=== PATIENT | female | born 1975 ===

== ENCOUNTER 2017-02-12 00:20 | Day surgery (SDC) | payer SELFPAY ==
[~2017-02-12 00:20] MED LIST: Bactrim 400-801 EACH PO; Bactrim Ds Tab1 EACH PO; CEPH500 PO; CIPR500 PO; Dulcolax Stool100 MG PO; GABA300 PO; Keflex500 MG PO; LEVFLO500 PO; NITR100CA PO; ONDA4ODT MM; OXYC10TA19 PO; POTCHL10ER; PROC5 PO; SENN187 PO; Sulfamethoxazo1 EAC4 PO
[2017-05-27] MEDS ORDERED: MAGOXI400 PO (16:56)
[2017-06-26] MEDS ORDERED: PENVK500 PO (08:58)
[2017-11-22] MEDS ORDERED: Zofran Odt4 MG SL (13:56)
[2017-11-22] MEDS ORDERED: Norco 10-325 T1 EACH PO (13:56)
[2017-11-22] MEDS ORDERED: LEVFLO500 PO (13:56)
== END 2017-02-12 16:37 | disposition home or self-care (01) ==
LOC: ATC 00:20
DX: Z43.6 Encounter for attention to other artificial openings of urinary tract (principal); R30.0 Dysuria; C53.9 Malignant neoplasm of cervix uteri, unspecified
CPT/HCPCS: 99211

== ENCOUNTER 2017-02-16 21:08 | Emergency (ER) | payer SELFPAY ==
[~2017-02-16] VITALS: Ht 160 cm; Wt 68.0 kg
[2017-02-16 22:31] LABS: BASOPHILS ABSOLUTE AUTO 0.01 K/mm3 (0.00-0.23); BASOPHILS PERCENT AUTO 0 % (0-2); EOSINOPHILS ABSOLUTE AUTO 0.42 K/mm3 (0.00-0.68); EOSINOPHILS PERCENT AUTO 6 % (0-6); Hematocrit 35.9 % (33.0-51.0); Hemoglobin 12.2 g/dL (11.5-16.0); IMMATURE GRAN ABSOLUTE AUTO 0.03 K/mm3 (0.00-0.10); IMMATURE GRAN PERCENT AUTO 0 % (0-1); LYMPHOCYTES ABSOLUTE AUTO 1.17 K/mm3 (0.84-5.20); LYMPHOCYTES PERCENT AUTO 17 % (21-46); MONOCYTES ABSOLUTE AUTO 0.25 K/mm3 (0.16-1.47); MONOCYTES PERCENT AUTO 4 % (4-13); Mean Corpuscular Volume 88 fL (80-100); Mean Platelet Volume 9.2 fL (9.1-12.4); NEUTROPHILS ABSOLUTE AUTO 5.02 K/mm3 (1.96-9.15); NEUTROPHILS PERCENT AUTO 73 % (41-73); Platelet Count 361 K/mm3 (150-400); RDW Coefficient Variation 12.7 % (11.7-14.2); RDW Standard Deviation 40.9 fL (35.1-46.3); Red Blood Cell Count 4.07 M/mm3 (3.80-5.20)
[2017-02-16 22:32] LABS: Source, Urine Clean Catch
[2017-02-16 22:34] LABS: Bilirubin, Urine Neg (Neg); Blood, Urine 4+ (Neg); Glucose Qualitative, Urine Neg (Neg); Ketones, Urine Neg (Neg); Leukocyte Esterase, Urine 3+ (Neg); Nitrite, Urine Neg (Neg); Protein, Urine 3+ (Neg); Specific Gravity, Urine 1.015 (1.003-1.022); Urobilinogen, Urine NORM (Normal)
[2017-02-16 22:43] LABS: Alanine Aminotransfer (ALT/SGP 32 U/L (12-78); Albumin, Blood 3.6 g/dL (3.4-5.0); Albumin/Globulin Ratio 0.8 (0.8-1.8); Alk Phos 135 U/L (50-136); Anion Gap 11 mmol/L (6-16); Aspartate Aminotrans (AST/SGOT 24 U/L (12-37); Bilirubin, Total 0.1 mg/dL (0.1-1.0); Blood Urea Nitrogen 22 mg/dL (8-24); Bun/Creatinine Ratio 21.8 (12.0-20.0); CO2, Blood 24 mmol/L (21-32); Calcium, Blood 8.7 mg/dL (8.5-10.1); Chloride, Blood 106 mmol/L (98-108); Creatinine, Blood 1.01 mg/dL (0.40-1.00); Globulin, Blood 4.6 g/dL (2.2-4.0); Glomerular Filtration Rate >60 (60-); Glucose, Blood 132 mg/dL (70-99); Potassium, Blood 3.5 mmol/L (3.5-5.5); Sodium, Blood 141 mmol/L (136-145); Total Protein, Blood 8.2 g/dL (6.4-8.2)
[2017-02-16 22:48] LABS: Appearance, Urine Cloudy (Clear); Bacteria Many /hpf; Color, Urine Yellow (P-Yellow); Squamous Epithelial Cells Few /hpf (Few); White Blood Cells, Urine 25-50 /hpf (0-5)
[2017-05-27] MEDS ORDERED: MAGOXI400 PO (16:56)
[2017-06-26] MEDS ORDERED: PENVK500 PO (08:58)
[2017-11-22] MEDS ORDERED: Norco 10-325 T1 EACH PO (13:56)
[2017-11-22] MEDS ORDERED: Zofran Odt4 MG SL (13:56)
[2017-11-22] MEDS ORDERED: LEVFLO500 PO (13:56)
== END 2017-02-17 00:20 | disposition home or self-care (01) ==
LOC: ER 21:08
DX: T83.092A Other mechanical complication of nephrostomy catheter, initial encounter (principal); T83.511A Infection and inflammatory reaction due to indwelling urethral catheter, initial encounter; D49.59 Neoplasm of unspecified behavior of other genitourinary organ; Z79.899 Other long term (current) drug therapy
CPT/HCPCS: 36415; 71046; 80053; 81001; 83690; 85025; 87077; 87086; 87186; 99283

== ENCOUNTER 2017-02-18 00:30 | Day surgery (SDC) | payer SELFPAY ==
[2017-05-27] MEDS ORDERED: MAGOXI400 PO (16:56)
[2017-06-26] MEDS ORDERED: PENVK500 PO (08:58)
[2017-11-22] MEDS ORDERED: LEVFLO500 PO (13:56)
[2017-11-22] MEDS ORDERED: Zofran Odt4 MG SL (13:56)
[2017-11-22] MEDS ORDERED: Norco 10-325 T1 EACH PO (13:56)
== END 2017-02-18 16:41 | disposition home or self-care (01) ==
LOC: ATC 00:30
DX: Z43.6 Encounter for attention to other artificial openings of urinary tract (principal)
CPT/HCPCS: 99211

== ENCOUNTER 2017-02-25 00:23 | Day surgery (SDC) | payer SELFPAY ==
[2017-05-27] MEDS ORDERED: MAGOXI400 PO (16:56)
[2017-06-26] MEDS ORDERED: PENVK500 PO (08:58)
[2017-11-22] MEDS ORDERED: LEVFLO500 PO (13:56)
[2017-11-22] MEDS ORDERED: Norco 10-325 T1 EACH PO (13:56)
[2017-11-22] MEDS ORDERED: Zofran Odt4 MG SL (13:56)
== END 2017-02-25 16:29 | disposition home or self-care (01) ==
LOC: ATC 00:23
DX: C53.9 Malignant neoplasm of cervix uteri, unspecified (principal); R30.0 Dysuria; G62.9 Polyneuropathy, unspecified
CPT/HCPCS: 99211

== ENCOUNTER 2017-03-04 00:08 | Day surgery (SDC) | payer SELFPAY ==
[2017-05-27] MEDS ORDERED: MAGOXI400 PO (16:56)
[2017-06-26] MEDS ORDERED: PENVK500 PO (08:58)
[2017-11-22] MEDS ORDERED: LEVFLO500 PO (13:56)
[2017-11-22] MEDS ORDERED: Norco 10-325 T1 EACH PO (13:56)
[2017-11-22] MEDS ORDERED: Zofran Odt4 MG SL (13:56)
== END 2017-03-04 16:51 | disposition home or self-care (01) ==
LOC: ATC 00:08
DX: C53.9 Malignant neoplasm of cervix uteri, unspecified (principal); G62.9 Polyneuropathy, unspecified; R30.0 Dysuria
CPT/HCPCS: 99211

== ENCOUNTER 2017-03-11 00:19 | Day surgery (SDC) | payer SELFPAY ==
[2017-05-27] MEDS ORDERED: MAGOXI400 PO (16:56)
[2017-06-26] MEDS ORDERED: PENVK500 PO (08:58)
[2017-11-22] MEDS ORDERED: Norco 10-325 T1 EACH PO (13:56)
[2017-11-22] MEDS ORDERED: LEVFLO500 PO (13:56)
[2017-11-22] MEDS ORDERED: Zofran Odt4 MG SL (13:56)
== END 2017-03-11 16:37 | disposition home or self-care (01) ==
LOC: ATC 00:19
DX: Z43.6 Encounter for attention to other artificial openings of urinary tract (principal); C53.9 Malignant neoplasm of cervix uteri, unspecified; G62.9 Polyneuropathy, unspecified
CPT/HCPCS: 99211

== ENCOUNTER 2017-03-18 00:30 | Day surgery (SDC) | payer SELFPAY ==
[2017-05-27] MEDS ORDERED: MAGOXI400 PO (16:56)
[2017-06-26] MEDS ORDERED: PENVK500 PO (08:58)
[2017-11-22] MEDS ORDERED: LEVFLO500 PO (13:56)
[2017-11-22] MEDS ORDERED: Norco 10-325 T1 EACH PO (13:56)
[2017-11-22] MEDS ORDERED: Zofran Odt4 MG SL (13:56)
== END 2017-03-18 22:55 | disposition home or self-care (01) ==
LOC: ATC 00:30
DX: Z43.6 Encounter for attention to other artificial openings of urinary tract (principal); C53.9 Malignant neoplasm of cervix uteri, unspecified; G62.9 Polyneuropathy, unspecified
CPT/HCPCS: 99211

== ENCOUNTER 2017-03-20 20:15 | Emergency (ER) | payer SELFPAY ==
[~2017-03-20] VITALS: Ht 162.6 cm; Wt 55.8 kg
[2017-03-20 21:31] LABS: Source, Urine Urostomy Bag
[2017-03-20 21:38] LABS: Appearance, Urine Cloudy (Clear); Bilirubin, Urine Neg (Neg); Blood, Urine 5+ (Neg); Color, Urine Yellow (P-Yellow); Glucose Qualitative, Urine Neg (Neg); Ketones, Urine Neg (Neg); Leukocyte Esterase, Urine 3+ (Neg); Nitrite, Urine Neg (Neg); Protein, Urine 3+ (Neg); Specific Gravity, Urine 1.005 (1.003-1.022); Urobilinogen, Urine NORM (Normal)
[2017-03-20 21:44] LABS: Red Blood Cells, Urine 0-2 /hpf (0-2); White Blood Cells, Urine TNTC /hpf (0-5)
[2017-03-20 21:45] LABS: Bacteria Many /hpf; Squamous Epithelial Cells Not Seen /hpf (Few)
[2017-03-20 22:41] LABS: BASOPHILS ABSOLUTE AUTO 0.02 K/mm3 (0.00-0.23); BASOPHILS PERCENT AUTO 0 % (0-2); EOSINOPHILS ABSOLUTE AUTO 0.37 K/mm3 (0.00-0.68); EOSINOPHILS PERCENT AUTO 6 % (0-6); Hematocrit 37.6 % (33.0-51.0); Hemoglobin 12.5 g/dL (11.5-16.0); IMMATURE GRAN ABSOLUTE AUTO 0.03 K/mm3 (0.00-0.10); IMMATURE GRAN PERCENT AUTO 1 % (0-1); LYMPHOCYTES ABSOLUTE AUTO 0.98 K/mm3 (0.84-5.20); LYMPHOCYTES PERCENT AUTO 15 % (21-46); MONOCYTES ABSOLUTE AUTO 0.39 K/mm3 (0.16-1.47); MONOCYTES PERCENT AUTO 6 % (4-13); Mean Corpuscular HGB 29.7 pg (26.0-34.0); Mean Corpuscular HGB Conc 33.2 g/dL (31.5-36.5); Mean Corpuscular Volume 89 fL (80-100); Mean Platelet Volume 9.5 fL (9.1-12.4); NEUTROPHILS ABSOLUTE AUTO 4.81 K/mm3 (1.96-9.15); NEUTROPHILS PERCENT AUTO 73 % (41-73); Platelet Count 335 K/mm3 (150-400); RDW Coefficient Variation 13.1 % (11.7-14.2); Red Blood Cell Count 4.21 M/mm3 (3.80-5.20)
[2017-03-20 23:02] LABS: Alanine Aminotransfer (ALT/SGP 25 U/L (12-78); Albumin, Blood 3.6 g/dL (3.4-5.0); Albumin/Globulin Ratio 0.8 (0.8-1.8); Alk Phos 111 U/L (50-136); Anion Gap 7 mmol/L (6-16); Aspartate Aminotrans (AST/SGOT 17 U/L (12-37); Bilirubin, Total 0.2 mg/dL (0.1-1.0); Blood Urea Nitrogen 27 mg/dL (8-24); Bun/Creatinine Ratio 29.7 (12.0-20.0); CO2, Blood 30 mmol/L (21-32); Calcium, Blood 9.1 mg/dL (8.5-10.1); Chloride, Blood 103 mmol/L (98-108); Creatinine, Blood 0.91 mg/dL (0.40-1.00); Globulin, Blood 4.3 g/dL (2.2-4.0); Glomerular Filtration Rate >60 (60-); Glucose, Blood 104 mg/dL (70-99); Potassium, Blood 3.5 mmol/L (3.5-5.5); Sodium, Blood 140 mmol/L (136-145); Total Protein, Blood 7.9 g/dL (6.4-8.2)
[2017-03-20] MEDS ORDERED: CEFD300 PO (23:14)
[2017-05-27] MEDS ORDERED: MAGOXI400 PO (16:56)
[2017-06-26] MEDS ORDERED: PENVK500 PO (08:58)
[2017-11-22] MEDS ORDERED: LEVFLO500 PO (13:56)
[2017-11-22] MEDS ORDERED: Norco 10-325 T1 EACH PO (13:56)
[2017-11-22] MEDS ORDERED: Zofran Odt4 MG SL (13:56)
== END 2017-03-20 23:27 | disposition home or self-care (01) ==
LOC: ER 20:15
PROVIDERS: Emergency Medicine
DX: N99.522 Malfunction of incontinent external stoma of urinary tract (principal); N39.0 Urinary tract infection, site not specified; N12 Tubulo-interstitial nephritis, not specified as acute or chronic; Z79.899 Other long term (current) drug therapy
CPT/HCPCS: 36415; 80053; 81001; 85025; 96374; 99283; J2270

== ENCOUNTER 2017-03-25 00:28 | Day surgery (SDC) | payer SELFPAY ==
[~2017-03-25 00:28] MED LIST changes: +CEFD300 PO
[2017-05-27] MEDS ORDERED: MAGOXI400 PO (16:56)
[2017-06-26] MEDS ORDERED: PENVK500 PO (08:58)
[2017-11-22] MEDS ORDERED: LEVFLO500 PO (13:56)
[2017-11-22] MEDS ORDERED: Zofran Odt4 MG SL (13:56)
[2017-11-22] MEDS ORDERED: Norco 10-325 T1 EACH PO (13:56)
== END 2017-03-25 16:30 | disposition home or self-care (01) ==
LOC: ATC 00:28
DX: Z43.6 Encounter for attention to other artificial openings of urinary tract (principal); C53.9 Malignant neoplasm of cervix uteri, unspecified; R30.0 Dysuria
CPT/HCPCS: 99211

== ENCOUNTER 2017-04-01 00:21 | Day surgery (SDC) | payer SELFPAY ==
[2017-05-27] MEDS ORDERED: MAGOXI400 PO (16:56)
[2017-06-26] MEDS ORDERED: PENVK500 PO (08:58)
[2017-11-22] MEDS ORDERED: LEVFLO500 PO (13:56)
[2017-11-22] MEDS ORDERED: Zofran Odt4 MG SL (13:56)
[2017-11-22] MEDS ORDERED: Norco 10-325 T1 EACH PO (13:56)
== END 2017-04-01 16:30 | disposition home or self-care (01) ==
LOC: ATC 00:21
DX: Z43.6 Encounter for attention to other artificial openings of urinary tract (principal)
CPT/HCPCS: 99211

== ENCOUNTER 2017-04-08 00:46 | Day surgery (SDC) | payer SELFPAY ==
[2017-05-27] MEDS ORDERED: MAGOXI400 PO (16:56)
[2017-06-26] MEDS ORDERED: PENVK500 PO (08:58)
[2017-11-22] MEDS ORDERED: Norco 10-325 T1 EACH PO (13:56)
[2017-11-22] MEDS ORDERED: Zofran Odt4 MG SL (13:56)
[2017-11-22] MEDS ORDERED: LEVFLO500 PO (13:56)
== END 2017-04-08 16:24 | disposition home or self-care (01) ==
LOC: ATC 00:46
DX: Z43.6 Encounter for attention to other artificial openings of urinary tract (principal); C53.9 Malignant neoplasm of cervix uteri, unspecified; R30.0 Dysuria; G62.9 Polyneuropathy, unspecified
CPT/HCPCS: 99211

== ENCOUNTER 2017-04-15 00:41 | Day surgery (SDC) | payer SELFPAY ==
[2017-04-16] MEDS ORDERED: Bactrim 400-801 EACH PO (11:11)
[2017-05-27] MEDS ORDERED: MAGOXI400 PO (16:56)
[2017-06-26] MEDS ORDERED: PENVK500 PO (08:58)
[2017-11-22] MEDS ORDERED: Zofran Odt4 MG SL (13:56)
[2017-11-22] MEDS ORDERED: LEVFLO500 PO (13:56)
[2017-11-22] MEDS ORDERED: Norco 10-325 T1 EACH PO (13:56)
== END 2017-04-15 16:46 | disposition home or self-care (01) ==
LOC: ATC 00:41
DX: Z43.6 Encounter for attention to other artificial openings of urinary tract (principal); C53.9 Malignant neoplasm of cervix uteri, unspecified; R30.0 Dysuria
CPT/HCPCS: 99211

== ENCOUNTER 2017-04-16 07:27 | Emergency (ER) | payer SELFPAY ==
[~2017-04-16] VITALS: Ht 152.4 cm; Wt 59.0 kg
[2017-04-16 08:53] LABS: BASOPHILS ABSOLUTE AUTO 0.02 K/mm3 (0.00-0.23); BASOPHILS PERCENT AUTO 0 % (0-2); EOSINOPHILS ABSOLUTE AUTO 0.39 K/mm3 (0.00-0.68); EOSINOPHILS PERCENT AUTO 5 % (0-6); Hematocrit 39.7 % (33.0-51.0); Hemoglobin 13.1 g/dL (11.5-16.0); IMMATURE GRAN ABSOLUTE AUTO 0.03 K/mm3 (0.00-0.10); IMMATURE GRAN PERCENT AUTO 0 % (0-1); LYMPHOCYTES ABSOLUTE AUTO 1.15 K/mm3 (0.84-5.20); LYMPHOCYTES PERCENT AUTO 16 % (21-46); MONOCYTES ABSOLUTE AUTO 0.35 K/mm3 (0.16-1.47); MONOCYTES PERCENT AUTO 5 % (4-13); Mean Corpuscular HGB 29.5 pg (26.0-34.0); Mean Corpuscular Volume 89 fL (80-100); Mean Platelet Volume 9.5 fL (9.1-12.4); NEUTROPHILS ABSOLUTE AUTO 5.32 K/mm3 (1.96-9.15); NEUTROPHILS PERCENT AUTO 73 % (41-73); Platelet Count 346 K/mm3 (150-400); RDW Coefficient Variation 13.1 % (11.7-14.2); RDW Standard Deviation 42.9 fL (35.1-46.3); Red Blood Cell Count 4.44 M/mm3 (3.80-5.20); White Blood Cell Count 7.26 K/mm3 (4.00-11.30)
[2017-04-16 09:04] LABS: Anion Gap 6 mmol/L (6-16); Blood Urea Nitrogen 29 mg/dL (8-24); Bun/Creatinine Ratio 29.6 (12.0-20.0); CO2, Blood 27 mmol/L (21-32); Calcium, Blood 9.4 mg/dL (8.5-10.1); Chloride, Blood 108 mmol/L (98-108); Creatinine, Blood 0.98 mg/dL (0.40-1.00); Glomerular Filtration Rate >60 (60-); Glucose, Blood 104 mg/dL (70-99); Potassium, Blood 3.8 mmol/L (3.5-5.5); Sodium, Blood 141 mmol/L (136-145)
[2017-04-16 09:51] LABS: Source, Urine Clean Catch
[2017-04-16 10:03] LABS: Bilirubin, Urine Neg (Neg); Blood, Urine 4+ (Neg); Glucose Qualitative, Urine Neg (Neg); Ketones, Urine Neg (Neg); Leukocyte Esterase, Urine 3+ (Neg); Nitrite, Urine Neg (Neg); Protein, Urine 3+ (Neg); Urobilinogen, Urine NORM (Normal)
[2017-04-16 10:16] LABS: Appearance, Urine Hazy (Clear); Color, Urine Yellow (P-Yellow)
[2017-04-16 10:17] LABS: Red Blood Cells, Urine 25-50 /hpf (0-2); White Blood Cells, Urine TNTC /hpf (0-5)
[2017-04-16 10:18] LABS: Bacteria Many /hpf; Squamous Epithelial Cells Not Seen /hpf (Few); Triple Phosphate Crystals Many /hpf
[2017-04-16] MEDS ORDERED: Bactrim 400-801 EACH PO (11:11)
[2017-05-27] MEDS ORDERED: MAGOXI400 PO (16:56)
[2017-06-26] MEDS ORDERED: PENVK500 PO (08:58)
[2017-11-22] MEDS ORDERED: Norco 10-325 T1 EACH PO (13:56)
[2017-11-22] MEDS ORDERED: Zofran Odt4 MG SL (13:56)
[2017-11-22] MEDS ORDERED: LEVFLO500 PO (13:56)
== END 2017-04-16 11:38 | disposition home or self-care (01) ==
LOC: ER 07:27
PROVIDERS: Emergency Medicine
DX: N39.0 Urinary tract infection, site not specified (principal); N99.528 Other complication of incontinent external stoma of urinary tract; Z79.899 Other long term (current) drug therapy
CPT/HCPCS: 36415; 80048; 81001; 85025; 87086; 96374; 96375; 99283; J1170; J2405

== ENCOUNTER 2017-04-22 01:11 | Day surgery (SDC) | payer SELFPAY ==
[2017-05-27] MEDS ORDERED: MAGOXI400 PO (16:56)
[2017-06-26] MEDS ORDERED: PENVK500 PO (08:58)
[2017-11-22] MEDS ORDERED: Zofran Odt4 MG SL (13:56)
[2017-11-22] MEDS ORDERED: Norco 10-325 T1 EACH PO (13:56)
[2017-11-22] MEDS ORDERED: LEVFLO500 PO (13:56)
== END 2017-04-22 23:16 | disposition home or self-care (01) ==
LOC: ATC 01:11
DX: Z43.6 Encounter for attention to other artificial openings of urinary tract (principal); R30.0 Dysuria; C53.9 Malignant neoplasm of cervix uteri, unspecified
CPT/HCPCS: 99211

== ENCOUNTER 2017-04-28 15:35 | Emergency (ER) | payer SELFPAY ==
[~2017-04-28] VITALS: Ht 121.9 cm; Wt 59.0 kg
[2017-05-27] MEDS ORDERED: MAGOXI400 PO (16:56)
[2017-06-26] MEDS ORDERED: PENVK500 PO (08:58)
[2017-11-22] MEDS ORDERED: LEVFLO500 PO (13:56)
[2017-11-22] MEDS ORDERED: Norco 10-325 T1 EACH PO (13:56)
[2017-11-22] MEDS ORDERED: Zofran Odt4 MG SL (13:56)
== END 2017-04-28 17:45 | disposition home or self-care (01) ==
LOC: ER 15:35
DX: Z43.6 Encounter for attention to other artificial openings of urinary tract (principal); Z79.899 Other long term (current) drug therapy
CPT/HCPCS: 99282

== ENCOUNTER 2017-04-29 00:29 | Day surgery (SDC) | payer SELFPAY ==
[2017-05-27] MEDS ORDERED: MAGOXI400 PO (16:56)
[2017-06-26] MEDS ORDERED: PENVK500 PO (08:58)
[2017-11-22] MEDS ORDERED: Norco 10-325 T1 EACH PO (13:56)
[2017-11-22] MEDS ORDERED: Zofran Odt4 MG SL (13:56)
[2017-11-22] MEDS ORDERED: LEVFLO500 PO (13:56)
== END 2017-04-29 16:56 | disposition home or self-care (01) ==
LOC: ATC 00:29
DX: Z43.6 Encounter for attention to other artificial openings of urinary tract (principal); C53.9 Malignant neoplasm of cervix uteri, unspecified; R30.0 Dysuria
CPT/HCPCS: 99211

== ENCOUNTER 2017-05-06 00:50 | Day surgery (SDC) | payer SELFPAY ==
[2017-05-27] MEDS ORDERED: MAGOXI400 PO (16:56)
[2017-06-26] MEDS ORDERED: PENVK500 PO (08:58)
[2017-11-22] MEDS ORDERED: Zofran Odt4 MG SL (13:56)
[2017-11-22] MEDS ORDERED: LEVFLO500 PO (13:56)
[2017-11-22] MEDS ORDERED: Norco 10-325 T1 EACH PO (13:56)
== END 2017-05-06 16:09 | disposition home or self-care (01) ==
LOC: ATC 00:50
DX: Z43.6 Encounter for attention to other artificial openings of urinary tract (principal); R30.0 Dysuria; C53.9 Malignant neoplasm of cervix uteri, unspecified
CPT/HCPCS: 99211

== ENCOUNTER 2017-05-12 09:44 | Inpatient (IN) | payer SELFPAY ==
[~2017-05-12] VITALS: Ht 142.2 cm; Wt 66.7 kg
[2017-05-12 11:21] LABS: BASOPHILS ABSOLUTE AUTO 0.02 K/mm3 (0.00-0.23); BASOPHILS PERCENT AUTO 0 % (0-2); EOSINOPHILS ABSOLUTE AUTO 0.17 K/mm3 (0.00-0.68); EOSINOPHILS PERCENT AUTO 2 % (0-6); Hematocrit 39.5 % (33.0-51.0); Hemoglobin 13.3 g/dL (11.5-16.0); IMMATURE GRAN ABSOLUTE AUTO 0.03 K/mm3 (0.00-0.10); IMMATURE GRAN PERCENT AUTO 0 % (0-1); LYMPHOCYTES PERCENT AUTO 6 % (21-46); MONOCYTES ABSOLUTE AUTO 0.36 K/mm3 (0.16-1.47); MONOCYTES PERCENT AUTO 3 % (4-13); Mean Corpuscular HGB 29.7 pg (26.0-34.0); Mean Corpuscular HGB Conc 33.7 g/dL (31.5-36.5); Mean Corpuscular Volume 88 fL (80-100); Mean Platelet Volume 9.7 fL (9.1-12.4); NEUTROPHILS ABSOLUTE AUTO 9.77 K/mm3 (1.96-9.15); NEUTROPHILS PERCENT AUTO 89 % (41-73); Platelet Count 337 K/mm3 (150-400); RDW Standard Deviation 42.4 fL (35.1-46.3); Red Blood Cell Count 4.48 M/mm3 (3.80-5.20); White Blood Cell Count 10.95 K/mm3 (4.00-11.30)
[2017-05-12 11:36] LABS: Calcium, Blood 9.2 mg/dL (8.5-10.1); Creatinine, Blood 1.45 mg/dL (0.40-1.00); Potassium, Blood 3.8 mmol/L (3.5-5.5)
[2017-05-12 14:18] LABS: Source, Urine Urostomy Bag
[2017-05-12 14:36] LABS: Appearance, Urine Hazy (Clear); Bilirubin, Urine Neg (Neg); Blood, Urine 3+ (Neg); Color, Urine Yellow (P-Yellow); Glucose Qualitative, Urine Neg (Neg); Ketones, Urine Neg (Neg); Leukocyte Esterase, Urine 3+ (Neg); Nitrite, Urine Neg (Neg); Protein, Urine 2+ (Neg); Urobilinogen, Urine NORM (Normal)
[2017-05-12 14:57] LABS: Red Blood Cells, Urine 25-50 /hpf (0-2); White Blood Cells, Urine 25-50 /hpf (0-5)
[2017-05-12 14:58] LABS: Bacteria Many /hpf; Squamous Epithelial Cells Not Seen /hpf (Few); Triple Phosphate Crystals Mod /hpf
[2017-05-12] MEDS ORDERED: Macrobid 100 M100 MG PO (15:56)
[2017-05-12] MEDS ORDERED: PANT40 PO (20:57)
[2017-05-12] MEDS ORDERED: BISA5EC PO (20:58)
[2017-05-12] MEDS ORDERED: BIOTIN5000 MCG PO (20:59)
[2017-05-12] MEDS ORDERED: TRAM50 PO (20:59)
[2017-05-13 05:37] LABS: Hematocrit 33.7 % (33.0-51.0); Hemoglobin 11.2 g/dL (11.5-16.0); Mean Corpuscular HGB 29.9 pg (26.0-34.0); Mean Corpuscular HGB Conc 33.2 g/dL (31.5-36.5); Mean Corpuscular Volume 90 fL (80-100); Platelet Count 257 K/mm3 (150-400); RDW Coefficient Variation 13.7 % (11.7-14.2); RDW Standard Deviation 45.1 fL (35.1-46.3); Red Blood Cell Count 3.74 M/mm3 (3.80-5.20)
[2017-05-13 05:59] LABS: Bun/Creatinine Ratio 13.5 (12.0-20.0); Calcium, Blood 7.8 mg/dL (8.5-10.1); Creatinine, Blood 2.81 mg/dL (0.40-1.00); Potassium, Blood 3.8 mmol/L (3.5-5.5)
== END 2017-05-13 17:33 | disposition short-term general hospital (02) | DRG 872 ==
LOC: ER 09:44 → MEDS 09:45
PROVIDERS: Emergency Medicine; Internal Medicine
DX: A41.9 Sepsis, unspecified organism (principal); N17.9 Acute kidney failure, unspecified; N12 Tubulo-interstitial nephritis, not specified as acute or chronic; N13.1 Hydronephrosis with ureteral stricture, not elsewhere classified; R65.20 Severe sepsis without septic shock; R73.03 Prediabetes; C53.9 Malignant neoplasm of cervix uteri, unspecified; Z96.89 Presence of other specified functional implants; E66.9 Obesity, unspecified; Z68.39 Body mass index [BMI] 39.0-39.9, adult; Z79.899 Other long term (current) drug therapy; Z92.21 Personal history of antineoplastic chemotherapy; Z92.3 Personal history of irradiation
CPT/HCPCS: 36415; 74176; 80048; 81001; 83605; 85025; 85027; 87040; 87077; 87086; 87186; 93005; 93010; 96361; 96374; 96375; 99285; J0696; J2405; J2543; J3010; J7030; J7120

== ENCOUNTER 2017-06-03 00:49 | Day surgery (SDC) | payer SELFPAY ==
[~2017-06-03 00:49] MED LIST changes: +BIOTIN5000 MCG PO; +BISA5EC PO; +MAGOXI400 PO; +Macrobid 100 M100 MG PO; +PANT40 PO; +TRAM50 PO
== END 2017-06-03 16:50 | disposition home or self-care (01) ==
LOC: ATC 00:49
DX: Z43.6 Encounter for attention to other artificial openings of urinary tract (principal); R30.0 Dysuria; C53.9 Malignant neoplasm of cervix uteri, unspecified
CPT/HCPCS: 99211

== ENCOUNTER 2017-06-10 00:25 | Day surgery (SDC) | payer SELFPAY | END 2017-06-10 16:52 | disposition home or self-care (01) | LOC: ATC 00:25 | DX: Z43.6 Encounter for attention to other artificial openings of urinary tract (principal); R30.0 Dysuria; C53.9 Malignant neoplasm of cervix uteri, unspecified ==

== ENCOUNTER 2017-06-17 00:53 | Day surgery (SDC) | payer SELFPAY | END 2017-06-17 16:32 | disposition home or self-care (01) | LOC: ATC 00:53 | DX: Z46.6 Encounter for fitting and adjustment of urinary device (principal) | CPT/HCPCS: 99211 ==

== ENCOUNTER 2017-06-22 08:25 | Emergency (ER) | payer SELFPAY ==
[~2017-06-22] VITALS: Ht 127 cm; Wt 59.0 kg
[2017-06-22 10:16] LABS: BASOPHILS ABSOLUTE AUTO 0.01 K/mm3 (0.00-0.23); BASOPHILS PERCENT AUTO 0 % (0-2); EOSINOPHILS ABSOLUTE AUTO 0.09 K/mm3 (0.00-0.68); EOSINOPHILS PERCENT AUTO 1 % (0-6); Hematocrit 35.5 % (33.0-51.0); Hemoglobin 11.8 g/dL (11.5-16.0); IMMATURE GRAN ABSOLUTE AUTO 0.03 K/mm3 (0.00-0.10); IMMATURE GRAN PERCENT AUTO 0 % (0-1); LYMPHOCYTES ABSOLUTE AUTO 1.11 K/mm3 (0.84-5.20); LYMPHOCYTES PERCENT AUTO 12 % (21-46); MONOCYTES ABSOLUTE AUTO 0.45 K/mm3 (0.16-1.47); MONOCYTES PERCENT AUTO 5 % (4-13); Mean Corpuscular HGB 29.7 pg (26.0-34.0); Mean Corpuscular HGB Conc 33.2 g/dL (31.5-36.5); Mean Corpuscular Volume 89 fL (80-100); Mean Platelet Volume 9.9 fL (9.1-12.4); NEUTROPHILS ABSOLUTE AUTO 7.99 K/mm3 (1.96-9.15); NEUTROPHILS PERCENT AUTO 83 % (41-73); Platelet Count 339 K/mm3 (150-400); RDW Coefficient Variation 13.4 % (11.7-14.2); RDW Standard Deviation 43.4 fL (35.1-46.3); Red Blood Cell Count 3.97 M/mm3 (3.80-5.20); White Blood Cell Count 9.68 K/mm3 (4.00-11.30)
[2017-06-22 10:34] LABS: Albumin, Blood 3.6 g/dL (3.4-5.0); Albumin/Globulin Ratio 0.9 (0.8-1.8); Bilirubin, Total 0.6 mg/dL (0.1-1.0); Bun/Creatinine Ratio 22.1 (12.0-20.0); Calcium, Blood 8.7 mg/dL (8.5-10.1); Creatinine, Blood 1.13 mg/dL (0.40-1.00); Globulin, Blood 4.1 g/dL (2.2-4.0); Potassium, Blood 3.3 mmol/L (3.5-5.5); Total Protein, Blood 7.7 g/dL (6.4-8.2)
[2017-06-22 10:41] LABS: Source, Urine Urostomy Bag
[2017-06-22 10:44] LABS: Bilirubin, Urine Neg (Neg); Blood, Urine 5+ (Neg); Glucose Qualitative, Urine Neg (Neg); Ketones, Urine Neg (Neg); Leukocyte Esterase, Urine 3+ (Neg); Nitrite, Urine Pos (Neg); Protein, Urine 3+ (Neg); Specific Gravity, Urine 1.015 (1.003-1.022); Urobilinogen, Urine NORM (Normal); pH, Urine 6.5 (5.0-8.0)
[2017-06-22 10:45] LABS: Color, Urine Yellow (P-Yellow)
[2017-06-22 10:46] LABS: Appearance, Urine Cloudy (Clear)
[2017-06-22 10:48] LABS: White Blood Cells, Urine 25-50 /hpf (0-5)
[2017-06-22 10:49] LABS: Bacteria Mod /hpf; Mucus Light (0-Heavy); Squamous Epithelial Cells Few /hpf (Few)
[2017-06-22] MEDS ORDERED: ONDA4 PO (11:10)
[2017-06-22] MEDS ORDERED: Macrobid 100 M100 MG PO (11:10)
[2017-06-26] MEDS ORDERED: PENVK500 PO (08:58)
== END 2017-06-22 11:30 | disposition home or self-care (01) ==
LOC: ER 08:25
PROVIDERS: Emergency Medicine
DX: R11.2 Nausea with vomiting, unspecified (principal); R19.7 Diarrhea, unspecified; Z93.6 Other artificial openings of urinary tract status; Z79.899 Other long term (current) drug therapy
CPT/HCPCS: 36415; 80053; 81001; 85025; 87077; 87086; 87186; 96374; 99283; J2405; J7030

== ENCOUNTER 2017-06-24 00:12 | Day surgery (SDC) | payer SELFPAY ==
[~2017-06-24 00:12] MED LIST changes: +ONDA4 PO
[2017-06-26] MEDS ORDERED: PENVK500 PO (08:58)
== END 2017-06-24 16:43 | disposition home or self-care (01) ==
LOC: ATC 00:12
DX: Z43.6 Encounter for attention to other artificial openings of urinary tract (principal); R30.0 Dysuria; C53.9 Malignant neoplasm of cervix uteri, unspecified
CPT/HCPCS: 99211

== ENCOUNTER 2017-07-01 00:37 | Day surgery (SDC) | payer SELFPAY ==
[~2017-07-01 00:37] MED LIST changes: +PENVK500 PO
== END 2017-07-01 16:38 | disposition home or self-care (01) ==
LOC: ATC 00:37
DX: Z43.6 Encounter for attention to other artificial openings of urinary tract (principal); R30.0 Dysuria
CPT/HCPCS: 99211

== ENCOUNTER 2017-07-08 00:09 | Day surgery (SDC) | payer SELFPAY | END 2017-07-08 22:38 | disposition home or self-care (01) | LOC: ATC 00:09 | DX: Z43.6 Encounter for attention to other artificial openings of urinary tract (principal); R30.0 Dysuria; C53.9 Malignant neoplasm of cervix uteri, unspecified ==

== ENCOUNTER 2017-07-15 00:15 | Day surgery (SDC) | payer SELFPAY | END 2017-07-15 16:47 | disposition home or self-care (01) | LOC: ATC 00:15 | DX: A41.9 Sepsis, unspecified organism (principal); N12 Tubulo-interstitial nephritis, not specified as acute or chronic; R65.20 Severe sepsis without septic shock; N17.9 Acute kidney failure, unspecified; N13.5 Crossing vessel and stricture of ureter without hydronephrosis | CPT/HCPCS: 99211 ==

== ENCOUNTER 2017-07-22 00:41 | Day surgery (SDC) | payer SELFPAY | END 2017-07-22 17:00 | disposition home or self-care (01) | LOC: ATC 00:41 | DX: Z43.6 Encounter for attention to other artificial openings of urinary tract (principal); A41.9 Sepsis, unspecified organism; R65.20 Severe sepsis without septic shock; N12 Tubulo-interstitial nephritis, not specified as acute or chronic; N13.5 Crossing vessel and stricture of ureter without hydronephrosis; R30.0 Dysuria; N17.9 Acute kidney failure, unspecified | CPT/HCPCS: 99211 ==

== ENCOUNTER 2017-07-29 00:33 | Day surgery (SDC) | payer SELFPAY | END 2017-07-29 17:04 | disposition home or self-care (01) | LOC: ATC 00:33 | DX: A41.9 Sepsis, unspecified organism (principal); N12 Tubulo-interstitial nephritis, not specified as acute or chronic; R65.20 Severe sepsis without septic shock; N17.9 Acute kidney failure, unspecified; R73.03 Prediabetes; N13.5 Crossing vessel and stricture of ureter without hydronephrosis | CPT/HCPCS: 99211 ==

== ENCOUNTER 2017-08-01 21:46 | Emergency (ER) | payer SELFPAY ==
[~2017-08-01] VITALS: Ht 147.3 cm; Wt 63.5 kg
[2017-08-01 23:57] LABS: BASOPHILS ABSOLUTE AUTO 0.03 K/mm3 (0.00-0.23); BASOPHILS PERCENT AUTO 0 % (0-2); EOSINOPHILS ABSOLUTE AUTO 0.29 K/mm3 (0.00-0.68); EOSINOPHILS PERCENT AUTO 3 % (0-6); Hematocrit 33.4 % (33.0-51.0); Hemoglobin 11.1 g/dL (11.5-16.0); IMMATURE GRAN ABSOLUTE AUTO 0.03 K/mm3 (0.00-0.10); IMMATURE GRAN PERCENT AUTO 0 % (0-1); LYMPHOCYTES ABSOLUTE AUTO 1.04 K/mm3 (0.84-5.20); LYMPHOCYTES PERCENT AUTO 12 % (21-46); MONOCYTES ABSOLUTE AUTO 0.62 K/mm3 (0.16-1.47); MONOCYTES PERCENT AUTO 7 % (4-13); Mean Corpuscular HGB 30.2 pg (26.0-34.0); Mean Corpuscular HGB Conc 33.2 g/dL (31.5-36.5); Mean Corpuscular Volume 91 fL (80-100); Mean Platelet Volume 9.8 fL (9.1-12.4); NEUTROPHILS ABSOLUTE AUTO 6.81 K/mm3 (1.96-9.15); NEUTROPHILS PERCENT AUTO 77 % (41-73); Platelet Count 265 K/mm3 (150-400); RDW Coefficient Variation 13.4 % (11.7-14.2); Red Blood Cell Count 3.67 M/mm3 (3.80-5.20); White Blood Cell Count 8.82 K/mm3 (4.00-11.30)
[2017-08-02 00:15] LABS: Albumin, Blood 3.3 g/dL (3.4-5.0); Albumin/Globulin Ratio 0.8 (0.8-1.8); Bilirubin, Total 0.5 mg/dL (0.1-1.0); Bun/Creatinine Ratio 19.5 (12.0-20.0); Calcium, Blood 8.2 mg/dL (8.5-10.1); Creatinine, Blood 1.49 mg/dL (0.40-1.00); Potassium, Blood 3.5 mmol/L (3.5-5.5); Total Protein, Blood 7.3 g/dL (6.4-8.2)
[2017-08-02] MEDS ORDERED: Norco 5-325 Ta1 EACH PO (01:28)
[2017-08-02] MEDS ORDERED: Cephalexin500 MG PO (01:28)
[2017-08-02 01:37] LABS: Bilirubin, Urine Neg (Neg); Blood, Urine 4+ (Neg); Glucose Qualitative, Urine Neg (Neg); Ketones, Urine Neg (Neg); Leukocyte Esterase, Urine 3+ (Neg); Nitrite, Urine Neg (Neg); Protein, Urine 2+ (Neg); Urobilinogen, Urine NORM (Normal)
[2017-08-02 01:38] LABS: Appearance, Urine Cloudy (Clear); Color, Urine Pale Yellow (P-Yellow)
[2017-08-02 01:57] LABS: Bacteria Mod /hpf; Red Blood Cells, Urine 0-2 /hpf (0-2); Squamous Epithelial Cells Few /hpf (Few); White Blood Cells, Urine TNTC /hpf (0-5)
== END 2017-08-02 01:50 | disposition home or self-care (01) ==
LOC: ER 21:46
PROVIDERS: Emergency Medicine
DX: N10 Acute pyelonephritis (principal); Z79.899 Other long term (current) drug therapy
CPT/HCPCS: 80053; 81001; 83690; 85025; 96374; 99284; J0696

== ENCOUNTER 2017-08-05 00:13 | Day surgery (SDC) | payer SELFPAY ==
[~2017-08-05 00:13] MED LIST changes: +Cephalexin500 MG PO; +Norco 5-325 Ta1 EACH PO
== END 2017-08-05 22:50 | disposition home or self-care (01) ==
LOC: ATC 00:13
DX: A41.9 Sepsis, unspecified organism (principal); N12 Tubulo-interstitial nephritis, not specified as acute or chronic; R65.20 Severe sepsis without septic shock; N17.9 Acute kidney failure, unspecified; N13.5 Crossing vessel and stricture of ureter without hydronephrosis
CPT/HCPCS: 99211

== ENCOUNTER 2017-08-19 00:46 | Day surgery (SDC) | payer SELFPAY | END 2017-08-19 16:52 | disposition home or self-care (01) | LOC: ATC 00:46 | DX: Z43.6 Encounter for attention to other artificial openings of urinary tract (principal); D50.9 Iron deficiency anemia, unspecified | CPT/HCPCS: 99211 ==

== ENCOUNTER 2017-08-26 00:45 | Day surgery (SDC) | payer SELFPAY | END 2017-08-26 16:25 | disposition home or self-care (01) | LOC: ATC 00:45 | DX: Z43.6 Encounter for attention to other artificial openings of urinary tract (principal) | CPT/HCPCS: 99211 ==

== ENCOUNTER 2017-09-16 00:16 | Day surgery (SDC) | payer SELFPAY | END 2017-09-16 23:04 | disposition home or self-care (01) | LOC: ATC 00:16 | DX: N18.3 Chronic kidney disease, stage 3 (moderate) (principal); N13.9 Obstructive and reflux uropathy, unspecified | CPT/HCPCS: 99211 ==

== ENCOUNTER 2017-09-23 00:19 | Day surgery (SDC) | payer SELFPAY | END 2017-09-23 16:26 | disposition home or self-care (01) | LOC: ATC 00:19 | DX: A41.9 Sepsis, unspecified organism (principal); N12 Tubulo-interstitial nephritis, not specified as acute or chronic; R65.20 Severe sepsis without septic shock; N17.9 Acute kidney failure, unspecified; R73.03 Prediabetes; N18.3 Chronic kidney disease, stage 3 (moderate); N13.9 Obstructive and reflux uropathy, unspecified | CPT/HCPCS: 99211 ==

== ENCOUNTER 2017-09-30 00:35 | Day surgery (SDC) | payer SELFPAY | END 2017-09-30 16:20 | disposition home or self-care (01) | LOC: ATC 00:35 | DX: N18.3 Chronic kidney disease, stage 3 (moderate) (principal); N13.9 Obstructive and reflux uropathy, unspecified | CPT/HCPCS: 99211 ==

== ENCOUNTER 2017-10-07 08:12 | Day surgery (SDC) | payer SELFPAY | END 2017-10-07 16:31 | disposition home or self-care (01) | LOC: ATC 08:12 | DX: Z43.6 Encounter for attention to other artificial openings of urinary tract (principal); N18.3 Chronic kidney disease, stage 3 (moderate); N13.9 Obstructive and reflux uropathy, unspecified | CPT/HCPCS: 99211 ==

== ENCOUNTER 2017-10-21 00:19 | Day surgery (SDC) | payer SELFPAY | END 2017-10-21 16:32 | disposition home or self-care (01) | LOC: ATC 00:19 | DX: N18.3 Chronic kidney disease, stage 3 (moderate) (principal); N13.9 Obstructive and reflux uropathy, unspecified; Z93.6 Other artificial openings of urinary tract status | CPT/HCPCS: 99211 ==

== ENCOUNTER 2017-10-28 00:18 | Day surgery (SDC) | payer SELFPAY | END 2017-10-28 16:29 | disposition home or self-care (01) | LOC: ATC 00:18 | DX: N13.9 Obstructive and reflux uropathy, unspecified (principal); N18.3 Chronic kidney disease, stage 3 (moderate); A41.9 Sepsis, unspecified organism; N12 Tubulo-interstitial nephritis, not specified as acute or chronic; R65.20 Severe sepsis without septic shock | CPT/HCPCS: 99211 ==

== ENCOUNTER 2017-11-04 01:09 | Day surgery (SDC) | payer SELFPAY | END 2017-11-04 16:14 | disposition home or self-care (01) | LOC: ATC 01:09 | DX: N18.3 Chronic kidney disease, stage 3 (moderate) (principal); N13.9 Obstructive and reflux uropathy, unspecified; Z93.6 Other artificial openings of urinary tract status | CPT/HCPCS: 99211 ==

== ENCOUNTER 2017-11-11 00:38 | Day surgery (SDC) | payer SELFPAY | END 2017-11-11 16:25 | disposition home or self-care (01) | LOC: ATC 00:38 | DX: Z43.6 Encounter for attention to other artificial openings of urinary tract (principal); N18.3 Chronic kidney disease, stage 3 (moderate); N13.9 Obstructive and reflux uropathy, unspecified; Z85.41 Personal history of malignant neoplasm of cervix uteri | CPT/HCPCS: 99211 ==

== ENCOUNTER 2017-12-09 12:02 | Day surgery (SDC) | payer OTHER ==
[~2017-12-09 12:02] MED LIST changes: +Norco 10-325 T1 EACH PO; +Zofran Odt4 MG SL
== END 2017-12-09 12:03 | disposition home or self-care (01) ==
LOC: ATC 12:02
DX: N13.9 Obstructive and reflux uropathy, unspecified (principal); N18.3 Chronic kidney disease, stage 3 (moderate)
CPT/HCPCS: 99211

== ENCOUNTER 2018-01-27 00:57 | Day surgery (SDC) | payer SELFPAY | END 2018-01-27 16:48 | disposition home or self-care (01) | LOC: ATC 00:57 | DX: Z48.00 Encounter for change or removal of nonsurgical wound dressing (principal) | CPT/HCPCS: 99211 ==

== ENCOUNTER 2018-02-03 00:06 | Day surgery (SDC) | payer SELFPAY | END 2018-02-03 15:51 | disposition home or self-care (01) | LOC: ATC 00:06 | DX: Z48.00 Encounter for change or removal of nonsurgical wound dressing (principal) | CPT/HCPCS: 99211 ==

== ENCOUNTER 2018-02-10 00:07 | Day surgery (SDC) | payer SELFPAY | END 2018-02-10 15:23 | disposition home or self-care (01) | LOC: ATC 00:07 | DX: Z48.00 Encounter for change or removal of nonsurgical wound dressing (principal) | CPT/HCPCS: 99211 ==

== ENCOUNTER 2018-02-16 18:09 | Emergency (ER) | payer SELFPAY ==
[~2018-02-16] VITALS: Ht 144.8 cm; Wt 61.2 kg
[2018-02-16 18:41] LABS: BASOPHILS ABSOLUTE AUTO 0.03 K/mm3 (0.00-0.23); BASOPHILS PERCENT AUTO 0 % (0-2); EOSINOPHILS ABSOLUTE AUTO 0.01 K/mm3 (0.00-0.68); EOSINOPHILS PERCENT AUTO 0 % (0-6); Hematocrit 40.2 % (33.0-51.0); Hemoglobin 12.9 g/dL (11.5-16.0); IMMATURE GRAN ABSOLUTE AUTO 0.06 K/mm3 (0.00-0.10); IMMATURE GRAN PERCENT AUTO 0 % (0-1); LYMPHOCYTES ABSOLUTE AUTO 0.94 K/mm3 (0.84-5.20); LYMPHOCYTES PERCENT AUTO 6 % (21-46); MONOCYTES ABSOLUTE AUTO 0.64 K/mm3 (0.16-1.47); MONOCYTES PERCENT AUTO 4 % (4-13); Mean Corpuscular HGB 28.9 pg (26.0-34.0); Mean Corpuscular HGB Conc 32.1 g/dL (31.5-36.5); Mean Corpuscular Volume 90 fL (80-100); Mean Platelet Volume 10.1 fL (9.1-12.4); NEUTROPHILS ABSOLUTE AUTO 14.42 K/mm3 (1.96-9.15); NEUTROPHILS PERCENT AUTO 90 % (41-73); Platelet Count 301 K/mm3 (150-400); RDW Coefficient Variation 13.8 % (11.7-14.2); RDW Standard Deviation 45.1 fL (35.1-46.3); Red Blood Cell Count 4.47 M/mm3 (3.80-5.20)
[2018-02-16 19:03] LABS: Albumin, Blood 3.6 g/dL (3.4-5.0); Albumin/Globulin Ratio 0.8 (0.8-1.8); Bilirubin, Total 0.7 mg/dL (0.1-1.0); Bun/Creatinine Ratio 18.9 (12.0-20.0); Calcium, Blood 8.6 mg/dL (8.5-10.1); Creatinine, Blood 1.22 mg/dL (0.40-1.00); Globulin, Blood 4.8 g/dL (2.2-4.0); Potassium, Blood 3.5 mmol/L (3.5-5.5); Total Protein, Blood 8.4 g/dL (6.4-8.2)
[2018-02-16 22:19] LABS: Source, Urine Clean Catch
[2018-02-16 22:21] LABS: Bilirubin, Urine Neg (Neg); Blood, Urine 4+ (Neg); Glucose Qualitative, Urine Neg (Neg); Ketones, Urine 1+ (Neg); Leukocyte Esterase, Urine 3+ (Neg); Nitrite, Urine Neg (Neg); Protein, Urine 4+ (Neg); Specific Gravity, Urine 1.015 (1.003-1.022); Urobilinogen, Urine NORM (Normal)
[2018-02-16 22:24] LABS: Appearance, Urine Cloudy (Clear); Color, Urine Brown (P-Yellow)
[2018-02-16 22:33] LABS: Amorphous Heavy (0-Heavy); Bacteria Many /hpf; Red Blood Cells, Urine 0-2 /hpf (0-2); Squamous Epithelial Cells Rare /hpf (Few); Triple Phosphate Crystals Mod /hpf
[2018-02-16] MEDS ORDERED: LEVFLO500 PO (23:13)
[2018-02-16] MEDS ORDERED: Percocet 5-3251 EACH PO (23:16)
== END 2018-02-16 23:50 | disposition home or self-care (01) ==
LOC: ER 18:09
PROVIDERS: Emergency Medicine
DX: N10 Acute pyelonephritis (principal); Z79.899 Other long term (current) drug therapy
CPT/HCPCS: 36415; 80053; 81001; 85025; 87077; 87086; 87186; 96361; 96365; 96374; 96375; 99283-25; J0696; J2405; J3010; J7030

== ENCOUNTER 2018-02-17 00:27 | Day surgery (SDC) | payer SELFPAY ==
[~2018-02-17 00:27] MED LIST changes: +Percocet 5-3251 EACH PO
== END 2018-02-17 15:15 | disposition home or self-care (01) ==
LOC: ATC 00:27
DX: Z48.00 Encounter for change or removal of nonsurgical wound dressing (principal)
CPT/HCPCS: 99211

== ENCOUNTER 2018-02-24 00:14 | Day surgery (SDC) | payer SELFPAY | END 2018-02-24 23:08 | disposition home or self-care (01) | LOC: ATC 00:14 | DX: Z48.00 Encounter for change or removal of nonsurgical wound dressing (principal) | CPT/HCPCS: 99211 ==

== ENCOUNTER 2018-03-03 00:15 | Day surgery (SDC) | payer SELFPAY ==
[2018-03-10] MEDS ORDERED: CEFP200 PO ×2 (07:26)
== END 2018-03-03 15:41 | disposition home or self-care (01) ==
LOC: ATC 00:15
DX: A41.9 Sepsis, unspecified organism (principal); R65.20 Severe sepsis without septic shock; N12 Tubulo-interstitial nephritis, not specified as acute or chronic; N17.9 Acute kidney failure, unspecified; N39.0 Urinary tract infection, site not specified
CPT/HCPCS: 99211

== ENCOUNTER 2018-03-04 19:03 | Emergency (ER) | payer SELFPAY ==
[~2018-03-04] VITALS: Ht 139.7 cm; Wt 58.2 kg
[2018-03-04 21:52] LABS: BASOPHILS ABSOLUTE AUTO 0.03 K/mm3 (0.00-0.23); BASOPHILS PERCENT AUTO 1 % (0-2); EOSINOPHILS ABSOLUTE AUTO 0.35 K/mm3 (0.00-0.68); EOSINOPHILS PERCENT AUTO 6 % (0-6); Hemoglobin 12.6 g/dL (11.5-16.0); IMMATURE GRAN ABSOLUTE AUTO 0.01 K/mm3 (0.00-0.10); IMMATURE GRAN PERCENT AUTO 0 % (0-1); LYMPHOCYTES ABSOLUTE AUTO 1.23 K/mm3 (0.84-5.20); LYMPHOCYTES PERCENT AUTO 21 % (21-46); MONOCYTES ABSOLUTE AUTO 0.28 K/mm3 (0.16-1.47); MONOCYTES PERCENT AUTO 5 % (4-13); Mean Corpuscular HGB Conc 32.3 g/dL (31.5-36.5); Mean Corpuscular Volume 90 fL (80-100); Mean Platelet Volume 9.9 fL (9.1-12.4); NEUTROPHILS PERCENT AUTO 68 % (41-73); Platelet Count 354 K/mm3 (150-400); RDW Coefficient Variation 13.8 % (11.7-14.2); RDW Standard Deviation 45.1 fL (35.1-46.3); Red Blood Cell Count 4.35 M/mm3 (3.80-5.20)
[2018-03-04 22:14] LABS: Albumin, Blood 3.7 g/dL (3.4-5.0); Albumin/Globulin Ratio 0.9 (0.8-1.8); Bilirubin, Total 0.2 mg/dL (0.1-1.0); Bun/Creatinine Ratio 18.3 (12.0-20.0); Calcium, Blood 8.6 mg/dL (8.5-10.1); Creatinine, Blood 1.2 mg/dL (0.40-1.00); Globulin, Blood 4.2 g/dL (2.2-4.0); Potassium, Blood 3.6 mmol/L (3.5-5.5); Total Protein, Blood 7.9 g/dL (6.4-8.2)
[2018-03-04 23:53] LABS: Source, Urine Clean Catch
[2018-03-04 23:55] LABS: Bilirubin, Urine Neg (Neg); Blood, Urine 2+ (Neg); Glucose Qualitative, Urine Neg (Neg); Ketones, Urine Neg (Neg); Leukocyte Esterase, Urine 3+ (Neg); Nitrite, Urine Neg (Neg); Protein, Urine 2+ (Neg); Urobilinogen, Urine NORM (Normal)
[2018-03-04 23:58] LABS: Appearance, Urine Hazy (Clear); Color, Urine Yellow (P-Yellow)
[2018-03-05 00:02] LABS: Bacteria Mod /hpf; Red Blood Cells, Urine 0-2 /hpf (0-2); Squamous Epithelial Cells Few /hpf (Few); White Blood Cells, Urine 25-50 /hpf (0-5)
[2018-03-05] MEDS ORDERED: Cipro500 MG PO (00:16)
[2018-03-10] MEDS ORDERED: CEFP200 PO ×2 (07:26)
== END 2018-03-05 00:40 | disposition home or self-care (01) ==
LOC: ER 19:03
PROVIDERS: Emergency Medicine
DX: N39.0 Urinary tract infection, site not specified (principal); Z43.6 Encounter for attention to other artificial openings of urinary tract; Z79.899 Other long term (current) drug therapy
CPT/HCPCS: 36415; 76770; 80053; 81001; 85025; 87077; 87086; 87186; 99284-25

== ENCOUNTER 2018-03-10 00:17 | Day surgery (SDC) | payer SELFPAY ==
[~2018-03-10 00:17] MED LIST changes: +Cipro500 MG PO
[2018-03-10] MEDS ORDERED: CEFP200 PO (07:26)
== END 2018-03-10 13:50 | disposition home or self-care (01) ==
LOC: ATC 00:17
DX: Z48.00 Encounter for change or removal of nonsurgical wound dressing (principal)
CPT/HCPCS: 99211

== ENCOUNTER 2018-03-17 00:25 | Day surgery (SDC) | payer SELFPAY ==
[~2018-03-17 00:25] MED LIST changes: +CEFP200 PO
== END 2018-03-17 15:44 | disposition home or self-care (01) ==
LOC: ATC 00:25
DX: Z48.00 Encounter for change or removal of nonsurgical wound dressing (principal)
CPT/HCPCS: 99211

== ENCOUNTER 2018-03-24 00:09 | Day surgery (SDC) | payer SELFPAY ==
--- NOTE | 2018-03-24 16:28 | NUR ---
NEPHROSTOMY TUBE DRESSING CHANGE. STERILE TECHNIQUE USED. SCRUBBED AREA WITH CHLORPREP AND ALLOWED TO DRY. STAY FIX DRESSING AND TEGADERM X2 APPLIED. SUTURES INTACT. NEPHROSTOMY TUBE AT 17 CM AT SKIN. NO DRAINAGE, REDNESS OR ODOR NOTED AT SITE. PT REPORTS SMALL PAIN.
== END 2018-03-24 22:43 | disposition home or self-care (01) ==
LOC: ATC 00:09
DX: A41.9 Sepsis, unspecified organism (principal); R65.20 Severe sepsis without septic shock; N12 Tubulo-interstitial nephritis, not specified as acute or chronic; N17.9 Acute kidney failure, unspecified
CPT/HCPCS: 99211

== ENCOUNTER 2018-03-31 00:05 | Day surgery (SDC) | payer SELFPAY | END 2018-03-31 15:56 | disposition home or self-care (01) | LOC: ATC 00:05 | DX: Z48.00 Encounter for change or removal of nonsurgical wound dressing (principal) | CPT/HCPCS: 99211 ==

== ENCOUNTER 2018-04-18 15:42 | Day surgery (SDC) | payer SELFPAY | END 2018-04-18 16:00 | disposition home or self-care (01) | LOC: ATC 15:42 | DX: Z43.6 Encounter for attention to other artificial openings of urinary tract (principal); Z48.00 Encounter for change or removal of nonsurgical wound dressing; N18.3 Chronic kidney disease, stage 3 (moderate); R31.9 Hematuria, unspecified | CPT/HCPCS: 99211 ==

== ENCOUNTER 2018-04-20 13:20 | Emergency (ER) | payer SELFPAY ==
[~2018-04-20] VITALS: Ht 149.9 cm; Wt 60.9 kg
[2018-04-20 15:31] LABS: BASOPHILS ABSOLUTE AUTO 0.02 K/mm3 (0.00-0.23); BASOPHILS PERCENT AUTO 0 % (0-2); EOSINOPHILS ABSOLUTE AUTO 0.44 K/mm3 (0.00-0.68); EOSINOPHILS PERCENT AUTO 8 % (0-6); Hematocrit 41.4 % (33.0-51.0); Hemoglobin 13.1 g/dL (11.5-16.0); IMMATURE GRAN ABSOLUTE AUTO 0.02 K/mm3 (0.00-0.10); IMMATURE GRAN PERCENT AUTO 0 % (0-1); LYMPHOCYTES ABSOLUTE AUTO 1.28 K/mm3 (0.84-5.20); LYMPHOCYTES PERCENT AUTO 23 % (21-46); MONOCYTES ABSOLUTE AUTO 0.35 K/mm3 (0.16-1.47); MONOCYTES PERCENT AUTO 6 % (4-13); Mean Corpuscular HGB 28.9 pg (26.0-34.0); Mean Corpuscular HGB Conc 31.6 g/dL (31.5-36.5); Mean Corpuscular Volume 91 fL (80-100); Mean Platelet Volume 10.2 fL (9.1-12.4); NEUTROPHILS ABSOLUTE AUTO 3.51 K/mm3 (1.96-9.15); NEUTROPHILS PERCENT AUTO 62 % (41-73); Platelet Count 290 K/mm3 (150-400); RDW Coefficient Variation 14.7 % (11.7-14.2); RDW Standard Deviation 48.9 fL (35.1-46.3); Red Blood Cell Count 4.53 M/mm3 (3.80-5.20); White Blood Cell Count 5.62 K/mm3 (4.00-11.30)
[2018-04-20] MEDS ORDERED: ALUM320SU PO (15:50)
[2018-04-20 15:52] LABS: Bun/Creatinine Ratio 24.6 (12.0-20.0); Calcium, Blood 8.7 mg/dL (8.5-10.1); Creatinine, Blood 1.14 mg/dL (0.40-1.00); Potassium, Blood 4.2 mmol/L (3.5-5.5)
[2018-04-20 16:10] LABS: Source, Urine Catheter
[2018-04-20 16:23] LABS: Appearance, Urine Clear (Clear); Bilirubin, Urine Neg (Neg); Blood, Urine 1+ (Neg); Color, Urine Yellow (P-Yellow); Glucose Qualitative, Urine Neg (Neg); Ketones, Urine Neg (Neg); Leukocyte Esterase, Urine 3+ (Neg); Nitrite, Urine Neg (Neg); Protein, Urine Neg (Neg); Urobilinogen, Urine NORM (Normal); pH, Urine 6.5 (5.0-8.0)
[2018-04-20 16:36] LABS: Bacteria Few /hpf; Squamous Epithelial Cells Rare /hpf (Few)
[2018-04-20] MEDS ORDERED: CEPH500 PO (16:47)
== END 2018-04-20 17:48 | disposition home or self-care (01) ==
LOC: ER 13:20
PROVIDERS: Emergency Medicine
DX: N39.0 Urinary tract infection, site not specified (principal); N99.522 Malfunction of incontinent external stoma of urinary tract
CPT/HCPCS: 36415; 76770; 80048; 81001; 85025; 87077; 87086; 87186; 99284-25

== ENCOUNTER 2018-05-16 00:37 | Day surgery (SDC) | payer SELFPAY ==
[~2018-05-16 00:37] MED LIST changes: +ALUM320SU PO
== END 2018-05-16 16:21 | disposition home or self-care (01) ==
LOC: ATC 00:37
DX: Z43.6 Encounter for attention to other artificial openings of urinary tract (principal); N18.3 Chronic kidney disease, stage 3 (moderate); R31.9 Hematuria, unspecified
CPT/HCPCS: 99211

== ENCOUNTER 2018-05-23 00:29 | Day surgery (SDC) | payer SELFPAY | END 2018-05-23 16:05 | disposition home or self-care (01) | LOC: ATC 00:29 | DX: Z43.6 Encounter for attention to other artificial openings of urinary tract (principal); N18.3 Chronic kidney disease, stage 3 (moderate); R31.9 Hematuria, unspecified; Z79.899 Other long term (current) drug therapy | CPT/HCPCS: 99211 ==

== ENCOUNTER 2018-05-30 07:27 | Day surgery (SDC) | payer SELFPAY | END 2018-05-30 16:00 | disposition home or self-care (01) | LOC: ATC 07:27 | DX: Z43.6 Encounter for attention to other artificial openings of urinary tract (principal); N18.3 Chronic kidney disease, stage 3 (moderate); R31.9 Hematuria, unspecified; Z79.899 Other long term (current) drug therapy | CPT/HCPCS: 99211 ==

== ENCOUNTER 2018-06-06 00:22 | Day surgery (SDC) | payer SELFPAY | END 2018-06-06 16:18 | disposition home or self-care (01) | LOC: ATC 00:22 | DX: Z43.6 Encounter for attention to other artificial openings of urinary tract (principal); N18.3 Chronic kidney disease, stage 3 (moderate); R31.9 Hematuria, unspecified; Z79.899 Other long term (current) drug therapy | CPT/HCPCS: 99211 ==

== ENCOUNTER 2018-06-20 00:14 | Day surgery (SDC) | payer SELFPAY ==
--- NOTE | 2018-06-20 16:30 | NUR ---
OLD NEPHROSTOMY DRESSING REMOVED. SKIN CLEANED WITH CHLORA-PRE AND LET DRY. SKIN PREP APPLIED AND LET DRY. NEW STAYFIX FIXATION DRESSING PLACED. REPLACED GRAVITY DRAINAGE BAG. URESIL-BAG. TWO MEDIUM TEGADERMS OVER NEPHROSTOMY DRESSING. PT TOLERATED PROCEDURE WELL.
== END 2018-06-20 16:30 | disposition home or self-care (01) ==
LOC: ATC 00:14
DX: Z43.6 Encounter for attention to other artificial openings of urinary tract (principal); N18.3 Chronic kidney disease, stage 3 (moderate); R31.9 Hematuria, unspecified
CPT/HCPCS: 99211

== ENCOUNTER 2018-06-27 00:08 | Day surgery (SDC) | payer OTHER | END 2018-06-27 16:20 | disposition home or self-care (01) | LOC: ATC 00:08 | DX: Z43.6 Encounter for attention to other artificial openings of urinary tract (principal); N18.3 Chronic kidney disease, stage 3 (moderate); R31.9 Hematuria, unspecified | CPT/HCPCS: 99211 ==

== ENCOUNTER 2018-07-04 00:33 | Day surgery (SDC) | payer OTHER | END 2018-07-04 16:55 | disposition home or self-care (01) | LOC: ATC 00:33 | DX: Z43.6 Encounter for attention to other artificial openings of urinary tract (principal); N39.0 Urinary tract infection, site not specified; N18.3 Chronic kidney disease, stage 3 (moderate); R31.9 Hematuria, unspecified; Z79.899 Other long term (current) drug therapy | CPT/HCPCS: 99211 ==

== ENCOUNTER 2018-07-11 00:02 | Day surgery (SDC) | payer OTHER | END 2018-07-11 16:39 | disposition home or self-care (01) | LOC: ATC 00:02 | DX: Z43.6 Encounter for attention to other artificial openings of urinary tract (principal); N18.3 Chronic kidney disease, stage 3 (moderate); R31.9 Hematuria, unspecified; Z79.899 Other long term (current) drug therapy | CPT/HCPCS: 99211 ==

== ENCOUNTER 2018-07-25 01:57 | Day surgery (SDC) | payer SELFPAY | END 2018-07-25 17:25 | disposition home or self-care (01) | LOC: ATC 01:57 | DX: Z43.6 Encounter for attention to other artificial openings of urinary tract (principal); N18.3 Chronic kidney disease, stage 3 (moderate); R31.9 Hematuria, unspecified | CPT/HCPCS: 99211 ==

== ENCOUNTER 2018-08-01 00:24 | Day surgery (SDC) | payer SELFPAY | END 2018-08-01 16:40 | disposition home or self-care (01) | LOC: ATC 00:24 | DX: Z43.6 Encounter for attention to other artificial openings of urinary tract (principal); N18.3 Chronic kidney disease, stage 3 (moderate); R31.9 Hematuria, unspecified; R73.03 Prediabetes; Z79.899 Other long term (current) drug therapy | CPT/HCPCS: 99211 ==

== ENCOUNTER 2018-08-06 17:33 | Inpatient (IN) | payer SELFPAY ==
[~2018-08-06] VITALS: Ht 157.5 cm; Wt 74.1 kg
[2018-08-06] MEDS ORDERED: ONDA4ODT MM (18:10)
[2018-08-06] MEDS ORDERED: GABA300 PO (18:10)
[2018-08-06] MEDS ORDERED: NEOMYCIN BOTHEYES (18:15)
[2018-08-06] MEDS ORDERED: [UNRECOGNIZED DRUG - OTHER] BOTHEYES (18:15)
[2018-08-06 18:56] LABS: Source, Urine Catheter
[2018-08-06 19:02] LABS: Bilirubin, Urine Neg (Neg); Blood, Urine 5+ (Neg); Glucose Qualitative, Urine Neg (Neg); Ketones, Urine Neg (Neg); Leukocyte Esterase, Urine 3+ (Neg); Nitrite, Urine Pos (Neg); Protein, Urine 4+ (Neg); Urobilinogen, Urine NORM (Normal)
[2018-08-06 19:09] LABS: BASOPHILS ABSOLUTE AUTO 0.01 K/mm3 (0.00-0.23); BASOPHILS PERCENT AUTO 0 % (0-2); EOSINOPHILS ABSOLUTE AUTO 0.37 K/mm3 (0.00-0.68); EOSINOPHILS PERCENT AUTO 4 % (0-6); Hematocrit 38.3 % (33.0-51.0); Hemoglobin 12.4 g/dL (11.5-16.0); IMMATURE GRAN ABSOLUTE AUTO 0.03 K/mm3 (0.00-0.10); IMMATURE GRAN PERCENT AUTO 0 % (0-1); LYMPHOCYTES ABSOLUTE AUTO 1.21 K/mm3 (0.84-5.20); LYMPHOCYTES PERCENT AUTO 13 % (21-46); MONOCYTES ABSOLUTE AUTO 0.41 K/mm3 (0.16-1.47); MONOCYTES PERCENT AUTO 4 % (4-13); Mean Corpuscular HGB Conc 32.4 g/dL (31.5-36.5); Mean Corpuscular Volume 90 fL (80-100); NEUTROPHILS ABSOLUTE AUTO 7.24 K/mm3 (1.96-9.15); NEUTROPHILS PERCENT AUTO 78 % (41-73); Platelet Count 360 K/mm3 (150-400); RDW Coefficient Variation 13.3 % (11.7-14.2); RDW Standard Deviation 43.2 fL (35.1-46.3); Red Blood Cell Count 4.28 M/mm3 (3.80-5.20); White Blood Cell Count 9.27 K/mm3 (4.00-11.30)
[2018-08-06 19:15] LABS: Appearance, Urine Hazy (Clear); Color, Urine Yellow (P-Yellow)
[2018-08-06 19:19] LABS: Squamous Epithelial Cells Rare /hpf (Few); White Blood Cells, Urine TNTC /hpf (0-5)
[2018-08-06 19:20] LABS: Albumin, Blood 4.1 g/dL (3.4-5.0); Bilirubin, Total 0.2 mg/dL (0.1-1.0); Bun/Creatinine Ratio 18.8 (12.0-20.0); Calcium, Blood 9.2 mg/dL (8.5-10.1); Creatinine, Blood 1.38 mg/dL (0.40-1.00); Potassium, Blood 3.8 mmol/L (3.5-5.5); Total Protein, Blood 8.1 g/dL (6.4-8.2)
[2018-08-06 19:20] LABS: Bacteria Many /hpf
[2018-08-07 05:08] LABS: BASOPHILS PERCENT AUTO 0 % (0-2); EOSINOPHILS ABSOLUTE AUTO 0.02 K/mm3 (0.00-0.68); EOSINOPHILS PERCENT AUTO 0 % (0-6); Hematocrit 33.8 % (33.0-51.0); Hemoglobin 10.9 g/dL (11.5-16.0); IMMATURE GRAN ABSOLUTE AUTO 0.06 K/mm3 (0.00-0.10); IMMATURE GRAN PERCENT AUTO 1 % (0-1); LYMPHOCYTES ABSOLUTE AUTO 0.61 K/mm3 (0.84-5.20); LYMPHOCYTES PERCENT AUTO 5 % (21-46); MONOCYTES ABSOLUTE AUTO 0.54 K/mm3 (0.16-1.47); MONOCYTES PERCENT AUTO 4 % (4-13); Mean Corpuscular HGB 29.4 pg (26.0-34.0); Mean Corpuscular HGB Conc 32.2 g/dL (31.5-36.5); Mean Corpuscular Volume 91 fL (80-100); Mean Platelet Volume 9.8 fL (9.1-12.4); NEUTROPHILS ABSOLUTE AUTO 11.77 K/mm3 (1.96-9.15); NEUTROPHILS PERCENT AUTO 90 % (41-73); Platelet Count 293 K/mm3 (150-400); RDW Coefficient Variation 13.5 % (11.7-14.2); RDW Standard Deviation 45.1 fL (35.1-46.3); Red Blood Cell Count 3.71 M/mm3 (3.80-5.20)
[2018-08-07 05:26] LABS: International Normalized Ratio 0.98; Prothrombin Time Results 10.4 Sec (9.7-11.5)
[2018-08-07 05:31] LABS: Bun/Creatinine Ratio 23.9 (12.0-20.0); Calcium, Blood 7.9 mg/dL (8.5-10.1); Creatinine, Blood 1.09 mg/dL (0.40-1.00); Magnesium, Blood 1.9 mg/dL (1.6-2.4); Phosphorus, Blood 3.1 mg/dL (2.5-4.9); Potassium, Blood 3.6 mmol/L (3.5-5.5)
--- NOTE | 2018-08-07 06:40 | NUR ---
SHIFT SUMMARY PT WAS A NEW ADMIT DURING THE NIGHT, ARRIVING ON THE FLOOR AT 0000. SHE WAS ADMITTED WITH R-SIDE HYDRONEPHROSIS. SHE IS 43 Y/O FEMALE, AND A&O X 4. PT IS VIETNAMESE-SPEAKING ONLY. ENTRY LEVEL LAB TECHNICIAN PHONE WAS USED TO COMPLETE PT'S ADMIT, THOUGH SHE IS A POOR HISTORIAN EVEN THROUGH TRANSLATORS. PT REPORTED MILD BACK PAIN ON ARRIVAL, THOUGH SHE WAS FALLING ASLEEP SHE TALKED. NO REPORTS OF NAUSEA OR SOB. PT SLEPT WELL THROUGH THE NIGHT. SHE RECEIVED CONTINUOUS FLUIDS, NS, AT 75 ML/HR. PT HAS BEEN NPO SINCE ADMISSION IN PREP FOR A POSSIBLE URETER STENT REPLACEMENT PROCEDURE TODAY. VITALS STABLE SINCE ADMISSION. NO OTHER ACUTE CHANGES IN PT CONDITION NOTED. WILL CONTINUE TO MONITOR AND TREAT PER EMAR UNTIL HAND OFF TO DAY SHIFT.
[2018-08-07] MEDS ORDERED: OXYC10TA19 PO (08:24)
--- NOTE | 2018-08-07 15:15 | NUR ---
DR WEINBERG IN ROOM TO COMPLETE CONSENT AT 1455 WITH PT AND SPOUSE USING ORE CRUSHING DUST COLLECTOR. PT LEAVING ROOM FOR PROCEDURE AT THIS TIME
--- NOTE | 2018-08-07 17:35 | NUR ---
SHIFT SUMMARY PT AX4, PLEASANT AND COOPERATIVE WITH CARE. CITIZEN OF [place] SPEAKING ONLY. NURSE SPOKE SOME CITIZEN OF [place] TO COMMUNICATE WITH PATIENT, ALSO RIM TURNING MACHINE OPERATOR PHONE UTILIZED AND FLYING INSTRUCTOR TRANSLATED AT TIME. PT DENIES PAIN IN FLANKS AND REPORTS FEELING BETTER. PT HAD PROCEDURE THIS SHIFT, SEE NOTE. PT ON HER WAY BACK TO ROOM AT THIS TIME. IV PATENT AND SALINE LOCKED. DR MOJICA AWARE OF CONDITION OF L. NEPHROSTOMY TUBING.
--- NOTE | 2018-08-08 06:35 | NUR ---
SHIFT SUMMARY PT IS A 43 Y/O FEMALE, ADMITTED FOR HYDRONEPHROSIS. SHE IS A&O X 4, AND CUBAN SPEAKING. PT HAD A L URETER STENT REPLACEMENT YESTERDAY, WITH AN OLD L-SIDE NEPHROSTOMY STILL IN PLACE. NEPHROSTOME IS DRAINING WELL WITH LIGHT YELLOW URINE. PT REPORTED FLANK PAIN, WHICH WAS WELL CONTROLLED WITH PRN IV FENTANYL AND PO ULTRAM. NO COMPLAINTS OF NAUSEA OR SOB. THE PT DID SPIKE A FEVER DURING THE NIGHT, 102.0 ORALLY, WHICH CAME DOWN TO 99.5 WITH 650 MG OF TYLENOL. ALL OTHER VITALS STABLE. PT ON CONTINUOUS FLUIDS, NS AT 75 ML/HR. NO OTHER ACUTE CHANGES IN PT CONDITION NOTED. WILL CONTINUE TO MONITOR AND TREAT PER EMAR.
--- NOTE | 2018-08-08 14:28 | NUR ---
Pt is sitting up in a chair resting she is doing well offered prayers.
--- NOTE | 2018-08-08 16:39 | NUR ---
SHIFT SUMMARY 43 YR OLD FEMALE. FULL CODE. ADMITTED FOR HYDRONEPHROSIS. RT SIDED URETERAL STENTS PLACED. LEFT SIDE HAS A NEPHROSTOMY TUBE. HX OF CERVICAL CANCER. STANDBY ASSIST TO BATHROOM. IN CONTACT PRECAUTIONS FOR MRSA AND ESBL IN URINE. TELEMETRY MONITORED VIA PCU HAND SALTER (NSR @ 69 BPM). REGULAR DIET. PT IS SWEDISH SPEAKING. LINUX SERVER ADMINISTRATOR PHONE IS IN ROOM. PT IS A&O X4. NS IS RUNNING AT 75 ML/HR.
--- NOTE | 2018-08-08 21:34 | NUR ---
noted that nefostomy was disconnected, informed cn, called hospitalist, she recommended a consult and reconnect in the AM, informed pt via car inspection and repair manager phone
[2018-08-09 05:16] LABS: BASOPHILS ABSOLUTE AUTO 0.01 K/mm3 (0.00-0.23); BASOPHILS PERCENT AUTO 0 % (0-2); EOSINOPHILS ABSOLUTE AUTO 0.12 K/mm3 (0.00-0.68); EOSINOPHILS PERCENT AUTO 2 % (0-6); Hematocrit 32.4 % (33.0-51.0); Hemoglobin 10.4 g/dL (11.5-16.0); IMMATURE GRAN ABSOLUTE AUTO 0.04 K/mm3 (0.00-0.10); IMMATURE GRAN PERCENT AUTO 1 % (0-1); LYMPHOCYTES ABSOLUTE AUTO 0.78 K/mm3 (0.84-5.20); LYMPHOCYTES PERCENT AUTO 12 % (21-46); MONOCYTES ABSOLUTE AUTO 0.37 K/mm3 (0.16-1.47); MONOCYTES PERCENT AUTO 6 % (4-13); Mean Corpuscular HGB 29.5 pg (26.0-34.0); Mean Corpuscular HGB Conc 32.1 g/dL (31.5-36.5); Mean Corpuscular Volume 92 fL (80-100); NEUTROPHILS ABSOLUTE AUTO 5.43 K/mm3 (1.96-9.15); NEUTROPHILS PERCENT AUTO 80 % (41-73); RDW Coefficient Variation 13.5 % (11.7-14.2); RDW Standard Deviation 45.2 fL (35.1-46.3); Red Blood Cell Count 3.52 M/mm3 (3.80-5.20); White Blood Cell Count 6.75 K/mm3 (4.00-11.30)
[2018-08-09 05:36] LABS: Anion Gap 6 mmol/L (6-16); Blood Urea Nitrogen 13 mg/dL (8-24); Bun/Creatinine Ratio 13.5 (12.0-20.0); CO2, Blood 26 mmol/L (21-32); Calcium, Blood 8.2 mg/dL (8.5-10.1); Chloride, Blood 111 mmol/L (98-108); Creatinine, Blood 0.96 mg/dL (0.40-1.00); Glomerular Filtration Rate >60 (60-); Glucose, Blood 112 mg/dL (70-99); Mean Platelet Volume 9.8 fL (9.1-12.4); Platelet Count 224 K/mm3 (150-400); Potassium, Blood 3.3 mmol/L (3.5-5.5); Sodium, Blood 143 mmol/L (136-145)
--- NOTE | 2018-08-09 07:07 | NUR ---
in isolation for mrsa + vre, call light in reach, phone in room for router tender, cheerful and cooperative, a+o, ns infusing into patent IV, nephostomy disconnected informed, r side draining, SBAR report given to day staff
--- NOTE | 2018-08-09 10:45 | NUR ---
CALL PLACED TO ANSWERING SERVICE FOR DR WEINBERG. DR ESCOBAR REQUESTING TO SPEAK WITH HIM REGARDING PT'S NEPHROSTOMY TUBE THAT CAME OUT LAST NIGHT. DIRECT NUMBER FOR DR ESCOBAR GIVEN.
--- NOTE | 2018-08-09 18:22 | NUR ---
PT'S NEPHROSTOMY TUBE TO BE REPLACED ON SATURDAY BY DR WEINBERG. PT HAS VOIDED VERY LITTLE THIS AFTERNOON AND IV FLUIDS CONTINUE. NO C/O PAIN. WILL CONTINUE TO MONITOR AND REPORT TO ONCOMING RN
[2018-08-10 05:59] LABS: Bun/Creatinine Ratio 11.1 (12.0-20.0); Calcium, Blood 8.5 mg/dL (8.5-10.1); Creatinine, Blood 1.53 mg/dL (0.40-1.00); Potassium, Blood 3.5 mmol/L (3.5-5.5)
--- NOTE | 2018-08-10 07:03 | NUR ---
family in room, assisted to bathroom still was incontinent, priti tube remained disconnected no s/sx of infection noted at site, call light in reach, ns infusing with no s/sx of infection or infiltration, SBAR report given to returning day staff
[2018-08-11 05:16] LABS: Bun/Creatinine Ratio 10.3 (12.0-20.0); Calcium, Blood 8.1 mg/dL (8.5-10.1); Creatinine, Blood 2.52 mg/dL (0.40-1.00); Potassium, Blood 3.7 mmol/L (3.5-5.5)
--- NOTE | 2018-08-11 07:44 | NUR ---
08/11/18 0620 SLEEPING WELL THIS SHIFT. AT BEDSIDE ALL SHIFT. NPO AFTER MIDNIGHT. IV FLUIDS AT 75 ML/HOUR. NO COMPLAINTS OF PAIN THIS AM.
--- NOTE | 2018-08-11 12:47 | NUR ---
PATIENT DID NOT EAT LUNCH THIS SHIFT DUE TO BEING NPO AT THSI TIME.
--- NOTE | 2018-08-11 18:30 | NUR ---
SHIFT SUMMARY THE PATIENT PRESENTED THIS SHIFT WITH CLEAR LUNG SOUNDS, A&O X4 AND WITH VITALS WNL. THE PATIENT IS A NON-ENLISH SPEAKING PATIENT AND THE INTERPETOR PHONE WAS USE TO COMUNICATE. THE PATIENT HAD A PROCEDURE IN RADIOLOGY, A STENT PLACED IN HER URETUR. THE PATIENT RETURNED TO THE FLOOR A&O. THE PATIENT HAS BEEN UP AND INDEPENDENT IN HER ROOM. THE PATIENT'S SPOUSE IS IN THE ROOM WITH HER. WILL CONTINUE TO MONITOR.
[2018-08-12 05:25] LABS: Albumin, Blood 2.5 g/dL (3.4-5.0); Anion Gap 8 mmol/L (6-16); Blood Urea Nitrogen 32 mg/dL (8-24); Bun/Creatinine Ratio 8.5 (12.0-20.0); CO2, Blood 22 mmol/L (21-32); Calcium, Blood 8.2 mg/dL (8.5-10.1); Chloride, Blood 113 mmol/L (98-108); Creatinine, Blood 3.78 mg/dL (0.40-1.00); Glomerular Filtration Rate 14 (60-); Glucose, Blood 112 mg/dL (70-99); Phosphorus, Blood 4.4 mg/dL (2.5-4.9); Potassium, Blood 3.8 mmol/L (3.5-5.5); Sodium, Blood 143 mmol/L (136-145)
--- NOTE | 2018-08-12 07:45 | NUR ---
08/12/18 0600 SLEEPING WELL. URINE OUTPUT BETTER THIS SHIFT FROM YESTERDAY. MEDICATED ONCE FOR PAIN EARLY IN THE SHIFT WITH GOOD RELIEF. DRESSING TO LEFT FLANK REMAINS DRY AND INTACT. VITALS STABLE.
--- NOTE | 2018-08-12 14:06 | NUR ---
Pt. is sitting up and talking with a family member in the room, pt is doping much better [id number] prayers .
--- NOTE | 2018-08-12 19:09 | NUR ---
SHIFT SUMMARY PATIENT A&O X4, INDEPENDENT IN THE ROOM. C/O PAIN TO LEFT NEPHROSTOMY SITE X1 THIS SHIFT, RN MEDICATED PER Apr. SITE WNL, DRESSING C/D/I. NO SIGNS OF INFECTION PRESENT. PATIENT STATED PAIN HAD RESOLVED AFTER BEING MEDICATED. RN MEDICATED X1 FOR NAUSEA THIS SHIFT. TRANSIT PLANNING MANAGER PHONE USED T/O SHIFT TO COMMUNICATE WITH PATIENT AND . DR. MAYORGA CONSULTED. FLUIDS @ 125 ML/HR. NO ACUTE CHANGES. PATIENT UP WALKING THE HALLS AT SHIFT CHANGE. REPORT GIVEN TO ONCOMING RN.
--- NOTE | 2018-08-13 04:13 | NUR ---
BLADDER SCAN PATIENT- 33mL
--- NOTE | 2018-08-13 04:43 | NUR ---
SPOKE WITH PHYSICAN- PATIENT HAS NOT VOIDED DURING THIS DRAFTING ENGINEER. BLADDER SCANNED PATIENT AND ONLY 33ML ON SCAN. PHYSICAN ORDERED FOR IV NS 0.9% TO BE INCREASED TO 200ML/HR. ORDER PLACED AND FLUIDS INCREASED. WILL CONTINUE TO MONITOR
--- NOTE | 2018-08-13 06:21 | NUR ---
SHIFT SUMMARY PATIENT HAD NO COMPLAINTS OVERNIGHT. PATIENT HAD NOT URINATED AND REPORTED NO INCONTINENCE THROUGH OUT THE NIGHT. BLADDER SCAN PERFORMED AT 0400 WITH 33ML ON SCAN. CALLED PHYSICIAN ABOUT PATIENT NOT VOIDING, RECEIVED ORDER TO INCREASE IV FLUIDS TO 200ML/HR.
[2018-08-13 06:59] LABS: Hematocrit 32.7 % (33.0-51.0); Hemoglobin 10.3 g/dL (11.5-16.0)
[2018-08-13 07:22] LABS: Albumin, Blood 2.8 g/dL (3.4-5.0); Anion Gap 8 mmol/L (6-16); Blood Urea Nitrogen 37 mg/dL (8-24); Bun/Creatinine Ratio 8.6 (12.0-20.0); CO2, Blood 21 mmol/L (21-32); Calcium, Blood 8.6 mg/dL (8.5-10.1); Chloride, Blood 114 mmol/L (98-108); Creatinine, Blood 4.28 mg/dL (0.40-1.00); Glomerular Filtration Rate 12 (60-); Glucose, Blood 92 mg/dL (70-99); Phosphorus, Blood 4.9 mg/dL (2.5-4.9); Potassium, Blood 3.9 mmol/L (3.5-5.5); Sodium, Blood 143 mmol/L (136-145)
--- NOTE | 2018-08-13 13:00 | NUR ---
FLUIDS CHANGED PER DR MAYORGA TO NS @ 75 ML/HR.
--- NOTE | 2018-08-13 13:25 | NUR ---
Pt. is in bed and is doing fine encouraged pt. and offered some prayers and support.
[2018-08-13 14:48] LABS: Source, Urine Voided
[2018-08-13 15:30] LABS: Appearance, Urine Hazy (Clear); Bilirubin, Urine Neg (Neg); Blood, Urine 5+ (Neg); Color, Urine Red (P-Yellow); Glucose Qualitative, Urine Neg (Neg); Ketones, Urine Neg (Neg); Leukocyte Esterase, Urine 2+ (Neg); Nitrite, Urine Neg (Neg); Protein, Urine 2+ (Neg); Specific Gravity, Urine 1.005 (1.003-1.022); Urobilinogen, Urine NORM (Normal)
[2018-08-13 16:38] LABS: Bacteria Mod /hpf; Red Blood Cells, Urine TNTC /hpf (0-2); Squamous Epithelial Cells Few /hpf (Few)
--- NOTE | 2018-08-13 18:10 | NUR ---
LATE ENTRY T/O SHIFT PATIENT HAS BEEN UP TO THE BATHROOM, BEDDING HAS BEEN CLEAN AND DRY. AFTER ONLY MEASURING AN OUTPUT OF 150 ML FOR THE SHIFT RN PLACED CALL TO DR. MAYORGA TO NOTIFY. RN GOT ORDER FOR 40 MG IV LASIX. RN PRESENT IN ROOM WITH MANAGER SPANISH AND PATIENT WHEN PATIENT DISCLOSED TO MANAGER SPANISH THAT SHE IS INCONTINENT AND HAS BEEN WEARING PADS SHE BROUGHT FROM HOME AND CHANGING THESE OUT IN THE BATHROOM. STAFF WAS UNAWARE PATIENT WAS INCONTINENT OR CHANGING PADS. 5 HEAVY SOAKED PADS PRESENT IN THE BATHROOM TRASH CAN. PATIENT WAS TEARFUL AND APPEARED TO BE EMBARRASSED. MANAGER SPANISH PROVIDED PATIENT WITH PULL UPS. RN DISCUSSED THE IMPROTANCE OF KEEPING TRACK OF THE PATIENTS OUTPUT, PATIENT STATED HER UNDERSTANDING. RN NOTIFIED DR. MAYORGA, IV LASIX WAS HELD. RN WILL CONTINUE TO MONITOR.
--- NOTE | 2018-08-13 18:16 | NUR ---
SHIFT SUMMARY PATIENT A&O X4, INDEPENDENT IN THE ROOM. PATIENT INCONTINENT T/O THE SHIFT. SEE NURSING NOTE. C/O PAIN TO HER LEFT FLANK WHERE STENT WAS PLACED, RN MEDICATED X1 WITH 50 MG TRAMADOL, PAIN SINCE RESOLVED. RN MEDICATED X1 WITH 650 MG OF TYLENOL FOR A HEADACHE. DENIES ANY NAUSEA OR SOB. NS @ 75/HR. UP WALKING THE HALLS WITH HER THIS SHIFT. SPEECH AND LANGUAGE SPECIALIST PHONE USED FOR COMMUNICAION T/O SHIFT. NO ACUTE CHANGES. RN WILL CONTINUE TO MONITOR.
--- NOTE | 2018-08-14 05:06 | NUR ---
43 year old Moldovan speaking female continues on IV fluid and oral antibitics to treat ARF and UTI. PT is on room air, denies acute pain and continues to be incontinet of large amts of urine. Urine is clear pale pink. UP indep in room, family at bedside and supportive. Able to communicate. LT neph stent placed for hydronephrosis. lt flank dressing clean dry intact. HAD CT of ADB pelvis.
[2018-08-14 05:52] LABS: BASOPHILS ABSOLUTE AUTO 0.02 K/mm3 (0.00-0.23); BASOPHILS PERCENT AUTO 0 % (0-2); EOSINOPHILS ABSOLUTE AUTO 0.34 K/mm3 (0.00-0.68); EOSINOPHILS PERCENT AUTO 5 % (0-6); Hematocrit 32.2 % (33.0-51.0); Hemoglobin 10.2 g/dL (11.5-16.0); IMMATURE GRAN PERCENT AUTO 2 % (0-1); LYMPHOCYTES ABSOLUTE AUTO 1.01 K/mm3 (0.84-5.20); LYMPHOCYTES PERCENT AUTO 15 % (21-46); MONOCYTES ABSOLUTE AUTO 0.28 K/mm3 (0.16-1.47); MONOCYTES PERCENT AUTO 4 % (4-13); Mean Corpuscular HGB 28.9 pg (26.0-34.0); Mean Corpuscular HGB Conc 31.7 g/dL (31.5-36.5); Mean Corpuscular Volume 91 fL (80-100); Mean Platelet Volume 9.6 fL (9.1-12.4); NEUTROPHILS ABSOLUTE AUTO 5.11 K/mm3 (1.96-9.15); NEUTROPHILS PERCENT AUTO 74 % (41-73); Platelet Count 344 K/mm3 (150-400); RDW Coefficient Variation 13.2 % (11.7-14.2); RDW Standard Deviation 43.8 fL (35.1-46.3); Red Blood Cell Count 3.53 M/mm3 (3.80-5.20); White Blood Cell Count 6.86 K/mm3 (4.00-11.30)
[2018-08-14 06:22] LABS: Magnesium, Blood 1.8 mg/dL (1.6-2.4)
[2018-08-14 06:31] LABS: Albumin, Blood 2.7 g/dL (3.4-5.0); Anion Gap 8 mmol/L (6-16); Blood Urea Nitrogen 37 mg/dL (8-24); Bun/Creatinine Ratio 7.9 (12.0-20.0); CO2, Blood 19 mmol/L (21-32); Calcium, Blood 8.3 mg/dL (8.5-10.1); Chloride, Blood 116 mmol/L (98-108); Creatinine, Blood 4.68 mg/dL (0.40-1.00); Glomerular Filtration Rate 11 (60-); Glucose, Blood 100 mg/dL (70-99); Phosphorus, Blood 4.9 mg/dL (2.5-4.9); Potassium, Blood 4.2 mmol/L (3.5-5.5); Sodium, Blood 143 mmol/L (136-145)
[2018-08-14 09:35] LABS: Creatinine, Blood 4.67 mg/dL (0.40-1.00); Uric Acid, Blood 4.9 mg/dL (2.6-6.0)
--- NOTE | 2018-08-14 17:28 | NUR ---
SHIFT SUMMARY THE PATIENT PRESENTED THIS SHIFT A&O X4, WITH VITALS WNL AND WITH CLEAR LUNG SOUNDS. THE PATIENT IS A NON SERBIAN SPEAKING PERSON, BUT WAS ABLE TO COMMUNICATE THRU HER SPOUSE AND TRANSLATER DEVICES. THE PATIENT'S DOCTOR ORDERED LABS THROUGH OUT THE DAY AND THE LAST SET WAS DRAWN AT 1700. THE PATIENT IS INDEPENDENT IN HER ROOM. THE PATIENT'S SPOUSE HAS BEEN IN THE ROOM WITH THE PATIENT ALL SHIFT. WILL CONTINUE TO MONITOR.
[2018-08-14 17:48] LABS: Creatinine, Blood 4.72 mg/dL (0.40-1.00)
[2018-08-15 05:47] LABS: Hematocrit 30.5 % (33.0-51.0); Hemoglobin 9.5 g/dL (11.5-16.0)
[2018-08-15 06:06] LABS: Albumin, Blood 2.8 g/dL (3.4-5.0); Anion Gap 7 mmol/L (6-16); Blood Urea Nitrogen 39 mg/dL (8-24); Bun/Creatinine Ratio 8.5 (12.0-20.0); CO2, Blood 23 mmol/L (21-32); Calcium, Blood 8.2 mg/dL (8.5-10.1); Chloride, Blood 115 mmol/L (98-108); Creatinine, Blood 4.57 mg/dL (0.40-1.00); Glomerular Filtration Rate 11 (60-); Glucose, Blood 106 mg/dL (70-99); Phosphorus, Blood 4.9 mg/dL (2.5-4.9); Potassium, Blood 3.7 mmol/L (3.5-5.5); Sodium, Blood 145 mmol/L (136-145)
[2018-08-15 07:20] LABS: Creatinine, Blood 4.76 mg/dL (0.40-1.00)
--- NOTE | 2018-08-15 16:34 | NUR ---
Initial palliative care consult: Radha is a 43 year old with a history of cervical cancer, recurrent hydronephrosis and bilat kidney stent placement. She has had a nephrostomy tube in her L side for some time, however this became dislodged and a stent was placed. Her creatinine has increased from admission and is now 4.7. She is being followed by the hospitalist service and by Dr. Kc and Dr. Nolasco for interventional radiology. Radha is alone in her room during my visit. We used the senior application software engineer phone line to communicate. The Liberian speaking senior application software engineer was having difficulty understanding Radha and states that she is not fluent in Liberian. He asked her what her sioux dialect was and she responded "Zupateco." The senior application software engineer stated that based on the questions and answers during our discussion that he felt she is not able to communicate well and is likely not understanding what the doctors are saying. Pt reports that MDs have not used the senior application software engineer phone during their visits with her. She reports her translates for her. When asked what she understood from the doctor's visits, she reported that "My kidneys are fine, no more problems." Spoke with Dr. Bailey and relayed my concern that pt does not appear to be understanding her medical condition at this time. Encouraged pt to request that staff use the senior application software engineer phone when visiting and talking with her. for nsg also encouraging them to use senior application software engineer phone. PC will continue to follow to help assist with advanced care planning. Did not discuss AD/POLST at this time as it was felt that it was not the appropriate time to do so. Pt needs to understand her condition and treatment options before making decisions. Also, her was not in the room during this visit.
--- NOTE | 2018-08-15 17:04 | NUR ---
SHIFT SUMMARY THE PATIENT PRESENTED THIS SHIFT WITH VATILS WNL, A&O X4 AND WITH CLEAR,BUT DIMINISHED LUNG SOUNDS IN HER BASES. THE PATIENT'S SPOUSE LETF THE HOSPITAL AT NOON AND WILL MOST LIKELY RETURN AFTER WORK. THE PATIENT HAD A U/S OF HER RENAL AREA THIS SHIFT. THE PATIENT IS INDEPENDENT IN HER ROOM AND IS UP WALKING THERE. THE PATIENT DOES NOT SPEAK ALBANIAN, BUT A DIFFERENT DILECT. THE PATIENT IS RESTING AT THIS TIME, WILL CONTINUE TO MONITOR
--- NOTE | 2018-08-16 05:14 | NUR ---
SHIFT SUMMARY PATIENT IS ALERT AND ORIENTED, DOES NOT SPEAK MONGOLIAN. PATIENT HAD CHILLS AND FEVER. MEDICATED FOR FEVER. PATIENT SLEPT WELL THROUGHOUT THE NIGHT. RECHECKED TEMPERATURE, FEVER HAS GONE DOWN. NO OTHER NEW CHANGES NOTED.
[2018-08-16 06:01] LABS: Albumin, Blood 2.7 g/dL (3.4-5.0); Anion Gap 6 mmol/L (6-16); Blood Urea Nitrogen 41 mg/dL (8-24); Bun/Creatinine Ratio 8.8 (12.0-20.0); CO2, Blood 27 mmol/L (21-32); Calcium, Blood 8.1 mg/dL (8.5-10.1); Chloride, Blood 111 mmol/L (98-108); Creatinine, Blood 4.66 mg/dL (0.40-1.00); Glomerular Filtration Rate 11 (60-); Glucose, Blood 108 mg/dL (70-99); Magnesium, Blood 1.9 mg/dL (1.6-2.4); Phosphorus, Blood 5.1 mg/dL (2.5-4.9); Potassium, Blood 4.1 mmol/L (3.5-5.5); Sodium, Blood 144 mmol/L (136-145)
--- NOTE | 2018-08-16 17:37 | NUR ---
SHIFT SUMMARY THE PATIENT PRESENTED THIS SHIFT WITH CLEAR LUNGS, A&O X4 AND WWITH VITALS WNL. THE PATIENT IS INDEPENDENT IN HER ROOM AND CALLS NEEDED. THE PATIENT'S SPOUSE LEFT THE THIS AM AND IS EXSPECTED TO RETUN THIS EVENING. THE PATIENT WAY A SHOWER THIS SHIFT AND TALKED ON HER PHONE. THE PATIENT IS RESTING, AND WAITING FOR DINNER, WILL CONTINUE TO MONITOR.
[2018-08-17 05:10] LABS: Hematocrit 33.4 % (33.0-51.0); Hemoglobin 10.4 g/dL (11.5-16.0)
--- NOTE | 2018-08-17 05:20 | NUR ---
SHIFT SUMMARY PATIENT IS ALERT AND ORIENTED. DOES NOT SPEAK URDU. HAVE USED MARKETING SALES CONSULTANT TO COMMUNICATE WITH PATIENT AND . PATIENT APPEARS TO BE DOING WELL THIS SHIFT, NO COMPLAINTS OF PAIN. NO FEVER NOTED. PATIENT SLEPT WELL THROUGHOUT THE NIGHT. VITALS STABLE
[2018-08-17 05:36] LABS: Magnesium, Blood 2.1 mg/dL (1.6-2.4)
[2018-08-17 05:37] LABS: Albumin, Blood 3.1 g/dL (3.4-5.0); Anion Gap 4 mmol/L (6-16); Blood Urea Nitrogen 42 mg/dL (8-24); Bun/Creatinine Ratio 8.4 (12.0-20.0); CO2, Blood 27 mmol/L (21-32); Calcium, Blood 8.8 mg/dL (8.5-10.1); Chloride, Blood 112 mmol/L (98-108); Glomerular Filtration Rate 10 (60-); Glucose, Blood 108 mg/dL (70-99); Phosphorus, Blood 5.4 mg/dL (2.5-4.9); Potassium, Blood 4.7 mmol/L (3.5-5.5); Sodium, Blood 143 mmol/L (136-145)
--- NOTE | 2018-08-17 17:02 | NUR ---
SHIFT SUMMARY PATIENT A&O X4, INDEPENDENT IN THE ROOM. C/O PAIN TO LEFT FLANK X1 THIS SHIFT, RN MEDICATED WITH TYLENOL IN WHICH PATIENT STATED PAIN HAD RESOLVED. INCONTINENT T/O SHIFT, PATIENT MANAGING AND CHANGING HER OWN PADS. NS @ 50/HR RUNNING. NO ACUTE CHANGES THIS SHIFT. RN WILL CONTINUE TO MONITOR.
--- NOTE | 2018-08-18 04:06 | NUR ---
SHIFT SUMMARY NO CHANGES, PT HAS SLEPT FOR MOST OF THE NIGHT. PT HAD A INTERMITTENT EPISODE OF LEFT FLANK PAIN THAT WAS RELIEVED WITH TYLENOL. PT HAS REMAINED INDEPENDENT IN THE ROOM. NS INFSUING AT 50 ML/HR. PT MAKES NEEDS KNOWN. CALL LIGHT WITHIN REACH. S/O AT BEDSIDE T/O THE NIGHT. WILL CONTINUE TO MONITOR AND REPORT TO ONCOMING RN.
[2018-08-18 04:50] LABS: Hematocrit 29.4 % (33.0-51.0); Hemoglobin 9.3 g/dL (11.5-16.0)
[2018-08-18 05:11] LABS: Albumin, Blood 2.9 g/dL (3.4-5.0); Anion Gap 5 mmol/L (6-16); Blood Urea Nitrogen 45 mg/dL (8-24); Bun/Creatinine Ratio 8.8 (12.0-20.0); CO2, Blood 24 mmol/L (21-32); Calcium, Blood 8.6 mg/dL (8.5-10.1); Chloride, Blood 114 mmol/L (98-108); Creatinine, Blood 5.14 mg/dL (0.40-1.00); Glomerular Filtration Rate 10 (60-); Glucose, Blood 88 mg/dL (70-99); Magnesium, Blood 2.2 mg/dL (1.6-2.4); Phosphorus, Blood 5.8 mg/dL (2.5-4.9); Potassium, Blood 5.9 mmol/L (3.5-5.5); Sodium, Blood 143 mmol/L (136-145)
--- NOTE | 2018-08-18 08:54 | NUR ---
called and left a vm with dr. Nolasco regarding plan for patient.
[2018-08-18 12:06] LABS: M-SPIKE, % Not Observed % (Not Observed); PROTEIN,TOTAL,URINE 9.6 mg/dL (Not Estab.)
[2018-08-18 15:06] LABS: ALBUMIN 2.8 g/dL (2.9-4.4); ALPHA-1-GLOBULIN 0.2 g/dL (0.0-0.4); BETA GLOBULIN 0.8 g/dL (0.7-1.3); IMMUNOGLOBULIN A, QN, SERUM 206 mg/dL (87-352); IMMUNOGLOBULIN G, QN, SERUM 939 mg/dL (700-1600); IMMUNOGLOBULIN M, QN, SERUM 151 mg/dL (26-217); M-SPIKE Not Observed g/dL (Not Observed); PROTEIN, TOTAL, SERUM 5.8 g/dL (6.0-8.5)
--- NOTE | 2018-08-18 18:29 | NUR ---
shift summary patient is aware of procedure tomorrow with dr. Nolasco. She has requested pain meds x2. medicated per emar. NO acute issues noted.
--- NOTE | 2018-08-19 02:58 | NUR ---
ASSUMED CARE OF THE PATIENT: PATIENT SITTING UP IN HER CHAIR, FAMILY AT SIDE, SPEAKS GRENADIAN, USED ALREADY PRINTED OUT FORMED QUESITONS TO DO ASSESSMENT. HAS DRESSING TO LOWER LEFT FLANK. AOX3, STATES PAIN 5/10 IN ABDOMIN AND TOWARDS BACK. NO NAUSEA. LUNG SOUNDS ARE CLEAR, BT X4, SKIN PWD, NO BREAKDOWN. DRESSING INTACT TO LEFT FLANK. URINATION LITTLE AT THIS TIME. WILL CONTINUE TO MONTIOR.
[2018-08-19 05:15] LABS: Hematocrit 29.9 % (33.0-51.0); Hemoglobin 9.4 g/dL (11.5-16.0)
[2018-08-19 05:46] LABS: Albumin, Blood 2.9 g/dL (3.4-5.0); Anion Gap 7 mmol/L (6-16); Blood Urea Nitrogen 51 mg/dL (8-24); Bun/Creatinine Ratio 8.2 (12.0-20.0); CO2, Blood 21 mmol/L (21-32); Calcium, Blood 8.2 mg/dL (8.5-10.1); Chloride, Blood 112 mmol/L (98-108); Creatinine, Blood 6.22 mg/dL (0.40-1.00); Glomerular Filtration Rate 8 (60-); Glucose, Blood 105 mg/dL (70-99); Phosphorus, Blood 5.6 mg/dL (2.5-4.9); Potassium, Blood 6.7 mmol/L (3.5-5.5); Sodium, Blood 140 mmol/L (136-145)
--- NOTE | 2018-08-19 06:05 | NUR ---
SHIFT SUMMARY: ELIE WAS COOPERATIVE AND PLEASANT THIS SHIFT. SHE STARTED WITH MILD PAIN, WHILE FAMILY WAS PRESENT. LATER IN THE NIGHT SHE HAD A SPIKE OF PAIN, THAT EVEN THE TYELNOL DID NOT TOUCH SO FENTANYL 25MG WAS GIVEN PER HER REQUEST. THIS HELPED HER RELAX THE REST OF THE NIGHT AND SLEEP. SHE ONLY GOT UP A FEW TIMES TO BATHROOM AND RIGHT BACK TO SLEEP. CRITICAL POTASSIUM LEVEL NOTED THIS AM. HOSPITALIST NOTIFIED AND REFERRED TO DR. MAYORGA WHO SHOULD BE SHOWING UP TO HOSPTIAL AND WILL INFORM. NO OTHER ACUTE CHANGES THIS SHIFT. WILL REPORT TO DAY SHIFT RN.
--- NOTE | 2018-08-19 07:17 | NUR ---
RECEIVED A CRITICAL VALUE POTASSIUM 6.7. CALLED THE HOSPITALIST WHO REPORTS TO HAVE DR MAYORGA TO FOLLOW. DR MAYORGA ARRIVED TO THE HOSPITAL. INFORMED OF CRITICAL VALUE NEW ORDERS WERE OBTAINED, PLEASE SEE ORDERS FOR EXACT. THIS WAS GIVEN TO DAY SHIFT RN IN REPORT TO ADMINISTER THE NOW ORDERS AND TO FOLLOW UP ON STAT REDRAW AT [address] MAYORGA.
[2018-08-19 12:08] LABS: ANA DIRECT Negative (Negative); ANTIMYELOPEROXIDASE (MPO) ABS <9.0 U/mL (0.0-9.0); ANTIPROTEINASE 3 (PR-3) ABS <3.5 U/mL (0.0-3.5); ATYPICAL PANCA <1:20 titer (Neg:<1:20); CYTOPLASMIC (C-ANCA) <1:20 titer (Neg:<1:20); PERINUCLEAR (P-ANCA) <1:20 titer (Neg:<1:20)
--- NOTE | 2018-08-19 13:52 | NUR ---
Met pt sitting up on her bed and her in the room talking to her , pt is doing fine ofered prayers ands support.
--- NOTE | 2018-08-19 16:52 | NUR ---
PATIENT HAS A R NEPHROSTOMY TUBE PLACED. TOLERATING THIS WELL. MEDICATED FOR PAIN, REQUESTING ORAL PILLS VS. IV MEDICATION. RESUMED REGULAR DIET, TOLERATING THIS WELL. WCTM AND MEDICATE FOR PAIN. NEPHROSTOMY DRAINING FLUID WITH NO ISSUES.
--- NOTE | 2018-08-20 00:51 | NUR ---
Summary of pain issues. Pt started c/o severe left flank pain. Tylenol was not effective so pt was given tramadol. Tramadol was also not effective. 25 of fentanyl was also given with no pain relief. pt unable to get comfortable- moaning and groaning. Up ambulating in halls moaning. Md called. Pt given an additional dose of fentanyl which only lasted for about 15 minutes. Md called again and order for dilaudid was recieved. Pt given 1 mg dilaudid and was finally able to get some relief. VSS. Pt has had no urine coming from urethra. Pt appears to be resting comfortably at present
--- NOTE | 2018-08-20 04:11 | NUR ---
Pt woke up again about 2.5 hours after getting dilaudid moaning and groaning. Pt has to get up and walk around. Cannot get comfortable. Temp 100.2- tylenol given also.
[2018-08-20 07:11] LABS: Albumin, Blood 3.2 g/dL (3.4-5.0); Anion Gap 9 mmol/L (6-16); Blood Urea Nitrogen 23 mg/dL (8-24); Bun/Creatinine Ratio 11.7 (12.0-20.0); CO2, Blood 25 mmol/L (21-32); Calcium, Blood 9.3 mg/dL (8.5-10.1); Chloride, Blood 107 mmol/L (98-108); Creatinine, Blood 1.96 mg/dL (0.40-1.00); Glomerular Filtration Rate 29 (60-); Glucose, Blood 142 mg/dL (70-99); Magnesium, Blood 1.9 mg/dL (1.6-2.4); Phosphorus, Blood 4.4 mg/dL (2.5-4.9); Potassium, Blood 4.5 mmol/L (3.5-5.5); Sodium, Blood 141 mmol/L (136-145)
[2018-08-20 08:48] LABS: BASOPHILS ABSOLUTE AUTO 0.02 K/mm3 (0.00-0.23); BASOPHILS PERCENT AUTO 0 % (0-2); EOSINOPHILS ABSOLUTE AUTO 0.01 K/mm3 (0.00-0.68); EOSINOPHILS PERCENT AUTO 0 % (0-6); Hematocrit 33.1 % (33.0-51.0); Hemoglobin 10.3 g/dL (11.5-16.0); IMMATURE GRAN ABSOLUTE AUTO 0.06 K/mm3 (0.00-0.10); IMMATURE GRAN PERCENT AUTO 0 % (0-1); LYMPHOCYTES ABSOLUTE AUTO 0.59 K/mm3 (0.84-5.20); LYMPHOCYTES PERCENT AUTO 4 % (21-46); MONOCYTES ABSOLUTE AUTO 0.55 K/mm3 (0.16-1.47); MONOCYTES PERCENT AUTO 4 % (4-13); Mean Corpuscular HGB 29.2 pg (26.0-34.0); Mean Corpuscular HGB Conc 31.1 g/dL (31.5-36.5); Mean Platelet Volume 9.8 fL (9.1-12.4); NEUTROPHILS ABSOLUTE AUTO 13.86 K/mm3 (1.96-9.15); NEUTROPHILS PERCENT AUTO 92 % (41-73); Platelet Count 447 K/mm3 (150-400); RDW Standard Deviation 46.5 fL (35.1-46.3); Red Blood Cell Count 3.53 M/mm3 (3.80-5.20); White Blood Cell Count 15.09 K/mm3 (4.00-11.30)
[2018-08-20 09:01] LABS: Mean Corpuscular Volume 94 fL (80-100)
--- NOTE | 2018-08-20 09:49 | NUR ---
I SPOKE WITH ABOUT IMPROVED LAB RESULTS AND HIS COMMENT TO THE NIGHT NURSE THIS MORNING ASKING FOR A NEPHROSTOMY TUBE TO BE PLACED ON THE L SIDE TOO. HE SAID THAT SAID IF SHE HAS A LOT OF PAIN HE MAY PUT IN A L NEPHROSTOMY. I THEN CALLED 'S NUMBER AND LEFT A VOICE MAIL. [phone]. I TOLD HIM SHE HAS BEEN OUT OF PAIN CONTROL ALL NIGHT AND THIS MORNING. FEVER NOW DOWN TO 100.3 FROM 101.4. I HAVE GIVEN HER FENTANYL, TYLENOL AND DILAUDID. I ALSO SANDY IN THE MSG THAT SHE HAD AN AM FEVER. WBC'S UP BUT RENAL LABS MUCH IMPROVED. ENCOURAGED BY HER AM LABS AND KNOWS THAT WE HAVE GIVEN DILAUDID AND FENTANYL D/T POOR PAIN CONTROL.
[2018-08-20 15:39] LABS: Bilirubin, Urine Neg (Neg); Blood, Urine 5+ (Neg); Glucose Qualitative, Urine Neg (Neg); Ketones, Urine Neg (Neg); Leukocyte Esterase, Urine 3+ (Neg); Nitrite, Urine Neg (Neg); Protein, Urine 3+ (Neg); Specific Gravity, Urine 1.015 (1.003-1.022); Urobilinogen, Urine NORM (Normal)
[2018-08-20 15:53] LABS: Appearance, Urine Hazy (Clear); Color, Urine Yellow (P-Yellow)
[2018-08-20 15:56] LABS: Red Blood Cells, Urine TNTC /hpf (0-2); White Blood Cells, Urine 25-50 /hpf (0-5)
[2018-08-20 15:57] LABS: Bacteria Mod /hpf; Squamous Epithelial Cells Few /hpf (Few)
--- NOTE | 2018-08-20 18:03 | NUR ---
SHE STARTED OUT THE MORNING WRITHING AND MOANING IN PAIN. THE PAIN WAS ALL IN HER L FLANK. HER R NEPHROSTOMY TUBE CONTINUES TO DRAIN URINE. THIS AFTERNOON THE PAIN STOPPED. SHE STILL SLEEPS A LOT BUT IS SMILING AND RIGHT NOW IS CHATTING ON THE PHONE. HER WAS WITH HER THIS MORNING BUT GONE THIS AFTERNOON. I ASKED HER BY WAY OF THE CHIN STRAP SEWER LINE ABOUT VOIDING. SHE SAYS SHE VOIDED A SMALL AMT INTO PERIPAD TODAY. SHE HAS BEEN FEVERISH AND WBC'S UP. IV ROCEPHIN STARTED. PO ANTIBIOTIC DC'D. IVF'S CONTINUE AT 50/HR. RENAL LABS SHOW SIGNIFICANT IMPROVEMENT.
--- NOTE | 2018-08-20 20:15 | NUR ---
PATIENT WAS RESTING IN BED, JUST ARRIVED TO ROOM. STATES SHE HAS NO PAIN AT THIS TIME, NEPHROSTOMY TUBE DRAINING WELL, CLEAR YELLOW URINE. DRESSINGS INTAKE. STATES BOWEL MOVMENT TWO DAYS AGO. TEMP 103.2 TYLENOL WAS GIVEN WILL HAVE THERMAL CUTTER HELPER RECHECK TEMP. DENIES NAUSEA AND VOMITING. IS HELP WITH TRANSLATIONS, AND USE TO PRESCRIPTED SHORT QUESTIONS AND ANSWERS. WILL CONTINUE TO MONITOR
[2018-08-21 05:18] LABS: BASOPHILS ABSOLUTE AUTO 0.02 K/mm3 (0.00-0.23); BASOPHILS PERCENT AUTO 0 % (0-2); EOSINOPHILS ABSOLUTE AUTO 0.07 K/mm3 (0.00-0.68); EOSINOPHILS PERCENT AUTO 1 % (0-6); Hematocrit 30.3 % (33.0-51.0); Hemoglobin 9.6 g/dL (11.5-16.0); IMMATURE GRAN ABSOLUTE AUTO 0.07 K/mm3 (0.00-0.10); IMMATURE GRAN PERCENT AUTO 1 % (0-1); LYMPHOCYTES PERCENT AUTO 6 % (21-46); MONOCYTES ABSOLUTE AUTO 0.63 K/mm3 (0.16-1.47); MONOCYTES PERCENT AUTO 5 % (4-13); Mean Corpuscular HGB 28.7 pg (26.0-34.0); Mean Corpuscular HGB Conc 31.7 g/dL (31.5-36.5); Mean Platelet Volume 9.4 fL (9.1-12.4); NEUTROPHILS PERCENT AUTO 88 % (41-73); Platelet Count 398 K/mm3 (150-400); Red Blood Cell Count 3.35 M/mm3 (3.80-5.20); White Blood Cell Count 12.49 K/mm3 (4.00-11.30)
[2018-08-21 05:19] LABS: Mean Corpuscular Volume 90 fL (80-100)
[2018-08-21 05:40] LABS: Albumin, Blood 2.8 g/dL (3.4-5.0); Anion Gap 7 mmol/L (6-16); Blood Urea Nitrogen 14 mg/dL (8-24); Bun/Creatinine Ratio 10.7 (12.0-20.0); CO2, Blood 24 mmol/L (21-32); Calcium, Blood 8.6 mg/dL (8.5-10.1); Chloride, Blood 108 mmol/L (98-108); Creatinine, Blood 1.31 mg/dL (0.40-1.00); Glomerular Filtration Rate 47 (60-); Glucose, Blood 143 mg/dL (70-99); Magnesium, Blood 1.8 mg/dL (1.6-2.4); Phosphorus, Blood 3.2 mg/dL (2.5-4.9); Potassium, Blood 4.2 mmol/L (3.5-5.5); Sodium, Blood 139 mmol/L (136-145)
--- NOTE | 2018-08-21 05:56 | NUR ---
SHIFT SUMMARY: PATIENT HAS BEEN SLEEPING ALL NIGHT HAS BEEN BY HER SIDE. SHE DID NOT HAVE PAIN TILL SHE WOKE THIS AM, PAIN WAS IN THE LEFT ABDOMEN AND LEFT SIDE. GAVE HER DOSE OF FENTANYL. THIS CALMED IT BACK DOWN. NEPHROSTOMY TUBE IS DRAINING WITH NO PROBLEMS, VS SHOWED SHE WAS FEBRILE AT BEGINNING OF THE SHIFT OF 103.2 BUT AFTER A DOSE OF TYLENOL SHE WAS BACK DOWN AND STAYED DOWN TO 98'S. DENIED NAUSEA OR ANY OTHER SYMPTOMS THIS SHIFT. WILL REPORT TO DAY SHIFT RN.
[2018-08-21 07:19] LABS: Albumin, Blood 2.9 g/dL (3.4-5.0); Albumin/Globulin Ratio 0.6 (0.8-1.8); Bilirubin, Direct 0.1 mg/dL (0.0-0.3); Bilirubin, Indirect 0.3 mg/dL (0.1-0.7); Bilirubin, Total 0.4 mg/dL (0.1-1.0); Globulin, Blood 4.8 g/dL (2.2-4.0); Total Protein, Blood 7.7 g/dL (6.4-8.2)
--- NOTE | 2018-08-21 11:27 | NUR ---
I SPOKE WITH . SHE HAS SEEN THE CT RESULTS AND SPOKEN WITH . ELIE'S PAIN IN UNDER CONTROL WITH ANALGESICS.
--- NOTE | 2018-08-21 17:42 | NUR ---
SHE IS RESTING. HER IS WITH HER. SHE HAS RECEIVED DILAUDID X3 AND FENTANYL X1 THIS SHIFT. THE PAIN CONTINUES TO BE IN HER L FLANK AREA. SHE GETS RELIEF EACH TIME AFTER MEDICATION. CAME TO SEE HER JUST AFTER LUNCH. WE NPO'D HER FOR A L NEPHROSTOMY TUBE PLACEMENT. WE JUST RECEIVED A CALL THOUGH THAT IT HAS BEEN POSTPONED TILL MORNING. A [place] NEW [place] SPEAKING THERAPIST HELPED ME BY TELLING HER THE PROCEDURE HAS BEEN POSTPONED UNTIL MORNING. SHE WAS SMILING AT THE TIME BECAUSE HER PAIN IS CONTROLLED. I CALLED TO UPDATE HIM. SHE EATS LITTLE. IVF'S CONTINUE AT 50 MLS/HR. ALL LABS BETTER AGAIN TODAY. SHE WILL BE NPO AFTER MN FOR THE PROCEDURE. NO MEASURABLE VOID TODAY BUT R NEPHROSTOMY TUBE IS DRAINING WELL.
--- NOTE | 2018-08-22 04:28 | NUR ---
SHIFT SUMMARY PT HAS REQUIRED FREQUENT PRNS FOR PAIN IN HER LEFT FLANK. ALTERNATED WITH FENTANYL AND DILAUDID ALMOST AROUND THE CLOCK T/O THE SHIFT. LEFT NEPHROSTOMY DRAINING YELLOW URINE. PLAN IS FOR NEPHORSTOMY PLACEMENT ON THE RIGHT SIDE TODAY. PT AWARE OF POC. SHE HAS BEEN NPO SINCE MIDNIGHT. IVF INFUSING ORDERED. PT INDEPNDENT IN ROOM. S/O AT BEDSIDE AND ASSISTS WITH CARE AND ADLS. WILL CONTINUE TO MONITOR AND REPORT TO ONCOMING RN.
[2018-08-22 05:07] LABS: Hematocrit 28.9 % (33.0-51.0)
[2018-08-22 05:25] LABS: Albumin, Blood 2.6 g/dL (3.4-5.0); Anion Gap 5 mmol/L (6-16); Blood Urea Nitrogen 14 mg/dL (8-24); Bun/Creatinine Ratio 11.1 (12.0-20.0); CO2, Blood 25 mmol/L (21-32); Calcium, Blood 8.7 mg/dL (8.5-10.1); Chloride, Blood 107 mmol/L (98-108); Creatinine, Blood 1.26 mg/dL (0.40-1.00); Glomerular Filtration Rate 49 (60-); Glucose, Blood 178 mg/dL (70-99); Magnesium, Blood 1.9 mg/dL (1.6-2.4); Phosphorus, Blood 3.2 mg/dL (2.5-4.9); Potassium, Blood 3.9 mmol/L (3.5-5.5); Sodium, Blood 137 mmol/L (136-145)
--- NOTE | 2018-08-22 08:30 | NUR ---
PT RETURNED FROM SURGERY- LATE ENTRY PT RETURNED FROM SURGERY AY 0830. PT IN STABLE CONDITION WITH VSS. PT RESTING IN BED. DENIES PAIN. PT GIVEN BREAKFAST AFTER OK FROM DR. WEINBERG. R NEPHROSTOMY TUBE DRAINING BROWNISH PINK IN COLOR. WILL CONTINUE TO MONITOR.
--- NOTE | 2018-08-22 17:09 | NUR ---
SHIFT SUMMARY PT HAD L NEPHROSTOMY PLACED THIS AM. PRIOR TO PROCEDURE PT WAS WINCING IN PAIN /. AFTER PROCEDURE PT STATES A DECREASE IN PAIN IN THE L SIDE. PT HAS BEEN MEDICATED FOR MODERATE PAIN 5/10 2X THIS SHIFT. BILATERAL NEPHROSTOMY SITES C/D/I. PT HAS SLIGHT TEMP OF 99.2 F. OTHER VITALS STABLE. WILL CONTINUE TO MONITOR. NO OTHER CHANGES IN ASSESSMENT AT THIS TIME. WILL CONTINUE TO MONITOR UNTIL TURNOVER IS COMPLETE.
--- NOTE | 2018-08-23 03:53 | NUR ---
SHIFT SUMMARY PATIENT HAD NO ACUTE CHANGES OBSERVED THIS SHIFT. AXO X4 AND INDEPENDENT IN THE ROOM. LEFT NEPHROSTOMY DRAINING WITH SITE C/D/I. PIV REMAINS INTACT. D5W-NS INFUSING AT 50 mL/HR. VSS/AFEBRILE. DENIES PAIN, SOB, AND N/V. FAMILY PRESENT T/O SHIFT. COOPERATIVE WITH CARE. GUYANESE LANGUAGE WITH STAFF USING A&P MECHANIC ON MOBILE PHONE. CALL LIGHT IN REACH. BED IN LOWEST POSITION. WILL CONTINUE TO MONITOR UNTIL DAY SHIFT NURSE ASSUMES CARE.
[2018-08-23 05:37] LABS: BASOPHILS ABSOLUTE AUTO 0.02 K/mm3 (0.00-0.23); BASOPHILS PERCENT AUTO 0 % (0-2); EOSINOPHILS ABSOLUTE AUTO 0.23 K/mm3 (0.00-0.68); EOSINOPHILS PERCENT AUTO 3 % (0-6); Hematocrit 31.2 % (33.0-51.0); Hemoglobin 9.9 g/dL (11.5-16.0); IMMATURE GRAN ABSOLUTE AUTO 0.04 K/mm3 (0.00-0.10); IMMATURE GRAN PERCENT AUTO 0 % (0-1); LYMPHOCYTES ABSOLUTE AUTO 0.82 K/mm3 (0.84-5.20); LYMPHOCYTES PERCENT AUTO 9 % (21-46); MONOCYTES ABSOLUTE AUTO 0.45 K/mm3 (0.16-1.47); MONOCYTES PERCENT AUTO 5 % (4-13); Mean Corpuscular HGB 28.8 pg (26.0-34.0); Mean Corpuscular HGB Conc 31.7 g/dL (31.5-36.5); Mean Corpuscular Volume 91 fL (80-100); Mean Platelet Volume 9.5 fL (9.1-12.4); NEUTROPHILS ABSOLUTE AUTO 7.71 K/mm3 (1.96-9.15); NEUTROPHILS PERCENT AUTO 83 % (41-73); Platelet Count 448 K/mm3 (150-400); RDW Coefficient Variation 13.6 % (11.7-14.2); RDW Standard Deviation 45.1 fL (35.1-46.3); Red Blood Cell Count 3.44 M/mm3 (3.80-5.20); White Blood Cell Count 9.27 K/mm3 (4.00-11.30)
[2018-08-23 05:54] LABS: Albumin, Blood 2.7 g/dL (3.4-5.0); Anion Gap 7 mmol/L (6-16); Blood Urea Nitrogen 14 mg/dL (8-24); Bun/Creatinine Ratio 12.3 (12.0-20.0); CO2, Blood 26 mmol/L (21-32); Calcium, Blood 9.1 mg/dL (8.5-10.1); Chloride, Blood 104 mmol/L (98-108); Creatinine, Blood 1.14 mg/dL (0.40-1.00); Glomerular Filtration Rate 55 (60-); Glucose, Blood 119 mg/dL (70-99); Phosphorus, Blood 3.3 mg/dL (2.5-4.9); Sodium, Blood 137 mmol/L (136-145)
--- NOTE | 2018-08-23 11:19 | NUR ---
PT SLEEPING DURING SHIFT REPORT. WAKES EASILY FOR CARE, BUT DOES NOT SPEAK DIVEHI. FAMILY AT , ABLE TO COMMUNICATE. PT DENIED PAIN. TEMP SANDY'D AFTER HEAT DECREASED IN RM AND BLANKETS REMOVED. DOWN SLIGHTLY FROM AM VS. PT HAS CONTINUED TO SLEEP THRU OUT THE MORNING. ONLY MINIMAL INTAKE FOR BREAKFAST, FAMILY REPORTED PT DOES NOT USUALLY EAT MUCH FOR BREAKFAST. DR MAYORGA IN TO SEE PT EARLIER THIS AM. NEW ORDERS RECEIVED. IVF'S D/C'D. PT SL. PT STILL SLEEPING, RESTING QUIETLY. FAMILY REPORTS NO PAIN AT THIS TIME.
--- NOTE | 2018-08-23 14:59 | NUR ---
SHIFT SUMMARY PT MORE AWAKE THIS AFTERNOON. SITTING UP TO EOB. TELE-INTERRUPTER USED; FAMILY LEFT FOR THE AFTERNOON. PT DENIED NEEDS, BUT DID REPORT PAIN R/T NEPHROSTOMY TUBES, "A SMALL AMOUNT OF PAIN WHERE THE TUBES ARE AT" THRU INTERRUPTER. PT MEDICATED PER EMAR; REPORTED NO PAIN, WITH SMILES, WHEN REASSESSED. ONLY SM AMT OF URINE OUTPUT FROM L NEPHROSTOMY TUBE. MUCH MORE OUTPUT FROM R SIDE. PT HAS BEEN INDEPENDENT TO BTHRM NEEDED. CURRENTLY SL. NO S/SX OF DISTESS NOTED. CALL LT IN REACH.
--- NOTE | 2018-08-24 04:17 | NUR ---
SHIFT SUMMARY PATIENT HAD NO ACUTE CHANGES OBSERVED THIS SHIFT. AXOX 4 AND INDEPENDENT IN THE ROOM. REPORTED PAIN R/T NEPHROSTOMY TUBE PLACEMENT AND RECEIVED ULTRAM PER EMAR. VSS/AFEBRILE. DENIES SOB AND N/V. FAMILY PRESENT T/O SHIFT. MOBILE PHONE TRANSLATION USED AT TIMES. PIV REMAINS INTACT. COOPERATIVE WITH CARE. CALL LIGHT IN REACH. BED IN LOWEST POSITION. WILL CONTINUE TO MONITOR UNTIL DAY SHIFT RN ASSUMES CARE.
[2018-08-24 05:03] LABS: BASOPHILS ABSOLUTE AUTO 0.02 K/mm3 (0.00-0.23); BASOPHILS PERCENT AUTO 0 % (0-2); EOSINOPHILS ABSOLUTE AUTO 0.22 K/mm3 (0.00-0.68); EOSINOPHILS PERCENT AUTO 3 % (0-6); Hematocrit 29.3 % (33.0-51.0); IMMATURE GRAN ABSOLUTE AUTO 0.06 K/mm3 (0.00-0.10); IMMATURE GRAN PERCENT AUTO 1 % (0-1); LYMPHOCYTES ABSOLUTE AUTO 1.27 K/mm3 (0.84-5.20); LYMPHOCYTES PERCENT AUTO 15 % (21-46); MONOCYTES ABSOLUTE AUTO 0.54 K/mm3 (0.16-1.47); MONOCYTES PERCENT AUTO 6 % (4-13); Mean Corpuscular HGB 28.2 pg (26.0-34.0); Mean Corpuscular HGB Conc 30.7 g/dL (31.5-36.5); Mean Corpuscular Volume 92 fL (80-100); NEUTROPHILS ABSOLUTE AUTO 6.54 K/mm3 (1.96-9.15); NEUTROPHILS PERCENT AUTO 76 % (41-73); RDW Coefficient Variation 13.8 % (11.7-14.2); RDW Standard Deviation 46.6 fL (35.1-46.3); Red Blood Cell Count 3.19 M/mm3 (3.80-5.20); White Blood Cell Count 8.65 K/mm3 (4.00-11.30)
[2018-08-24 05:06] LABS: Mean Platelet Volume 10.6 fL (9.1-12.4); Platelet Count 412 K/mm3 (150-400)
[2018-08-24 05:21] LABS: Albumin, Blood 2.7 g/dL (3.4-5.0); Anion Gap 9 mmol/L (6-16); Blood Urea Nitrogen 19 mg/dL (8-24); CO2, Blood 24 mmol/L (21-32); Chloride, Blood 105 mmol/L (98-108); Creatinine, Blood 1.19 mg/dL (0.40-1.00); Glomerular Filtration Rate 52 (60-); Glucose, Blood 102 mg/dL (70-99); Magnesium, Blood 2.1 mg/dL (1.6-2.4); Phosphorus, Blood 4.6 mg/dL (2.5-4.9); Potassium, Blood 4.3 mmol/L (3.5-5.5); Sodium, Blood 138 mmol/L (136-145)
--- NOTE | 2018-08-24 13:04 | NUR ---
SHIFT SUMMARY PT RESTING QUIETLY ASLEEP DURING SHIFT REPORT. FAMILY SLEEPING AT BS WELL. PT WAKES EASILY FOR CARE, BUT DOES NOT SPEAK MEXICAN. SOME FAMILY ABLE TO COMMUNICATE WITH HER AND FOR HER. PT ANS "A LITTLE BIT", WHEN ASKED ABOUT PAIN. MEDICATED PER EMAR, PT REPORTED IT EFFECTIVE. PT UP OOB AND WALKING HALLS WITH FAMILY THIS AM. WAS AWAKE FOR A WHILE AND THEN WENT BACK TO SLEEP. PT CONTINUES TO IMPROVE, FEELING BETTER. DR BALBUENA IN TO SEE PT. R NEPHROSTOMY CONTINUES TO PUT OUT A FAR GREATER AMT OF URINE THAN THE LEFT. L NEPHROSTOMY URINE IS SLIGHTLY CLOUDY WITH SEDIMENT. NO TEMP TODAY AND NO C/O CHILLS. CALL LT IN REACH. WILL CONTINUE TO MONITOR.
--- NOTE | 2018-08-25 04:28 | NUR ---
SHIFT SUMMARY PATIENT HAD NO ACUTE CHANGES OBSERVED THIS SHIFT. AXO X4 AND INDEPENDENT IN ROOM. ULTRAM GIVEN X TWO FOR NEPHROSTOMY SITE PAIN. PIV REMAINS INTACT. NEPHROSTOMY OUTPUT 500 mL RIGHT SIDE VS 200 mL LEFT WHEN EMPTIED FIRST TIME. RIGHT HAS BEEN HAVING MORE OUTPUT. VSS/AFBRILE. DENIES SOB AND N/V. FAMILY PRESENT T/O SHIFT. INTERPRETATION DEVICES IN USE. CALL LIGHT IN REACH. BED IN LOWEST POSITION. WILL CONTINUE TO MONITOR UNTIL DAY SHIFT NURSE ASSUMES CARE.
[2018-08-25 05:27] LABS: Hematocrit 29.5 % (33.0-51.0); Hemoglobin 9.4 g/dL (11.5-16.0)
[2018-08-25 05:56] LABS: Albumin, Blood 2.8 g/dL (3.4-5.0); Anion Gap 8 mmol/L (6-16); Blood Urea Nitrogen 23 mg/dL (8-24); Bun/Creatinine Ratio 21.7 (12.0-20.0); CO2, Blood 25 mmol/L (21-32); Calcium, Blood 9.4 mg/dL (8.5-10.1); Chloride, Blood 101 mmol/L (98-108); Creatinine, Blood 1.06 mg/dL (0.40-1.00); Glomerular Filtration Rate 60 (60-); Glucose, Blood 106 mg/dL (70-99); Magnesium, Blood 2.1 mg/dL (1.6-2.4); Phosphorus, Blood 5.1 mg/dL (2.5-4.9); Potassium, Blood 4.2 mmol/L (3.5-5.5); Sodium, Blood 134 mmol/L (136-145)
[2018-08-25] MEDS ORDERED: ONDA4ODT MM (12:07)
--- NOTE | 2018-08-25 16:02 | NUR ---
DISCHARGE HOSPITAL AIDE PHONE ACTIVATED AND DISCHARGE INSTRUCTIONS, MEDICATION LIST AND FOLLOW UP APPOINTMENTS REVIEWED WITH PT AND HER . QUESTIONS ANSWERED. PAIN MEDICATION EXPLAINED AND HARD COPY SCRIP GIVEN. BOTH PT AND SPOUSE VERBALLY INDICATED UNDERSTANDING OF ALL INSTRUCTIONS RECEIVED. PT TRANSPORTED OUT VIA W/C BY GI[facility]NA
== END 2018-08-25 15:58 | disposition home or self-care (01) | DRG 854 ==
LOC: ER 17:33 → MEDS 22:12 → ENPENDDIS 08-25 11:08 → MEDS 08-25 15:58
PROVIDERS: Family Medicine; Hospitalist; Internal Medicine; Internal Medicine Nephrology; Nurse Practitioner Acute Care; Physician Assistant; ADMIT Internal Medicine
PROC: 0TP93DZ Removal of Intraluminal Device from Ureter, Percutaneous Approach (ICD-10-PCS; principal; 2018-08-07)
PROC: 0T763DZ Dilation of Right Ureter with Intraluminal Device, Percutaneous Approach (ICD-10-PCS; 2018-08-07)
PROC: BT121ZZ Fluoroscopy of Left Kidney using Low Osmolar Contrast (ICD-10-PCS; 2018-08-07)
PROC: BT101ZZ Fluoroscopy of Bladder using Low Osmolar Contrast (ICD-10-PCS; 2018-08-07)
PROC: 0T773DZ Dilation of Left Ureter with Intraluminal Device, Percutaneous Approach (ICD-10-PCS; 2018-08-11)
PROC: 0T9030Z Drainage of Right Kidney with Drainage Device, Percutaneous Approach (ICD-10-PCS; 2018-08-19)
PROC: 0T9130Z Drainage of Left Kidney with Drainage Device, Percutaneous Approach (ICD-10-PCS; 2018-08-22)
DX: A41.81 Sepsis due to Enterococcus (principal); N10 Acute pyelonephritis; N39.0 Urinary tract infection, site not specified; E87.2 Acidosis; K21.9 Gastro-esophageal reflux disease without esophagitis; R65.20 Severe sepsis without septic shock; N13.5 Crossing vessel and stricture of ureter without hydronephrosis; E88.09 Other disorders of plasma-protein metabolism, not elsewhere classified; E86.9 Volume depletion, unspecified; D63.1 Anemia in chronic kidney disease; E87.5 Hyperkalemia; E83.39 Other disorders of phosphorus metabolism; T83.022A Displacement of nephrostomy catheter, initial encounter; B96.4 Proteus (mirabilis) (morganii) as the cause of diseases classified elsewhere; C53.9 Malignant neoplasm of cervix uteri, unspecified; N18.9 Chronic kidney disease, unspecified
CPT/HCPCS: 36415; 50382; 50431; 50432; 50693; 74150; 74176; 74177; 76770; 80048; 80053; 80069; 80076; 81001; 82248; 82550; 82565; 82784; 83516; 83520; 83605; 83615; 83690; 83735; 84100; 84132; 84156; 84165; 84166; 84443; 84550; 84703; 85014; 85018; 85025; 85610; 86038; 86256; 86334; 87040; 87077; 87086; 87186; 93005; 93010; 96361; 96365-59; 96375; 99152; 99153; 99285-25; A9270; C1729; C1769; C1773; C1887; C1894; C2617; J0696; J0881; J1170; J1644; J1650; J1815; J2185; J2250; J2405; J3010; J7030; J7040; J7042; J7799; P9612; Q9967

== ENCOUNTER 2018-08-29 00:49 | Day surgery (SDC) | payer SELFPAY ==
[~2018-08-29 00:49] MED LIST changes: +NEOMYCIN BOTHEYES; +[UNRECOGNIZED DRUG - OTHER] BOTHEYES
--- NOTE | 2018-08-29 18:37 | NUR ---
PT HAS 2 NEPRHOSTOMY TUBES. DRESSING TO BOTH, STAYFIX DRESSING WITH 3 OPSITES OVER DRESSING. SMALL YELLOW DRAINAGE TO L TUBE SITE NOTED, NO ODOR. RIGHT TUBE DRESSING: BLACK SUTURES NOTED. NO DRAINAGE NOTED. STAYFIX DRESSING WITH 3 OPSITES OVER DRESSING. PT TOLERATED DRESSING CHANGES WELL.
== END 2018-08-29 23:46 | disposition home or self-care (01) ==
LOC: ATC 00:49
DX: Z43.6 Encounter for attention to other artificial openings of urinary tract (principal); N18.3 Chronic kidney disease, stage 3 (moderate); R31.9 Hematuria, unspecified; N25.81 Secondary hyperparathyroidism of renal origin; Z85.048 Personal history of other malignant neoplasm of rectum, rectosigmoid junction, and anus; Z79.899 Other long term (current) drug therapy; Z79.891 Long term (current) use of opiate analgesic; R73.03 Prediabetes
CPT/HCPCS: 99152; 99153; 99211; C1769; Q9967

== ENCOUNTER → 2018-09-01 | Outpatient (CLI) | payer SELFPAY ==
[~2018-09-01] MED LIST changes: +BENZ100A PO
[2018-09-01 09:12] LABS: Creatinine Urine 33.3 mg/dL (27.00-270.00); Protein, Urine Quantitative 46.1 mg/dL (0.0-11.9)
== END | disposition home or self-care (01) ==
LOC: LAB FUT 08-28 09:50 → LAB SHORT 04:00 → LAB 04:00
PROVIDERS: Internal Medicine Nephrology
DX: E55.9 Vitamin D deficiency, unspecified (principal); N18.2 Chronic kidney disease, stage 2 (mild); D63.1 Anemia in chronic kidney disease; R73.09 Other abnormal glucose; R80.9 Proteinuria, unspecified; N25.81 Secondary hyperparathyroidism of renal origin; E78.00 Pure hypercholesterolemia, unspecified; R76.9 Abnormal immunological finding in serum, unspecified; R94.5 Abnormal results of liver function studies; R94.6 Abnormal results of thyroid function studies
CPT/HCPCS: 81050; 82043; 82570; 84156; 84300

== ENCOUNTER 2018-09-05 02:32 | Day surgery (SDC) | payer SELFPAY ==
[~2018-09-05 02:32] MED LIST changes: -BENZ100A PO
--- NOTE | 2018-09-05 16:50 | NUR ---
PT NOW HAS 2 NEPHROSTOMY DRAINS SO DRESSINGS DONE X2.
== END 2018-09-05 16:50 | disposition home or self-care (01) ==
LOC: ATC 02:32
DX: Z43.6 Encounter for attention to other artificial openings of urinary tract (principal); N18.3 Chronic kidney disease, stage 3 (moderate); R31.9 Hematuria, unspecified; D64.9 Anemia, unspecified; E86.9 Volume depletion, unspecified; Z85.048 Personal history of other malignant neoplasm of rectum, rectosigmoid junction, and anus; Z79.899 Other long term (current) drug therapy; Z79.891 Long term (current) use of opiate analgesic
CPT/HCPCS: 99212

== ENCOUNTER 2018-09-12 15:58 | Day surgery (SDC) | payer SELFPAY | END 2018-09-12 16:25 | disposition home or self-care (01) | LOC: ATC 15:58 | DX: Z43.6 Encounter for attention to other artificial openings of urinary tract (principal); N13.9 Obstructive and reflux uropathy, unspecified; N18.3 Chronic kidney disease, stage 3 (moderate); D63.1 Anemia in chronic kidney disease; R31.9 Hematuria, unspecified | CPT/HCPCS: 99211 ==

== ENCOUNTER 2018-09-19 00:25 | Day surgery (SDC) | payer SELFPAY | END 2018-09-19 16:35 | disposition home or self-care (01) | LOC: ATC 00:25 | DX: Z43.6 Encounter for attention to other artificial openings of urinary tract (principal); N13.9 Obstructive and reflux uropathy, unspecified; I12.9 Hypertensive chronic kidney disease with stage 1 through stage 4 chronic kidney disease, or unspecified chronic kidney disease; E11.22 Type 2 diabetes mellitus with diabetic chronic kidney disease; N18.3 Chronic kidney disease, stage 3 (moderate); D63.1 Anemia in chronic kidney disease; D50.9 Iron deficiency anemia, unspecified; E11.21 Type 2 diabetes mellitus with diabetic nephropathy; R31.9 Hematuria, unspecified; Z79.899 Other long term (current) drug therapy | CPT/HCPCS: 99211 ==

== ENCOUNTER 2018-09-26 01:51 | Day surgery (SDC) | payer SELFPAY | END 2018-09-26 17:05 | disposition home or self-care (01) | LOC: ATC 01:51 | DX: Z43.6 Encounter for attention to other artificial openings of urinary tract (principal); N18.3 Chronic kidney disease, stage 3 (moderate); D63.1 Anemia in chronic kidney disease; R31.9 Hematuria, unspecified | CPT/HCPCS: 99211 ==

== ENCOUNTER 2018-10-03 02:02 | Day surgery (SDC) | payer SELFPAY ==
--- NOTE | 2018-10-03 16:42 | NUR ---
SKIN CLEANED WITH CHLORAPREP PRIOR TO DRESSING CHANGE. SKIN PREP APPLIED TO SKIN PRIOR TO DRESSING CHANGE. SUTURE REMAINS IN PLACE ON R NEPHROSTOMY DRAIN. NEPHROSTOMY BAG CHANGED X2.
== END 2018-10-03 15:58 | disposition home or self-care (01) ==
LOC: ATC 02:02
DX: Z43.6 Encounter for attention to other artificial openings of urinary tract (principal); N13.9 Obstructive and reflux uropathy, unspecified; E11.22 Type 2 diabetes mellitus with diabetic chronic kidney disease; I12.9 Hypertensive chronic kidney disease with stage 1 through stage 4 chronic kidney disease, or unspecified chronic kidney disease; D63.1 Anemia in chronic kidney disease; N18.3 Chronic kidney disease, stage 3 (moderate); R31.9 Hematuria, unspecified; E11.21 Type 2 diabetes mellitus with diabetic nephropathy
CPT/HCPCS: 99211

== ENCOUNTER 2018-10-10 00:38 | Day surgery (SDC) | payer SELFPAY | END 2018-10-10 16:47 | disposition home or self-care (01) | LOC: ATC 00:38 | DX: Z43.6 Encounter for attention to other artificial openings of urinary tract (principal); N13.9 Obstructive and reflux uropathy, unspecified; N18.3 Chronic kidney disease, stage 3 (moderate); D63.1 Anemia in chronic kidney disease; R31.9 Hematuria, unspecified; N25.81 Secondary hyperparathyroidism of renal origin; N13.30 Unspecified hydronephrosis | CPT/HCPCS: 99211 ==

== ENCOUNTER 2018-10-17 02:22 | Day surgery (SDC) | payer SELFPAY | END 2018-10-17 16:30 | disposition home or self-care (01) | LOC: ATC 02:22 | DX: Z43.6 Encounter for attention to other artificial openings of urinary tract (principal); N18.3 Chronic kidney disease, stage 3 (moderate); N13.9 Obstructive and reflux uropathy, unspecified; D63.1 Anemia in chronic kidney disease; Z79.899 Other long term (current) drug therapy | CPT/HCPCS: 99211 ==

== ENCOUNTER 2018-10-24 15:59 | Day surgery (SDC) | payer SELFPAY | END 2018-10-24 16:19 | disposition home or self-care (01) | LOC: ATC 15:59 | DX: Z43.6 Encounter for attention to other artificial openings of urinary tract (principal); N13.9 Obstructive and reflux uropathy, unspecified; N18.3 Chronic kidney disease, stage 3 (moderate); D63.1 Anemia in chronic kidney disease; R31.9 Hematuria, unspecified; Z79.899 Other long term (current) drug therapy | CPT/HCPCS: 99211 ==

== ENCOUNTER 2018-10-31 00:37 | Day surgery (SDC) | payer SELFPAY | END 2018-10-31 16:11 | disposition home or self-care (01) | LOC: ATC 00:37 | DX: Z43.6 Encounter for attention to other artificial openings of urinary tract (principal); N13.8 Other obstructive and reflux uropathy; N18.3 Chronic kidney disease, stage 3 (moderate); D63.1 Anemia in chronic kidney disease; R31.9 Hematuria, unspecified; N25.81 Secondary hyperparathyroidism of renal origin | CPT/HCPCS: 99211 ==

== ENCOUNTER 2018-11-07 01:13 | Day surgery (SDC) | payer SELFPAY ==
[2018-11-07] MEDS ORDERED: BENZ100A PO (22:08)
--- NOTE | 2018-11-12 07:34 | NUR ---
BILATERAL DRESSING CHANGE TO NEPHROSTOMIES. NO SIGNS OF INFECTION NOTED.
== END 2018-11-07 16:25 | disposition home or self-care (01) ==
LOC: ATC 01:13
DX: Z43.6 Encounter for attention to other artificial openings of urinary tract (principal); N13.8 Other obstructive and reflux uropathy; D63.1 Anemia in chronic kidney disease; N18.3 Chronic kidney disease, stage 3 (moderate); R31.9 Hematuria, unspecified
CPT/HCPCS: 99211

== ENCOUNTER 2018-11-07 19:21 | Emergency (ER) | payer SELFPAY ==
[~2018-11-07] VITALS: Ht 149.9 cm; Wt 54.4 kg
[2018-11-07] MEDS ORDERED: BENZ100A PO (22:08)
--- NOTE | 2018-11-12 07:32 | NUR ---
BILATERAL DRESSING CHANGE TO NEPHROSTOMYS COMPLETED. NO SIGNS OF INFECTION NOTED.
== END 2018-11-07 22:45 | disposition home or self-care (01) ==
LOC: ER 19:21
DX: N99.522 Malfunction of incontinent external stoma of urinary tract (principal); J06.9 Acute upper respiratory infection, unspecified; Z79.899 Other long term (current) drug therapy
CPT/HCPCS: 71046; 99283-25

== ENCOUNTER 2018-11-14 00:41 | Day surgery (SDC) | payer SELFPAY ==
[~2018-11-14 00:41] MED LIST changes: +BENZ100A PO
== END 2018-11-14 16:31 | disposition home or self-care (01) ==
LOC: ATC 00:41
DX: Z43.6 Encounter for attention to other artificial openings of urinary tract (principal); N18.3 Chronic kidney disease, stage 3 (moderate); D63.1 Anemia in chronic kidney disease; R31.9 Hematuria, unspecified; N13.30 Unspecified hydronephrosis; Z98.890 Other specified postprocedural states; Z85.53 Personal history of malignant neoplasm of renal pelvis; Z79.899 Other long term (current) drug therapy
CPT/HCPCS: 99211

== ENCOUNTER → 2018-11-19 | Outpatient (CLI) | payer SELFPAY ==
[2018-11-19 10:21] LABS: Night Urine Protein 36.6 mg/dL (0.0-11.9)
[2018-11-19 10:32] LABS: Night Urine Creatinine 51.7 mg/dL (30.00-125.00)
== END | disposition home or self-care (01) ==
LOC: LAB 08:53 → LAB SHORT 08:53 → LAB FUT 11-18 11:55
PROVIDERS: Internal Medicine Nephrology
DX: N18.2 Chronic kidney disease, stage 2 (mild) (principal); D63.1 Anemia in chronic kidney disease; N25.81 Secondary hyperparathyroidism of renal origin; E55.9 Vitamin D deficiency, unspecified; E78.00 Pure hypercholesterolemia, unspecified; R76.9 Abnormal immunological finding in serum, unspecified; R94.5 Abnormal results of liver function studies; R94.6 Abnormal results of thyroid function studies; R73.01 Impaired fasting glucose
CPT/HCPCS: 81050; 82570; 84156

== ENCOUNTER 2018-11-21 00:26 | Day surgery (SDC) | payer SELFPAY ==
[2018-11-22] MEDS ORDERED: Cipro500 MG PO (12:28)
== END 2018-11-21 16:55 | disposition home or self-care (01) ==
LOC: ATC 00:26
DX: Z43.6 Encounter for attention to other artificial openings of urinary tract (principal); D63.1 Anemia in chronic kidney disease; N13.9 Obstructive and reflux uropathy, unspecified; N18.3 Chronic kidney disease, stage 3 (moderate); N25.81 Secondary hyperparathyroidism of renal origin; Z79.899 Other long term (current) drug therapy
CPT/HCPCS: 99211

== ENCOUNTER 2018-11-22 11:48 | Emergency (ER) | payer SELFPAY ==
[~2018-11-22] VITALS: Ht 152.4 cm; Wt 59.0 kg
[2018-11-22] MEDS ORDERED: Cipro500 MG PO (12:28)
[2018-11-22 12:44] LABS: Source, Urine Urostomy Bag
[2018-11-22 12:48] LABS: Bilirubin, Urine Neg (Neg); Blood, Urine 4+ (Neg); Glucose Qualitative, Urine Neg (Neg); Ketones, Urine Neg (Neg); Leukocyte Esterase, Urine 3+ (Neg); Nitrite, Urine Pos (Neg); Protein, Urine 2+ (Neg); Urobilinogen, Urine NORM (Normal); pH, Urine 6.5 (5.0-8.0)
[2018-11-22 12:50] LABS: Appearance, Urine Cloudy (Clear); Color, Urine Yellow (P-Yellow)
[2018-11-22 12:57] LABS: Red Blood Cells, Urine TNTC /hpf (0-2); White Blood Cells, Urine TNTC /hpf (0-5)
[2018-11-22 12:59] LABS: Bacteria Many /hpf; Squamous Epithelial Cells Few /hpf (Few); Transitional Epithelial Cells Rare /hpf (0-Rare)
== END 2018-11-22 13:11 | disposition home or self-care (01) ==
LOC: ER 11:48
PROVIDERS: Emergency Medicine
DX: T83.032A Leakage of nephrostomy catheter, initial encounter (principal); Z79.899 Other long term (current) drug therapy
CPT/HCPCS: 81001; 87086; 99284

== ENCOUNTER 2018-11-28 01:13 | Day surgery (SDC) | payer SELFPAY | END 2018-11-28 23:48 | disposition home or self-care (01) | LOC: ATC 01:13 | DX: Z43.6 Encounter for attention to other artificial openings of urinary tract (principal); N18.3 Chronic kidney disease, stage 3 (moderate); D63.1 Anemia in chronic kidney disease; N25.81 Secondary hyperparathyroidism of renal origin; Z79.899 Other long term (current) drug therapy | CPT/HCPCS: 99211 ==

== ENCOUNTER 2018-12-05 00:32 | Day surgery (SDC) | payer SELFPAY | END 2018-12-05 16:35 | disposition home or self-care (01) | LOC: ATC 00:32 | DX: Z43.6 Encounter for attention to other artificial openings of urinary tract (principal); N13.9 Obstructive and reflux uropathy, unspecified; N18.9 Chronic kidney disease, unspecified; D63.1 Anemia in chronic kidney disease; E88.09 Other disorders of plasma-protein metabolism, not elsewhere classified; E86.9 Volume depletion, unspecified | CPT/HCPCS: 99211 ==

== ENCOUNTER 2018-12-12 00:25 | Day surgery (SDC) | payer SELFPAY | END 2018-12-12 16:53 | disposition home or self-care (01) | LOC: ATC 00:25 | DX: Z43.6 Encounter for attention to other artificial openings of urinary tract (principal); N18.3 Chronic kidney disease, stage 3 (moderate); D63.1 Anemia in chronic kidney disease; N13.9 Obstructive and reflux uropathy, unspecified; N25.81 Secondary hyperparathyroidism of renal origin; Z79.899 Other long term (current) drug therapy | CPT/HCPCS: 99211 ==

== ENCOUNTER 2018-12-19 01:03 | Day surgery (SDC) | payer SELFPAY ==
--- NOTE | 2018-12-19 17:05 | NUR ---
SMALL AMOUNT OF BROWN DRAINAGE NOTED AT R NEPH TUBE SITE WITH DRESSING CHANGE. PT C/O PAIN LATERAL TO SITE WITH PALPATION. COMPLETED DRESSING CHANGE THEN NOTIFIED DR MAYORGA WHO RECOMMENDED PT GO TO ER, SENT PT AND HER SPOUSE TO ER.
[2018-12-19] MEDS ORDERED: ACETAMINOPHEN500 MG PO (21:37)
== END 2018-12-19 17:00 | disposition home or self-care (01) ==
LOC: ATC 01:03
DX: Z43.6 Encounter for attention to other artificial openings of urinary tract (principal); N18.9 Chronic kidney disease, unspecified; N13.30 Unspecified hydronephrosis; D63.1 Anemia in chronic kidney disease; E86.9 Volume depletion, unspecified; E88.09 Other disorders of plasma-protein metabolism, not elsewhere classified; Z79.899 Other long term (current) drug therapy

== ENCOUNTER 2019-01-02 16:08 | Day surgery (SDC) | payer SELFPAY ==
[~2019-01-02 16:08] MED LIST changes: +ACETAMINOPHEN500 MG PO
== END 2019-01-02 17:30 | disposition home or self-care (01) ==
LOC: ATC 16:08
DX: Z43.6 Encounter for attention to other artificial openings of urinary tract (principal); I12.9 Hypertensive chronic kidney disease with stage 1 through stage 4 chronic kidney disease, or unspecified chronic kidney disease; E11.22 Type 2 diabetes mellitus with diabetic chronic kidney disease; N18.3 Chronic kidney disease, stage 3 (moderate); N25.81 Secondary hyperparathyroidism of renal origin; N13.9 Obstructive and reflux uropathy, unspecified; E11.21 Type 2 diabetes mellitus with diabetic nephropathy; D50.9 Iron deficiency anemia, unspecified; E78.00 Pure hypercholesterolemia, unspecified; E55.9 Vitamin D deficiency, unspecified; Z96.0 Presence of urogenital implants; Z79.899 Other long term (current) drug therapy
CPT/HCPCS: 99211

== ENCOUNTER 2019-01-04 17:01 | Observation (INO) | payer SELFPAY ==
[~2019-01-04] VITALS: Ht 152.4 cm; Wt 62.6 kg
[2019-01-04 17:51] LABS: Source, Urine Clean Catch
[2019-01-04 17:59] LABS: Bilirubin, Urine Neg (Neg); Blood, Urine 5+ (Neg); Glucose Qualitative, Urine Neg (Neg); Ketones, Urine Neg (Neg); Leukocyte Esterase, Urine 3+ (Neg); Nitrite, Urine Neg (Neg); Protein, Urine 3+ (Neg); Urobilinogen, Urine NORM (Normal)
[2019-01-04 18:11] LABS: Appearance, Urine Cloudy (Clear); Color, Urine Yellow (P-Yellow)
[2019-01-04 18:13] LABS: White Blood Cells, Urine 50-100 /hpf (0-5)
[2019-01-04 18:14] LABS: Bacteria Mod /hpf; Squamous Epithelial Cells Few /hpf (Few)
[2019-01-04 18:53] LABS: BASOPHILS ABSOLUTE AUTO 0.02 K/mm3 (0.00-0.23); BASOPHILS PERCENT AUTO 0 % (0-2); EOSINOPHILS ABSOLUTE AUTO 0.33 K/mm3 (0.00-0.68); EOSINOPHILS PERCENT AUTO 6 % (0-6); Hematocrit 38.6 % (33.0-51.0); IMMATURE GRAN ABSOLUTE AUTO 0.02 K/mm3 (0.00-0.10); IMMATURE GRAN PERCENT AUTO 0 % (0-1); LYMPHOCYTES ABSOLUTE AUTO 1.06 K/mm3 (0.84-5.20); LYMPHOCYTES PERCENT AUTO 18 % (21-46); MONOCYTES ABSOLUTE AUTO 0.34 K/mm3 (0.16-1.47); MONOCYTES PERCENT AUTO 6 % (4-13); Mean Corpuscular HGB 27.6 pg (26.0-34.0); Mean Corpuscular HGB Conc 31.1 g/dL (31.5-36.5); Mean Corpuscular Volume 89 fL (80-100); Mean Platelet Volume 9.9 fL (9.1-12.4); NEUTROPHILS ABSOLUTE AUTO 4.17 K/mm3 (1.96-9.15); NEUTROPHILS PERCENT AUTO 70 % (41-73); Platelet Count 364 K/mm3 (150-400); RDW Coefficient Variation 14.3 % (11.7-14.2); RDW Standard Deviation 46.3 fL (35.1-46.3); Red Blood Cell Count 4.34 M/mm3 (3.80-5.20); White Blood Cell Count 5.94 K/mm3 (4.00-11.30)
[2019-01-04 19:14] LABS: Alanine Aminotransfer (ALT/SGP 32 U/L (12-78); Albumin, Blood 3.3 g/dL (3.4-5.0); Albumin/Globulin Ratio 0.8 (0.8-1.8); Alk Phos 134 U/L (50-136); Anion Gap 6 mmol/L (6-16); Aspartate Aminotrans (AST/SGOT 21 U/L (12-37); Bilirubin, Total 0.1 mg/dL (0.1-1.0); Blood Urea Nitrogen 27 mg/dL (8-24); Bun/Creatinine Ratio 31.1 (12.0-20.0); CO2, Blood 27 mmol/L (21-32); Calcium, Blood 8.9 mg/dL (8.5-10.1); Chloride, Blood 109 mmol/L (98-108); Creatinine, Blood 0.87 mg/dL (0.40-1.00); Globulin, Blood 4.4 g/dL (2.2-4.0); Glomerular Filtration Rate >60 (60-); Glucose, Blood 126 mg/dL (70-99); Potassium, Blood 3.7 mmol/L (3.5-5.5); Sodium, Blood 142 mmol/L (136-145); Total Protein, Blood 7.7 g/dL (6.4-8.2)
--- NOTE | 2019-01-05 01:12 | NUR ---
PATIENT ADMITTED TO FLOOR FROM THE ED WITH BILAT NEPHROSTOMY TUBES, BUT RIGHT SIDE NOT DRAINING. CONSULT CALLED IN TO DR BRADEN OFFICE PER DR MAYORGA ORDER. PT DENIED PAIN WHEN ASKED. SPEAKS CITIZEN OF [place], INTERPRETOR PHONE USED - "NI" # [id number] TRANSLATED ADMISSION INFORMATION. CURRENTLY PT RESTING QUIETLY WITH SIGNIFICANT OTHER AT BEDSIDE. cALL LIGHT IN REACH. INSRUTED CARBONATION TESTER LIGHT USE, VOICED UNDERSTANDING.
--- NOTE | 2019-01-05 03:07 | NUR ---
AWAKE AND UP TO BATHROOM EARLIER, RECEIVED ANALGESIC AT THAT TIME VOICED SOME DISCOMFORT IN RIGHT FLANK. HOWEVER, HAS BEEN RESTING QUIETLY OTHERWISE. CALL LIGHT IN REACH. ISOLATION PRECAUTIONS MAINTAINED.
--- NOTE | 2019-01-05 16:29 | NUR ---
SHIFT SUMMARY NO ACUTE CHANGES TO PRESENT THIS SHIFT. PT NPO ALL DAY, WAITING FOR PROCEDURE TO CHANGE OUT NEPHROSTOMY TUBES, PER REPORT. PT AND DOES NOT SPEAK ANY ARABIC. DR DANG IN TO SEE PT THIS AM; MISSILE TRACKING TECHNICIAN PHONE AT BEDSIDE. PT DENIED NEEDS; JUST WAITING FOR PROCEDURE. PT INDEPENDENT IN AND TO [facility]. [facility] HERE TO TAKE PT FOR PROCEDURE. NO C/O. MISSILE TRACKING TECHNICIAN PHONE USED TO EXPLAIN TO AND EDU PT; PT VERBALIZED UNDERSTANDING. REPORT TO BE CALLED WHEN FINISHED AND PT TO RETURN TO .
--- NOTE | 2019-01-05 17:21 | NUR ---
1720 PT RETURN FROM BL NEPHROSTOMY REPLACEMENT PROCEDURE. TOLERATED WELL. BESIDE REPORT DONE. PT SMILING, DENIED PAIN, DENIED NEEDS. BOTH NEPHROSTOMY SITES DRAINING BLOOD TINGED URINE. CALL LT IN REACH.
--- NOTE | 2019-01-06 00:18 | NUR ---
LATE ENTRY FOR 01/05/191999: CLINICAL ORTHOPTIST PHONE WAS USED FOR NURSING ASSESSMENT, COLLET MAKER NUMBER [id number].
--- NOTE | 2019-01-06 06:43 | NUR ---
SHIFT SUMMARY: PATIENT IS A&OX4, VS ARE STABLE, REPORTING MINIMAL RUQ PAIN 2/10, TYLENOL AND ULTRAM ARE ALTERNATED FOR GOOD PAIN CONTROL. NEPHROSTOMY TUBES ARE PATENT FOR A PINK URINE THAT HAS LIGHTENED THE NIGH PROGRESSED TO ONLY SLIGHTLY PINK TINGED. PATIENT IS USING BOLT LOADER LINE FOR ASSESSMENTS.
--- NOTE | 2019-01-06 14:21 | NUR ---
SHIFT SUMMARY NO ACUTE CHANGES TO PRESENT THIS SHIFT. PT SLEPT IN LATE THIS AM. WOKE BRIEFLY FOR CARE, BUT WENT RIGHT BACK TO SLEEP. PT DENIED NEEDS, DENIED PAIN. DR DANG IN TO SEE PT THIS AM. D/C ORDERS PLACED. NEPHROSTOMY OUTER DRSG CHANGED. [facility] NOTIFIED FOR REPLACEMENT DRSG'S. PT REPORTED THAT SHE GOES DOWNSTAIRS TO OUTPT CLINIC FOR DRSG CHANGES. TECHNOLOGY OFFICER PHONE USED TO TALK WITH PT BY DR DANG AND NRS STAFF. D/C ORDERS DISCUSSED WITH PT USING TECHNOLOGY OFFICER; VERBALIZED UNDERSTANDING. PT CALLED TO PICK HER UP; TAKEN OUT VIA W/C BY [facility].
== END 2019-01-06 13:16 | disposition home or self-care (01) ==
LOC: ER 17:01 → MEDS 17:02
PROVIDERS: Emergency Medicine; ADMIT Internal Medicine
PROC: 0T25X0Z Change Drainage Device in Kidney, External Approach (ICD-10-PCS; principal; 2019-01-05)
DX: N13.1 Hydronephrosis with ureteral stricture, not elsewhere classified (principal); N18.9 Chronic kidney disease, unspecified; R82.90 Unspecified abnormal findings in urine; K21.9 Gastro-esophageal reflux disease without esophagitis; C53.9 Malignant neoplasm of cervix uteri, unspecified; Z93.6 Other artificial openings of urinary tract status; Z79.1 Long term (current) use of non-steroidal anti-inflammatories (NSAID); Z79.899 Other long term (current) drug therapy; Z79.891 Long term (current) use of opiate analgesic
CPT/HCPCS: 36415; 50435; 76770; 80053; 81001; 84145; 85025; 87077; 87086; 87186; 90686; 96365; 96375; 96376; 99152; 99285-25; C1729; C1769; J0696; J1170; J1644; J2250; J3010; J7030; J7040; Q9967

== ENCOUNTER 2019-01-16 02:09 | Day surgery (SDC) | payer OTHER ==
--- NOTE | 2019-01-16 16:37 | NUR ---
NEW DRAINAGE BAGS X 2 APPLIED.
== END 2019-01-16 16:28 | disposition home or self-care (01) ==
LOC: ATC 02:09
DX: Z43.6 Encounter for attention to other artificial openings of urinary tract (principal); I12.9 Hypertensive chronic kidney disease with stage 1 through stage 4 chronic kidney disease, or unspecified chronic kidney disease; N18.3 Chronic kidney disease, stage 3 (moderate); D63.1 Anemia in chronic kidney disease; N25.81 Secondary hyperparathyroidism of renal origin; N13.30 Unspecified hydronephrosis; E86.9 Volume depletion, unspecified; E78.00 Pure hypercholesterolemia, unspecified; R31.9 Hematuria, unspecified; Z79.899 Other long term (current) drug therapy
CPT/HCPCS: 99211

== ENCOUNTER 2019-01-23 00:19 | Day surgery (SDC) | payer OTHER ==
--- NOTE | 2019-01-23 16:40 | NUR ---
EACH DRESSING REMOVED AND SITE CLEANED WITH CHLORAPREP AND LET DRY. SKIN PREP APPLIED TO SKIN AND LET DRY. TRANSPARENT DRESSING OVER STAY-FIT X2 AND BOTH SIDES. EACH OF THE URINARY BAGS WERE CHANGED TODAY.
== END 2019-01-23 16:40 | disposition home or self-care (01) ==
LOC: ATC 00:19
DX: Z43.6 Encounter for attention to other artificial openings of urinary tract (principal); N13.9 Obstructive and reflux uropathy, unspecified; I12.9 Hypertensive chronic kidney disease with stage 1 through stage 4 chronic kidney disease, or unspecified chronic kidney disease; E11.22 Type 2 diabetes mellitus with diabetic chronic kidney disease; N18.3 Chronic kidney disease, stage 3 (moderate); E11.21 Type 2 diabetes mellitus with diabetic nephropathy; D63.1 Anemia in chronic kidney disease; N25.81 Secondary hyperparathyroidism of renal origin; E86.9 Volume depletion, unspecified; E78.00 Pure hypercholesterolemia, unspecified; E55.9 Vitamin D deficiency, unspecified; D50.9 Iron deficiency anemia, unspecified; Z96.0 Presence of urogenital implants; Z79.899 Other long term (current) drug therapy
CPT/HCPCS: 99212

== ENCOUNTER 2019-01-30 00:39 | Day surgery (SDC) | payer OTHER | END 2019-01-30 23:51 | disposition home or self-care (01) | LOC: ATC 00:39 | DX: Z43.6 Encounter for attention to other artificial openings of urinary tract (principal); N13.30 Unspecified hydronephrosis; E88.09 Other disorders of plasma-protein metabolism, not elsewhere classified; N18.3 Chronic kidney disease, stage 3 (moderate); D63.1 Anemia in chronic kidney disease | CPT/HCPCS: 99211 ==

== ENCOUNTER 2019-02-06 02:23 | Day surgery (SDC) | payer OTHER ==
--- NOTE | 2019-02-06 16:57 | NUR ---
NEPHROSTOMY BAG X2 CHANGED TODAY ALONG WITH DRESSING CHANGES.
== END 2019-02-06 16:45 | disposition home or self-care (01) ==
LOC: ATC 02:23
DX: Z43.6 Encounter for attention to other artificial openings of urinary tract (principal); N13.30 Unspecified hydronephrosis; I12.9 Hypertensive chronic kidney disease with stage 1 through stage 4 chronic kidney disease, or unspecified chronic kidney disease; E11.22 Type 2 diabetes mellitus with diabetic chronic kidney disease; N18.3 Chronic kidney disease, stage 3 (moderate); D63.1 Anemia in chronic kidney disease; N25.81 Secondary hyperparathyroidism of renal origin; E78.00 Pure hypercholesterolemia, unspecified; E55.9 Vitamin D deficiency, unspecified; E11.21 Type 2 diabetes mellitus with diabetic nephropathy; D50.9 Iron deficiency anemia, unspecified; Z79.899 Other long term (current) drug therapy
CPT/HCPCS: 99211

== ENCOUNTER 2019-02-13 01:35 | Day surgery (SDC) | payer SELFPAY | END 2019-02-13 23:27 | disposition home or self-care (01) | LOC: ATC 01:35 | DX: Z43.6 Encounter for attention to other artificial openings of urinary tract (principal); N13.9 Obstructive and reflux uropathy, unspecified | CPT/HCPCS: 99211 ==

== ENCOUNTER 2019-02-20 01:04 | Day surgery (SDC) | payer SELFPAY ==
[2019-02-21] MEDS ORDERED: CEPH500 PO (20:18)
[2019-02-21] MEDS ORDERED: Norco 5-325 Ta1 EACH PO (20:18)
== END 2019-02-20 23:24 | disposition home or self-care (01) ==
LOC: ATC 01:04
DX: Z43.6 Encounter for attention to other artificial openings of urinary tract (principal); I12.9 Hypertensive chronic kidney disease with stage 1 through stage 4 chronic kidney disease, or unspecified chronic kidney disease; E11.22 Type 2 diabetes mellitus with diabetic chronic kidney disease; N18.3 Chronic kidney disease, stage 3 (moderate); D63.1 Anemia in chronic kidney disease; N25.81 Secondary hyperparathyroidism of renal origin; D50.9 Iron deficiency anemia, unspecified; E11.21 Type 2 diabetes mellitus with diabetic nephropathy; E55.9 Vitamin D deficiency, unspecified; E86.9 Volume depletion, unspecified; E78.00 Pure hypercholesterolemia, unspecified; Z96.0 Presence of urogenital implants; Z79.899 Other long term (current) drug therapy; R31.9 Hematuria, unspecified
CPT/HCPCS: 99211

== ENCOUNTER 2019-02-21 18:47 | Emergency (ER) | payer SELFPAY ==
[~2019-02-21] VITALS: Ht 139.7 cm; Wt 64.4 kg
[2019-02-21 19:24] LABS: BASOPHILS ABSOLUTE AUTO 0.03 K/mm3 (0.00-0.23); BASOPHILS PERCENT AUTO 0 % (0-2); EOSINOPHILS PERCENT AUTO 4 % (0-6); Hematocrit 40.1 % (33.0-51.0); Hemoglobin 12.7 g/dL (11.5-16.0); IMMATURE GRAN ABSOLUTE AUTO 0.02 K/mm3 (0.00-0.10); IMMATURE GRAN PERCENT AUTO 0 % (0-1); LYMPHOCYTES ABSOLUTE AUTO 1.19 K/mm3 (0.84-5.20); LYMPHOCYTES PERCENT AUTO 16 % (21-46); MONOCYTES ABSOLUTE AUTO 0.36 K/mm3 (0.16-1.47); MONOCYTES PERCENT AUTO 5 % (4-13); Mean Corpuscular HGB 27.7 pg (26.0-34.0); Mean Corpuscular HGB Conc 31.7 g/dL (31.5-36.5); Mean Corpuscular Volume 88 fL (80-100); Mean Platelet Volume 9.9 fL (9.1-12.4); NEUTROPHILS ABSOLUTE AUTO 5.47 K/mm3 (1.96-9.15); NEUTROPHILS PERCENT AUTO 74 % (41-73); Platelet Count 371 K/mm3 (150-400); Red Blood Cell Count 4.58 M/mm3 (3.80-5.20); White Blood Cell Count 7.37 K/mm3 (4.00-11.30)
[2019-02-21 19:30] LABS: Source, Urine Catheter
[2019-02-21 19:34] LABS: Bilirubin, Urine Neg (Neg); Blood, Urine 5+ (Neg); Glucose Qualitative, Urine Neg (Neg); Ketones, Urine Neg (Neg); Leukocyte Esterase, Urine 3+ (Neg); Nitrite, Urine Pos (Neg); Protein, Urine 2+ (Neg); Specific Gravity, Urine 1.005 (1.003-1.022); Urobilinogen, Urine NORM (Normal)
[2019-02-21 19:40] LABS: Appearance, Urine Hazy (Clear); Color, Urine Pale Yellow (P-Yellow)
[2019-02-21 19:42] LABS: Red Blood Cells, Urine 0-2 /hpf (0-2); White Blood Cells, Urine 50-100 /hpf (0-5)
[2019-02-21 19:43] LABS: Bacteria Mod /hpf; Squamous Epithelial Cells Not Seen /hpf (Few)
[2019-02-21 19:44] LABS: Bun/Creatinine Ratio 19.5 (12.0-20.0); Calcium, Blood 8.7 mg/dL (8.5-10.1); Creatinine, Blood 1.13 mg/dL (0.40-1.00); Potassium, Blood 3.9 mmol/L (3.5-5.5)
[2019-02-21] MEDS ORDERED: Norco 5-325 Ta1 EACH PO (20:18)
[2019-02-21] MEDS ORDERED: CEPH500 PO (20:18)
== END 2019-02-21 21:10 | disposition home or self-care (01) ==
LOC: ER 18:47
PROVIDERS: Emergency Medicine
DX: N12 Tubulo-interstitial nephritis, not specified as acute or chronic (principal); K21.9 Gastro-esophageal reflux disease without esophagitis
CPT/HCPCS: 36415; 74176; 80048; 81001; 85025; 87077; 87086; 87186; 96365; 96375; 99284-25; A9270; J0696; J1170

== ENCOUNTER 2019-02-26 00:26 | Day surgery (SDC) | payer SELFPAY | END 2019-02-26 08:59 | disposition home or self-care (01) | LOC: ATC 00:26 | DX: Z43.6 Encounter for attention to other artificial openings of urinary tract (principal); C64.9 Malignant neoplasm of unspecified kidney, except renal pelvis; I12.9 Hypertensive chronic kidney disease with stage 1 through stage 4 chronic kidney disease, or unspecified chronic kidney disease; E11.22 Type 2 diabetes mellitus with diabetic chronic kidney disease; N18.3 Chronic kidney disease, stage 3 (moderate); D63.1 Anemia in chronic kidney disease; N25.81 Secondary hyperparathyroidism of renal origin; E11.21 Type 2 diabetes mellitus with diabetic nephropathy; N13.30 Unspecified hydronephrosis; E86.9 Volume depletion, unspecified; D50.9 Iron deficiency anemia, unspecified; E55.9 Vitamin D deficiency, unspecified; E78.00 Pure hypercholesterolemia, unspecified; Z79.899 Other long term (current) drug therapy | CPT/HCPCS: 99211 ==

== ENCOUNTER → 2019-03-03 | Outpatient (CLI) | payer SELFPAY | END | disposition home or self-care (01) | LOC: LAB 17:35 → LAB SHORT 17:35 | DX: N10 Acute pyelonephritis (principal) | CPT/HCPCS: 87077; 87086; 87186 ==

== ENCOUNTER 2019-03-06 00:32 | Day surgery (SDC) | payer SELFPAY | END 2019-03-06 16:28 | disposition home or self-care (01) | LOC: ATC 00:32 | DX: Z43.6 Encounter for attention to other artificial openings of urinary tract (principal); I12.9 Hypertensive chronic kidney disease with stage 1 through stage 4 chronic kidney disease, or unspecified chronic kidney disease; E11.22 Type 2 diabetes mellitus with diabetic chronic kidney disease; N18.3 Chronic kidney disease, stage 3 (moderate); D63.1 Anemia in chronic kidney disease; N25.81 Secondary hyperparathyroidism of renal origin; C20 Malignant neoplasm of rectum; E11.21 Type 2 diabetes mellitus with diabetic nephropathy; E86.9 Volume depletion, unspecified; E78.00 Pure hypercholesterolemia, unspecified; E55.9 Vitamin D deficiency, unspecified; Z79.899 Other long term (current) drug therapy | CPT/HCPCS: 99211 ==

== ENCOUNTER 2019-03-27 02:06 | Day surgery (SDC) | payer SELFPAY | END 2019-03-27 16:13 | disposition home or self-care (01) | LOC: ATC 02:06 | DX: Z46.6 Encounter for fitting and adjustment of urinary device (principal); N13.9 Obstructive and reflux uropathy, unspecified | CPT/HCPCS: 99211 ==

== ENCOUNTER 2019-04-03 00:18 | Day surgery (SDC) | payer OTHER ==
--- NOTE | 2019-04-03 16:20 | NUR ---
OLD NEPHROSTOMY DRESSING REMOVED X2. SKIN CLEASED WITH CHLORAPREP. SKIN PREP APPLIED TO SKIN AND LET DRY. NEW STAY FIT DRESSING ON R AND L BACK. TWO MEDIUM TEGADERMS OVER STAY FIT DRESSINGS. PT TOLERATED DRESSING CHANGE WITHOUT CONCERN.
== END 2019-04-03 16:20 | disposition home or self-care (01) ==
LOC: ATC 00:18
DX: Z46.6 Encounter for fitting and adjustment of urinary device (principal); K21.9 Gastro-esophageal reflux disease without esophagitis; N12 Tubulo-interstitial nephritis, not specified as acute or chronic; Z79.899 Other long term (current) drug therapy; N13.9 Obstructive and reflux uropathy, unspecified

== ENCOUNTER 2019-04-10 00:30 | Day surgery (SDC) | payer SELFPAY | END 2019-04-10 16:20 | disposition home or self-care (01) | LOC: ATC 00:30 | DX: N12 Tubulo-interstitial nephritis, not specified as acute or chronic (principal); K21.9 Gastro-esophageal reflux disease without esophagitis; Z79.899 Other long term (current) drug therapy; Z93.6 Other artificial openings of urinary tract status | CPT/HCPCS: 99211 ==

== ENCOUNTER 2019-04-17 08:37 | Day surgery (SDC) | payer SELFPAY | END 2019-04-17 16:09 | disposition home or self-care (01) | LOC: ATC 08:37 | DX: Z46.6 Encounter for fitting and adjustment of urinary device (principal); N13.9 Obstructive and reflux uropathy, unspecified; N12 Tubulo-interstitial nephritis, not specified as acute or chronic | CPT/HCPCS: 99211 ==

== ENCOUNTER 2019-04-24 02:44 | Day surgery (SDC) | payer SELFPAY | END 2019-04-24 16:22 | disposition home or self-care (01) | LOC: ATC 02:44 | DX: Z43.6 Encounter for attention to other artificial openings of urinary tract (principal); N12 Tubulo-interstitial nephritis, not specified as acute or chronic; Z79.891 Long term (current) use of opiate analgesic | CPT/HCPCS: 99211 ==

== ENCOUNTER 2019-05-01 00:50 | Day surgery (SDC) | payer SELFPAY | END 2019-05-01 16:37 | disposition home or self-care (01) | LOC: ATC 00:50 | DX: Z43.6 Encounter for attention to other artificial openings of urinary tract (principal); N12 Tubulo-interstitial nephritis, not specified as acute or chronic | CPT/HCPCS: 99211 ==

== ENCOUNTER 2019-05-22 00:06 | Day surgery (SDC) | payer SELFPAY | END 2019-05-22 16:24 | disposition home or self-care (01) | LOC: ATC 00:06 | DX: N13.8 Other obstructive and reflux uropathy (principal); I12.9 Hypertensive chronic kidney disease with stage 1 through stage 4 chronic kidney disease, or unspecified chronic kidney disease; N18.3 Chronic kidney disease, stage 3 (moderate); R31.9 Hematuria, unspecified; D63.1 Anemia in chronic kidney disease; N25.81 Secondary hyperparathyroidism of renal origin | CPT/HCPCS: 99211 ==

== ENCOUNTER 2019-06-05 00:29 | Day surgery (SDC) | payer OTHER ==
[2019-06-10] MEDS ORDERED: ALUM320SU PO (12:39)
== END 2019-06-05 16:20 | disposition home or self-care (01) ==
LOC: ATC 00:29
DX: Z46.6 Encounter for fitting and adjustment of urinary device (principal); N13.30 Unspecified hydronephrosis; I12.9 Hypertensive chronic kidney disease with stage 1 through stage 4 chronic kidney disease, or unspecified chronic kidney disease; N18.3 Chronic kidney disease, stage 3 (moderate); D63.1 Anemia in chronic kidney disease; N25.81 Secondary hyperparathyroidism of renal origin; E87.6 Hypokalemia; E55.9 Vitamin D deficiency, unspecified; G25.81 Restless legs syndrome; Z79.899 Other long term (current) drug therapy
CPT/HCPCS: 99211

== ENCOUNTER 2019-06-11 07:15 | Day surgery (SDC) | payer OTHER ==
[~2019-06-11] VITALS: Ht 147.3 cm; Wt 65.0 kg
[2019-06-11] MEDS ORDERED: OXYC5 PO (07:44)
[2019-06-11 08:14] LABS: BASOPHILS ABSOLUTE AUTO 0.02 K/mm3 (0.00-0.23); BASOPHILS PERCENT AUTO 0 % (0-2); EOSINOPHILS ABSOLUTE AUTO 0.32 K/mm3 (0.00-0.68); EOSINOPHILS PERCENT AUTO 5 % (0-6); Hematocrit 41.5 % (33.0-51.0); Hemoglobin 13.2 g/dL (11.5-16.0); IMMATURE GRAN ABSOLUTE AUTO 0.01 K/mm3 (0.00-0.10); IMMATURE GRAN PERCENT AUTO 0 % (0-1); LYMPHOCYTES ABSOLUTE AUTO 1.21 K/mm3 (0.84-5.20); LYMPHOCYTES PERCENT AUTO 19 % (21-46); MONOCYTES ABSOLUTE AUTO 0.38 K/mm3 (0.16-1.47); MONOCYTES PERCENT AUTO 6 % (4-13); Mean Corpuscular HGB 28.5 pg (26.0-34.0); Mean Corpuscular HGB Conc 31.8 g/dL (31.5-36.5); Mean Corpuscular Volume 90 fL (80-100); Mean Platelet Volume 9.8 fL (9.1-12.4); NEUTROPHILS PERCENT AUTO 69 % (41-73); Platelet Count 319 K/mm3 (150-400); RDW Coefficient Variation 14.4 % (11.7-14.2); RDW Standard Deviation 46.9 fL (35.1-46.3); Red Blood Cell Count 4.63 M/mm3 (3.80-5.20); White Blood Cell Count 6.34 K/mm3 (4.00-11.30)
[2019-06-11 08:25] LABS: International Normalized Ratio 0.95; Prothrombin Time Results 10.2 Sec (9.7-11.5)
[2019-06-11 08:34] LABS: Bun/Creatinine Ratio 19.8 (12.0-20.0); Calcium, Blood 8.8 mg/dL (8.5-10.1); Creatinine, Blood 1.21 mg/dL (0.40-1.00); Potassium, Blood 3.8 mmol/L (3.5-5.5)
--- NOTE | 2019-06-11 10:24 | NUR ---
PT AND VERBALIZED UNDERSTANDING OF WRITTEN D/C INST. PT IV REMOVED. PT TAKEN OUT VIA W/C.
[2019-06-11] MEDS ORDERED: PANT40 PO (19:43)
[2019-06-11] MEDS ORDERED: Roxicodone5 MG PO (20:05)
[2019-06-11] MEDS ORDERED: CEFP200 PO (20:05)
== END 2019-06-11 10:39 | disposition home or self-care (01) ==
LOC: MHTC 07:15
PROVIDERS: Radiology Diagnostic Radiology
DX: Z46.6 Encounter for fitting and adjustment of urinary device (principal); N13.2 Hydronephrosis with renal and ureteral calculous obstruction; K21.9 Gastro-esophageal reflux disease without esophagitis; E66.9 Obesity, unspecified; Z68.31 Body mass index [BMI] 31.0-31.9, adult; Z79.899 Other long term (current) drug therapy
CPT/HCPCS: 50435; 80048; 85025; 85610; 99152; 99153; C1729; C1769; J2250; J3010; J7030; J7040; Q9967

== ENCOUNTER 2019-06-11 16:54 | Emergency (ER) | payer OTHER ==
[~2019-06-11] VITALS: Ht 162.6 cm; Wt 79.4 kg
[~2019-06-11 16:54] MED LIST changes: +OXYC5 PO
[2019-06-11 18:00] LABS: Source, Urine Clean Catch
[2019-06-11 18:06] LABS: Bilirubin, Urine Neg (Neg); Blood, Urine 5+ (Neg); Glucose Qualitative, Urine Neg (Neg); Ketones, Urine Neg (Neg); Leukocyte Esterase, Urine 3+ (Neg); Nitrite, Urine Neg (Neg); Protein, Urine 3+ (Neg); Urobilinogen, Urine NORM (Normal)
[2019-06-11 18:11] LABS: BASOPHILS ABSOLUTE AUTO 0.02 K/mm3 (0.00-0.23); BASOPHILS PERCENT AUTO 0 % (0-2); EOSINOPHILS ABSOLUTE AUTO 0.27 K/mm3 (0.00-0.68); EOSINOPHILS PERCENT AUTO 3 % (0-6); Hematocrit 40.9 % (33.0-51.0); Hemoglobin 12.8 g/dL (11.5-16.0); IMMATURE GRAN ABSOLUTE AUTO 0.04 K/mm3 (0.00-0.10); IMMATURE GRAN PERCENT AUTO 0 % (0-1); LYMPHOCYTES ABSOLUTE AUTO 0.77 K/mm3 (0.84-5.20); LYMPHOCYTES PERCENT AUTO 8 % (21-46); MONOCYTES ABSOLUTE AUTO 0.51 K/mm3 (0.16-1.47); MONOCYTES PERCENT AUTO 5 % (4-13); Mean Corpuscular HGB 28.5 pg (26.0-34.0); Mean Corpuscular HGB Conc 31.3 g/dL (31.5-36.5); Mean Corpuscular Volume 91 fL (80-100); NEUTROPHILS ABSOLUTE AUTO 8.32 K/mm3 (1.96-9.15); NEUTROPHILS PERCENT AUTO 84 % (41-73); Platelet Count 333 K/mm3 (150-400); RDW Coefficient Variation 14.5 % (11.7-14.2); RDW Standard Deviation 48.4 fL (35.1-46.3); Red Blood Cell Count 4.49 M/mm3 (3.80-5.20); White Blood Cell Count 9.93 K/mm3 (4.00-11.30)
[2019-06-11 18:15] LABS: Appearance, Urine Hazy (Clear); Color, Urine Yellow (P-Yellow); Red Blood Cells, Urine 25-50 /hpf (0-2)
[2019-06-11 18:16] LABS: Bacteria Mod /hpf; Squamous Epithelial Cells Rare /hpf (Few); White Blood Cells, Urine 25-50 /hpf (0-5)
[2019-06-11 18:26] LABS: Alanine Aminotransfer (ALT/SGP 48 U/L (12-78); Albumin, Blood 3.5 g/dL (3.4-5.0); Albumin/Globulin Ratio 0.8 (0.8-1.8); Alk Phos 128 U/L (50-136); Anion Gap 7 mmol/L (6-16); Aspartate Aminotrans (AST/SGOT 29 U/L (12-37); Bilirubin, Total 0.3 mg/dL (0.1-1.0); Blood Urea Nitrogen 22 mg/dL (8-24); Bun/Creatinine Ratio 24.5 (12.0-20.0); CO2, Blood 23 mmol/L (21-32); Calcium, Blood 8.6 mg/dL (8.5-10.1); Chloride, Blood 107 mmol/L (98-108); Globulin, Blood 4.3 g/dL (2.2-4.0); Glomerular Filtration Rate >60 (60-); Glucose, Blood 109 mg/dL (70-99); Potassium, Blood 3.8 mmol/L (3.5-5.5); Sodium, Blood 137 mmol/L (136-145); Total Protein, Blood 7.8 g/dL (6.4-8.2)
[2019-06-11] MEDS ORDERED: PANT40 PO (19:43)
[2019-06-11] MEDS ORDERED: CEFP200 PO (20:05)
[2019-06-11] MEDS ORDERED: Roxicodone5 MG PO (20:05)
== END 2019-06-11 20:27 | disposition home or self-care (01) ==
LOC: ER 16:54
PROVIDERS: Physician Assistant
DX: N12 Tubulo-interstitial nephritis, not specified as acute or chronic (principal); Z93.6 Other artificial openings of urinary tract status
CPT/HCPCS: 36415; 74176; 80053; 81001; 81025; 83690; 85025; 87077; 87086; 87186; 96365; 96375; 99284-25; A9270; J0696; J1170

== ENCOUNTER 2019-06-19 00:14 | Day surgery (SDC) | payer SELFPAY ==
[~2019-06-19 00:14] MED LIST changes: +Roxicodone5 MG PO
== END 2019-06-19 16:28 | disposition home or self-care (01) ==
LOC: ATC 00:14
DX: Z46.6 Encounter for fitting and adjustment of urinary device (principal); I12.9 Hypertensive chronic kidney disease with stage 1 through stage 4 chronic kidney disease, or unspecified chronic kidney disease; N18.3 Chronic kidney disease, stage 3 (moderate); D63.1 Anemia in chronic kidney disease; N25.81 Secondary hyperparathyroidism of renal origin; E87.6 Hypokalemia; E55.9 Vitamin D deficiency, unspecified; Z79.899 Other long term (current) drug therapy

== ENCOUNTER 2019-06-26 00:14 | Day surgery (SDC) | payer SELFPAY | END 2019-06-26 14:16 | disposition home or self-care (01) | LOC: ATC 00:14 | DX: Z46.6 Encounter for fitting and adjustment of urinary device (principal); I12.9 Hypertensive chronic kidney disease with stage 1 through stage 4 chronic kidney disease, or unspecified chronic kidney disease; N18.3 Chronic kidney disease, stage 3 (moderate); D63.1 Anemia in chronic kidney disease; N25.81 Secondary hyperparathyroidism of renal origin; Z79.899 Other long term (current) drug therapy; E87.6 Hypokalemia; G25.81 Restless legs syndrome; N13.30 Unspecified hydronephrosis | CPT/HCPCS: 99211 ==

== ENCOUNTER 2019-07-03 01:13 | Day surgery (SDC) | payer SELFPAY | END 2019-07-03 16:08 | disposition home or self-care (01) | LOC: ATC 01:13 | DX: I12.9 Hypertensive chronic kidney disease with stage 1 through stage 4 chronic kidney disease, or unspecified chronic kidney disease (principal); N18.3 Chronic kidney disease, stage 3 (moderate); R31.9 Hematuria, unspecified; D63.1 Anemia in chronic kidney disease; N25.81 Secondary hyperparathyroidism of renal origin | CPT/HCPCS: 99211 ==

== ENCOUNTER 2019-07-10 00:52 | Day surgery (SDC) | payer OTHER | END 2019-07-10 16:23 | disposition home or self-care (01) | LOC: ATC 00:52 | DX: Z46.6 Encounter for fitting and adjustment of urinary device (principal); I12.9 Hypertensive chronic kidney disease with stage 1 through stage 4 chronic kidney disease, or unspecified chronic kidney disease; N18.3 Chronic kidney disease, stage 3 (moderate); D63.1 Anemia in chronic kidney disease; E87.6 Hypokalemia; E55.9 Vitamin D deficiency, unspecified; Z79.899 Other long term (current) drug therapy; G25.81 Restless legs syndrome | CPT/HCPCS: 99211 ==

== ENCOUNTER 2019-07-17 00:24 | Day surgery (SDC) | payer SELFPAY | END 2019-07-17 16:30 | disposition home or self-care (01) | LOC: ATC 00:24 | DX: N13.9 Obstructive and reflux uropathy, unspecified (principal); R31.9 Hematuria, unspecified; I12.9 Hypertensive chronic kidney disease with stage 1 through stage 4 chronic kidney disease, or unspecified chronic kidney disease; N18.3 Chronic kidney disease, stage 3 (moderate); D63.1 Anemia in chronic kidney disease; N25.81 Secondary hyperparathyroidism of renal origin | CPT/HCPCS: 99211 ==

== ENCOUNTER 2019-07-24 00:28 | Day surgery (SDC) | payer SELFPAY | END 2019-07-24 15:59 | disposition home or self-care (01) | LOC: ATC 00:28 | DX: N13.8 Other obstructive and reflux uropathy (principal); I12.9 Hypertensive chronic kidney disease with stage 1 through stage 4 chronic kidney disease, or unspecified chronic kidney disease; N18.3 Chronic kidney disease, stage 3 (moderate); R31.9 Hematuria, unspecified; D63.1 Anemia in chronic kidney disease; N25.81 Secondary hyperparathyroidism of renal origin | CPT/HCPCS: 99211 ==

== ENCOUNTER 2019-07-31 01:24 | Day surgery (SDC) | payer OTHER | END 2019-07-31 16:41 | disposition home or self-care (01) | LOC: ATC 01:24 | DX: I12.9 Hypertensive chronic kidney disease with stage 1 through stage 4 chronic kidney disease, or unspecified chronic kidney disease (principal); N18.3 Chronic kidney disease, stage 3 (moderate); D63.1 Anemia in chronic kidney disease; N25.81 Secondary hyperparathyroidism of renal origin; E86.9 Volume depletion, unspecified; E87.6 Hypokalemia; E55.9 Vitamin D deficiency, unspecified; G25.81 Restless legs syndrome; N13.30 Unspecified hydronephrosis; Z79.899 Other long term (current) drug therapy | CPT/HCPCS: 99211 ==

== ENCOUNTER 2019-08-07 00:36 | Day surgery (SDC) | payer SELFPAY ==
[~2019-08-07 00:36] MED LIST changes: +ALUMINUM H PO
== END 2019-08-07 16:29 | disposition home or self-care (01) ==
LOC: ATC 00:36
DX: Z46.6 Encounter for fitting and adjustment of urinary device (principal); I12.9 Hypertensive chronic kidney disease with stage 1 through stage 4 chronic kidney disease, or unspecified chronic kidney disease; N18.3 Chronic kidney disease, stage 3 (moderate); D63.1 Anemia in chronic kidney disease; N25.81 Secondary hyperparathyroidism of renal origin; E87.6 Hypokalemia; E55.9 Vitamin D deficiency, unspecified; G25.81 Restless legs syndrome; Z79.899 Other long term (current) drug therapy; N39.0 Urinary tract infection, site not specified
CPT/HCPCS: 99211

== ENCOUNTER 2019-08-21 00:21 | Day surgery (SDC) | payer SELFPAY | END 2019-08-21 16:26 | disposition home or self-care (01) | LOC: ATC 00:21 | DX: N13.9 Obstructive and reflux uropathy, unspecified (principal); I12.9 Hypertensive chronic kidney disease with stage 1 through stage 4 chronic kidney disease, or unspecified chronic kidney disease; N18.3 Chronic kidney disease, stage 3 (moderate); D63.1 Anemia in chronic kidney disease; N25.81 Secondary hyperparathyroidism of renal origin; Z79.899 Other long term (current) drug therapy | CPT/HCPCS: 99211 ==

== ENCOUNTER 2019-09-25 00:35 | Day surgery (SDC) | payer SELFPAY | END 2019-09-25 16:34 | disposition home or self-care (01) | LOC: ATC 00:35 | DX: N13.9 Obstructive and reflux uropathy, unspecified (principal); R31.9 Hematuria, unspecified; I12.9 Hypertensive chronic kidney disease with stage 1 through stage 4 chronic kidney disease, or unspecified chronic kidney disease; N18.3 Chronic kidney disease, stage 3 (moderate); D63.1 Anemia in chronic kidney disease; N25.81 Secondary hyperparathyroidism of renal origin; K21.9 Gastro-esophageal reflux disease without esophagitis | CPT/HCPCS: 99212 ==

== ENCOUNTER 2019-10-09 00:47 | Day surgery (SDC) | payer SELFPAY | END 2019-10-09 16:43 | disposition home or self-care (01) | LOC: ATC 00:47 | DX: I12.9 Hypertensive chronic kidney disease with stage 1 through stage 4 chronic kidney disease, or unspecified chronic kidney disease (principal); N18.3 Chronic kidney disease, stage 3 (moderate); D63.1 Anemia in chronic kidney disease; N25.81 Secondary hyperparathyroidism of renal origin; E87.6 Hypokalemia; E55.9 Vitamin D deficiency, unspecified; G25.81 Restless legs syndrome; Z96.0 Presence of urogenital implants; K21.9 Gastro-esophageal reflux disease without esophagitis; Z79.899 Other long term (current) drug therapy | CPT/HCPCS: 99211 ==

== ENCOUNTER 2019-10-16 00:05 | Day surgery (SDC) | payer OTHER | END 2019-10-16 16:45 | disposition home or self-care (01) | LOC: ATC 00:05 | DX: Z46.6 Encounter for fitting and adjustment of urinary device (principal); I12.9 Hypertensive chronic kidney disease with stage 1 through stage 4 chronic kidney disease, or unspecified chronic kidney disease; N18.3 Chronic kidney disease, stage 3 (moderate); D63.1 Anemia in chronic kidney disease; N25.81 Secondary hyperparathyroidism of renal origin; E87.6 Hypokalemia; G25.81 Restless legs syndrome; E55.9 Vitamin D deficiency, unspecified; K21.9 Gastro-esophageal reflux disease without esophagitis; Z79.899 Other long term (current) drug therapy | CPT/HCPCS: 99211 ==

== ENCOUNTER 2019-11-05 11:39 | Day surgery (SDC) | payer OTHER ==
[~2019-11-05] VITALS: Ht 170.2 cm; Wt 65.0 kg
--- NOTE | 2019-11-05 16:50 | NUR ---
PT TO RECOVERY ROOM POST PROCEDURE. PT IS AWAKE AND ORIENTED, ONLY SPEAKS [place]-TRANSLATION LINE USED TO COMMUNICATE WITH PT. PT REPORTS SHE IS COMFORTABLE. MONITOR SB/SR 50-60'S, B/P 127/67, AFEBRILE, SPO2 99-100% RA. R/L FLANK NEPH TUBE CHANGE OUT SITES WITHOUT SWELLING/HEMATOMA, STAY FIX DRSG IN PLACED X 2 WITH DRAINAGE BAGS X 2; DRAINING BLOOD-TINGED URINE IN EACH BAG. PT'S AT BEDSIDE, ATTENTIVE.
--- NOTE | 2019-11-05 18:25 | NUR ---
PT AMB IN ROOM WITHOUT ISSUE, SITES UNCHANGED. PT GETTING DRESSED WITH MIN ASSISTANCE, IV REMOVED-CANNULA INTACT.
--- NOTE | 2019-11-05 18:35 | NUR ---
PT AND SPOUSE RECEIVED DISCHARGE INSTRUCTIONS, MED LIST AND AFTER CARE INSTRUCTIONS OVER THE TRANSLATION LINE; VERBALIZED GOOD UNDERSTANDING AND ALL QUESTIONS ANSWERED. DR WEINBERG EVALUATED PT PRIOR TO DISCHARGE. PT LEFT FACILITY VIA W/C, CONDITION STABLE.
== END 2019-11-05 18:35 | disposition home or self-care (01) ==
LOC: MHTC 11:39
DX: Z46.6 Encounter for fitting and adjustment of urinary device (principal); N13.2 Hydronephrosis with renal and ureteral calculous obstruction; K21.9 Gastro-esophageal reflux disease without esophagitis; E66.01 Morbid (severe) obesity due to excess calories; Z68.31 Body mass index [BMI] 31.0-31.9, adult; Z79.899 Other long term (current) drug therapy
CPT/HCPCS: 50435; 99152; 99153; C1729; C1769; J2250; J3010; J7040; Q9967

== ENCOUNTER 2019-11-13 00:19 | Day surgery (SDC) | payer OTHER | END 2019-11-13 16:44 | disposition home or self-care (01) | LOC: ATC 00:19 | DX: Z46.6 Encounter for fitting and adjustment of urinary device (principal); I12.9 Hypertensive chronic kidney disease with stage 1 through stage 4 chronic kidney disease, or unspecified chronic kidney disease; N18.30 Chronic kidney disease, stage 3 unspecified; D63.1 Anemia in chronic kidney disease; N25.81 Secondary hyperparathyroidism of renal origin; E55.9 Vitamin D deficiency, unspecified; N13.6 Pyonephrosis; G25.81 Restless legs syndrome; K21.9 Gastro-esophageal reflux disease without esophagitis; Z79.899 Other long term (current) drug therapy | CPT/HCPCS: 99211 ==

== ENCOUNTER 2019-11-20 01:49 | Day surgery (SDC) | payer SELFPAY | END 2019-11-20 16:30 | disposition home or self-care (01) | LOC: ATC 01:49 | DX: N13.30 Unspecified hydronephrosis (principal); I12.9 Hypertensive chronic kidney disease with stage 1 through stage 4 chronic kidney disease, or unspecified chronic kidney disease; N18.2 Chronic kidney disease, stage 2 (mild); D63.1 Anemia in chronic kidney disease; N25.81 Secondary hyperparathyroidism of renal origin; E87.6 Hypokalemia; E55.9 Vitamin D deficiency, unspecified; G25.81 Restless legs syndrome; R73.9 Hyperglycemia, unspecified; Z79.899 Other long term (current) drug therapy | CPT/HCPCS: 99211 ==

== ENCOUNTER 2019-11-27 01:54 | Day surgery (SDC) | payer OTHER ==
--- NOTE | 2019-11-27 17:26 | NUR ---
SENT PT TO ER R/T PURULENT DRAINAGE AT R SITE.
[2019-11-28] MEDS ORDERED: METF500 PO (20:11)
[2019-11-28] MEDS ORDERED: ATOR40TA PO (20:12)
[2019-11-28] MEDS ORDERED: ALUMINUM H PO (20:13)
[2019-11-28] MEDS ORDERED: HYDR1TAB94 PO (22:03)
[2019-11-28] MEDS ORDERED: Bactrim Ds Tab1 EACH PO (22:03)
== END 2019-11-27 16:45 | disposition home or self-care (01) ==
LOC: ATC 01:54
DX: N13.30 Unspecified hydronephrosis (principal); I12.9 Hypertensive chronic kidney disease with stage 1 through stage 4 chronic kidney disease, or unspecified chronic kidney disease; N18.2 Chronic kidney disease, stage 2 (mild); D63.1 Anemia in chronic kidney disease; N25.81 Secondary hyperparathyroidism of renal origin; E87.6 Hypokalemia; E55.9 Vitamin D deficiency, unspecified; G25.81 Restless legs syndrome; Z79.899 Other long term (current) drug therapy
CPT/HCPCS: 99211

== ENCOUNTER 2019-11-28 16:14 | Emergency (ER) | payer SELFPAY ==
[~2019-11-28] VITALS: Ht 147.3 cm; Wt 130.0 kg
[2019-11-28 17:27] LABS: BASOPHILS ABSOLUTE AUTO 0.02 K/mm3 (0.00-0.23); BASOPHILS PERCENT AUTO 0 % (0-2); EOSINOPHILS ABSOLUTE AUTO 0.24 K/mm3 (0.00-0.68); EOSINOPHILS PERCENT AUTO 4 % (0-6); Hematocrit 43.5 % (33.0-51.0); Hemoglobin 13.7 g/dL (11.5-16.0); IMMATURE GRAN PERCENT AUTO 0 % (0-1); LYMPHOCYTES ABSOLUTE AUTO 1.28 K/mm3 (0.84-5.20); LYMPHOCYTES PERCENT AUTO 22 % (21-46); MONOCYTES ABSOLUTE AUTO 0.22 K/mm3 (0.16-1.47); MONOCYTES PERCENT AUTO 4 % (4-13); Mean Corpuscular HGB 28.4 pg (26.0-34.0); Mean Corpuscular HGB Conc 31.5 g/dL (31.5-36.5); Mean Corpuscular Volume 90 fL (80-100); Mean Platelet Volume 10.7 fL (9.1-12.4); NEUTROPHILS ABSOLUTE AUTO 4.13 K/mm3 (1.96-9.15); NEUTROPHILS PERCENT AUTO 70 % (41-73); Platelet Count 294 K/mm3 (150-400); RDW Coefficient Variation 13.9 % (11.7-14.2); RDW Standard Deviation 45.9 fL (35.1-46.3); Red Blood Cell Count 4.83 M/mm3 (3.80-5.20); White Blood Cell Count 5.89 K/mm3 (4.00-11.30)
[2019-11-28 17:34] LABS: Alanine Aminotransfer (ALT/SGP 33 U/L (12-78); Albumin, Blood 3.9 g/dL (3.4-5.0); Alk Phos 129 U/L (50-136); Anion Gap 7 mmol/L (6-16); Aspartate Aminotrans (AST/SGOT 17 U/L (12-37); Bilirubin, Total 0.3 mg/dL (0.1-1.0); Blood Urea Nitrogen 18 mg/dL (8-24); Bun/Creatinine Ratio 18.5 (12.0-20.0); CO2, Blood 29 mmol/L (21-32); Calcium, Blood 9.5 mg/dL (8.5-10.1); Chloride, Blood 109 mmol/L (98-108); Creatinine, Blood 0.98 mg/dL (0.40-1.00); Globulin, Blood 4.1 g/dL (2.2-4.0); Glomerular Filtration Rate >60 (60-); Glucose, Blood 146 mg/dL (70-99); Potassium, Blood 3.8 mmol/L (3.5-5.5); Sodium, Blood 145 mmol/L (136-145)
[2019-11-28] MEDS ORDERED: METF500 PO (20:11)
[2019-11-28] MEDS ORDERED: ATOR40TA PO (20:12)
[2019-11-28] MEDS ORDERED: ALUMINUM H PO (20:13)
[2019-11-28 20:21] LABS: Source, Urine Clean Catch
[2019-11-28 20:26] LABS: Bilirubin, Urine Neg (Neg); Blood, Urine 4+ (Neg); Glucose Qualitative, Urine Neg (Neg); Ketones, Urine Neg (Neg); Leukocyte Esterase, Urine 3+ (Neg); Nitrite, Urine Pos (Neg); Protein, Urine Neg (Neg); Specific Gravity, Urine 1.005 (1.003-1.022); Urobilinogen, Urine NORM (Normal)
[2019-11-28 20:28] LABS: Appearance, Urine Clear (Clear); Color, Urine Yellow (P-Yellow)
[2019-11-28 20:32] LABS: Red Blood Cells, Urine 0-2 /hpf (0-2)
[2019-11-28 20:33] LABS: Bacteria Many /hpf; Squamous Epithelial Cells Not Seen /hpf (Few)
[2019-11-28] MEDS ORDERED: Bactrim Ds Tab1 EACH PO (22:03)
[2019-11-28] MEDS ORDERED: HYDR1TAB94 PO (22:03)
== END 2019-11-28 22:27 | disposition home or self-care (01) ==
LOC: ER 16:14
PROVIDERS: Physician Assistant
DX: N39.0 Urinary tract infection, site not specified (principal); K21.9 Gastro-esophageal reflux disease without esophagitis; Z93.6 Other artificial openings of urinary tract status; Z79.84 Long term (current) use of oral hypoglycemic drugs; Z79.899 Other long term (current) drug therapy
CPT/HCPCS: 36415; 74018; 76770; 80053; 81001; 85025; 87077; 87086; 87186; 96365; 99284-25; J0696

== ENCOUNTER 2019-12-03 00:41 | Day surgery (SDC) | payer OTHER ==
[~2019-12-03 00:41] MED LIST changes: +ATOR40TA PO; +HYDR1TAB94 PO; +METF500 PO
== END 2019-12-03 08:59 | disposition home or self-care (01) ==
LOC: ATC 00:41
DX: Z43.6 Encounter for attention to other artificial openings of urinary tract (principal); Z79.84 Long term (current) use of oral hypoglycemic drugs; Z79.899 Other long term (current) drug therapy; Z51.5 Encounter for palliative care
CPT/HCPCS: 99211

== ENCOUNTER 2019-12-11 01:51 | Day surgery (SDC) | payer OTHER | END 2019-12-11 14:37 | disposition home or self-care (01) | LOC: ATC 01:51 | DX: Z48.01 Encounter for change or removal of surgical wound dressing (principal); I12.9 Hypertensive chronic kidney disease with stage 1 through stage 4 chronic kidney disease, or unspecified chronic kidney disease; C55 Malignant neoplasm of uterus, part unspecified; N18.2 Chronic kidney disease, stage 2 (mild); D63.1 Anemia in chronic kidney disease; N25.81 Secondary hyperparathyroidism of renal origin; E55.9 Vitamin D deficiency, unspecified; E87.6 Hypokalemia; G25.81 Restless legs syndrome; Z79.84 Long term (current) use of oral hypoglycemic drugs; Z79.899 Other long term (current) drug therapy; Z51.5 Encounter for palliative care | CPT/HCPCS: 99211 ==

== ENCOUNTER 2019-12-18 00:44 | Day surgery (SDC) | payer SELFPAY | END 2019-12-18 16:45 | disposition home or self-care (01) | LOC: ATC 00:44 | DX: Z43.6 Encounter for attention to other artificial openings of urinary tract (principal); I12.9 Hypertensive chronic kidney disease with stage 1 through stage 4 chronic kidney disease, or unspecified chronic kidney disease; N18.31 Chronic kidney disease, stage 3a; R31.9 Hematuria, unspecified; N13.9 Obstructive and reflux uropathy, unspecified; D63.1 Anemia in chronic kidney disease; N25.81 Secondary hyperparathyroidism of renal origin; D50.9 Iron deficiency anemia, unspecified; E86.9 Volume depletion, unspecified; E55.9 Vitamin D deficiency, unspecified; Z79.84 Long term (current) use of oral hypoglycemic drugs; Z79.899 Other long term (current) drug therapy; Z51.5 Encounter for palliative care | CPT/HCPCS: 99211 ==

== ENCOUNTER 2019-12-25 00:43 | Day surgery (SDC) | payer OTHER | END 2019-12-25 17:00 | disposition home or self-care (01) | LOC: ATC 00:43 | DX: Z48.816 Encounter for surgical aftercare following surgery on the genitourinary system (principal); Z43.6 Encounter for attention to other artificial openings of urinary tract; I12.9 Hypertensive chronic kidney disease with stage 1 through stage 4 chronic kidney disease, or unspecified chronic kidney disease; N18.31 Chronic kidney disease, stage 3a; D63.1 Anemia in chronic kidney disease; R31.9 Hematuria, unspecified; N13.9 Obstructive and reflux uropathy, unspecified; N25.81 Secondary hyperparathyroidism of renal origin; D50.9 Iron deficiency anemia, unspecified; G25.81 Restless legs syndrome; E55.9 Vitamin D deficiency, unspecified; Z79.84 Long term (current) use of oral hypoglycemic drugs; Z79.899 Other long term (current) drug therapy; Z51.5 Encounter for palliative care | CPT/HCPCS: 99211 ==

== ENCOUNTER 2020-01-01 00:31 | Day surgery (SDC) | payer OTHER | END 2020-01-01 16:30 | disposition home or self-care (01) | LOC: ATC 00:31 | DX: Z43.6 Encounter for attention to other artificial openings of urinary tract (principal); R31.9 Hematuria, unspecified; N13.9 Obstructive and reflux uropathy, unspecified; I12.9 Hypertensive chronic kidney disease with stage 1 through stage 4 chronic kidney disease, or unspecified chronic kidney disease; N18.31 Chronic kidney disease, stage 3a; D63.1 Anemia in chronic kidney disease; N25.81 Secondary hyperparathyroidism of renal origin; D50.9 Iron deficiency anemia, unspecified; E86.0 Dehydration; E55.9 Vitamin D deficiency, unspecified; G25.81 Restless legs syndrome; Z79.84 Long term (current) use of oral hypoglycemic drugs; Z79.899 Other long term (current) drug therapy; Z51.5 Encounter for palliative care | CPT/HCPCS: 99211 ==

== ENCOUNTER 2020-01-07 19:22 | Emergency (ER) | payer OTHER ==
[~2020-01-07] VITALS: Ht 147.3 cm; Wt 64.3 kg
[2020-01-08] MEDS ORDERED: Bactrim Ds Tab1 EACH PO (23:50)
== END 2020-01-08 01:52 | disposition left against medical advice (07) ==
LOC: ER 19:22
DX: Z53.21 Procedure and treatment not carried out due to patient leaving prior to being seen by health care provider (principal)
CPT/HCPCS: 76770

== ENCOUNTER 2020-01-08 16:40 | Emergency (ER) | payer OTHER ==
[~2020-01-08] VITALS: Ht 157.5 cm; Wt 63.5 kg
[2020-01-08 23:29] LABS: Source, Urine Urostomy Bag
[2020-01-08 23:32] LABS: Bilirubin, Urine Neg (Neg); Blood, Urine 5+ (Neg); Glucose Qualitative, Urine Neg (Neg); Ketones, Urine Neg (Neg); Leukocyte Esterase, Urine 3+ (Neg); Nitrite, Urine Neg (Neg); Protein, Urine 2+ (Neg); Urobilinogen, Urine NORM (Normal)
[2020-01-08 23:36] LABS: Appearance, Urine Clear (Clear); Color, Urine Yellow (P-Yellow)
[2020-01-08 23:38] LABS: Bacteria Mod /hpf; Squamous Epithelial Cells Not Seen /hpf (Few)
[2020-01-08 23:39] LABS: Triple Phosphate Crystals Mod /hpf
[2020-01-08] MEDS ORDERED: Bactrim Ds Tab1 EACH PO (23:50)
== END 2020-01-09 00:14 | disposition home or self-care (01) ==
LOC: ER 16:40
PROVIDERS: Physician Assistant
DX: T83.092A Other mechanical complication of nephrostomy catheter, initial encounter (principal); N12 Tubulo-interstitial nephritis, not specified as acute or chronic; N39.0 Urinary tract infection, site not specified; K21.9 Gastro-esophageal reflux disease without esophagitis; Z79.84 Long term (current) use of oral hypoglycemic drugs; Z79.899 Other long term (current) drug therapy
CPT/HCPCS: 36415; 74018; 81001; 87077; 87086; 87186; 96360; 99283-25; A9270-GY; J7030

== ENCOUNTER 2020-01-12 18:00 | Observation (INO) | payer SELFPAY ==
[~2020-01-12] VITALS: Ht 152.4 cm; Wt 61.5 kg
[2020-01-12 23:04] LABS: Source, Urine Urostomy Bag
[2020-01-12 23:13] LABS: Appearance, Urine Hazy (Clear); Bilirubin, Urine Neg (Neg); Blood, Urine 4+ (Neg); Color, Urine Yellow (P-Yellow); Glucose Qualitative, Urine Neg (Neg); Ketones, Urine Neg (Neg); Leukocyte Esterase, Urine 3+ (Neg); Nitrite, Urine Pos (Neg); Protein, Urine 2+ (Neg); Urobilinogen, Urine NORM (Normal)
[2020-01-12 23:23] LABS: Bacteria Many /hpf; White Blood Cells, Urine 50-100 /hpf (0-5)
[2020-01-12 23:24] LABS: Squamous Epithelial Cells Rare /hpf (Few); Triple Phosphate Crystals Many /hpf
[2020-01-12 23:29] LABS: BASOPHILS ABSOLUTE AUTO 0.02 K/mm3 (0.00-0.23); BASOPHILS PERCENT AUTO 0 % (0-2); EOSINOPHILS PERCENT AUTO 2 % (0-6); Hematocrit 43.3 % (33.0-51.0); Hemoglobin 13.9 g/dL (11.5-16.0); IMMATURE GRAN ABSOLUTE AUTO 0.02 K/mm3 (0.00-0.10); IMMATURE GRAN PERCENT AUTO 0 % (0-1); LYMPHOCYTES ABSOLUTE AUTO 1.44 K/mm3 (0.84-5.20); LYMPHOCYTES PERCENT AUTO 17 % (21-46); MONOCYTES ABSOLUTE AUTO 0.36 K/mm3 (0.16-1.47); MONOCYTES PERCENT AUTO 4 % (4-13); Mean Corpuscular HGB 28.6 pg (26.0-34.0); Mean Corpuscular HGB Conc 32.1 g/dL (31.5-36.5); Mean Corpuscular Volume 89 fL (80-100); Mean Platelet Volume 9.9 fL (9.1-12.4); NEUTROPHILS ABSOLUTE AUTO 6.69 K/mm3 (1.96-9.15); NEUTROPHILS PERCENT AUTO 77 % (41-73); Platelet Count 305 K/mm3 (150-400); RDW Coefficient Variation 13.3 % (11.7-14.2); RDW Standard Deviation 43.4 fL (35.1-46.3); Red Blood Cell Count 4.86 M/mm3 (3.80-5.20); White Blood Cell Count 8.73 K/mm3 (4.00-11.30)
[2020-01-12 23:44] LABS: International Normalized Ratio 0.95; Prothrombin Time Results 10.2 Sec (9.7-11.5)
[2020-01-12 23:46] LABS: Bilirubin, Total 0.3 mg/dL (0.1-1.0); Bun/Creatinine Ratio 17.1 (12.0-20.0); Calcium, Blood 9.4 mg/dL (8.5-10.1); Creatinine, Blood 1.17 mg/dL (0.40-1.00); Globulin, Blood 4.2 g/dL (2.2-4.0); Potassium, Blood 3.8 mmol/L (3.5-5.5); Total Protein, Blood 8.2 g/dL (6.4-8.2)
--- NOTE | 2020-01-13 00:30 | NUR ---
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 PT had bilat neph tube & lt tube reportedly patent. UA positive for infection C & S pending. Await admission. Spouse accompanies to floor to aide in communication with translation line. He also is [place] speaking only & had been using translation line in ER per RN report. Reportedly has consult in AM to replace neph tube.
--- NOTE | 2020-01-13 02:44 | NUR ---
PT is Ugandan Speaking only with special dialect of Ugandan that the translation phone does not do. Spouse speaks regular Ugandan only & is at bedside. PT & Spouse used translation services in ER & we obtained translation interp phone to use with them. PT had recent & remote hx of neph tubes. LT perc neph tube patent draing hazy strong smelling urine. RT perc neph tube was displaced prior to coming to ER. Apparently DR Nolasco placed tubes. PT NPO for consult with MD to facilitate rt neph tube replacement.
--- NOTE | 2020-01-13 05:06 | NUR ---
Iranian interp line accessed & we discussed plan of care & had consents signed by PT's Spouse with her permission. Denies pain currently resting comfortably on rounds. Urine in lt neph bag has strong odor. NPO for rt perc neph tube replacement. Consult called to DR Ryan answering service.
[2020-01-13 05:23] LABS: BASOPHILS ABSOLUTE AUTO 0.02 K/mm3 (0.00-0.23); BASOPHILS PERCENT AUTO 0 % (0-2); EOSINOPHILS ABSOLUTE AUTO 0.22 K/mm3 (0.00-0.68); EOSINOPHILS PERCENT AUTO 3 % (0-6); Hematocrit 42.2 % (33.0-51.0); Hemoglobin 13.1 g/dL (11.5-16.0); IMMATURE GRAN ABSOLUTE AUTO 0.01 K/mm3 (0.00-0.10); IMMATURE GRAN PERCENT AUTO 0 % (0-1); LYMPHOCYTES ABSOLUTE AUTO 1.44 K/mm3 (0.84-5.20); LYMPHOCYTES PERCENT AUTO 22 % (21-46); MONOCYTES ABSOLUTE AUTO 0.26 K/mm3 (0.16-1.47); MONOCYTES PERCENT AUTO 4 % (4-13); Mean Corpuscular HGB 28.2 pg (26.0-34.0); Mean Corpuscular Volume 91 fL (80-100); NEUTROPHILS ABSOLUTE AUTO 4.53 K/mm3 (1.96-9.15); NEUTROPHILS PERCENT AUTO 70 % (41-73); Platelet Count 289 K/mm3 (150-400); RDW Coefficient Variation 13.5 % (11.7-14.2); RDW Standard Deviation 44.9 fL (35.1-46.3); Red Blood Cell Count 4.65 M/mm3 (3.80-5.20); White Blood Cell Count 6.48 K/mm3 (4.00-11.30)
[2020-01-13 05:49] LABS: Alanine Aminotransfer (ALT/SGP 31 U/L (12-78); Albumin, Blood 3.5 g/dL (3.4-5.0); Albumin/Globulin Ratio 0.9 (0.8-1.8); Alk Phos 132 U/L (50-136); Anion Gap 6 mmol/L (6-16); Aspartate Aminotrans (AST/SGOT 19 U/L (12-37); Bilirubin, Total 0.4 mg/dL (0.1-1.0); Blood Urea Nitrogen 17 mg/dL (8-24); Bun/Creatinine Ratio 18.7 (12.0-20.0); CO2, Blood 23 mmol/L (21-32); Calcium, Blood 8.8 mg/dL (8.5-10.1); Chloride, Blood 112 mmol/L (98-108); Creatinine, Blood 0.91 mg/dL (0.40-1.00); Globulin, Blood 4.1 g/dL (2.2-4.0); Glomerular Filtration Rate >60 (60-); Glucose, Blood 84 mg/dL (70-99); Potassium, Blood 3.9 mmol/L (3.5-5.5); Sodium, Blood 141 mmol/L (136-145); Total Protein, Blood 7.6 g/dL (6.4-8.2)
[2020-01-13 11:21] LABS: Influenza A, PCR Negative (NEGATIVE); Influenza B, PCR Negative (NEGATIVE); Resp Syncytial Virus, PCR Negative (NEGATIVE); SARS-Cov-2 (COVID-19) PCR, MMC Negative (NEGATIVE)
--- NOTE | 2020-01-13 19:44 | NUR ---
a+o but only speaks somali, aircraft motor mechanic phone in available, pt asked for pain medication shortly after returning from procedure, informed who ordered norco one time and said he would be up to evaluate, gave norco and informed nc that dr was coming up to evaluate, hospitalist dc'd pt but this nurse asked cn to wait verify with surgon, at shift change pt was still here but denied pain, discussed options with noc nurse who agreed to check with cn to verify pt status
--- NOTE | 2020-01-14 04:37 | NUR ---
DONATION SPECIALIST SUMMARY PT A&OX4, PLEASANT AND COOPERATIVE TO CARE. PT ONLY SPEAKS NIGERIAN, PT ABLE TO REPORT PAIN. MEDICATED FOR PAIN PER EMAR. PINO NEPHROSTOMY TUBES IN PLACE. DRESSING TO AA CDI. PATENT AND DRAINING CLEAR YELLOW URINE. PT CALM AND RESTED IN BED T/O SHIFT. PT HOB ELEVATED ORDERED. CALL LIGHT WITHIN REACH.
[2020-01-14] MEDS ORDERED: VISBIOME PROBIOTIC PO (10:32)
[2020-01-14] MEDS ORDERED: AMOCLA875 PO (10:33)
--- NOTE | 2020-01-14 11:12 | NUR ---
removed IV with no difficulty, assisted to wc, reviewed stay, medications, discharge orders, and pharmacy while on phone with interpereter, both pt and interperter stated no further questions and that she understood where to get her medications and who to contact if she had any questions, left with folder, assisted down to family who were reminded of orders and instructions, smiling and denied pain as she left rm, no belongings found in rm which has been cleaned.
== END 2020-01-14 10:57 | disposition home or self-care (01) ==
LOC: ER 18:00 → MEDS 18:01
PROVIDERS: Emergency Medicine; Radiology Diagnostic Radiology; ADMIT Internal Medicine
DX: T83.022A Displacement of nephrostomy catheter, initial encounter (principal); N30.01 Acute cystitis with hematuria; K21.9 Gastro-esophageal reflux disease without esophagitis; Z96.0 Presence of urogenital implants; Z79.84 Long term (current) use of oral hypoglycemic drugs; Z79.899 Other long term (current) drug therapy; Z85.41 Personal history of malignant neoplasm of cervix uteri; Z20.828 Contact with and (suspected) exposure to other viral communicable diseases; Z23 Encounter for immunization; Y84.6 Urinary catheterization as the cause of abnormal reaction of the patient, or of later complication, without mention of misadventure at the time of the procedure
CPT/HCPCS: 0241U; 36415; 50432; 80053; 81001; 85025; 85610; 85730; 87086; 96365; 99152; 99284-25; A9270; A9270-GY; C1729; C1769; C1887; J0696; J1650; J2250; J3010; J7030; J7040; Q9967

== ENCOUNTER 2020-01-15 01:49 | Day surgery (SDC) | payer SELFPAY ==
[~2020-01-15 01:49] MED LIST changes: +AMOCLA875 PO; +VISBIOME PROBIOTIC PO
== END 2020-01-15 16:07 | disposition home or self-care (01) ==
LOC: ATC 01:49
DX: Z43.6 Encounter for attention to other artificial openings of urinary tract (principal); R31.9 Hematuria, unspecified; I12.9 Hypertensive chronic kidney disease with stage 1 through stage 4 chronic kidney disease, or unspecified chronic kidney disease; N18.31 Chronic kidney disease, stage 3a; D63.1 Anemia in chronic kidney disease; N25.81 Secondary hyperparathyroidism of renal origin; D50.9 Iron deficiency anemia, unspecified; N13.9 Obstructive and reflux uropathy, unspecified; E86.9 Volume depletion, unspecified; G25.81 Restless legs syndrome; E55.9 Vitamin D deficiency, unspecified; Z79.899 Other long term (current) drug therapy; Z79.84 Long term (current) use of oral hypoglycemic drugs; Z20.828 Contact with and (suspected) exposure to other viral communicable diseases
CPT/HCPCS: 99211

== ENCOUNTER 2020-01-22 09:22 | Day surgery (SDC) | payer OTHER | END 2020-01-22 16:15 | disposition home or self-care (01) | LOC: ATC 09:22 | DX: Z43.6 Encounter for attention to other artificial openings of urinary tract (principal); N13.9 Obstructive and reflux uropathy, unspecified; R31.9 Hematuria, unspecified; I12.9 Hypertensive chronic kidney disease with stage 1 through stage 4 chronic kidney disease, or unspecified chronic kidney disease; N18.30 Chronic kidney disease, stage 3 unspecified; D63.1 Anemia in chronic kidney disease; N25.81 Secondary hyperparathyroidism of renal origin; D50.9 Iron deficiency anemia, unspecified; E55.9 Vitamin D deficiency, unspecified; G25.81 Restless legs syndrome; E86.9 Volume depletion, unspecified; K21.9 Gastro-esophageal reflux disease without esophagitis; Z79.84 Long term (current) use of oral hypoglycemic drugs; Z79.899 Other long term (current) drug therapy | CPT/HCPCS: 99211 ==

== ENCOUNTER 2020-01-29 00:34 | Day surgery (SDC) | payer SELFPAY | END 2020-01-29 16:11 | disposition home or self-care (01) | LOC: ATC 00:34 | DX: Z43.6 Encounter for attention to other artificial openings of urinary tract (principal); R31.9 Hematuria, unspecified; N13.9 Obstructive and reflux uropathy, unspecified; I12.9 Hypertensive chronic kidney disease with stage 1 through stage 4 chronic kidney disease, or unspecified chronic kidney disease; N18.31 Chronic kidney disease, stage 3a; D63.1 Anemia in chronic kidney disease; N25.81 Secondary hyperparathyroidism of renal origin; D50.9 Iron deficiency anemia, unspecified; E86.9 Volume depletion, unspecified; E55.9 Vitamin D deficiency, unspecified; Z79.84 Long term (current) use of oral hypoglycemic drugs; Z79.899 Other long term (current) drug therapy | CPT/HCPCS: 99212 ==

== ENCOUNTER 2020-02-06 10:45 | Emergency (ER) | payer OTHER ==
[~2020-02-06] VITALS: Ht 149.9 cm; Wt 68.0 kg
== END 2020-02-06 12:35 | disposition home or self-care (01) ==
LOC: ER 10:45
DX: Z43.6 Encounter for attention to other artificial openings of urinary tract (principal); Z79.84 Long term (current) use of oral hypoglycemic drugs; Z79.899 Other long term (current) drug therapy
CPT/HCPCS: 99282

== ENCOUNTER 2020-02-11 00:40 | Day surgery (SDC) | payer SELFPAY | END 2020-02-11 11:15 | disposition home or self-care (01) | LOC: ATC 00:40 | DX: Z43.6 Encounter for attention to other artificial openings of urinary tract (principal); I12.9 Hypertensive chronic kidney disease with stage 1 through stage 4 chronic kidney disease, or unspecified chronic kidney disease; N18.30 Chronic kidney disease, stage 3 unspecified; N13.9 Obstructive and reflux uropathy, unspecified; N25.81 Secondary hyperparathyroidism of renal origin; D63.1 Anemia in chronic kidney disease; R31.9 Hematuria, unspecified; D50.9 Iron deficiency anemia, unspecified; E55.9 Vitamin D deficiency, unspecified; K21.9 Gastro-esophageal reflux disease without esophagitis; Z79.84 Long term (current) use of oral hypoglycemic drugs; Z79.899 Other long term (current) drug therapy; Z20.828 Contact with and (suspected) exposure to other viral communicable diseases | CPT/HCPCS: 99212 ==

== ENCOUNTER 2020-02-19 01:08 | Day surgery (SDC) | payer SELFPAY ==
[2020-06-10] MEDS ORDERED: VITAMIN D325 MC3 PO (20:22)
[2020-06-10] MEDS ORDERED: HYDR1TAB94 PO (20:24)
[2020-06-10] MEDS ORDERED: ACET500 PO (22:28)
[2020-06-12] MEDS ORDERED: VISBIOME 112.51 EACH PO (15:14)
[2020-06-13] MEDS ORDERED: ERTAPENEM1 G6 IV (09:33)
== END 2020-02-19 16:10 | disposition home or self-care (01) ==
LOC: ATC 01:08
DX: Z43.6 Encounter for attention to other artificial openings of urinary tract (principal); I12.9 Hypertensive chronic kidney disease with stage 1 through stage 4 chronic kidney disease, or unspecified chronic kidney disease; N18.31 Chronic kidney disease, stage 3a; R31.9 Hematuria, unspecified; N13.9 Obstructive and reflux uropathy, unspecified; N25.81 Secondary hyperparathyroidism of renal origin; D63.1 Anemia in chronic kidney disease; D50.9 Iron deficiency anemia, unspecified; E55.9 Vitamin D deficiency, unspecified; G25.81 Restless legs syndrome; K21.9 Gastro-esophageal reflux disease without esophagitis; Z79.899 Other long term (current) drug therapy; Z79.84 Long term (current) use of oral hypoglycemic drugs
CPT/HCPCS: 99212

== ENCOUNTER 2020-02-26 01:56 | Day surgery (SDC) | payer SELFPAY ==
[2020-06-10] MEDS ORDERED: VITAMIN D325 MC3 PO (20:22)
[2020-06-10] MEDS ORDERED: HYDR1TAB94 PO (20:24)
[2020-06-10] MEDS ORDERED: ACET500 PO (22:28)
[2020-06-12] MEDS ORDERED: VISBIOME 112.51 EACH PO (15:14)
[2020-06-13] MEDS ORDERED: ERTAPENEM1 G6 IV (09:33)
== END 2020-02-26 16:21 | disposition home or self-care (01) ==
LOC: ATC 01:56
DX: Z43.6 Encounter for attention to other artificial openings of urinary tract (principal); R31.9 Hematuria, unspecified; N13.9 Obstructive and reflux uropathy, unspecified; I12.9 Hypertensive chronic kidney disease with stage 1 through stage 4 chronic kidney disease, or unspecified chronic kidney disease; N18.31 Chronic kidney disease, stage 3a; N25.81 Secondary hyperparathyroidism of renal origin; D63.1 Anemia in chronic kidney disease; D50.9 Iron deficiency anemia, unspecified; E55.9 Vitamin D deficiency, unspecified; G25.81 Restless legs syndrome; K21.9 Gastro-esophageal reflux disease without esophagitis; Z79.84 Long term (current) use of oral hypoglycemic drugs; Z79.899 Other long term (current) drug therapy; Z20.822 Contact with and (suspected) exposure to COVID-19
CPT/HCPCS: 99211

== ENCOUNTER 2020-03-04 00:26 | Day surgery (SDC) | payer SELFPAY ==
[2020-06-10] MEDS ORDERED: VITAMIN D325 MC3 PO (20:22)
[2020-06-10] MEDS ORDERED: HYDR1TAB94 PO (20:24)
[2020-06-10] MEDS ORDERED: ACET500 PO (22:28)
[2020-06-12] MEDS ORDERED: VISBIOME 112.51 EACH PO (15:14)
[2020-06-13] MEDS ORDERED: ERTAPENEM1 G6 IV (09:33)
== END 2020-03-04 16:10 | disposition home or self-care (01) ==
LOC: ATC 00:26
DX: N13.9 Obstructive and reflux uropathy, unspecified (principal); R31.9 Hematuria, unspecified; I12.9 Hypertensive chronic kidney disease with stage 1 through stage 4 chronic kidney disease, or unspecified chronic kidney disease; N18.30 Chronic kidney disease, stage 3 unspecified; D63.1 Anemia in chronic kidney disease; N25.81 Secondary hyperparathyroidism of renal origin; D50.9 Iron deficiency anemia, unspecified; E86.9 Volume depletion, unspecified
CPT/HCPCS: 99211

== ENCOUNTER 2020-03-11 00:23 | Day surgery (SDC) | payer SELFPAY ==
[2020-06-10] MEDS ORDERED: VITAMIN D325 MC3 PO (20:22)
[2020-06-10] MEDS ORDERED: HYDR1TAB94 PO (20:24)
[2020-06-10] MEDS ORDERED: ACET500 PO (22:28)
[2020-06-12] MEDS ORDERED: VISBIOME 112.51 EACH PO (15:14)
[2020-06-13] MEDS ORDERED: ERTAPENEM1 G6 IV (09:33)
== END 2020-03-11 16:17 | disposition home or self-care (01) ==
LOC: ATC 00:23
DX: Z43.6 Encounter for attention to other artificial openings of urinary tract (principal); N13.9 Obstructive and reflux uropathy, unspecified; I12.9 Hypertensive chronic kidney disease with stage 1 through stage 4 chronic kidney disease, or unspecified chronic kidney disease; N18.31 Chronic kidney disease, stage 3a; K21.9 Gastro-esophageal reflux disease without esophagitis; N25.81 Secondary hyperparathyroidism of renal origin; Z85.41 Personal history of malignant neoplasm of cervix uteri
CPT/HCPCS: 99211

== ENCOUNTER 2020-03-18 01:54 | Day surgery (SDC) | payer SELFPAY ==
[2020-06-10] MEDS ORDERED: VITAMIN D325 MC3 PO (20:22)
[2020-06-10] MEDS ORDERED: HYDR1TAB94 PO (20:24)
[2020-06-10] MEDS ORDERED: ACET500 PO (22:28)
[2020-06-12] MEDS ORDERED: VISBIOME 112.51 EACH PO (15:14)
[2020-06-13] MEDS ORDERED: ERTAPENEM1 G6 IV (09:33)
== END 2020-03-18 16:20 | disposition home or self-care (01) ==
LOC: ATC 01:54
DX: Z43.6 Encounter for attention to other artificial openings of urinary tract (principal); N13.9 Obstructive and reflux uropathy, unspecified; I12.9 Hypertensive chronic kidney disease with stage 1 through stage 4 chronic kidney disease, or unspecified chronic kidney disease; N18.31 Chronic kidney disease, stage 3a; N25.81 Secondary hyperparathyroidism of renal origin; D63.1 Anemia in chronic kidney disease; E55.9 Vitamin D deficiency, unspecified; G25.81 Restless legs syndrome; K21.9 Gastro-esophageal reflux disease without esophagitis; Z79.899 Other long term (current) drug therapy; Z79.84 Long term (current) use of oral hypoglycemic drugs; Z85.41 Personal history of malignant neoplasm of cervix uteri
CPT/HCPCS: 99211

== ENCOUNTER 2020-03-25 02:02 | Day surgery (SDC) | payer SELFPAY ==
[2020-06-10] MEDS ORDERED: VITAMIN D325 MC3 PO (20:22)
[2020-06-10] MEDS ORDERED: HYDR1TAB94 PO (20:24)
[2020-06-10] MEDS ORDERED: ACET500 PO (22:28)
[2020-06-12] MEDS ORDERED: VISBIOME 112.51 EACH PO (15:14)
[2020-06-13] MEDS ORDERED: ERTAPENEM1 G6 IV (09:33)
== END 2020-03-25 16:03 | disposition home or self-care (01) ==
LOC: ATC 02:02
DX: Z43.6 Encounter for attention to other artificial openings of urinary tract (principal); N13.9 Obstructive and reflux uropathy, unspecified; I12.9 Hypertensive chronic kidney disease with stage 1 through stage 4 chronic kidney disease, or unspecified chronic kidney disease; N18.31 Chronic kidney disease, stage 3a; N25.81 Secondary hyperparathyroidism of renal origin; D63.1 Anemia in chronic kidney disease; E55.9 Vitamin D deficiency, unspecified; G25.81 Restless legs syndrome; K21.9 Gastro-esophageal reflux disease without esophagitis; Z85.41 Personal history of malignant neoplasm of cervix uteri
CPT/HCPCS: 99211

== ENCOUNTER 2020-04-01 00:58 | Day surgery (SDC) | payer SELFPAY ==
[2020-06-10] MEDS ORDERED: VITAMIN D325 MC3 PO (20:22)
[2020-06-10] MEDS ORDERED: HYDR1TAB94 PO (20:24)
[2020-06-10] MEDS ORDERED: ACET500 PO (22:28)
[2020-06-12] MEDS ORDERED: VISBIOME 112.51 EACH PO (15:14)
[2020-06-13] MEDS ORDERED: ERTAPENEM1 G6 IV (09:33)
== END 2020-04-01 16:45 | disposition home or self-care (01) ==
LOC: ATC 00:58
DX: I12.9 Hypertensive chronic kidney disease with stage 1 through stage 4 chronic kidney disease, or unspecified chronic kidney disease (principal); N18.31 Chronic kidney disease, stage 3a; R31.9 Hematuria, unspecified; N25.81 Secondary hyperparathyroidism of renal origin; G25.81 Restless legs syndrome; K21.9 Gastro-esophageal reflux disease without esophagitis; Z93.6 Other artificial openings of urinary tract status
CPT/HCPCS: 99212

== ENCOUNTER 2020-04-08 00:44 | Day surgery (SDC) | payer SELFPAY ==
[2020-06-10] MEDS ORDERED: VITAMIN D325 MC3 PO (20:22)
[2020-06-10] MEDS ORDERED: HYDR1TAB94 PO (20:24)
[2020-06-10] MEDS ORDERED: ACET500 PO (22:28)
[2020-06-12] MEDS ORDERED: VISBIOME 112.51 EACH PO (15:14)
[2020-06-13] MEDS ORDERED: ERTAPENEM1 G6 IV (09:33)
== END 2020-04-08 16:10 | disposition home or self-care (01) ==
LOC: ATC 00:44
DX: I12.9 Hypertensive chronic kidney disease with stage 1 through stage 4 chronic kidney disease, or unspecified chronic kidney disease (principal); N18.30 Chronic kidney disease, stage 3 unspecified; N13.9 Obstructive and reflux uropathy, unspecified; R31.9 Hematuria, unspecified; G25.81 Restless legs syndrome; K21.9 Gastro-esophageal reflux disease without esophagitis; Z87.440 Personal history of urinary (tract) infections; Z85.41 Personal history of malignant neoplasm of cervix uteri
CPT/HCPCS: 99211

== ENCOUNTER 2020-04-15 00:41 | Day surgery (SDC) | payer SELFPAY ==
[2020-06-10] MEDS ORDERED: VITAMIN D325 MC3 PO (20:22)
[2020-06-10] MEDS ORDERED: HYDR1TAB94 PO (20:24)
[2020-06-10] MEDS ORDERED: ACET500 PO (22:28)
[2020-06-12] MEDS ORDERED: VISBIOME 112.51 EACH PO (15:14)
[2020-06-13] MEDS ORDERED: ERTAPENEM1 G6 IV (09:33)
== END 2020-04-15 16:15 | disposition home or self-care (01) ==
LOC: ATC 00:41
DX: Z43.6 Encounter for attention to other artificial openings of urinary tract (principal); N13.9 Obstructive and reflux uropathy, unspecified; I12.9 Hypertensive chronic kidney disease with stage 1 through stage 4 chronic kidney disease, or unspecified chronic kidney disease; N18.31 Chronic kidney disease, stage 3a
CPT/HCPCS: 99211

== ENCOUNTER 2020-04-22 00:49 | Day surgery (SDC) | payer SELFPAY ==
[2020-06-10] MEDS ORDERED: VITAMIN D325 MC3 PO (20:22)
[2020-06-10] MEDS ORDERED: HYDR1TAB94 PO (20:24)
[2020-06-10] MEDS ORDERED: ACET500 PO (22:28)
[2020-06-12] MEDS ORDERED: VISBIOME 112.51 EACH PO (15:14)
[2020-06-13] MEDS ORDERED: ERTAPENEM1 G6 IV (09:33)
== END 2020-04-22 16:20 | disposition home or self-care (01) ==
LOC: ATC 00:49
DX: Z43.6 Encounter for attention to other artificial openings of urinary tract (principal); I12.9 Hypertensive chronic kidney disease with stage 1 through stage 4 chronic kidney disease, or unspecified chronic kidney disease; N18.31 Chronic kidney disease, stage 3a; N13.9 Obstructive and reflux uropathy, unspecified; D63.1 Anemia in chronic kidney disease; N25.81 Secondary hyperparathyroidism of renal origin; D50.9 Iron deficiency anemia, unspecified; E86.9 Volume depletion, unspecified; E87.6 Hypokalemia; E55.9 Vitamin D deficiency, unspecified; G25.81 Restless legs syndrome
CPT/HCPCS: 99212

== ENCOUNTER 2020-04-29 00:50 | Day surgery (SDC) | payer SELFPAY ==
[2020-06-10] MEDS ORDERED: VITAMIN D325 MC3 PO (20:22)
[2020-06-10] MEDS ORDERED: HYDR1TAB94 PO (20:24)
[2020-06-10] MEDS ORDERED: ACET500 PO (22:28)
[2020-06-12] MEDS ORDERED: VISBIOME 112.51 EACH PO (15:14)
[2020-06-13] MEDS ORDERED: ERTAPENEM1 G6 IV (09:33)
== END 2020-04-29 16:18 | disposition home or self-care (01) ==
LOC: ATC 00:50
DX: Z43.6 Encounter for attention to other artificial openings of urinary tract (principal); I12.9 Hypertensive chronic kidney disease with stage 1 through stage 4 chronic kidney disease, or unspecified chronic kidney disease; N18.31 Chronic kidney disease, stage 3a; N13.9 Obstructive and reflux uropathy, unspecified; D63.1 Anemia in chronic kidney disease; N25.81 Secondary hyperparathyroidism of renal origin; D50.9 Iron deficiency anemia, unspecified; E55.9 Vitamin D deficiency, unspecified; G25.81 Restless legs syndrome; E86.9 Volume depletion, unspecified; E87.6 Hypokalemia; K21.9 Gastro-esophageal reflux disease without esophagitis; Z85.41 Personal history of malignant neoplasm of cervix uteri
CPT/HCPCS: 99212

== ENCOUNTER 2020-05-06 01:12 | Day surgery (SDC) | payer SELFPAY ==
[2020-06-10] MEDS ORDERED: VITAMIN D325 MC3 PO (20:22)
[2020-06-10] MEDS ORDERED: HYDR1TAB94 PO (20:24)
[2020-06-10] MEDS ORDERED: ACET500 PO (22:28)
[2020-06-12] MEDS ORDERED: VISBIOME 112.51 EACH PO (15:14)
[2020-06-13] MEDS ORDERED: ERTAPENEM1 G6 IV (09:33)
== END 2020-05-06 16:06 | disposition home or self-care (01) ==
LOC: ATC 01:12
DX: N13.9 Obstructive and reflux uropathy, unspecified (principal); R31.9 Hematuria, unspecified; I12.9 Hypertensive chronic kidney disease with stage 1 through stage 4 chronic kidney disease, or unspecified chronic kidney disease; N18.31 Chronic kidney disease, stage 3a; D63.1 Anemia in chronic kidney disease; N25.81 Secondary hyperparathyroidism of renal origin; K21.9 Gastro-esophageal reflux disease without esophagitis
CPT/HCPCS: 99211

== ENCOUNTER 2020-05-13 00:19 | Day surgery (SDC) | payer SELFPAY ==
[2020-06-10] MEDS ORDERED: VITAMIN D325 MC3 PO (20:22)
[2020-06-10] MEDS ORDERED: HYDR1TAB94 PO (20:24)
[2020-06-10] MEDS ORDERED: ACET500 PO (22:28)
[2020-06-12] MEDS ORDERED: VISBIOME 112.51 EACH PO (15:14)
[2020-06-13] MEDS ORDERED: ERTAPENEM1 G6 IV (09:33)
== END 2020-05-13 16:05 | disposition home or self-care (01) ==
LOC: ATC 00:19
DX: N13.9 Obstructive and reflux uropathy, unspecified (principal); N18.31 Chronic kidney disease, stage 3a; R31.9 Hematuria, unspecified; I12.9 Hypertensive chronic kidney disease with stage 1 through stage 4 chronic kidney disease, or unspecified chronic kidney disease; D63.1 Anemia in chronic kidney disease
CPT/HCPCS: 99211

== ENCOUNTER 2020-05-20 00:22 | Day surgery (SDC) | payer SELFPAY ==
[2020-06-10] MEDS ORDERED: VITAMIN D325 MC3 PO (20:22)
[2020-06-10] MEDS ORDERED: HYDR1TAB94 PO (20:24)
[2020-06-10] MEDS ORDERED: ACET500 PO (22:28)
[2020-06-12] MEDS ORDERED: VISBIOME 112.51 EACH PO (15:14)
[2020-06-13] MEDS ORDERED: ERTAPENEM1 G6 IV (09:33)
== END 2020-05-20 16:15 | disposition home or self-care (01) ==
LOC: ATC 00:22
DX: Z43.6 Encounter for attention to other artificial openings of urinary tract (principal); I12.9 Hypertensive chronic kidney disease with stage 1 through stage 4 chronic kidney disease, or unspecified chronic kidney disease; N18.31 Chronic kidney disease, stage 3a; D63.1 Anemia in chronic kidney disease; N25.81 Secondary hyperparathyroidism of renal origin; D50.9 Iron deficiency anemia, unspecified; N13.9 Obstructive and reflux uropathy, unspecified; R31.9 Hematuria, unspecified; E55.9 Vitamin D deficiency, unspecified; G25.81 Restless legs syndrome; E86.9 Volume depletion, unspecified; E87.6 Hypokalemia; K21.9 Gastro-esophageal reflux disease without esophagitis; Z85.41 Personal history of malignant neoplasm of cervix uteri
CPT/HCPCS: 99211

== ENCOUNTER 2020-05-27 15:31 | Day surgery (SDC) | payer SELFPAY | END 2020-05-27 16:20 | disposition home or self-care (01) | LOC: ATC 15:31 | DX: N13.9 Obstructive and reflux uropathy, unspecified (principal); I12.9 Hypertensive chronic kidney disease with stage 1 through stage 4 chronic kidney disease, or unspecified chronic kidney disease; N18.30 Chronic kidney disease, stage 3 unspecified; R31.9 Hematuria, unspecified; K21.9 Gastro-esophageal reflux disease without esophagitis; Z87.440 Personal history of urinary (tract) infections | CPT/HCPCS: 99212 ==

== ENCOUNTER 2020-06-03 00:34 | Day surgery (SDC) | payer OTHER ==
--- NOTE | 2020-06-03 16:13 | NUR ---
PT PROVIDED WITH TWO NEW URINE DRAINAGE BAGS.
== END 2020-06-03 16:05 | disposition home or self-care (01) ==
LOC: ATC 00:34
DX: Z43.6 Encounter for attention to other artificial openings of urinary tract (principal); I12.9 Hypertensive chronic kidney disease with stage 1 through stage 4 chronic kidney disease, or unspecified chronic kidney disease; N18.31 Chronic kidney disease, stage 3a; D63.1 Anemia in chronic kidney disease; N25.81 Secondary hyperparathyroidism of renal origin; D50.9 Iron deficiency anemia, unspecified; N13.9 Obstructive and reflux uropathy, unspecified; R31.9 Hematuria, unspecified; K21.9 Gastro-esophageal reflux disease without esophagitis; E55.9 Vitamin D deficiency, unspecified; G25.81 Restless legs syndrome; E86.9 Volume depletion, unspecified; E87.6 Hypokalemia; Z85.41 Personal history of malignant neoplasm of cervix uteri; Z87.440 Personal history of urinary (tract) infections
CPT/HCPCS: 99211

== ENCOUNTER 2020-06-15 08:20 | Day surgery (SDC) | payer SELFPAY ==
[~2020-06-15 08:20] MED LIST changes: +ACET500 PO; +ERTAPENEM1 G6 IV; +VISBIOME 112.51 EACH PO; +VITAMIN D325 MC3 PO
== END 2020-06-15 10:45 | disposition home or self-care (01) ==
LOC: ATC 08:20
DX: N39.0 Urinary tract infection, site not specified (principal); B96.20 Unspecified Escherichia coli [E. coli] as the cause of diseases classified elsewhere; Z16.12 Extended spectrum beta lactamase (ESBL) resistance; K21.9 Gastro-esophageal reflux disease without esophagitis; Z85.41 Personal history of malignant neoplasm of cervix uteri
CPT/HCPCS: 96365; J1335

== ENCOUNTER 2020-06-16 02:06 | Day surgery (SDC) | payer SELFPAY | END 2020-06-16 09:55 | disposition home or self-care (01) | LOC: ATC 02:06 | DX: N39.0 Urinary tract infection, site not specified (principal); B96.20 Unspecified Escherichia coli [E. coli] as the cause of diseases classified elsewhere; Z16.12 Extended spectrum beta lactamase (ESBL) resistance; K21.9 Gastro-esophageal reflux disease without esophagitis; Z85.41 Personal history of malignant neoplasm of cervix uteri; Z79.899 Other long term (current) drug therapy | CPT/HCPCS: 96365; J1335 ==

== ENCOUNTER 2020-06-17 01:55 | Day surgery (SDC) | payer SELFPAY | END 2020-06-17 09:36 | disposition home or self-care (01) | LOC: ATC 01:55 | DX: N39.0 Urinary tract infection, site not specified (principal); B96.20 Unspecified Escherichia coli [E. coli] as the cause of diseases classified elsewhere; K21.9 Gastro-esophageal reflux disease without esophagitis; Z93.6 Other artificial openings of urinary tract status; Z96.0 Presence of urogenital implants; Z85.41 Personal history of malignant neoplasm of cervix uteri; Z16.12 Extended spectrum beta lactamase (ESBL) resistance | CPT/HCPCS: 96365; J1335 ==

== ENCOUNTER 2020-06-18 09:04 | Day surgery (SDC) | payer SELFPAY | END 2020-06-18 09:33 | disposition home or self-care (01) | LOC: ATC 09:04 | DX: N39.0 Urinary tract infection, site not specified (principal); Z16.12 Extended spectrum beta lactamase (ESBL) resistance | CPT/HCPCS: 96365; J1335 ==

== ENCOUNTER 2020-06-24 00:39 | Day surgery (SDC) | payer SELFPAY | END 2020-06-24 16:14 | disposition home or self-care (01) | LOC: ATC 00:39 | DX: N13.9 Obstructive and reflux uropathy, unspecified (principal); N18.31 Chronic kidney disease, stage 3a; R31.9 Hematuria, unspecified; K21.9 Gastro-esophageal reflux disease without esophagitis; Z93.6 Other artificial openings of urinary tract status | CPT/HCPCS: 99211 ==

== ENCOUNTER 2020-07-01 00:19 | Day surgery (SDC) | payer SELFPAY | END 2020-07-01 16:05 | disposition home or self-care (01) | LOC: ATC 00:19 | DX: N13.9 Obstructive and reflux uropathy, unspecified (principal); N18.31 Chronic kidney disease, stage 3a; R31.9 Hematuria, unspecified; K21.9 Gastro-esophageal reflux disease without esophagitis; Z93.6 Other artificial openings of urinary tract status; Z85.41 Personal history of malignant neoplasm of cervix uteri | CPT/HCPCS: 99211 ==

== ENCOUNTER 2020-07-08 16:18 | Day surgery (SDC) | payer SELFPAY | END 2020-07-08 16:19 | disposition home or self-care (01) | LOC: ATC 16:18 | DX: Z43.6 Encounter for attention to other artificial openings of urinary tract (principal); N13.9 Obstructive and reflux uropathy, unspecified; N18.31 Chronic kidney disease, stage 3a; R31.9 Hematuria, unspecified | CPT/HCPCS: 99211 ==

== ENCOUNTER 2020-07-15 04:44 | Day surgery (SDC) | payer SELFPAY | END 2020-07-15 16:19 | disposition home or self-care (01) | LOC: ATC 04:44 | DX: Z43.6 Encounter for attention to other artificial openings of urinary tract (principal); N13.9 Obstructive and reflux uropathy, unspecified; N18.31 Chronic kidney disease, stage 3a; K21.9 Gastro-esophageal reflux disease without esophagitis; R31.9 Hematuria, unspecified; Z85.41 Personal history of malignant neoplasm of cervix uteri | CPT/HCPCS: 99211 ==

== ENCOUNTER 2020-07-22 04:26 | Day surgery (SDC) | payer SELFPAY | END 2020-07-22 16:33 | disposition home or self-care (01) | LOC: ATC 04:26 | DX: Z43.6 Encounter for attention to other artificial openings of urinary tract (principal); N18.31 Chronic kidney disease, stage 3a; K21.9 Gastro-esophageal reflux disease without esophagitis; Z85.41 Personal history of malignant neoplasm of cervix uteri | CPT/HCPCS: 99211 ==

== ENCOUNTER → 2020-07-28 | Outpatient (CLI) | payer OTHER ==
[2020-07-28 18:00] LABS: Appearance, Urine Turbid (Clear); Bilirubin, Urine Neg (Neg); Blood, Urine 4+ (Neg); Color, Urine Yellow (P-Yellow); Glucose Qualitative, Urine Neg (Neg); Ketones, Urine Neg (Neg); Leukocyte Esterase, Urine 3+ (Neg); Nitrite, Urine Pos (Neg); Protein, Urine 2+ (Neg); Urobilinogen, Urine NORM (Normal)
[2020-07-28 18:44] LABS: Amorphous Light (0-Heavy); Bacteria Many /hpf; Squamous Epithelial Cells Few /hpf (Few)
== END | disposition home or self-care (01) ==
LOC: LAB SHORT 16:38
PROVIDERS: Internal Medicine Nephrology
DX: N39.0 Urinary tract infection, site not specified (principal)
CPT/HCPCS: 81001; 87086

== ENCOUNTER 2020-07-29 05:05 | Day surgery (SDC) | payer SELFPAY | END 2020-07-29 16:02 | disposition home or self-care (01) | LOC: ATC 05:05 | DX: Z43.6 Encounter for attention to other artificial openings of urinary tract (principal); N18.31 Chronic kidney disease, stage 3a; R31.9 Hematuria, unspecified; N13.9 Obstructive and reflux uropathy, unspecified; Z96.0 Presence of urogenital implants; Z85.41 Personal history of malignant neoplasm of cervix uteri | CPT/HCPCS: 99211 ==

== ENCOUNTER 2020-08-05 01:38 | Day surgery (SDC) | payer SELFPAY | END 2020-08-05 16:12 | disposition home or self-care (01) | LOC: ATC 01:38 | DX: Z43.6 Encounter for attention to other artificial openings of urinary tract (principal); N18.31 Chronic kidney disease, stage 3a; K21.9 Gastro-esophageal reflux disease without esophagitis; Z85.41 Personal history of malignant neoplasm of cervix uteri | CPT/HCPCS: 99211 ==

== ENCOUNTER 2020-08-09 16:54 | Observation (INO) | payer SELFPAY ==
[~2020-08-09] VITALS: Ht 157.5 cm; Wt 60.8 kg
[2020-08-09 17:54] LABS: BASOPHILS ABSOLUTE AUTO 0.02 K/mm3 (0.00-0.23); BASOPHILS PERCENT AUTO 0 % (0-2); EOSINOPHILS ABSOLUTE AUTO 0.28 K/mm3 (0.00-0.68); EOSINOPHILS PERCENT AUTO 3 % (0-6); Hematocrit 38.8 % (33.0-51.0); IMMATURE GRAN ABSOLUTE AUTO 0.02 K/mm3 (0.00-0.10); IMMATURE GRAN PERCENT AUTO 0 % (0-1); LYMPHOCYTES ABSOLUTE AUTO 1.29 K/mm3 (0.84-5.20); LYMPHOCYTES PERCENT AUTO 16 % (21-46); MONOCYTES ABSOLUTE AUTO 0.32 K/mm3 (0.16-1.47); MONOCYTES PERCENT AUTO 4 % (4-13); Mean Corpuscular HGB 29.8 pg (26.0-34.0); Mean Corpuscular HGB Conc 33.5 g/dL (31.5-36.5); Mean Corpuscular Volume 89 fL (80-100); Mean Platelet Volume 10.4 fL (9.1-12.4); NEUTROPHILS ABSOLUTE AUTO 6.41 K/mm3 (1.96-9.15); NEUTROPHILS PERCENT AUTO 77 % (41-73); Platelet Count 303 K/mm3 (150-400); RDW Coefficient Variation 13.2 % (11.7-14.2); RDW Standard Deviation 42.8 fL (35.1-46.3); Red Blood Cell Count 4.36 M/mm3 (3.80-5.20); White Blood Cell Count 8.34 K/mm3 (4.00-11.30)
[2020-08-09 18:19] LABS: Alanine Aminotransfer (ALT/SGP 59 U/L (12-78); Albumin, Blood 3.7 g/dL (3.4-5.0); Albumin/Globulin Ratio 0.8 (0.8-1.8); Alk Phos 137 U/L (50-136); Anion Gap 6 mmol/L (6-16); Aspartate Aminotrans (AST/SGOT 86 U/L (12-37); Bilirubin, Total 0.3 mg/dL (0.1-1.0); Blood Urea Nitrogen 19 mg/dL (8-24); Bun/Creatinine Ratio 20.6 (12.0-20.0); CO2, Blood 25 mmol/L (21-32); Calcium, Blood 9.1 mg/dL (8.5-10.1); Chloride, Blood 107 mmol/L (98-108); Creatinine, Blood 0.92 mg/dL (0.40-1.00); Globulin, Blood 4.4 g/dL (2.2-4.0); Glomerular Filtration Rate >60 (60-); Glucose, Blood 114 mg/dL (70-99); Potassium, Blood 3.5 mmol/L (3.5-5.5); Sodium, Blood 138 mmol/L (136-145); Total Protein, Blood 8.1 g/dL (6.4-8.2)
[2020-08-09 22:00] LABS: Source, Urine Catheter
[2020-08-09 22:02] LABS: Bilirubin, Urine Neg (Neg); Blood, Urine 1+ (Neg); Glucose Qualitative, Urine Neg (Neg); Ketones, Urine Neg (Neg); Leukocyte Esterase, Urine 3+ (Neg); Nitrite, Urine Pos (Neg); Protein, Urine Neg (Neg); Urobilinogen, Urine NORM (Normal)
[2020-08-09 22:06] LABS: Appearance, Urine Clear (Clear); Color, Urine Yellow (P-Yellow)
[2020-08-09 22:08] LABS: Bacteria Many /hpf; Red Blood Cells, Urine 0-2 /hpf (0-2); Squamous Epithelial Cells Not Seen /hpf (Few)
--- NOTE | 2020-08-10 03:50 | NUR ---
0254 PT ARRIVED TO ROOM FROM ER IN STABLE CONDITION. PT REPORTS PAIN IN L SHOULDER OF 1/10, REQUESTS PAIN MEDS, WILL ADMINISTER AND EVAL FOR EFFECT. PT HAS BILAT NEPHROSTOMIES, AT THIS TIME THERE IS NO URINE IN THEM, THE ER DID EMPTY SOME URINE OUT OF THEM WHILE SHE WAS IN THE ER. NO OTHER APPARENT SIGNS OF DISTRESS. CALL LIGHT IS IN REACH.
--- NOTE | 2020-08-10 04:47 | NUR ---
PT LYING IN BED, EYES CLOSED, APPEARS TO BE RESTING. BREATHING IS EVEN, UNLABORED. NO APPARENT SIGNS OF DISTRESS. CALL LIGHT IS IN REACH.
--- NOTE | 2020-08-10 04:48 | NUR ---
PT IS AAO X 4, ON RA. ENGLISH SPEAKING ONLY. HAS BILAT NEPHROSTOMIES. REPORTED PAIN IN L SHOULDER, GOT NORCO 1 X 1.
--- NOTE | 2020-08-10 06:27 | NUR ---
PT LYING IN BED, EYES CLOSED, APPEARS TO BE RESTING. BREATHING IS EVEN, UNLABORED. NO APPARENT SIGNS OF DISTRESS. CALL LIGHT IS IN REACH. NO OTHER CHANGES THIS SHIFT.
[2020-08-10] MEDS ORDERED: ERTAPENEM1 G6 IV (13:02)
--- NOTE | 2020-08-10 19:32 | NUR ---
PT DISCHARGED 1730 AFTER POWERGLIDE INSERTED. PLAN FOR IV ABX TX OUTPATIENT. WENT OVER DISCHARGE INSTRUCTIONS WITH DAUGHTER QUALITY PROCESS ENGINEER. UNDERSTANDS SHE WILL COME TO HOSPITAL FOR ABX DAILY FOR 2 WEEKS. DISCHARGED WITH BELONGINGS, FORGOT MANAGER INVESTIGATIONS, LEFT IN LOST AND FOUND WITH PT'S STICKER/NAME. WHEELCHAIR OUTSIDE FOR PRIVATE CAR TO [place] HOME.
== END 2020-08-10 17:42 | disposition home or self-care (01) ==
LOC: ER 16:54 → ERHOLD 16:55 → MEDS 16:55
PROVIDERS: Physician Assistant; ADMIT Family Medicine
DX: N30.00 Acute cystitis without hematuria (principal); N13.30 Unspecified hydronephrosis; M79.2 Neuralgia and neuritis, unspecified; R10.13 Epigastric pain; Z85.41 Personal history of malignant neoplasm of cervix uteri; Z93.6 Other artificial openings of urinary tract status; Z96.0 Presence of urogenital implants
CPT/HCPCS: 36415; 74176; 80053; 81001; 83605; 85025; 87040; 87086; 93005; 93010; 96365; 96367; 96372; 96376; 99285-25; A9270; G0378; J1335; J1650; J2185

== ENCOUNTER 2020-08-11 08:56 | Day surgery (SDC) | payer SELFPAY | END 2020-08-11 15:51 | disposition home or self-care (01) | LOC: ATC 08:56 | DX: N39.0 Urinary tract infection, site not specified (principal); Z93.6 Other artificial openings of urinary tract status; Z16.12 Extended spectrum beta lactamase (ESBL) resistance | CPT/HCPCS: 96365; J1335 ==

== ENCOUNTER 2020-08-12 04:47 | Day surgery (SDC) | payer SELFPAY | END 2020-08-12 16:30 | disposition home or self-care (01) | LOC: ATC 04:47 | DX: Z43.6 Encounter for attention to other artificial openings of urinary tract (principal); N13.39 Other hydronephrosis; K21.9 Gastro-esophageal reflux disease without esophagitis; Z85.41 Personal history of malignant neoplasm of cervix uteri | CPT/HCPCS: 96365; J1335 ==

== ENCOUNTER 2020-08-13 03:22 | Day surgery (SDC) | payer SELFPAY | END 2020-08-13 16:20 | disposition home or self-care (01) | LOC: ATC 03:22 | DX: Z43.6 Encounter for attention to other artificial openings of urinary tract (principal); N18.31 Chronic kidney disease, stage 3a; R31.9 Hematuria, unspecified; N13.9 Obstructive and reflux uropathy, unspecified | CPT/HCPCS: 96365; J1335 ==

== ENCOUNTER 2020-08-14 04:45 | Day surgery (SDC) | payer SELFPAY | END 2020-08-14 16:10 | disposition home or self-care (01) | LOC: ATC 04:45 | DX: Z43.6 Encounter for attention to other artificial openings of urinary tract (principal); N13.39 Other hydronephrosis; K21.9 Gastro-esophageal reflux disease without esophagitis; Z85.41 Personal history of malignant neoplasm of cervix uteri | CPT/HCPCS: 96365; J1335 ==

== ENCOUNTER 2020-08-15 02:40 | Day surgery (SDC) | payer SELFPAY | END 2020-08-15 16:25 | disposition home or self-care (01) | LOC: ATC 02:40 | DX: Z43.6 Encounter for attention to other artificial openings of urinary tract (principal); N18.31 Chronic kidney disease, stage 3a; K21.9 Gastro-esophageal reflux disease without esophagitis; N13.9 Obstructive and reflux uropathy, unspecified; Z85.41 Personal history of malignant neoplasm of cervix uteri | CPT/HCPCS: 96365; J1335 ==

== ENCOUNTER 2020-08-16 04:31 | Day surgery (SDC) | payer SELFPAY | END 2020-08-16 16:25 | disposition home or self-care (01) | LOC: ATC 04:31 | DX: Z43.6 Encounter for attention to other artificial openings of urinary tract (principal); N13.39 Other hydronephrosis; K21.9 Gastro-esophageal reflux disease without esophagitis; Z85.41 Personal history of malignant neoplasm of cervix uteri | CPT/HCPCS: 96365; J1335 ==

== ENCOUNTER 2020-08-17 00:55 | Day surgery (SDC) | payer SELFPAY | END 2020-08-17 16:28 | disposition home or self-care (01) | LOC: ATC 00:55 | DX: N13.9 Obstructive and reflux uropathy, unspecified (principal); N18.31 Chronic kidney disease, stage 3a; R31.9 Hematuria, unspecified; Z79.899 Other long term (current) drug therapy | CPT/HCPCS: 96365; J1335 ==

== ENCOUNTER 2020-08-18 00:10 | Day surgery (SDC) | payer SELFPAY | END 2020-08-18 16:28 | disposition home or self-care (01) | LOC: ATC 00:10 | DX: N13.9 Obstructive and reflux uropathy, unspecified (principal); N18.31 Chronic kidney disease, stage 3a; R31.9 Hematuria, unspecified | CPT/HCPCS: 96365; J1335 ==

== ENCOUNTER 2020-08-19 00:26 | Day surgery (SDC) | payer OTHER | END 2020-08-19 16:25 | disposition home or self-care (01) | LOC: ATC 00:26 | DX: N13.9 Obstructive and reflux uropathy, unspecified (principal); N18.31 Chronic kidney disease, stage 3a; R31.9 Hematuria, unspecified | CPT/HCPCS: 96365; 99211; J1335 ==

== ENCOUNTER 2020-08-23 00:26 | Day surgery (SDC) | payer OTHER | END 2020-08-23 14:23 | disposition home or self-care (01) | LOC: ATC 00:26 | DX: N13.9 Obstructive and reflux uropathy, unspecified (principal); N18.31 Chronic kidney disease, stage 3a; R31.9 Hematuria, unspecified; K21.9 Gastro-esophageal reflux disease without esophagitis; Z93.6 Other artificial openings of urinary tract status; Z85.41 Personal history of malignant neoplasm of cervix uteri | CPT/HCPCS: J1335 ==

== ENCOUNTER 2020-09-02 01:55 | Day surgery (SDC) | payer SELFPAY | END 2020-09-02 16:12 | disposition home or self-care (01) | LOC: ATC 01:55 | DX: N13.9 Obstructive and reflux uropathy, unspecified (principal); N18.31 Chronic kidney disease, stage 3a; R31.9 Hematuria, unspecified; Z93.6 Other artificial openings of urinary tract status | CPT/HCPCS: 99211 ==

== ENCOUNTER 2020-09-09 01:27 | Day surgery (SDC) | payer SELFPAY | END 2020-09-09 16:30 | disposition home or self-care (01) | LOC: ATC 01:27 | DX: Z43.6 Encounter for attention to other artificial openings of urinary tract (principal); K21.9 Gastro-esophageal reflux disease without esophagitis; Z85.41 Personal history of malignant neoplasm of cervix uteri; Z96.0 Presence of urogenital implants | CPT/HCPCS: 99211 ==

== ENCOUNTER 2020-09-16 00:09 | Day surgery (SDC) | payer SELFPAY | END 2020-09-16 16:28 | disposition home or self-care (01) | LOC: ATC 00:09 | DX: N13.9 Obstructive and reflux uropathy, unspecified (principal); N18.31 Chronic kidney disease, stage 3a; R31.9 Hematuria, unspecified | CPT/HCPCS: 99211 ==

== ENCOUNTER 2020-09-23 01:01 | Day surgery (SDC) | payer SELFPAY | END 2020-09-23 16:06 | disposition home or self-care (01) | LOC: ATC 01:01 | DX: Z43.6 Encounter for attention to other artificial openings of urinary tract (principal); R31.9 Hematuria, unspecified; N18.31 Chronic kidney disease, stage 3a; K21.9 Gastro-esophageal reflux disease without esophagitis | CPT/HCPCS: 99211 ==

== ENCOUNTER 2020-10-07 02:07 | Day surgery (SDC) | payer SELFPAY | END 2020-10-07 16:18 | disposition home or self-care (01) | LOC: ATC 02:07 | DX: N13.9 Obstructive and reflux uropathy, unspecified (principal); N18.31 Chronic kidney disease, stage 3a; R31.9 Hematuria, unspecified; K21.9 Gastro-esophageal reflux disease without esophagitis; Z85.41 Personal history of malignant neoplasm of cervix uteri; Z93.6 Other artificial openings of urinary tract status | CPT/HCPCS: 99211 ==

== ENCOUNTER 2020-10-14 00:25 | Day surgery (SDC) | payer SELFPAY | END 2020-10-14 16:16 | disposition home or self-care (01) | LOC: ATC 00:25 | DX: N13.9 Obstructive and reflux uropathy, unspecified (principal); R31.9 Hematuria, unspecified; N18.31 Chronic kidney disease, stage 3a | CPT/HCPCS: 99211 ==

== ENCOUNTER 2020-10-28 00:41 | Day surgery (SDC) | payer SELFPAY | END 2020-10-28 16:15 | disposition home or self-care (01) | LOC: ATC 00:41 | DX: N13.9 Obstructive and reflux uropathy, unspecified (principal); K21.9 Gastro-esophageal reflux disease without esophagitis; Z79.899 Other long term (current) drug therapy | CPT/HCPCS: 99211 ==

== ENCOUNTER 2020-11-04 03:25 | Day surgery (SDC) | payer SELFPAY | END 2020-11-04 16:12 | disposition home or self-care (01) | LOC: ATC 03:25 | DX: N13.9 Obstructive and reflux uropathy, unspecified (principal); K21.9 Gastro-esophageal reflux disease without esophagitis; Z79.899 Other long term (current) drug therapy | CPT/HCPCS: 99211 ==

== ENCOUNTER 2020-11-11 00:11 | Day surgery (SDC) | payer SELFPAY | END 2020-11-11 16:05 | disposition home or self-care (01) | LOC: ATC 00:11 | DX: Z43.6 Encounter for attention to other artificial openings of urinary tract (principal); K21.9 Gastro-esophageal reflux disease without esophagitis; Z87.440 Personal history of urinary (tract) infections | CPT/HCPCS: 99211 ==

== ENCOUNTER 2020-12-09 05:07 | Day surgery (SDC) | payer SELFPAY | END 2020-12-09 16:31 | disposition home or self-care (01) | LOC: ATC 05:07 | DX: Z43.6 Encounter for attention to other artificial openings of urinary tract (principal) | CPT/HCPCS: 99211 ==

== ENCOUNTER 2020-12-16 05:43 | Day surgery (SDC) | payer SELFPAY, OTHER ==
--- NOTE | 2020-12-16 16:51 | NUR ---
DRAINAGE FROM BILAT NEPH DRESSING CHANGE NOTED. SENT PT TO ER FOR F/U.
[2020-12-16] MEDS ORDERED: AMOCLA875 PO (20:34)
== END 2020-12-16 16:18 | disposition home or self-care (01) ==
LOC: ATC 05:43
DX: R10.9 Unspecified abdominal pain (principal); R10.11 Right upper quadrant pain; K21.9 Gastro-esophageal reflux disease without esophagitis; Z87.440 Personal history of urinary (tract) infections; Z93.6 Other artificial openings of urinary tract status; Z96.0 Presence of urogenital implants
CPT/HCPCS: 99211

== ENCOUNTER 2020-12-16 16:28 | Emergency (ER) | payer OTHER ==
[~2020-12-16] VITALS: Ht 149.9 cm; Wt 56.2 kg
[2020-12-16 19:54] LABS: BASOPHILS ABSOLUTE AUTO 0.02 K/mm3 (0.00-0.23); BASOPHILS PERCENT AUTO 0 % (0-2); EOSINOPHILS ABSOLUTE AUTO 0.25 K/mm3 (0.00-0.68); EOSINOPHILS PERCENT AUTO 5 % (0-6); Hematocrit 40.3 % (33.0-51.0); Hemoglobin 13.1 g/dL (11.5-16.0); IMMATURE GRAN ABSOLUTE AUTO 0.01 K/mm3 (0.00-0.10); IMMATURE GRAN PERCENT AUTO 0 % (0-1); LYMPHOCYTES PERCENT AUTO 22 % (21-46); MONOCYTES ABSOLUTE AUTO 0.22 K/mm3 (0.16-1.47); MONOCYTES PERCENT AUTO 4 % (4-13); Mean Corpuscular HGB 29.6 pg (26.0-34.0); Mean Corpuscular HGB Conc 32.5 g/dL (31.5-36.5); Mean Corpuscular Volume 91 fL (80-100); Mean Platelet Volume 10.1 fL (9.1-12.4); NEUTROPHILS ABSOLUTE AUTO 3.74 K/mm3 (1.96-9.15); NEUTROPHILS PERCENT AUTO 69 % (41-73); Platelet Count 298 K/mm3 (150-400); RDW Coefficient Variation 12.7 % (11.7-14.2); RDW Standard Deviation 42.8 fL (35.1-46.3); Red Blood Cell Count 4.42 M/mm3 (3.80-5.20); White Blood Cell Count 5.44 K/mm3 (4.00-11.30)
[2020-12-16 20:21] LABS: Bun/Creatinine Ratio 22.4 (12.0-20.0); Calcium, Blood 9.2 mg/dL (8.5-10.1); Creatinine, Blood 1.16 mg/dL (0.40-1.00)
[2020-12-16] MEDS ORDERED: AMOCLA875 PO (20:34)
== END 2020-12-16 21:01 | disposition home or self-care (01) ==
LOC: ER 16:28
PROVIDERS: Emergency Medicine
DX: T83.512A Infection and inflammatory reaction due to nephrostomy catheter, initial encounter (principal); K21.9 Gastro-esophageal reflux disease without esophagitis; Z79.899 Other long term (current) drug therapy
CPT/HCPCS: 36415; 76770; 80048; 85025; 91303; 99283-25; A9270

== ENCOUNTER 2020-12-23 04:10 | Day surgery (SDC) | payer SELFPAY | END 2020-12-23 16:10 | disposition home or self-care (01) | LOC: ATC 04:10 | DX: R10.9 Unspecified abdominal pain (principal); R10.11 Right upper quadrant pain; K21.9 Gastro-esophageal reflux disease without esophagitis; Z93.6 Other artificial openings of urinary tract status; Z87.440 Personal history of urinary (tract) infections; Z96.0 Presence of urogenital implants; Z79.899 Other long term (current) drug therapy | CPT/HCPCS: 99211 ==

== ENCOUNTER 2020-12-30 03:03 | Day surgery (SDC) | payer SELFPAY | END 2020-12-30 16:17 | disposition home or self-care (01) | LOC: ATC 03:03 | DX: Z43.6 Encounter for attention to other artificial openings of urinary tract (principal); Z85.41 Personal history of malignant neoplasm of cervix uteri; K21.9 Gastro-esophageal reflux disease without esophagitis ==

== ENCOUNTER 2021-01-06 01:42 | Day surgery (SDC) | payer OTHER ==
--- NOTE | 2021-01-06 16:26 | NUR ---
MILD MILKY DRAINAGE NOTED TO BILATERAL NEPHROSTOMY TUBES. SKIN BREAKDOWN NOTED AROUND BILATERAL NEPHROSTOMY TUBES WITH NICKEL SIZE AREA OF REDNESS NOTED BELOW TUBE INSERTION SITES. BIOPATCHES PLACED AROUND INSERTION COVERING AREAS OF BREAKDOWN FOLLOWED BY STAY FIX DRESSING AND CLEAR TEGADERM.
== END 2021-01-06 16:17 | disposition home or self-care (01) ==
LOC: ATC 01:42
DX: Z43.6 Encounter for attention to other artificial openings of urinary tract (principal); N13.30 Unspecified hydronephrosis; K21.9 Gastro-esophageal reflux disease without esophagitis; Z85.41 Personal history of malignant neoplasm of cervix uteri
CPT/HCPCS: 99212

== ENCOUNTER 2021-01-20 04:35 | Day surgery (SDC) | payer OTHER | END 2021-01-20 16:10 | disposition home or self-care (01) | LOC: ATC 04:35 | DX: Z43.6 Encounter for attention to other artificial openings of urinary tract (principal); K21.9 Gastro-esophageal reflux disease without esophagitis; Z85.41 Personal history of malignant neoplasm of cervix uteri; Z96.0 Presence of urogenital implants | CPT/HCPCS: 99211 ==

== ENCOUNTER 2021-01-27 05:29 | Day surgery (SDC) | payer SELFPAY | END 2021-01-27 16:15 | disposition home or self-care (01) | LOC: ATC 05:29 | DX: Z43.6 Encounter for attention to other artificial openings of urinary tract (principal); K21.9 Gastro-esophageal reflux disease without esophagitis; Z85.41 Personal history of malignant neoplasm of cervix uteri; Z96.0 Presence of urogenital implants; Z87.440 Personal history of urinary (tract) infections | CPT/HCPCS: 99211 ==

== ENCOUNTER 2021-02-10 05:34 | Day surgery (SDC) | payer SELFPAY ==
--- NOTE | 2021-02-10 16:12 | NUR ---
2 NEW NEPHROSTOMY DRAIN BAGS PROVIDED TO PT.
== END 2021-02-10 15:32 | disposition home or self-care (01) ==
LOC: ATC 05:34
DX: Z43.6 Encounter for attention to other artificial openings of urinary tract (principal); K21.9 Gastro-esophageal reflux disease without esophagitis; Z85.41 Personal history of malignant neoplasm of cervix uteri; Z96.0 Presence of urogenital implants
CPT/HCPCS: 99211

== ENCOUNTER 2021-03-03 05:02 | Day surgery (SDC) | payer OTHER | END 2021-03-03 16:07 | disposition home or self-care (01) | LOC: ATC 05:02 | DX: Z43.6 Encounter for attention to other artificial openings of urinary tract (principal) | CPT/HCPCS: 99211 ==

== ENCOUNTER 2021-03-05 09:28 | Emergency (ER) | payer OTHER ==
[~2021-03-05] VITALS: Ht 149.9 cm; Wt 59.0 kg
[2021-03-05] MEDS ORDERED: OXYACE7.5T (10:39)
[2021-03-05] MEDS ORDERED: PANT20 (10:39)
[2021-03-05 10:43] LABS: BASOPHILS ABSOLUTE AUTO 0.03 K/mm3 (0.00-0.23); BASOPHILS PERCENT AUTO 1 % (0-2); EOSINOPHILS ABSOLUTE AUTO 0.37 K/mm3 (0.00-0.68); EOSINOPHILS PERCENT AUTO 7 % (0-6); Hematocrit 40.2 % (33.0-51.0); Hemoglobin 13.3 g/dL (11.5-16.0); IMMATURE GRAN ABSOLUTE AUTO 0.01 K/mm3 (0.00-0.10); IMMATURE GRAN PERCENT AUTO 0 % (0-1); LYMPHOCYTES ABSOLUTE AUTO 1.37 K/mm3 (0.84-5.20); LYMPHOCYTES PERCENT AUTO 24 % (21-46); MONOCYTES ABSOLUTE AUTO 0.29 K/mm3 (0.16-1.47); MONOCYTES PERCENT AUTO 5 % (4-13); Mean Corpuscular HGB 29.5 pg (26.0-34.0); Mean Corpuscular HGB Conc 33.1 g/dL (31.5-36.5); Mean Corpuscular Volume 89 fL (80-100); Mean Platelet Volume 10.8 fL (9.1-12.4); NEUTROPHILS ABSOLUTE AUTO 3.62 K/mm3 (1.96-9.15); NEUTROPHILS PERCENT AUTO 64 % (41-73); Platelet Count 290 K/mm3 (150-400); RDW Coefficient Variation 13.1 % (11.7-14.2); RDW Standard Deviation 42.7 fL (35.1-46.3); Red Blood Cell Count 4.51 M/mm3 (3.80-5.20); White Blood Cell Count 5.69 K/mm3 (4.00-11.30)
[2021-03-05 11:03] LABS: Alanine Aminotransfer (ALT/SGP 25 U/L (12-78); Albumin, Blood 3.6 g/dL (3.4-5.0); Albumin/Globulin Ratio 0.9 (0.8-1.8); Alk Phos 97 U/L (50-136); Anion Gap 4 mmol/L (6-16); Aspartate Aminotrans (AST/SGOT 19 U/L (12-37); Bilirubin, Total 0.5 mg/dL (0.1-1.0); Blood Urea Nitrogen 15 mg/dL (8-24); Bun/Creatinine Ratio 16.4 (12.0-20.0); CO2, Blood 29 mmol/L (21-32); Chloride, Blood 107 mmol/L (98-108); Creatinine, Blood 0.92 mg/dL (0.40-1.00); Glomerular Filtration Rate >60 (60-); Glucose, Blood 93 mg/dL (70-99); Potassium, Blood 3.6 mmol/L (3.5-5.5); Sodium, Blood 140 mmol/L (136-145); Total Protein, Blood 7.6 g/dL (6.4-8.2)
[2021-03-05 11:30] LABS: Source, Urine Urostomy Bag
[2021-03-05 11:31] LABS: Source, Urine Clean Catch
[2021-03-05 11:35] LABS: Bilirubin, Urine Neg (Neg); Blood, Urine 3+ (Neg); Blood, Urine 4+ (Neg); Glucose Qualitative, Urine Neg (Neg); Ketones, Urine Neg (Neg); Leukocyte Esterase, Urine 3+ (Neg); Nitrite, Urine Neg (Neg); Protein, Urine 2+ (Neg); Urobilinogen, Urine NORM (Normal)
[2021-03-05 11:45] LABS: Appearance, Urine Clear (Clear); Color, Urine Pale Yellow (P-Yellow)
[2021-03-05 11:48] LABS: Bacteria Many /hpf; Squamous Epithelial Cells Few /hpf (Few)
[2021-03-05 11:49] LABS: Amorphous Mod (0-Heavy); Color, Urine Pale Yellow (P-Yellow); Granular Casts Rare /lpf (0); Mucus Light (0-Heavy)
[2021-03-05 11:50] LABS: Appearance, Urine Hazy (Clear)
[2021-03-05 11:51] LABS: Amorphous Light (0-Heavy); Bacteria Many /hpf; Mucus Light (0-Heavy); Squamous Epithelial Cells Few /hpf (Few)
[2021-03-05] MEDS ORDERED: HYDR1TAB94 PO (13:36)
== END 2021-03-05 13:45 | disposition home or self-care (01) ==
LOC: ER 09:28
PROVIDERS: Emergency Medicine
DX: R10.9 Unspecified abdominal pain (principal); C53.9 Malignant neoplasm of cervix uteri, unspecified; N13.5 Crossing vessel and stricture of ureter without hydronephrosis; K21.9 Gastro-esophageal reflux disease without esophagitis; Z93.6 Other artificial openings of urinary tract status; Z79.899 Other long term (current) drug therapy
CPT/HCPCS: 36415; 74177; 80053; 81001; 85025; 87086; 96374; 96375; 99284-25; J1170; J2405; J7030; Q9967

== ENCOUNTER 2021-03-10 00:11 | Day surgery (SDC) | payer SELFPAY ==
[~2021-03-10 00:11] MED LIST changes: +OXYACE7.5T; +PANT20
== END 2021-03-10 16:06 | disposition home or self-care (01) ==
LOC: ATC 00:11
DX: Z43.6 Encounter for attention to other artificial openings of urinary tract (principal); Z85.41 Personal history of malignant neoplasm of cervix uteri
CPT/HCPCS: 99211

== ENCOUNTER 2021-03-17 00:34 | Day surgery (SDC) | payer SELFPAY | END 2021-03-17 16:09 | disposition home or self-care (01) | LOC: ATC 00:34 | DX: Z43.6 Encounter for attention to other artificial openings of urinary tract (principal); K21.9 Gastro-esophageal reflux disease without esophagitis; Z85.41 Personal history of malignant neoplasm of cervix uteri | CPT/HCPCS: 99211 ==

== ENCOUNTER 2021-03-24 02:16 | Day surgery (SDC) | payer OTHER | END 2021-03-24 16:00 | disposition home or self-care (01) | LOC: ATC 02:16 | DX: Z43.6 Encounter for attention to other artificial openings of urinary tract (principal); Z85.41 Personal history of malignant neoplasm of cervix uteri; K21.9 Gastro-esophageal reflux disease without esophagitis | CPT/HCPCS: 99211 ==

== ENCOUNTER 2021-03-31 03:08 | Day surgery (SDC) | payer SELFPAY | END 2021-03-31 16:10 | disposition home or self-care (01) | LOC: ATC 03:08 | DX: Z43.6 Encounter for attention to other artificial openings of urinary tract (principal); K21.9 Gastro-esophageal reflux disease without esophagitis; Z85.41 Personal history of malignant neoplasm of cervix uteri | CPT/HCPCS: 99211 ==

== ENCOUNTER 2021-04-07 02:32 | Day surgery (SDC) | payer SELFPAY | END 2021-04-07 16:06 | disposition home or self-care (01) | LOC: ATC 02:32 | DX: Z43.6 Encounter for attention to other artificial openings of urinary tract (principal); K21.9 Gastro-esophageal reflux disease without esophagitis | CPT/HCPCS: 99211 ==

== ENCOUNTER 2021-04-14 01:22 | Day surgery (SDC) | payer OTHER | END 2021-04-14 16:10 | disposition home or self-care (01) | LOC: ATC 01:22 | DX: Z43.6 Encounter for attention to other artificial openings of urinary tract (principal); K21.9 Gastro-esophageal reflux disease without esophagitis; Z85.41 Personal history of malignant neoplasm of cervix uteri | CPT/HCPCS: 99211 ==

== ENCOUNTER 2021-04-21 00:47 | Day surgery (SDC) | payer OTHER | END 2021-04-21 16:05 | disposition home or self-care (01) | LOC: ATC 00:47 | DX: Z43.6 Encounter for attention to other artificial openings of urinary tract (principal); K21.9 Gastro-esophageal reflux disease without esophagitis; Z85.41 Personal history of malignant neoplasm of cervix uteri | CPT/HCPCS: 99211 ==

== ENCOUNTER 2021-04-24 18:18 | Emergency (ER) | payer OTHER ==
[~2021-04-24] VITALS: Ht 149.9 cm; Wt 59.0 kg
[2021-04-24 19:37] LABS: BASOPHILS ABSOLUTE AUTO 0.03 K/mm3 (0.00-0.23); BASOPHILS PERCENT AUTO 0 % (0-2); EOSINOPHILS ABSOLUTE AUTO 0.35 K/mm3 (0.00-0.68); EOSINOPHILS PERCENT AUTO 4 % (0-6); Hematocrit 39.5 % (33.0-51.0); Hemoglobin 13.2 g/dL (11.5-16.0); IMMATURE GRAN ABSOLUTE AUTO 0.03 K/mm3 (0.00-0.10); IMMATURE GRAN PERCENT AUTO 0 % (0-1); LYMPHOCYTES PERCENT AUTO 15 % (21-46); MONOCYTES ABSOLUTE AUTO 0.37 K/mm3 (0.16-1.47); MONOCYTES PERCENT AUTO 5 % (4-13); Mean Corpuscular HGB 29.7 pg (26.0-34.0); Mean Corpuscular HGB Conc 33.4 g/dL (31.5-36.5); Mean Corpuscular Volume 89 fL (80-100); Mean Platelet Volume 10.2 fL (9.1-12.4); NEUTROPHILS ABSOLUTE AUTO 6.12 K/mm3 (1.96-9.15); NEUTROPHILS PERCENT AUTO 76 % (41-73); Platelet Count 311 K/mm3 (150-400); RDW Coefficient Variation 13.3 % (11.7-14.2); RDW Standard Deviation 43.2 fL (35.1-46.3); Red Blood Cell Count 4.45 M/mm3 (3.80-5.20)
[2021-04-24 19:54] LABS: Albumin, Blood 3.5 g/dL (3.4-5.0); Albumin/Globulin Ratio 0.8 (0.8-1.8); Bilirubin, Total 0.2 mg/dL (0.1-1.0); Bun/Creatinine Ratio 21.9 (12.0-20.0); Calcium, Blood 9.1 mg/dL (8.5-10.1); Creatinine, Blood 1.28 mg/dL (0.40-1.00); Globulin, Blood 4.2 g/dL (2.2-4.0); Potassium, Blood 3.7 mmol/L (3.5-5.5); Total Protein, Blood 7.7 g/dL (6.4-8.2)
[2021-04-24 21:59] LABS: Source, Urine Nephrostomy
[2021-04-24 22:03] LABS: Bilirubin, Urine Neg (Neg); Blood, Urine 3+ (Neg); Glucose Qualitative, Urine Neg (Neg); Ketones, Urine Neg (Neg); Leukocyte Esterase, Urine 3+ (Neg); Nitrite, Urine Neg (Neg); Protein, Urine 2+ (Neg); Urobilinogen, Urine NORM (Normal)
[2021-04-24 22:35] LABS: Appearance, Urine Hazy (Clear); Color, Urine Yellow (P-Yellow)
[2021-04-24 23:01] LABS: Amorphous Light (0-Heavy); Bacteria Mod /hpf; Squamous Epithelial Cells Not Seen /hpf (Few); Triple Phosphate Crystals Few /hpf
[2021-04-25] MEDS ORDERED: CEFP200 PO (00:36)
[2021-04-25] MEDS ORDERED: ONDA4 PO (00:36)
[2021-04-25] MEDS ORDERED: HYDR1TAB94 PO (00:36)
== END 2021-04-25 00:46 | disposition home or self-care (01) ==
LOC: ER 18:18
PROVIDERS: Physician Assistant
DX: R10.13 Epigastric pain (principal); R10.11 Right upper quadrant pain; K21.9 Gastro-esophageal reflux disease without esophagitis; Z79.899 Other long term (current) drug therapy
CPT/HCPCS: 36415; 74177; 80053; 81001; 83690; 84484; 85025; 87086; 93005; 93010; 96374; 96375; 99284-25; J0696; J2405; J3010; J7030; Q9967

== ENCOUNTER 2021-04-28 02:44 | Day surgery (SDC) | payer SELFPAY | END 2021-04-28 16:27 | disposition home or self-care (01) | LOC: ATC 02:44 | DX: Z43.6 Encounter for attention to other artificial openings of urinary tract (principal); K21.9 Gastro-esophageal reflux disease without esophagitis; N13.30 Unspecified hydronephrosis; Z87.440 Personal history of urinary (tract) infections | CPT/HCPCS: 99211 ==

== ENCOUNTER 2021-05-05 03:11 | Day surgery (SDC) | payer SELFPAY | END 2021-05-05 16:15 | disposition home or self-care (01) | LOC: ATC 03:11 | DX: Z43.6 Encounter for attention to other artificial openings of urinary tract (principal); K21.9 Gastro-esophageal reflux disease without esophagitis; Z85.41 Personal history of malignant neoplasm of cervix uteri | CPT/HCPCS: 99212 ==

== ENCOUNTER 2021-05-12 00:44 | Day surgery (SDC) | payer SELFPAY | END 2021-05-12 16:22 | disposition home or self-care (01) | LOC: ATC 00:44 | DX: Z43.6 Encounter for attention to other artificial openings of urinary tract (principal) | CPT/HCPCS: 99211 ==

== ENCOUNTER 2021-05-19 00:14 | Day surgery (SDC) | payer OTHER | END 2021-05-19 16:15 | disposition home or self-care (01) | LOC: ATC 00:14 | DX: Z43.6 Encounter for attention to other artificial openings of urinary tract (principal); K21.9 Gastro-esophageal reflux disease without esophagitis; Z85.41 Personal history of malignant neoplasm of cervix uteri | CPT/HCPCS: 99211 ==

== ENCOUNTER 2021-05-26 00:15 | Day surgery (SDC) | payer OTHER | END 2021-05-26 16:15 | disposition home or self-care (01) | LOC: ATC 00:15 | DX: Z43.6 Encounter for attention to other artificial openings of urinary tract (principal) | CPT/HCPCS: 99211 ==

== ENCOUNTER 2021-06-02 00:49 | Day surgery (SDC) | payer SELFPAY ==
--- NOTE | 2021-06-02 17:49 | NUR ---
PATIENTS NEPHROSTOMY SITES HAD INCREASED AMOUNT OF DRAINAGE TODAY, MILKY/FIELDS IN COLOR. ONLY SLIGHTLY ODOROUS. NOTIFIED DR MAYORGA WHO ORDERED A CULTURE OF THE SITE TO BE DONE. PATIENT SCHEDULED SATURDAY TO CULTURE AREA. PATIENTS DAUGHTER NOTIFIED WHO WILL ENSURE PATIENT IS HERE SATURDAY
== END 2021-06-02 16:15 | disposition home or self-care (01) ==
LOC: ATC 00:49
DX: Z43.6 Encounter for attention to other artificial openings of urinary tract (principal)
CPT/HCPCS: 99211

== ENCOUNTER 2021-06-05 00:56 | Day surgery (SDC) | payer SELFPAY | END 2021-06-05 16:15 | disposition home or self-care (01) | LOC: ATC 00:56 | DX: Z43.6 Encounter for attention to other artificial openings of urinary tract (principal); K21.9 Gastro-esophageal reflux disease without esophagitis | CPT/HCPCS: 99211 ==

== ENCOUNTER 2021-06-09 00:44 | Day surgery (SDC) | payer OTHER ==
--- NOTE | 2021-06-09 17:56 | NUR ---
DR MAYORGA WAS NOTIFIED LAST WEEK RE DRAINAGE FROM R NEPH. CULTURES WHERE DONE. PO ANTIBX HAVE BEEN ORDERED. PT VERBALIZED UNDERSTANDING TO PICK THEM UP AT [facility].
== END 2021-06-09 16:06 | disposition home or self-care (01) ==
LOC: ATC 00:44
DX: Z43.6 Encounter for attention to other artificial openings of urinary tract (principal)
CPT/HCPCS: 99211

== ENCOUNTER 2021-06-16 00:09 | Day surgery (SDC) | payer SELFPAY ==
[2021-06-16] MEDS ORDERED: CIPR250 PO (16:17)
[2021-06-16] MEDS ORDERED: Diflucan100 MG PO (16:18)
== END 2021-06-16 16:03 | disposition home or self-care (01) ==
LOC: ATC 00:09
DX: Z43.6 Encounter for attention to other artificial openings of urinary tract (principal)
CPT/HCPCS: 99211

== ENCOUNTER 2021-06-23 00:58 | Day surgery (SDC) | payer SELFPAY ==
[~2021-06-23 00:58] MED LIST changes: +CIPR250 PO; +Diflucan100 MG PO
== END 2021-06-23 16:15 | disposition home or self-care (01) ==
LOC: ATC 00:58
DX: Z43.6 Encounter for attention to other artificial openings of urinary tract (principal); N13.9 Obstructive and reflux uropathy, unspecified; I12.9 Hypertensive chronic kidney disease with stage 1 through stage 4 chronic kidney disease, or unspecified chronic kidney disease; N18.2 Chronic kidney disease, stage 2 (mild); D63.1 Anemia in chronic kidney disease; N25.81 Secondary hyperparathyroidism of renal origin
CPT/HCPCS: 99211

== ENCOUNTER 2021-06-30 00:58 | Day surgery (SDC) | payer SELFPAY | END 2021-06-30 16:12 | disposition home or self-care (01) | LOC: ATC 00:58 | DX: Z43.6 Encounter for attention to other artificial openings of urinary tract (principal); I12.9 Hypertensive chronic kidney disease with stage 1 through stage 4 chronic kidney disease, or unspecified chronic kidney disease; N18.2 Chronic kidney disease, stage 2 (mild); N25.81 Secondary hyperparathyroidism of renal origin; D50.9 Iron deficiency anemia, unspecified; E78.00 Pure hypercholesterolemia, unspecified; E87.6 Hypokalemia | CPT/HCPCS: 99211 ==

== ENCOUNTER 2021-07-07 05:04 | Day surgery (SDC) | payer OTHER | END 2021-07-07 16:40 | disposition home or self-care (01) | LOC: ATC 05:04 | DX: Z43.6 Encounter for attention to other artificial openings of urinary tract (principal); I12.9 Hypertensive chronic kidney disease with stage 1 through stage 4 chronic kidney disease, or unspecified chronic kidney disease; N18.2 Chronic kidney disease, stage 2 (mild); D63.1 Anemia in chronic kidney disease; N25.81 Secondary hyperparathyroidism of renal origin | CPT/HCPCS: 99211 ==

== ENCOUNTER 2021-07-14 02:48 | Day surgery (SDC) | payer OTHER | END 2021-07-14 16:15 | disposition home or self-care (01) | LOC: ATC 02:48 | DX: Z43.6 Encounter for attention to other artificial openings of urinary tract (principal); N13.9 Obstructive and reflux uropathy, unspecified; I12.9 Hypertensive chronic kidney disease with stage 1 through stage 4 chronic kidney disease, or unspecified chronic kidney disease; N18.2 Chronic kidney disease, stage 2 (mild); D63.1 Anemia in chronic kidney disease; N25.81 Secondary hyperparathyroidism of renal origin | CPT/HCPCS: 99211 ==

== ENCOUNTER 2021-07-21 08:18 | Day surgery (SDC) | payer SELFPAY | END 2021-07-21 16:20 | disposition home or self-care (01) | LOC: ATC 08:18 | DX: Z43.6 Encounter for attention to other artificial openings of urinary tract (principal); I12.9 Hypertensive chronic kidney disease with stage 1 through stage 4 chronic kidney disease, or unspecified chronic kidney disease; N18.2 Chronic kidney disease, stage 2 (mild); D50.9 Iron deficiency anemia, unspecified; E86.9 Volume depletion, unspecified; E87.6 Hypokalemia; E78.00 Pure hypercholesterolemia, unspecified; E55.9 Vitamin D deficiency, unspecified | CPT/HCPCS: 99211 ==

== ENCOUNTER 2021-07-28 01:03 | Day surgery (SDC) | payer SELFPAY | END 2021-07-28 16:25 | disposition home or self-care (01) | LOC: ATC 01:03 | DX: Z43.6 Encounter for attention to other artificial openings of urinary tract (principal); I12.9 Hypertensive chronic kidney disease with stage 1 through stage 4 chronic kidney disease, or unspecified chronic kidney disease; N18.2 Chronic kidney disease, stage 2 (mild); D63.1 Anemia in chronic kidney disease; N25.81 Secondary hyperparathyroidism of renal origin; E78.00 Pure hypercholesterolemia, unspecified | CPT/HCPCS: 99212 ==

== ENCOUNTER 2021-08-04 00:22 | Day surgery (SDC) | payer SELFPAY ==
--- NOTE | 2021-08-04 17:39 | NUR ---
2 URISIL DRAINAGE LEG BAGS GIVEN TO PT PER ORDER
== END 2021-08-04 16:54 | disposition home or self-care (01) ==
LOC: ATC 00:22
DX: Z43.6 Encounter for attention to other artificial openings of urinary tract (principal); I12.9 Hypertensive chronic kidney disease with stage 1 through stage 4 chronic kidney disease, or unspecified chronic kidney disease; N18.2 Chronic kidney disease, stage 2 (mild); D63.1 Anemia in chronic kidney disease; E55.9 Vitamin D deficiency, unspecified; N25.81 Secondary hyperparathyroidism of renal origin; E87.6 Hypokalemia; E78.00 Pure hypercholesterolemia, unspecified
CPT/HCPCS: 99212

== ENCOUNTER 2021-08-11 03:05 | Day surgery (SDC) | payer SELFPAY | END 2021-08-11 16:08 | disposition home or self-care (01) | LOC: ATC 03:05 | DX: Z43.6 Encounter for attention to other artificial openings of urinary tract (principal); I12.9 Hypertensive chronic kidney disease with stage 1 through stage 4 chronic kidney disease, or unspecified chronic kidney disease; N18.2 Chronic kidney disease, stage 2 (mild); D63.1 Anemia in chronic kidney disease; N25.81 Secondary hyperparathyroidism of renal origin; N13.9 Obstructive and reflux uropathy, unspecified; Z79.899 Other long term (current) drug therapy | CPT/HCPCS: 99211 ==

== ENCOUNTER 2021-08-18 00:21 | Day surgery (SDC) | payer OTHER | END 2021-08-18 16:12 | disposition home or self-care (01) | LOC: ATC 00:21 | DX: Z43.6 Encounter for attention to other artificial openings of urinary tract (principal); I12.9 Hypertensive chronic kidney disease with stage 1 through stage 4 chronic kidney disease, or unspecified chronic kidney disease; N18.2 Chronic kidney disease, stage 2 (mild); D63.1 Anemia in chronic kidney disease; N25.81 Secondary hyperparathyroidism of renal origin; E87.6 Hypokalemia; E78.00 Pure hypercholesterolemia, unspecified | CPT/HCPCS: 99211 ==

== ENCOUNTER 2021-08-25 02:26 | Day surgery (SDC) | payer SELFPAY | END 2021-08-25 16:08 | disposition home or self-care (01) | LOC: ATC 02:26 | DX: Z43.6 Encounter for attention to other artificial openings of urinary tract (principal); I12.9 Hypertensive chronic kidney disease with stage 1 through stage 4 chronic kidney disease, or unspecified chronic kidney disease; N18.2 Chronic kidney disease, stage 2 (mild); D63.1 Anemia in chronic kidney disease; N25.81 Secondary hyperparathyroidism of renal origin; E78.00 Pure hypercholesterolemia, unspecified; E55.9 Vitamin D deficiency, unspecified | CPT/HCPCS: 99211 ==

== ENCOUNTER 2021-09-01 00:44 | Day surgery (SDC) | payer OTHER | END 2021-09-01 16:18 | disposition home or self-care (01) | LOC: ATC 00:44 | DX: Z43.6 Encounter for attention to other artificial openings of urinary tract (principal); I12.9 Hypertensive chronic kidney disease with stage 1 through stage 4 chronic kidney disease, or unspecified chronic kidney disease; N18.2 Chronic kidney disease, stage 2 (mild); D63.1 Anemia in chronic kidney disease; N25.81 Secondary hyperparathyroidism of renal origin | CPT/HCPCS: 99211 ==

== ENCOUNTER 2021-09-08 01:00 | Day surgery (SDC) | payer SELFPAY | END 2021-09-08 16:42 | disposition home or self-care (01) | LOC: ATC 01:00 | DX: Z43.6 Encounter for attention to other artificial openings of urinary tract (principal) | CPT/HCPCS: 99211 ==

== ENCOUNTER 2021-09-15 02:05 | Day surgery (SDC) | payer SELFPAY | END 2021-09-15 15:20 | disposition home or self-care (01) | LOC: ATC 02:05 | DX: Z43.6 Encounter for attention to other artificial openings of urinary tract (principal); I12.9 Hypertensive chronic kidney disease with stage 1 through stage 4 chronic kidney disease, or unspecified chronic kidney disease; N18.2 Chronic kidney disease, stage 2 (mild); D63.1 Anemia in chronic kidney disease; N25.81 Secondary hyperparathyroidism of renal origin | CPT/HCPCS: 99211 ==

== ENCOUNTER 2021-09-22 01:35 | Day surgery (SDC) | payer SELFPAY | END 2021-09-22 16:32 | disposition home or self-care (01) | LOC: ATC 01:35 | DX: Z43.6 Encounter for attention to other artificial openings of urinary tract (principal); I12.9 Hypertensive chronic kidney disease with stage 1 through stage 4 chronic kidney disease, or unspecified chronic kidney disease; N18.2 Chronic kidney disease, stage 2 (mild); D63.1 Anemia in chronic kidney disease; N25.81 Secondary hyperparathyroidism of renal origin | CPT/HCPCS: 99211 ==

== ENCOUNTER 2021-09-29 00:17 | Day surgery (SDC) | payer OTHER | END 2021-09-29 16:17 | disposition home or self-care (01) | LOC: ATC 00:17 | DX: Z43.6 Encounter for attention to other artificial openings of urinary tract (principal); I12.9 Hypertensive chronic kidney disease with stage 1 through stage 4 chronic kidney disease, or unspecified chronic kidney disease; N18.2 Chronic kidney disease, stage 2 (mild); D63.1 Anemia in chronic kidney disease; N25.81 Secondary hyperparathyroidism of renal origin | CPT/HCPCS: 99211 ==

== ENCOUNTER 2021-10-06 01:51 | Day surgery (SDC) | payer OTHER | END 2021-10-06 16:17 | disposition home or self-care (01) | LOC: ATC 01:51 | DX: Z43.6 Encounter for attention to other artificial openings of urinary tract (principal); I12.9 Hypertensive chronic kidney disease with stage 1 through stage 4 chronic kidney disease, or unspecified chronic kidney disease; N18.2 Chronic kidney disease, stage 2 (mild); D63.1 Anemia in chronic kidney disease; N25.81 Secondary hyperparathyroidism of renal origin | CPT/HCPCS: 99211 ==

== ENCOUNTER 2021-10-12 00:09 | Day surgery (SDC) | payer OTHER | END 2021-10-12 11:08 | disposition home or self-care (01) | LOC: ATC 00:09 | DX: Z43.6 Encounter for attention to other artificial openings of urinary tract (principal) | CPT/HCPCS: 99211 ==

== ENCOUNTER 2021-11-10 02:06 | Day surgery (SDC) | payer OTHER | END 2021-11-10 16:12 | disposition home or self-care (01) | LOC: ATC 02:06 | DX: Z43.6 Encounter for attention to other artificial openings of urinary tract (principal); N13.9 Obstructive and reflux uropathy, unspecified; I12.9 Hypertensive chronic kidney disease with stage 1 through stage 4 chronic kidney disease, or unspecified chronic kidney disease; N18.2 Chronic kidney disease, stage 2 (mild) | CPT/HCPCS: 99211 ==

== ENCOUNTER 2021-11-17 02:35 | Day surgery (SDC) | payer OTHER | END 2021-11-17 16:11 | disposition home or self-care (01) | LOC: ATC 02:35 | DX: Z43.6 Encounter for attention to other artificial openings of urinary tract (principal); N13.9 Obstructive and reflux uropathy, unspecified; I12.9 Hypertensive chronic kidney disease with stage 1 through stage 4 chronic kidney disease, or unspecified chronic kidney disease; N18.2 Chronic kidney disease, stage 2 (mild); E55.9 Vitamin D deficiency, unspecified | CPT/HCPCS: 99211 ==

== ENCOUNTER 2021-11-24 03:26 | Day surgery (SDC) | payer OTHER | END 2021-11-24 16:10 | disposition home or self-care (01) | LOC: ATC 03:26 | DX: N13.9 Obstructive and reflux uropathy, unspecified (principal); N18.31 Chronic kidney disease, stage 3a; R31.9 Hematuria, unspecified; I12.9 Hypertensive chronic kidney disease with stage 1 through stage 4 chronic kidney disease, or unspecified chronic kidney disease; D63.1 Anemia in chronic kidney disease; D50.9 Iron deficiency anemia, unspecified; E86.9 Volume depletion, unspecified; R80.9 Proteinuria, unspecified; E87.6 Hypokalemia; E78.00 Pure hypercholesterolemia, unspecified; E55.9 Vitamin D deficiency, unspecified | CPT/HCPCS: 99211 ==

== ENCOUNTER 2021-11-30 01:27 | Day surgery (SDC) | payer SELFPAY | END 2021-11-30 14:45 | disposition home or self-care (01) | LOC: ATC 01:27 | DX: N13.9 Obstructive and reflux uropathy, unspecified (principal); N18.31 Chronic kidney disease, stage 3a; R31.9 Hematuria, unspecified; I12.9 Hypertensive chronic kidney disease with stage 1 through stage 4 chronic kidney disease, or unspecified chronic kidney disease; N18.2 Chronic kidney disease, stage 2 (mild); N25.81 Secondary hyperparathyroidism of renal origin; E87.6 Hypokalemia; E78.00 Pure hypercholesterolemia, unspecified | CPT/HCPCS: 99211 ==

== ENCOUNTER 2021-12-08 02:06 | Day surgery (SDC) | payer SELFPAY | END 2021-12-08 16:14 | disposition home or self-care (01) | LOC: ATC 02:06 | DX: N13.9 Obstructive and reflux uropathy, unspecified (principal); N18.31 Chronic kidney disease, stage 3a; R31.9 Hematuria, unspecified; I12.0 Hypertensive chronic kidney disease with stage 5 chronic kidney disease or end stage renal disease; D63.1 Anemia in chronic kidney disease; N25.81 Secondary hyperparathyroidism of renal origin; D50.9 Iron deficiency anemia, unspecified; E87.6 Hypokalemia; E78.00 Pure hypercholesterolemia, unspecified | CPT/HCPCS: 99211 ==

== ENCOUNTER 2021-12-15 01:32 | Day surgery (SDC) | payer SELFPAY | END 2021-12-15 16:54 | disposition home or self-care (01) | LOC: ATC 01:32 | DX: N13.9 Obstructive and reflux uropathy, unspecified (principal); I12.9 Hypertensive chronic kidney disease with stage 1 through stage 4 chronic kidney disease, or unspecified chronic kidney disease; N18.2 Chronic kidney disease, stage 2 (mild); R31.9 Hematuria, unspecified; Z93.6 Other artificial openings of urinary tract status | CPT/HCPCS: 99211 ==

== ENCOUNTER 2021-12-22 00:47 | Day surgery (SDC) | payer OTHER | END 2021-12-22 16:12 | disposition home or self-care (01) | DX: Z43.6 Encounter for attention to other artificial openings of urinary tract (principal); N13.9 Obstructive and reflux uropathy, unspecified; N18.31 Chronic kidney disease, stage 3a; R31.9 Hematuria, unspecified ==

== ENCOUNTER 2021-12-28 00:41 | Day surgery (SDC) | payer OTHER | END 2021-12-28 10:42 | disposition home or self-care (01) | LOC: ATC 00:41 | DX: I12.9 Hypertensive chronic kidney disease with stage 1 through stage 4 chronic kidney disease, or unspecified chronic kidney disease (principal); N13.9 Obstructive and reflux uropathy, unspecified; N18.31 Chronic kidney disease, stage 3a; D63.1 Anemia in chronic kidney disease; D50.9 Iron deficiency anemia, unspecified; N25.81 Secondary hyperparathyroidism of renal origin; E86.9 Volume depletion, unspecified; E87.6 Hypokalemia; E78.00 Pure hypercholesterolemia, unspecified; E55.9 Vitamin D deficiency, unspecified | CPT/HCPCS: 99211 ==

== ENCOUNTER 2022-01-05 00:11 | Day surgery (SDC) | payer OTHER | END 2022-01-05 16:06 | disposition home or self-care (01) | LOC: ATC 00:11 | DX: I12.9 Hypertensive chronic kidney disease with stage 1 through stage 4 chronic kidney disease, or unspecified chronic kidney disease (principal); N13.9 Obstructive and reflux uropathy, unspecified; N18.31 Chronic kidney disease, stage 3a; R31.9 Hematuria, unspecified; D63.1 Anemia in chronic kidney disease; N25.81 Secondary hyperparathyroidism of renal origin; D50.9 Iron deficiency anemia, unspecified; E86.9 Volume depletion, unspecified; R80.9 Proteinuria, unspecified; E87.6 Hypokalemia; E78.00 Pure hypercholesterolemia, unspecified; E55.9 Vitamin D deficiency, unspecified | CPT/HCPCS: 99212 ==

== ENCOUNTER 2022-01-12 01:53 | Day surgery (SDC) | payer OTHER | END 2022-01-12 16:03 | disposition home or self-care (01) | LOC: ATC 01:53 | DX: Z43.6 Encounter for attention to other artificial openings of urinary tract (principal); N18.31 Chronic kidney disease, stage 3a; R31.9 Hematuria, unspecified; N13.9 Obstructive and reflux uropathy, unspecified | CPT/HCPCS: 99211 ==

== ENCOUNTER 2022-01-19 00:04 | Day surgery (SDC) | payer SELFPAY | END 2022-01-19 16:18 | disposition home or self-care (01) | LOC: ATC 00:04 | DX: N13.9 Obstructive and reflux uropathy, unspecified (principal); N18.31 Chronic kidney disease, stage 3a; R31.9 Hematuria, unspecified; I12.9 Hypertensive chronic kidney disease with stage 1 through stage 4 chronic kidney disease, or unspecified chronic kidney disease; E78.00 Pure hypercholesterolemia, unspecified; D50.9 Iron deficiency anemia, unspecified; E87.6 Hypokalemia; E86.9 Volume depletion, unspecified | CPT/HCPCS: 99211 ==

== ENCOUNTER 2022-01-26 01:02 | Day surgery (SDC) | payer SELFPAY | END 2022-01-26 16:06 | disposition home or self-care (01) | LOC: ATC 01:02 | DX: I12.9 Hypertensive chronic kidney disease with stage 1 through stage 4 chronic kidney disease, or unspecified chronic kidney disease (principal); N13.9 Obstructive and reflux uropathy, unspecified; N18.31 Chronic kidney disease, stage 3a; R31.9 Hematuria, unspecified; N25.81 Secondary hyperparathyroidism of renal origin; D50.9 Iron deficiency anemia, unspecified; E86.9 Volume depletion, unspecified; E87.6 Hypokalemia; E78.00 Pure hypercholesterolemia, unspecified | CPT/HCPCS: 99211 ==

== ENCOUNTER 2022-02-02 01:08 | Day surgery (SDC) | payer OTHER | END 2022-02-02 16:08 | disposition home or self-care (01) | LOC: ATC 01:08 | DX: Z43.6 Encounter for attention to other artificial openings of urinary tract (principal); N18.31 Chronic kidney disease, stage 3a; R31.9 Hematuria, unspecified | CPT/HCPCS: 99211 ==

== ENCOUNTER 2022-02-09 00:12 | Day surgery (SDC) | payer SELFPAY | END 2022-02-09 16:16 | disposition home or self-care (01) | LOC: ATC 00:12 | DX: Z43.6 Encounter for attention to other artificial openings of urinary tract (principal); N18.31 Chronic kidney disease, stage 3a; R31.9 Hematuria, unspecified | CPT/HCPCS: 99211 ==

== ENCOUNTER 2022-02-23 02:14 | Day surgery (SDC) | payer SELFPAY | END 2022-02-23 16:25 | disposition home or self-care (01) | LOC: ATC 02:14 | DX: N18.31 Chronic kidney disease, stage 3a (principal); N13.9 Obstructive and reflux uropathy, unspecified; R31.9 Hematuria, unspecified | CPT/HCPCS: 99211 ==

== ENCOUNTER 2022-03-02 02:00 | Day surgery (SDC) | payer OTHER | END 2022-03-02 16:05 | disposition home or self-care (01) | LOC: ATC 02:00 | DX: N13.9 Obstructive and reflux uropathy, unspecified (principal); N18.31 Chronic kidney disease, stage 3a | CPT/HCPCS: 99211 ==

== ENCOUNTER 2022-03-09 01:49 | Day surgery (SDC) | payer SELFPAY | END 2022-03-09 15:40 | disposition home or self-care (01) | LOC: ATC 01:49 | DX: I12.9 Hypertensive chronic kidney disease with stage 1 through stage 4 chronic kidney disease, or unspecified chronic kidney disease (principal); N18.31 Chronic kidney disease, stage 3a; D63.1 Anemia in chronic kidney disease; N25.81 Secondary hyperparathyroidism of renal origin; E86.9 Volume depletion, unspecified; E87.6 Hypokalemia; E78.00 Pure hypercholesterolemia, unspecified; E55.9 Vitamin D deficiency, unspecified | CPT/HCPCS: 99211 ==

== ENCOUNTER 2022-03-16 01:20 | Day surgery (SDC) | payer SELFPAY | END 2022-03-16 16:11 | disposition home or self-care (01) | LOC: ATC 01:20 | DX: N13.9 Obstructive and reflux uropathy, unspecified (principal); I12.9 Hypertensive chronic kidney disease with stage 1 through stage 4 chronic kidney disease, or unspecified chronic kidney disease; N18.31 Chronic kidney disease, stage 3a; R31.9 Hematuria, unspecified; D63.1 Anemia in chronic kidney disease; N25.81 Secondary hyperparathyroidism of renal origin; D50.9 Iron deficiency anemia, unspecified; E86.9 Volume depletion, unspecified; R80.9 Proteinuria, unspecified; E87.6 Hypokalemia; E78.00 Pure hypercholesterolemia, unspecified; E55.9 Vitamin D deficiency, unspecified; N17.9 Acute kidney failure, unspecified | CPT/HCPCS: 99211 ==

== ENCOUNTER 2022-03-30 00:17 | Day surgery (SDC) | payer SELFPAY | END 2022-03-30 16:15 | disposition home or self-care (01) | LOC: ATC 00:17 | DX: I12.9 Hypertensive chronic kidney disease with stage 1 through stage 4 chronic kidney disease, or unspecified chronic kidney disease (principal); N18.31 Chronic kidney disease, stage 3a; D63.1 Anemia in chronic kidney disease; N25.81 Secondary hyperparathyroidism of renal origin; D50.9 Iron deficiency anemia, unspecified; E86.9 Volume depletion, unspecified; E78.00 Pure hypercholesterolemia, unspecified; E55.9 Vitamin D deficiency, unspecified | CPT/HCPCS: 99211 ==

== ENCOUNTER 2022-04-06 01:26 | Day surgery (SDC) | payer SELFPAY | END 2022-04-06 16:08 | disposition home or self-care (01) | LOC: ATC 01:26 | DX: I12.9 Hypertensive chronic kidney disease with stage 1 through stage 4 chronic kidney disease, or unspecified chronic kidney disease (principal); N18.2 Chronic kidney disease, stage 2 (mild); D63.1 Anemia in chronic kidney disease; N25.81 Secondary hyperparathyroidism of renal origin; D50.9 Iron deficiency anemia, unspecified; E86.9 Volume depletion, unspecified; E78.00 Pure hypercholesterolemia, unspecified | CPT/HCPCS: 99211 ==

== ENCOUNTER 2022-04-13 00:11 | Day surgery (SDC) | payer SELFPAY | END 2022-04-13 16:11 | disposition home or self-care (01) | LOC: ATC 00:11 | DX: N13.9 Obstructive and reflux uropathy, unspecified (principal); I12.9 Hypertensive chronic kidney disease with stage 1 through stage 4 chronic kidney disease, or unspecified chronic kidney disease; N18.31 Chronic kidney disease, stage 3a; D63.1 Anemia in chronic kidney disease; N25.81 Secondary hyperparathyroidism of renal origin | CPT/HCPCS: 99211 ==

== ENCOUNTER 2022-04-20 00:55 | Day surgery (SDC) | payer SELFPAY ==
[2022-04-24] MEDS ORDERED: Acetaminophen325 M1 PO (12:51)
[2022-04-24] MEDS ORDERED: VITAMIN D325 MC3 PO (12:51)
[2022-04-24] MEDS ORDERED: MIRALAX17 GM PO (12:52)
[2022-04-24] MEDS ORDERED: PROTONIX4010 PO (12:52)
== END 2022-04-20 16:15 | disposition home or self-care (01) ==
LOC: ATC 00:55
DX: Z43.6 Encounter for attention to other artificial openings of urinary tract (principal); N13.9 Obstructive and reflux uropathy, unspecified; N18.31 Chronic kidney disease, stage 3a; R31.9 Hematuria, unspecified
CPT/HCPCS: 99211

== ENCOUNTER 2022-04-25 06:38 | Day surgery (SDC) | payer SELFPAY ==
[~2022-04-25] VITALS: Ht 149.9 cm; Wt 61.0 kg
[~2022-04-25 06:38] MED LIST changes: +Acetaminophen325 M1 PO; +MIRALAX17 GM PO; +PROTONIX4010 PO
--- NOTE | 2022-04-25 09:09 | NUR ---
PT AND VERBALIZED UNDERSTANDING OF VERBAL D/C INST. IV REMOVED. PT TAKEN OUT OF THE HRT CENTER VIA W/C.
== END 2022-04-25 09:15 | disposition home or self-care (01) ==
LOC: MHTC 06:38
DX: Z46.6 Encounter for fitting and adjustment of urinary device (principal); Z96.0 Presence of urogenital implants; Z93.6 Other artificial openings of urinary tract status
CPT/HCPCS: 50435; C1729; C1769; J2250; J3010; J7040; J7050; Q9967

== ENCOUNTER 2022-04-27 01:39 | Day surgery (SDC) | payer SELFPAY | END 2022-04-27 16:13 | disposition home or self-care (01) | LOC: ATC 01:39 | DX: I12.9 Hypertensive chronic kidney disease with stage 1 through stage 4 chronic kidney disease, or unspecified chronic kidney disease (principal); N18.31 Chronic kidney disease, stage 3a; R31.9 Hematuria, unspecified; D63.1 Anemia in chronic kidney disease; D50.9 Iron deficiency anemia, unspecified; E78.00 Pure hypercholesterolemia, unspecified | CPT/HCPCS: 99211 ==

== ENCOUNTER 2022-05-03 02:03 | Day surgery (SDC) | payer SELFPAY ==
--- NOTE | 2022-05-03 15:41 | NUR ---
PT GIVEN TWO NEW NEPHROSTOMY BAGS PER ORDER
== END 2022-05-03 15:40 | disposition home or self-care (01) ==
LOC: ATC 02:03
DX: Z43.6 Encounter for attention to other artificial openings of urinary tract (principal); N13.9 Obstructive and reflux uropathy, unspecified; I12.9 Hypertensive chronic kidney disease with stage 1 through stage 4 chronic kidney disease, or unspecified chronic kidney disease; N18.31 Chronic kidney disease, stage 3a; R31.9 Hematuria, unspecified; D63.1 Anemia in chronic kidney disease; N25.81 Secondary hyperparathyroidism of renal origin
CPT/HCPCS: 99212

== ENCOUNTER 2022-05-11 01:47 | Day surgery (SDC) | payer SELFPAY | END 2022-05-11 16:23 | disposition home or self-care (01) | LOC: ATC 01:47 | DX: Z43.6 Encounter for attention to other artificial openings of urinary tract (principal); N18.31 Chronic kidney disease, stage 3a; R31.9 Hematuria, unspecified; N13.9 Obstructive and reflux uropathy, unspecified | CPT/HCPCS: 99212 ==

== ENCOUNTER 2022-05-18 02:16 | Day surgery (SDC) | payer SELFPAY | END 2022-05-18 16:18 | disposition home or self-care (01) | LOC: ATC 02:16 | DX: I12.9 Hypertensive chronic kidney disease with stage 1 through stage 4 chronic kidney disease, or unspecified chronic kidney disease (principal); N18.31 Chronic kidney disease, stage 3a; R31.9 Hematuria, unspecified; D63.1 Anemia in chronic kidney disease; D50.9 Iron deficiency anemia, unspecified; E86.9 Volume depletion, unspecified; E87.6 Hypokalemia; E78.00 Pure hypercholesterolemia, unspecified | CPT/HCPCS: 99211 ==

== ENCOUNTER 2022-05-25 01:19 | Day surgery (SDC) | payer SELFPAY ==
[2022-05-25 16:20] VITALS: BP 114/75
== END 2022-05-25 16:20 | disposition home or self-care (01) ==
LOC: ATC 01:19
DX: N13.9 Obstructive and reflux uropathy, unspecified (principal); I12.9 Hypertensive chronic kidney disease with stage 1 through stage 4 chronic kidney disease, or unspecified chronic kidney disease; N18.2 Chronic kidney disease, stage 2 (mild)
CPT/HCPCS: 99211

== ENCOUNTER 2022-06-15 01:39 | Day surgery (SDC) | payer SELFPAY ==
[2022-06-15 15:54] VITALS: BP 112/48
== END 2022-06-15 16:03 | disposition home or self-care (01) ==
LOC: ATC 01:39
DX: N13.9 Obstructive and reflux uropathy, unspecified (principal); I12.9 Hypertensive chronic kidney disease with stage 1 through stage 4 chronic kidney disease, or unspecified chronic kidney disease; N18.2 Chronic kidney disease, stage 2 (mild); D63.1 Anemia in chronic kidney disease; N25.81 Secondary hyperparathyroidism of renal origin; Z79.899 Other long term (current) drug therapy
CPT/HCPCS: 99211

== ENCOUNTER 2022-06-29 03:39 | Day surgery (SDC) | payer SELFPAY ==
[2022-06-29] MEDS ORDERED: LEVAQUIN750 MG PO (14:30)
[2022-06-29 16:22] VITALS: BP 97/64
== END 2022-06-29 16:22 | disposition home or self-care (01) ==
LOC: ATC 03:39
DX: N13.9 Obstructive and reflux uropathy, unspecified (principal); I12.9 Hypertensive chronic kidney disease with stage 1 through stage 4 chronic kidney disease, or unspecified chronic kidney disease; N18.2 Chronic kidney disease, stage 2 (mild); D63.1 Anemia in chronic kidney disease; N25.81 Secondary hyperparathyroidism of renal origin; Z79.899 Other long term (current) drug therapy
CPT/HCPCS: 99212

== ENCOUNTER 2022-06-29 10:37 | Emergency (ER) | payer SELFPAY ==
[~2022-06-29] VITALS: Ht 162.6 cm; Wt 68.0 kg
[2022-06-29 11:15] LABS: BASOPHILS ABSOLUTE AUTO 0.02 K/mm3 (0.00-0.23); BASOPHILS PERCENT AUTO 0 % (0-2); EOSINOPHILS ABSOLUTE AUTO 0.28 K/mm3 (0.00-0.68); EOSINOPHILS PERCENT AUTO 3 % (0-6); Hematocrit 37.9 % (33.0-51.0); Hemoglobin 12.6 g/dL (11.5-16.0); IMMATURE GRAN ABSOLUTE AUTO 0.02 K/mm3 (0.00-0.10); IMMATURE GRAN PERCENT AUTO 0 % (0-1); LYMPHOCYTES ABSOLUTE AUTO 1.54 K/mm3 (0.84-5.20); LYMPHOCYTES PERCENT AUTO 19 % (21-46); MONOCYTES ABSOLUTE AUTO 0.35 K/mm3 (0.16-1.47); MONOCYTES PERCENT AUTO 4 % (4-13); Mean Corpuscular HGB 29.5 pg (26.0-34.0); Mean Corpuscular HGB Conc 33.2 g/dL (31.5-36.5); Mean Corpuscular Volume 89 fL (80-100); Mean Platelet Volume 10.1 fL (9.1-12.4); NEUTROPHILS PERCENT AUTO 74 % (41-73); Platelet Count 248 K/mm3 (150-400); RDW Coefficient Variation 12.7 % (11.7-14.2); Red Blood Cell Count 4.27 M/mm3 (3.80-5.20); White Blood Cell Count 8.31 K/mm3 (4.00-11.30)
[2022-06-29 11:44] LABS: Albumin, Blood 3.5 g/dL (3.4-5.0); Bilirubin, Total 0.4 mg/dL (0.1-1.0); Bun/Creatinine Ratio 16.3 (12.0-20.0); Calcium, Blood 8.8 mg/dL (8.5-10.1); Creatinine, Blood 0.98 mg/dL (0.40-1.00); Globulin, Blood 3.4 g/dL (2.2-4.0); Potassium, Blood 3.6 mmol/L (3.5-5.5); Total Protein, Blood 6.9 g/dL (6.4-8.2)
[2022-06-29 13:02] LABS: Source, Urine Nephrostomy
[2022-06-29 13:09] LABS: Appearance, Urine Hazy (Clear); Bilirubin, Urine Neg (Neg); Blood, Urine 4+ (Neg); Color, Urine Yellow (P-Yellow); Glucose Qualitative, Urine Neg (Neg); Ketones, Urine Neg (Neg); Leukocyte Esterase, Urine 3+ (Neg); Nitrite, Urine Neg (Neg); Protein, Urine 3+ (Neg); Specific Gravity, Urine 1.015 (1.003-1.022); Urobilinogen, Urine NORM (Normal)
[2022-06-29 13:17] LABS: Bacteria Mod /hpf; Mucus Mod (0-Heavy); Red Blood Cells, Urine 25-50 /hpf (0-2); Squamous Epithelial Cells Few /hpf (Few)
[2022-06-29] MEDS ORDERED: LEVAQUIN750 MG PO (14:30)
[2022-06-29 14:45] VITALS: BP 127/77
== END 2022-06-29 15:02 | disposition home or self-care (01) ==
LOC: ER 10:37
PROVIDERS: Anesthesiology; Emergency Medicine
DX: J18.9 Pneumonia, unspecified organism (principal); K21.9 Gastro-esophageal reflux disease without esophagitis; Z85.41 Personal history of malignant neoplasm of cervix uteri; Z79.899 Other long term (current) drug therapy
CPT/HCPCS: 71046; 71260; 74177; 80053; 81001; 84484; 85025; 93005; 93010; J2270; J2405; Q9967

== ENCOUNTER 2022-07-06 02:36 | Day surgery (SDC) | payer SELFPAY ==
[~2022-07-06 02:36] MED LIST changes: +LEVAQUIN750 MG PO
[2022-07-06 16:03] VITALS: BP 106/65
== END 2022-07-06 16:03 | disposition home or self-care (01) ==
LOC: ATC 02:36
DX: Z43.6 Encounter for attention to other artificial openings of urinary tract (principal); N13.9 Obstructive and reflux uropathy, unspecified; I12.9 Hypertensive chronic kidney disease with stage 1 through stage 4 chronic kidney disease, or unspecified chronic kidney disease; N18.2 Chronic kidney disease, stage 2 (mild); D63.1 Anemia in chronic kidney disease; N25.81 Secondary hyperparathyroidism of renal origin; Z79.899 Other long term (current) drug therapy
CPT/HCPCS: 99212

== ENCOUNTER 2022-07-13 04:07 | Day surgery (SDC) | payer OTHER ==
[2022-07-13 16:00] VITALS: BP 105/64
== END 2022-07-13 16:08 | disposition home or self-care (01) ==
LOC: ATC 04:07
DX: N13.9 Obstructive and reflux uropathy, unspecified (principal); I12.9 Hypertensive chronic kidney disease with stage 1 through stage 4 chronic kidney disease, or unspecified chronic kidney disease; N18.2 Chronic kidney disease, stage 2 (mild); D63.1 Anemia in chronic kidney disease; N25.81 Secondary hyperparathyroidism of renal origin; Z79.899 Other long term (current) drug therapy
CPT/HCPCS: 99211

== ENCOUNTER 2022-07-20 02:47 | Day surgery (SDC) | payer OTHER ==
[2022-07-20 15:55] VITALS: BP 107/88
== END 2022-07-20 16:05 | disposition home or self-care (01) ==
LOC: ATC 02:47
DX: N13.9 Obstructive and reflux uropathy, unspecified (principal); I12.9 Hypertensive chronic kidney disease with stage 1 through stage 4 chronic kidney disease, or unspecified chronic kidney disease; N18.2 Chronic kidney disease, stage 2 (mild)
CPT/HCPCS: 99211

== ENCOUNTER 2022-07-27 01:12 | Day surgery (SDC) | payer OTHER ==
[2022-07-27 15:59] VITALS: BP 121/85
== END 2022-07-27 16:07 | disposition home or self-care (01) ==
LOC: ATC 01:12
DX: N13.9 Obstructive and reflux uropathy, unspecified (principal); I12.9 Hypertensive chronic kidney disease with stage 1 through stage 4 chronic kidney disease, or unspecified chronic kidney disease; N18.2 Chronic kidney disease, stage 2 (mild)
CPT/HCPCS: 99211

== ENCOUNTER 2022-08-17 01:44 | Day surgery (SDC) | payer OTHER ==
[2022-08-17 16:36] VITALS: BP 118/77
== END 2022-08-17 16:44 | disposition home or self-care (01) ==
LOC: ATC 01:44
DX: N13.9 Obstructive and reflux uropathy, unspecified (principal); I12.9 Hypertensive chronic kidney disease with stage 1 through stage 4 chronic kidney disease, or unspecified chronic kidney disease; N18.2 Chronic kidney disease, stage 2 (mild); D63.1 Anemia in chronic kidney disease; N25.81 Secondary hyperparathyroidism of renal origin; D50.9 Iron deficiency anemia, unspecified; E78.00 Pure hypercholesterolemia, unspecified
CPT/HCPCS: 99211

== ENCOUNTER 2022-08-24 03:44 | Day surgery (SDC) | payer SELFPAY ==
[2022-08-24 16:00] VITALS: BP 114/78
== END 2022-08-24 16:09 | disposition home or self-care (01) ==
LOC: ATC 03:44
DX: N13.9 Obstructive and reflux uropathy, unspecified (principal); I12.9 Hypertensive chronic kidney disease with stage 1 through stage 4 chronic kidney disease, or unspecified chronic kidney disease; N18.2 Chronic kidney disease, stage 2 (mild); E86.9 Volume depletion, unspecified; E78.00 Pure hypercholesterolemia, unspecified
CPT/HCPCS: 99211

== ENCOUNTER 2022-08-31 04:50 | Day surgery (SDC) | payer OTHER ==
[2022-09-04] MEDS ORDERED: ALUMINUM HYDROXIDE TOP (11:13)
[2022-09-04] MEDS ORDERED: CYCL10 PO (11:13)
== END 2022-08-31 16:10 | disposition home or self-care (01) ==
LOC: ATC 04:50
DX: N13.9 Obstructive and reflux uropathy, unspecified (principal); I12.9 Hypertensive chronic kidney disease with stage 1 through stage 4 chronic kidney disease, or unspecified chronic kidney disease; N18.2 Chronic kidney disease, stage 2 (mild); E86.9 Volume depletion, unspecified; N25.81 Secondary hyperparathyroidism of renal origin; D50.9 Iron deficiency anemia, unspecified; E78.00 Pure hypercholesterolemia, unspecified; E55.9 Vitamin D deficiency, unspecified; E87.6 Hypokalemia
CPT/HCPCS: 99211

== ENCOUNTER 2022-09-05 07:08 | Day surgery (SDC) | payer OTHER ==
[~2022-09-05] VITALS: Ht 149.9 cm; Wt 61.2 kg
[~2022-09-05 07:08] MED LIST changes: +ALUMINUM HYDROXIDE TOP; +CYCL10 PO
[2022-09-05 07:28] VITALS: BP 142/97
[2022-09-05 07:30] VITALS: BP 143/85
[2022-09-05 07:31] VITALS: BP 143/85
[2022-09-05 08:28] VITALS: BP 138/95
[2022-09-05 08:30] VITALS: BP 143/93
--- NOTE | 2022-09-05 08:55 | NUR ---
PATIENT ARRIVED TO RECOVERY ROOM SITTING UPRIGHT IN RECLINER, DENYING ANY PAIN. INTERPRETOR AND PRESENT AT BEDSIDE. VSS ON RA.
--- NOTE | 2022-09-05 08:55 | NUR ---
PATIENT DISCHARGED HOME AT THIS TIME. DISCHARGE INSTRUCTIONS REVIEWED WITH PATIENT. INTERPRETOR PRESENT. ALL QUESTIONS WERE ANSWERED. BILATERAL NEPH TUBE BAGS DRAINING APPROPRIATELY. PATIENT DENYING ANY PAIN. VSS ON RA. PATIENT AMBULATING TO RESTROOM WITHOUT DIFFICULTY.
== END 2022-09-05 08:54 | disposition home or self-care (01) ==
LOC: MHTC 07:08
DX: Z46.6 Encounter for fitting and adjustment of urinary device (principal); Z93.6 Other artificial openings of urinary tract status; Z79.899 Other long term (current) drug therapy
CPT/HCPCS: 50435; C1729; C1769; J7040; J7050; Q9967

== ENCOUNTER 2022-09-07 03:20 | Day surgery (SDC) | payer OTHER ==
[2022-09-07 16:28] VITALS: BP 105/70
== END 2022-09-07 16:28 | disposition home or self-care (01) ==
LOC: ATC 03:20
DX: N13.9 Obstructive and reflux uropathy, unspecified (principal); I12.9 Hypertensive chronic kidney disease with stage 1 through stage 4 chronic kidney disease, or unspecified chronic kidney disease; N18.2 Chronic kidney disease, stage 2 (mild); E86.9 Volume depletion, unspecified; D63.1 Anemia in chronic kidney disease; N25.81 Secondary hyperparathyroidism of renal origin; D50.9 Iron deficiency anemia, unspecified; E87.6 Hypokalemia; E78.00 Pure hypercholesterolemia, unspecified; E55.9 Vitamin D deficiency, unspecified
CPT/HCPCS: 99211

== ENCOUNTER 2022-09-21 01:01 | Day surgery (SDC) | payer OTHER ==
[2022-09-21 15:55] VITALS: BP 112/57
== END 2022-09-21 16:04 | disposition home or self-care (01) ==
LOC: ATC 01:01
DX: Z43.6 Encounter for attention to other artificial openings of urinary tract (principal); N13.9 Obstructive and reflux uropathy, unspecified; I12.9 Hypertensive chronic kidney disease with stage 1 through stage 4 chronic kidney disease, or unspecified chronic kidney disease; N18.2 Chronic kidney disease, stage 2 (mild); N25.81 Secondary hyperparathyroidism of renal origin; D50.9 Iron deficiency anemia, unspecified; E87.6 Hypokalemia; E78.00 Pure hypercholesterolemia, unspecified; E55.9 Vitamin D deficiency, unspecified
CPT/HCPCS: 99212

== ENCOUNTER 2022-09-28 02:12 | Day surgery (SDC) | payer SELFPAY ==
[2022-09-28 15:50] VITALS: BP 128/76
== END 2022-09-28 15:57 | disposition home or self-care (01) ==
LOC: ATC 02:12
DX: Z43.6 Encounter for attention to other artificial openings of urinary tract (principal); N13.9 Obstructive and reflux uropathy, unspecified; E55.9 Vitamin D deficiency, unspecified; E78.00 Pure hypercholesterolemia, unspecified; E87.6 Hypokalemia; D50.9 Iron deficiency anemia, unspecified; N25.81 Secondary hyperparathyroidism of renal origin; E86.9 Volume depletion, unspecified; I12.9 Hypertensive chronic kidney disease with stage 1 through stage 4 chronic kidney disease, or unspecified chronic kidney disease; N18.2 Chronic kidney disease, stage 2 (mild)
CPT/HCPCS: 99211

== ENCOUNTER 2022-10-05 00:13 | Day surgery (SDC) | payer OTHER ==
[2022-10-05 16:00] VITALS: BP 142/68
== END 2022-10-05 16:08 | disposition home or self-care (01) ==
LOC: ATC 00:13
DX: Z43.6 Encounter for attention to other artificial openings of urinary tract (principal); N13.9 Obstructive and reflux uropathy, unspecified; I12.9 Hypertensive chronic kidney disease with stage 1 through stage 4 chronic kidney disease, or unspecified chronic kidney disease; N18.2 Chronic kidney disease, stage 2 (mild); E86.9 Volume depletion, unspecified; N25.81 Secondary hyperparathyroidism of renal origin; D50.9 Iron deficiency anemia, unspecified; R80.9 Proteinuria, unspecified; E87.6 Hypokalemia; E78.00 Pure hypercholesterolemia, unspecified; E55.9 Vitamin D deficiency, unspecified
CPT/HCPCS: 99211

== ENCOUNTER 2022-10-12 00:38 | Day surgery (SDC) | payer OTHER | END 2022-10-12 16:06 | disposition home or self-care (01) | LOC: ATC 00:38 | DX: Z43.6 Encounter for attention to other artificial openings of urinary tract (principal); I12.9 Hypertensive chronic kidney disease with stage 1 through stage 4 chronic kidney disease, or unspecified chronic kidney disease; N18.2 Chronic kidney disease, stage 2 (mild); E86.9 Volume depletion, unspecified; D63.1 Anemia in chronic kidney disease; N25.81 Secondary hyperparathyroidism of renal origin; D50.9 Iron deficiency anemia, unspecified; E78.00 Pure hypercholesterolemia, unspecified; N13.9 Obstructive and reflux uropathy, unspecified | CPT/HCPCS: 99211 ==

== ENCOUNTER 2022-10-19 01:47 | Day surgery (SDC) | payer OTHER ==
[2022-10-19 16:10] VITALS: BP 113/82
== END 2022-10-19 16:18 | disposition home or self-care (01) ==
LOC: ATC 01:47
DX: Z43.6 Encounter for attention to other artificial openings of urinary tract (principal); N13.9 Obstructive and reflux uropathy, unspecified; I12.9 Hypertensive chronic kidney disease with stage 1 through stage 4 chronic kidney disease, or unspecified chronic kidney disease; D63.1 Anemia in chronic kidney disease; N18.2 Chronic kidney disease, stage 2 (mild); D50.9 Iron deficiency anemia, unspecified; E78.00 Pure hypercholesterolemia, unspecified; N25.81 Secondary hyperparathyroidism of renal origin
CPT/HCPCS: 99211

== ENCOUNTER 2022-10-26 00:15 | Day surgery (SDC) | payer OTHER ==
[2022-10-26 16:27] VITALS: BP 115/76
== END 2022-10-26 16:15 | disposition home or self-care (01) ==
LOC: ATC 00:15
DX: N13.9 Obstructive and reflux uropathy, unspecified (principal); I12.9 Hypertensive chronic kidney disease with stage 1 through stage 4 chronic kidney disease, or unspecified chronic kidney disease; N18.2 Chronic kidney disease, stage 2 (mild); D63.1 Anemia in chronic kidney disease; N25.81 Secondary hyperparathyroidism of renal origin; Z79.899 Other long term (current) drug therapy
CPT/HCPCS: 99211

== ENCOUNTER 2022-11-01 06:46 | Observation (INO) | payer OTHER ==
[~2022-11-01] VITALS: Ht 142.2 cm; Wt 59.6 kg
[2022-11-01 08:14] LABS: Source, Urine Nephrostomy
[2022-11-01 08:21] LABS: Appearance, Urine Hazy (Clear); Bilirubin, Urine Neg (Neg); Blood, Urine 3+ (Neg); Color, Urine Yellow (P-Yellow); Glucose Qualitative, Urine Neg (Neg); Ketones, Urine Neg (Neg); Leukocyte Esterase, Urine 3+ (Neg); Nitrite, Urine Pos (Neg); Protein, Urine 3+ (Neg); Urobilinogen, Urine NORM (Normal)
[2022-11-01 08:22] LABS: BASOPHILS ABSOLUTE AUTO 0.02 K/mm3 (0.00-0.23); BASOPHILS PERCENT AUTO 0 % (0-2); EOSINOPHILS ABSOLUTE AUTO 0.25 K/mm3 (0.00-0.68); EOSINOPHILS PERCENT AUTO 3 % (0-6); Hematocrit 40.9 % (33.0-51.0); Hemoglobin 13.4 g/dL (11.5-16.0); IMMATURE GRAN ABSOLUTE AUTO 0.02 K/mm3 (0.00-0.10); IMMATURE GRAN PERCENT AUTO 0 % (0-1); LYMPHOCYTES ABSOLUTE AUTO 1.15 K/mm3 (0.84-5.20); LYMPHOCYTES PERCENT AUTO 15 % (21-46); MONOCYTES ABSOLUTE AUTO 0.34 K/mm3 (0.16-1.47); MONOCYTES PERCENT AUTO 4 % (4-13); Mean Corpuscular HGB 29.3 pg (26.0-34.0); Mean Corpuscular HGB Conc 32.8 g/dL (31.5-36.5); Mean Corpuscular Volume 89 fL (80-100); Mean Platelet Volume 9.6 fL (9.1-12.4); NEUTROPHILS ABSOLUTE AUTO 6.04 K/mm3 (1.96-9.15); NEUTROPHILS PERCENT AUTO 77 % (41-73); Platelet Count 317 K/mm3 (150-400); RDW Coefficient Variation 12.7 % (11.7-14.2); RDW Standard Deviation 41.7 fL (35.1-46.3); Red Blood Cell Count 4.58 M/mm3 (3.80-5.20); White Blood Cell Count 7.82 K/mm3 (4.00-11.30)
[2022-11-01 08:33] LABS: Amorphous Heavy (0-Heavy); Bacteria Many /hpf; Triple Phosphate Crystals Many /hpf
[2022-11-01 08:38] LABS: Squamous Epithelial Cells Not Seen /hpf (Few)
[2022-11-01 08:40] LABS: Mucus Light (0-Heavy)
[2022-11-01 09:02] LABS: Albumin, Blood 3.6 g/dL (3.4-5.0); Albumin/Globulin Ratio 0.8 (0.8-1.8); Bilirubin, Total 0.3 mg/dL (0.1-1.0); Bun/Creatinine Ratio 22.4 (12.0-20.0); Calcium, Blood 8.9 mg/dL (8.5-10.1); Creatinine, Blood 0.89 mg/dL (0.40-1.00); Globulin, Blood 4.4 g/dL (2.2-4.0); Potassium, Blood 4.2 mmol/L (3.5-5.5)
[2022-11-01 15:02] VITALS: BP 131/78
--- NOTE | 2022-11-01 16:08 | NUR ---
ADMISSION SUMMARY: PT ARRIVED TO ROOM 329 VIA GURNEY. PT TX SELF TO BED. BILAT NEPHROSTOMY IN PLACE. R SIDE DRAINING CLOUDY YELLOW URINE. L SIDE HAS NO DRAINAGE. PT REPORTS HEADACHE 6/10 AND L FLANK PAIN 2/10. PT MEDICATED WITH TYLENOL FOR HEADACHE. PT NPO EXCEPT MEDICATIONS AT THIS TIME. UTILIZED RUBY ENGINEER SERVICES TO GET PT INFORMATION. SPOUSE ARRIVED AFTER ASSESSMENT COMPLETED. SPOUSE UPDATED WITH POC. WHILE PRESENT PT GOT UP FROM BED AND STOOD UP AND HER L SIDE NEPHROSTOMY TUBE WAS COMPLETELY PULLED OUT OF HER L FLANK. NO BLEEDING AT SITE. PT DENIES INCREASED PAIN. DR. DANG NOTIFIED OF PT ACCIDENTALLY PULLING OUT NEPHROSTOMY.
[2022-11-01 19:30] VITALS: BP 132/72
--- NOTE | 2022-11-01 23:20 | NUR ---
OR; PT TO OR W/ OR STAFF VIA WHEEL CHAIR AT 2305.
[2022-11-02] VITALS (10 sets, daily range): BP systolic 99–135; BP diastolic 61–108
--- NOTE | 2022-11-02 00:03 | NUR ---
PT BACK; PT ARRIVES BACK FROM PROCEDURE AT 2355 VIA WHEELCHAIR. THE PT IS PAINFUL. NEW L NEPHROSTOMY DRAINING BRIGHT RED BLOOD. PT ABLE TO SETTLE BACK INTO BED WITH THE BED IN THE LOWEST POSITION AND THE CALL LIGHT AT BEDSIDE.
--- NOTE | 2022-11-02 04:05 | NUR ---
PATIENT NOTIFIED VIA ACCOUNTING GENERALIST ELAINE ON ACCOUNTING GENERALIST LINE THAT SHE HAS A FEVER, I AM GIVING HER TYLENOL AND WE NEED HER TO REDUCE COVERS DOWN TO A SHEET AND WILL RECHECK HER VITAL SIGNS IN 30 MINUTES.
--- NOTE | 2022-11-02 04:48 | NUR ---
SHIFT SUMMARY; PT WENT FOR NEW L NEPHROSTOMY LAST NIGHT W/ DR. WEINBERG. L NEPHROSTOMY IS PUTTING OUT BRIGHT RED URINE. THE R NEPHROSTOMY IS PUTTING OUT YELLOW ODOROUS URINE. THE PT WAS VERY PAINFUL WHEN SHE GOT BACK FROM THE PROCEDURE, BUT ONCE I GAVE HER DILAUDID THE PT HAS BEEN SLEEPING SINCE. THE PT DID HAVE A FEVER THIS AM OF 100.4, HOWEVER AFTER RECIEVEING TYLENOL THE PTS TEMP WENT DOWN TO 97.9. THE PT OTHERWISE HAD AN UNEVENTFUL NIGHT. THE PT IS AXO X4 AND INDEPENDENT IN THE ROOM. THE PT DENIES ANY SOB, CHEST PAIN/PRESSURE OR N/V. CURRENTLY THE PT IS SLEEPING IN BED WITH THE BED IN THE LOWEST POSITION AND THE CALL LIGHT AT BEDSIDE. FIRE SAFETY MAINTAINED T/O THE NIGHT.
[2022-11-02 06:33] LABS: Hemoglobin 12.3 g/dL (11.5-16.0); Mean Corpuscular HGB 29.4 pg (26.0-34.0); Mean Corpuscular HGB Conc 33.2 g/dL (31.5-36.5); Mean Corpuscular Volume 89 fL (80-100); Mean Platelet Volume 9.8 fL (9.1-12.4); Platelet Count 288 K/mm3 (150-400); RDW Coefficient Variation 12.9 % (11.7-14.2); RDW Standard Deviation 42.3 fL (35.1-46.3); Red Blood Cell Count 4.18 M/mm3 (3.80-5.20); White Blood Cell Count 10.84 K/mm3 (4.00-11.30)
[2022-11-02 07:05] LABS: Bun/Creatinine Ratio 18.4 (12.0-20.0); Calcium, Blood 8.4 mg/dL (8.5-10.1); Creatinine, Blood 0.76 mg/dL (0.40-1.00); Potassium, Blood 3.5 mmol/L (3.5-5.5)
[2022-11-02] MEDS ORDERED: OXYC5 PO (14:29)
--- NOTE | 2022-11-02 16:26 | NUR ---
WITH INTERPRETERS ASSISTANCE THIS FOOD OPERATIONS MANAGER DISCHARGED PT AT 1540 WITH TO TRANSPORT. NEW NEPHROSTOMY ON L SIDE WORKING AND PT TREATED FOR PAIN PER EMAR. WENT OVER APPOINTMENT NEEDS AND WHO TO CONTACT. PT WAS GIVEN SCRIPT FOR PAIN MEDICATIONS. MADE SURE APPOINTMENT AT [facility] WAS SCHEDULED NEXT WEEK. PT AMBULATING ON HER OWN AND GOT DRESSED. PERSONAL BELONINGS COLLECTED AND PT ESCORTED TO [facility] VIA WHEEL CHAIR. EDUCATION WAS PRINTED IN [place]. ALL PAPERWORK REVIEWED.
== END 2022-11-02 16:31 | disposition home or self-care (01) ==
LOC: ER 06:46 → MEDS 06:47 → ENPENDDIS 11-02 14:02 → MEDS 11-02 16:31
PROVIDERS: Emergency Medicine; ADMIT Internal Medicine
DX: N13.1 Hydronephrosis with ureteral stricture, not elsewhere classified (principal); K21.9 Gastro-esophageal reflux disease without esophagitis; Z85.41 Personal history of malignant neoplasm of cervix uteri
CPT/HCPCS: 36415; 76770; 76937; 80048; 80053; 81001; 81025; 85025; 85027; 87077; 87086; 87186; 96374; 96375; 96376; 99152; 99153; 99285-25; A9270; C1729; C1769; C1887; C1894; G0378; J1170; J2250; J2405; J3010; J7030; J7040; Q9967

== ENCOUNTER 2022-11-16 00:23 | Day surgery (SDC) | payer OTHER ==
[2022-11-16 16:09] VITALS: BP 111/85
== END 2022-11-16 16:05 | disposition home or self-care (01) ==
LOC: ATC 00:23
DX: Z43.6 Encounter for attention to other artificial openings of urinary tract (principal); N13.9 Obstructive and reflux uropathy, unspecified; I12.9 Hypertensive chronic kidney disease with stage 1 through stage 4 chronic kidney disease, or unspecified chronic kidney disease; N18.2 Chronic kidney disease, stage 2 (mild); D63.1 Anemia in chronic kidney disease; N25.81 Secondary hyperparathyroidism of renal origin; E78.00 Pure hypercholesterolemia, unspecified
CPT/HCPCS: 99211

== ENCOUNTER 2022-11-23 02:52 | Day surgery (SDC) | payer OTHER ==
[2022-11-23 15:50] VITALS: BP 94/57
== END 2022-11-23 16:01 | disposition home or self-care (01) ==
LOC: ATC 02:52
DX: Z46.6 Encounter for fitting and adjustment of urinary device (principal); N13.9 Obstructive and reflux uropathy, unspecified; I12.9 Hypertensive chronic kidney disease with stage 1 through stage 4 chronic kidney disease, or unspecified chronic kidney disease; N18.2 Chronic kidney disease, stage 2 (mild); N25.81 Secondary hyperparathyroidism of renal origin; Z79.899 Other long term (current) drug therapy
CPT/HCPCS: 99211

== ENCOUNTER 2022-11-30 05:02 | Day surgery (SDC) | payer OTHER | END 2022-11-30 15:50 | disposition home or self-care (01) | LOC: ATC 05:02 | DX: Z43.6 Encounter for attention to other artificial openings of urinary tract (principal); N13.9 Obstructive and reflux uropathy, unspecified; I12.9 Hypertensive chronic kidney disease with stage 1 through stage 4 chronic kidney disease, or unspecified chronic kidney disease; N18.2 Chronic kidney disease, stage 2 (mild); E78.00 Pure hypercholesterolemia, unspecified; N25.81 Secondary hyperparathyroidism of renal origin | CPT/HCPCS: 99211 ==

== ENCOUNTER 2022-12-07 02:33 | Day surgery (SDC) | payer OTHER ==
[2022-12-07 15:32] VITALS: BP 122/69
== END 2022-12-07 23:42 | disposition home or self-care (01) ==
LOC: ATC 02:33
DX: Z43.6 Encounter for attention to other artificial openings of urinary tract (principal); N13.9 Obstructive and reflux uropathy, unspecified; I12.9 Hypertensive chronic kidney disease with stage 1 through stage 4 chronic kidney disease, or unspecified chronic kidney disease; N18.2 Chronic kidney disease, stage 2 (mild); D63.0 Anemia in neoplastic disease; N25.81 Secondary hyperparathyroidism of renal origin; D50.9 Iron deficiency anemia, unspecified; E86.9 Volume depletion, unspecified; E55.9 Vitamin D deficiency, unspecified
CPT/HCPCS: 99211

== ENCOUNTER 2022-12-14 04:31 | Day surgery (SDC) | payer OTHER ==
[2022-12-14 15:06] VITALS: BP 120/80
== END 2022-12-14 15:16 | disposition home or self-care (01) ==
LOC: ATC 04:31
DX: Z43.6 Encounter for attention to other artificial openings of urinary tract (principal); N13.9 Obstructive and reflux uropathy, unspecified; I12.9 Hypertensive chronic kidney disease with stage 1 through stage 4 chronic kidney disease, or unspecified chronic kidney disease; D63.1 Anemia in chronic kidney disease; N18.2 Chronic kidney disease, stage 2 (mild); N25.81 Secondary hyperparathyroidism of renal origin; E78.00 Pure hypercholesterolemia, unspecified
CPT/HCPCS: 99211

== ENCOUNTER 2022-12-21 01:40 | Day surgery (SDC) | payer OTHER ==
[2022-12-21 15:36] VITALS: BP 123/80
== END 2022-12-21 15:46 | disposition home or self-care (01) ==
LOC: ATC 01:40
DX: Z43.6 Encounter for attention to other artificial openings of urinary tract (principal); N13.9 Obstructive and reflux uropathy, unspecified; I12.9 Hypertensive chronic kidney disease with stage 1 through stage 4 chronic kidney disease, or unspecified chronic kidney disease; N18.2 Chronic kidney disease, stage 2 (mild); N25.81 Secondary hyperparathyroidism of renal origin; D50.9 Iron deficiency anemia, unspecified; E86.9 Volume depletion, unspecified; E78.00 Pure hypercholesterolemia, unspecified; E55.9 Vitamin D deficiency, unspecified
CPT/HCPCS: 99211

== ENCOUNTER 2022-12-28 02:25 | Day surgery (SDC) | payer SELFPAY ==
[2022-12-28 15:32] VITALS: BP 123/76
== END 2022-12-28 15:41 | disposition home or self-care (01) ==
LOC: ATC 02:25
DX: Z43.6 Encounter for attention to other artificial openings of urinary tract (principal); N13.9 Obstructive and reflux uropathy, unspecified; I12.9 Hypertensive chronic kidney disease with stage 1 through stage 4 chronic kidney disease, or unspecified chronic kidney disease; N18.2 Chronic kidney disease, stage 2 (mild); N25.81 Secondary hyperparathyroidism of renal origin; E55.9 Vitamin D deficiency, unspecified; E78.00 Pure hypercholesterolemia, unspecified; D50.9 Iron deficiency anemia, unspecified
CPT/HCPCS: 99211

== ENCOUNTER 2023-01-04 15:26 | Day surgery (SDC) | payer OTHER ==
[2023-01-04 15:30] VITALS: BP 125/72
== END 2023-01-04 15:40 | disposition home or self-care (01) ==
LOC: ATC 15:26
DX: Z43.6 Encounter for attention to other artificial openings of urinary tract (principal); N13.9 Obstructive and reflux uropathy, unspecified; I12.9 Hypertensive chronic kidney disease with stage 1 through stage 4 chronic kidney disease, or unspecified chronic kidney disease; N18.2 Chronic kidney disease, stage 2 (mild); D63.1 Anemia in chronic kidney disease; N25.81 Secondary hyperparathyroidism of renal origin; D50.9 Iron deficiency anemia, unspecified; E78.00 Pure hypercholesterolemia, unspecified
CPT/HCPCS: 99212

== ENCOUNTER 2023-01-11 03:57 | Day surgery (SDC) | payer OTHER ==
[2023-01-11 15:29] VITALS: BP 111/79
== END 2023-01-11 15:29 | disposition home or self-care (01) ==
LOC: ATC 03:57
DX: Z43.6 Encounter for attention to other artificial openings of urinary tract (principal); N13.9 Obstructive and reflux uropathy, unspecified; N18.2 Chronic kidney disease, stage 2 (mild); I12.9 Hypertensive chronic kidney disease with stage 1 through stage 4 chronic kidney disease, or unspecified chronic kidney disease; D63.0 Anemia in neoplastic disease; N25.81 Secondary hyperparathyroidism of renal origin; D50.9 Iron deficiency anemia, unspecified; E78.00 Pure hypercholesterolemia, unspecified
CPT/HCPCS: 99212

== ENCOUNTER 2023-01-18 03:05 | Day surgery (SDC) | payer SELFPAY ==
[2023-01-18 15:29] VITALS: BP 119/64
== END 2023-01-18 15:36 | disposition home or self-care (01) ==
LOC: ATC 03:05
DX: Z43.6 Encounter for attention to other artificial openings of urinary tract (principal); N13.9 Obstructive and reflux uropathy, unspecified
CPT/HCPCS: 99211

== ENCOUNTER 2023-01-25 03:56 | Day surgery (SDC) | payer SELFPAY ==
[2023-01-25 15:37] VITALS: BP 118/67
== END 2023-01-25 15:45 | disposition home or self-care (01) ==
LOC: ATC 03:56
DX: Z43.6 Encounter for attention to other artificial openings of urinary tract (principal); N13.9 Obstructive and reflux uropathy, unspecified; I12.9 Hypertensive chronic kidney disease with stage 1 through stage 4 chronic kidney disease, or unspecified chronic kidney disease; N18.2 Chronic kidney disease, stage 2 (mild); D50.9 Iron deficiency anemia, unspecified; N25.81 Secondary hyperparathyroidism of renal origin; E87.6 Hypokalemia; E78.00 Pure hypercholesterolemia, unspecified; E55.9 Vitamin D deficiency, unspecified
CPT/HCPCS: 99211

== ENCOUNTER 2023-02-01 03:08 | Day surgery (SDC) | payer SELFPAY ==
[2023-02-01 15:52] VITALS: BP 112/75
--- NOTE | 2023-02-01 15:55 | NUR ---
NEPHROSTOMY DRESSING CHANGE X2 SITES. BOTH DRESSINGS WITH A SCANT AMOUNT OF FIELDS FLUID AT INSERTION SITE OF DRAINS. SKIN CLEANED WITH CHLORHEXIDINE AND LET DRY. SKIN PREP APPLIED AND LET DRY. NEW STAY-FIT DRESSINGS FOR BOTH SIDES. TEGADERM ON BOTH SITES. PT TOLERATED PROCEDURE WELL.
== END 2023-02-01 15:51 | disposition home or self-care (01) ==
LOC: ATC 03:08
DX: Z43.6 Encounter for attention to other artificial openings of urinary tract (principal); N13.9 Obstructive and reflux uropathy, unspecified; N18.2 Chronic kidney disease, stage 2 (mild); D63.1 Anemia in chronic kidney disease; D50.9 Iron deficiency anemia, unspecified; N25.81 Secondary hyperparathyroidism of renal origin; E78.00 Pure hypercholesterolemia, unspecified
CPT/HCPCS: 99211

== ENCOUNTER 2023-02-08 03:18 | Day surgery (SDC) | payer SELFPAY ==
[2023-02-08 15:45] VITALS: BP 120/85
== END 2023-02-08 15:25 | disposition home or self-care (01) ==
LOC: ATC 03:18
DX: Z43.6 Encounter for attention to other artificial openings of urinary tract (principal); N13.9 Obstructive and reflux uropathy, unspecified; I12.9 Hypertensive chronic kidney disease with stage 1 through stage 4 chronic kidney disease, or unspecified chronic kidney disease; N18.2 Chronic kidney disease, stage 2 (mild); N25.81 Secondary hyperparathyroidism of renal origin; E78.00 Pure hypercholesterolemia, unspecified; E86.9 Volume depletion, unspecified; D50.9 Iron deficiency anemia, unspecified; Z79.899 Other long term (current) drug therapy
CPT/HCPCS: 99211

== ENCOUNTER 2023-02-15 03:11 | Day surgery (SDC) | payer SELFPAY ==
[2023-02-15 15:37] VITALS: BP 119/71
== END 2023-02-15 15:37 | disposition home or self-care (01) ==
LOC: ATC 03:11
DX: Z43.6 Encounter for attention to other artificial openings of urinary tract (principal); N13.9 Obstructive and reflux uropathy, unspecified; I12.9 Hypertensive chronic kidney disease with stage 1 through stage 4 chronic kidney disease, or unspecified chronic kidney disease; N18.2 Chronic kidney disease, stage 2 (mild); E55.9 Vitamin D deficiency, unspecified; E78.00 Pure hypercholesterolemia, unspecified; D50.9 Iron deficiency anemia, unspecified; N25.81 Secondary hyperparathyroidism of renal origin
CPT/HCPCS: 99212

== ENCOUNTER 2023-02-22 02:07 | Day surgery (SDC) | payer SELFPAY ==
[2023-02-22 15:44] VITALS: BP 118/55
== END 2023-02-22 15:44 | disposition home or self-care (01) ==
LOC: ATC 02:07
DX: Z43.6 Encounter for attention to other artificial openings of urinary tract (principal); N13.9 Obstructive and reflux uropathy, unspecified; I12.9 Hypertensive chronic kidney disease with stage 1 through stage 4 chronic kidney disease, or unspecified chronic kidney disease; N18.2 Chronic kidney disease, stage 2 (mild); N25.81 Secondary hyperparathyroidism of renal origin; D50.9 Iron deficiency anemia, unspecified; E87.6 Hypokalemia; E78.00 Pure hypercholesterolemia, unspecified; E55.9 Vitamin D deficiency, unspecified; Z79.899 Other long term (current) drug therapy
CPT/HCPCS: 99212

== ENCOUNTER 2023-03-08 00:19 | Day surgery (SDC) | payer SELFPAY ==
--- NOTE | 2023-03-01 16:11 | NUR ---
CAR TROUBLE AND UNABLE TO MAKE IT TO HER APPT
[2023-03-08 15:31] VITALS: BP 106/67
== END 2023-03-08 15:39 | disposition home or self-care (01) ==
LOC: ATC 00:19
DX: Z43.6 Encounter for attention to other artificial openings of urinary tract (principal); N13.9 Obstructive and reflux uropathy, unspecified; N18.2 Chronic kidney disease, stage 2 (mild); I12.9 Hypertensive chronic kidney disease with stage 1 through stage 4 chronic kidney disease, or unspecified chronic kidney disease; D63.0 Anemia in neoplastic disease; N25.81 Secondary hyperparathyroidism of renal origin; E78.00 Pure hypercholesterolemia, unspecified
CPT/HCPCS: 99211

== ENCOUNTER 2023-03-15 01:14 | Day surgery (SDC) | payer SELFPAY ==
[2023-03-15 15:20] VITALS: BP 122/74
== END 2023-03-15 15:40 | disposition home or self-care (01) ==
LOC: ATC 01:14
DX: Z43.6 Encounter for attention to other artificial openings of urinary tract (principal); N13.9 Obstructive and reflux uropathy, unspecified; I12.9 Hypertensive chronic kidney disease with stage 1 through stage 4 chronic kidney disease, or unspecified chronic kidney disease; N18.2 Chronic kidney disease, stage 2 (mild); N25.81 Secondary hyperparathyroidism of renal origin; D50.9 Iron deficiency anemia, unspecified; E87.6 Hypokalemia; E78.00 Pure hypercholesterolemia, unspecified; E55.9 Vitamin D deficiency, unspecified
CPT/HCPCS: 99211

== ENCOUNTER 2023-03-22 00:42 | Day surgery (SDC) | payer SELFPAY ==
[2023-03-22 15:19] VITALS: BP 118/73
== END 2023-03-22 15:29 | disposition home or self-care (01) ==
LOC: ATC 00:42
DX: Z43.6 Encounter for attention to other artificial openings of urinary tract (principal); N13.9 Obstructive and reflux uropathy, unspecified; N18.2 Chronic kidney disease, stage 2 (mild); D63.0 Anemia in neoplastic disease; D63.1 Anemia in chronic kidney disease; N25.81 Secondary hyperparathyroidism of renal origin; D50.9 Iron deficiency anemia, unspecified; E78.00 Pure hypercholesterolemia, unspecified; I12.9 Hypertensive chronic kidney disease with stage 1 through stage 4 chronic kidney disease, or unspecified chronic kidney disease
CPT/HCPCS: 99211

== ENCOUNTER 2023-03-29 00:56 | Day surgery (SDC) | payer SELFPAY ==
[2023-04-01] MEDS ORDERED: ALUMINUM H320 MG/5 M PO (21:49)
[2023-04-01] MEDS ORDERED: CYCL10 PO (21:50)
[2023-04-02] MEDS ORDERED: OSEL75CA PO (12:03)
[2023-04-02] MEDS ORDERED: CIPR500 PO (12:04)
== END 2023-03-29 15:27 | disposition home or self-care (01) ==
LOC: ATC 00:56
DX: Z43.6 Encounter for attention to other artificial openings of urinary tract (principal); N13.9 Obstructive and reflux uropathy, unspecified; I12.9 Hypertensive chronic kidney disease with stage 1 through stage 4 chronic kidney disease, or unspecified chronic kidney disease; N18.2 Chronic kidney disease, stage 2 (mild); N25.81 Secondary hyperparathyroidism of renal origin; E78.00 Pure hypercholesterolemia, unspecified; E55.9 Vitamin D deficiency, unspecified; Z79.899 Other long term (current) drug therapy
CPT/HCPCS: 99211

== ENCOUNTER 2023-04-05 04:58 | Day surgery (SDC) | payer SELFPAY ==
[~2023-04-05 04:58] MED LIST changes: +ALUMINUM H320 MG/5 M PO; +OSEL75CA PO
[2023-04-05 15:40] VITALS: BP 125/93
== END 2023-04-05 15:46 | disposition home or self-care (01) ==
LOC: ATC 04:58
DX: Z43.6 Encounter for attention to other artificial openings of urinary tract (principal); N13.9 Obstructive and reflux uropathy, unspecified; I12.9 Hypertensive chronic kidney disease with stage 1 through stage 4 chronic kidney disease, or unspecified chronic kidney disease; N18.2 Chronic kidney disease, stage 2 (mild); N25.81 Secondary hyperparathyroidism of renal origin; E86.9 Volume depletion, unspecified; E78.00 Pure hypercholesterolemia, unspecified; E55.9 Vitamin D deficiency, unspecified; Z79.899 Other long term (current) drug therapy
CPT/HCPCS: 99211

== ENCOUNTER 2023-06-07 01:34 | Day surgery (SDC) | payer OTHER ==
[2023-06-07 15:30] VITALS: BP 130/77
== END 2023-06-07 15:45 | disposition home or self-care (01) ==
LOC: ATC 01:34
DX: Z43.6 Encounter for attention to other artificial openings of urinary tract (principal); N13.9 Obstructive and reflux uropathy, unspecified; I12.9 Hypertensive chronic kidney disease with stage 1 through stage 4 chronic kidney disease, or unspecified chronic kidney disease; N18.2 Chronic kidney disease, stage 2 (mild); N25.81 Secondary hyperparathyroidism of renal origin; E78.00 Pure hypercholesterolemia, unspecified
CPT/HCPCS: 99211

== ENCOUNTER 2023-06-14 04:18 | Day surgery (SDC) | payer OTHER ==
[2023-06-14 15:56] VITALS: BP 118/83
== END 2023-06-14 15:56 | disposition home or self-care (01) ==
LOC: ATC 04:18
DX: Z43.6 Encounter for attention to other artificial openings of urinary tract (principal); N13.9 Obstructive and reflux uropathy, unspecified; I12.9 Hypertensive chronic kidney disease with stage 1 through stage 4 chronic kidney disease, or unspecified chronic kidney disease; N18.2 Chronic kidney disease, stage 2 (mild); N25.81 Secondary hyperparathyroidism of renal origin; E78.00 Pure hypercholesterolemia, unspecified
CPT/HCPCS: 99211

== ENCOUNTER 2023-06-21 05:09 | Day surgery (SDC) | payer OTHER ==
[2023-06-21 15:25] VITALS: BP 126/62
== END 2023-06-21 15:30 | disposition home or self-care (01) ==
LOC: ATC 05:09
DX: N13.9 Obstructive and reflux uropathy, unspecified (principal); I12.9 Hypertensive chronic kidney disease with stage 1 through stage 4 chronic kidney disease, or unspecified chronic kidney disease; N18.2 Chronic kidney disease, stage 2 (mild); D63.0 Anemia in neoplastic disease; N25.81 Secondary hyperparathyroidism of renal origin; D50.9 Iron deficiency anemia, unspecified; E86.9 Volume depletion, unspecified; R80.9 Proteinuria, unspecified; E87.6 Hypokalemia; E78.00 Pure hypercholesterolemia, unspecified; E55.9 Vitamin D deficiency, unspecified; Z93.6 Other artificial openings of urinary tract status; Z79.899 Other long term (current) drug therapy

== ENCOUNTER 2023-07-26 06:20 | Day surgery (SDC) | payer SELFPAY ==
[2023-07-26 15:28] VITALS: BP 116/68
== END 2023-07-26 15:38 | disposition home or self-care (01) ==
LOC: ATC 06:20
DX: Z43.6 Encounter for attention to other artificial openings of urinary tract (principal); N13.9 Obstructive and reflux uropathy, unspecified; I12.9 Hypertensive chronic kidney disease with stage 1 through stage 4 chronic kidney disease, or unspecified chronic kidney disease; N18.2 Chronic kidney disease, stage 2 (mild); N25.81 Secondary hyperparathyroidism of renal origin; E78.00 Pure hypercholesterolemia, unspecified; E55.9 Vitamin D deficiency, unspecified; Z79.899 Other long term (current) drug therapy
CPT/HCPCS: 99211

== ENCOUNTER 2023-08-02 02:05 | Day surgery (SDC) | payer OTHER ==
[2023-08-02 15:35] VITALS: BP 117/65
== END 2023-08-02 15:35 | disposition home or self-care (01) ==
LOC: ATC 02:05
DX: Z43.6 Encounter for attention to other artificial openings of urinary tract (principal); N13.9 Obstructive and reflux uropathy, unspecified; I12.9 Hypertensive chronic kidney disease with stage 1 through stage 4 chronic kidney disease, or unspecified chronic kidney disease; N18.2 Chronic kidney disease, stage 2 (mild); E55.9 Vitamin D deficiency, unspecified; E78.00 Pure hypercholesterolemia, unspecified; N25.81 Secondary hyperparathyroidism of renal origin; Z79.899 Other long term (current) drug therapy
CPT/HCPCS: 99211

== ENCOUNTER 2023-08-04 16:57 | Emergency (ER) | payer OTHER ==
[~2023-08-04] VITALS: Ht 152.4 cm; Wt 57.1 kg
[2023-08-04] MEDS ORDERED: Ondansetron HCl 2 MG / ML 2ML Vial IV ONE (17:10)
[2023-08-04 17:27] LABS: BASOPHILS ABSOLUTE AUTO 0.03 K/mm3 (0.00-0.23); BASOPHILS PERCENT AUTO 1 % (0-2); EOSINOPHILS ABSOLUTE AUTO 0.28 K/mm3 (0.00-0.68); EOSINOPHILS PERCENT AUTO 5 % (0-6); Hematocrit 39.6 % (33.0-51.0); Hemoglobin 13.3 g/dL (11.5-16.0); IMMATURE GRAN ABSOLUTE AUTO 0.02 K/mm3 (0.00-0.10); IMMATURE GRAN PERCENT AUTO 0 % (0-1); LYMPHOCYTES ABSOLUTE AUTO 1.82 K/mm3 (0.84-5.20); LYMPHOCYTES PERCENT AUTO 30 % (21-46); MONOCYTES ABSOLUTE AUTO 0.35 K/mm3 (0.16-1.47); MONOCYTES PERCENT AUTO 6 % (4-13); Mean Corpuscular HGB 30.6 pg (26.0-34.0); Mean Corpuscular HGB Conc 33.6 g/dL (31.5-36.5); Mean Corpuscular Volume 91 fL (80-100); Mean Platelet Volume 10.6 fL (9.1-12.4); NEUTROPHILS ABSOLUTE AUTO 3.49 K/mm3 (1.96-9.15); NEUTROPHILS PERCENT AUTO 58 % (41-73); Platelet Count 279 K/mm3 (150-400); RDW Coefficient Variation 13.6 % (11.7-14.2); RDW Standard Deviation 45.6 fL (35.1-46.3); Red Blood Cell Count 4.35 M/mm3 (3.80-5.20); White Blood Cell Count 5.99 K/mm3 (4.00-11.30)
[2023-08-04 17:48] LABS: Albumin, Blood 3.7 g/dL (3.4-5.0); Albumin/Globulin Ratio 0.9 (0.8-1.8); Bilirubin, Total 0.2 mg/dL (0.1-1.0); Bun/Creatinine Ratio 28.6 (12.0-20.0); Calcium, Blood 8.8 mg/dL (8.5-10.1); Creatinine, Blood 0.91 mg/dL (0.40-1.00); Total Protein, Blood 7.7 g/dL (6.4-8.2)
[2023-08-04] MEDS ORDERED: Lactated Ringer's 1,000 ML IV ONE (18:35)
[2023-08-04] MEDS ORDERED: FentaNYL Citrate 50 MCG/ML 2 ML Injection IV ONE (18:35)
[2023-08-04] MEDS ORDERED: Piperacillin/Tazobactam Sod 4.5 GM in NS 100 ML IV ONE (19:05)
[2023-08-04 20:52] VITALS: BP 111/71
== END 2023-08-04 20:53 | disposition home or self-care (01) ==
LOC: ER 16:57
PROVIDERS: Physician Assistant
DX: K80.01 Calculus of gallbladder with acute cholecystitis with obstruction (principal); D72.829 Elevated white blood cell count, unspecified; K21.9 Gastro-esophageal reflux disease without esophagitis; N18.9 Chronic kidney disease, unspecified; Z79.899 Other long term (current) drug therapy
CPT/HCPCS: 76705; 80053; 83690; 84703; 85025; 96365; 96375; 99284-25; J2405; J2543; J3010; J7120

== ENCOUNTER 2023-08-09 03:20 | Day surgery (SDC) | payer OTHER ==
[2023-08-09 15:18] VITALS: BP 120/76
== END 2023-08-09 15:28 | disposition home or self-care (01) ==
LOC: ATC 03:20
DX: Z43.6 Encounter for attention to other artificial openings of urinary tract (principal); N13.9 Obstructive and reflux uropathy, unspecified; I12.9 Hypertensive chronic kidney disease with stage 1 through stage 4 chronic kidney disease, or unspecified chronic kidney disease; N18.2 Chronic kidney disease, stage 2 (mild); N25.81 Secondary hyperparathyroidism of renal origin; E78.00 Pure hypercholesterolemia, unspecified; E55.9 Vitamin D deficiency, unspecified
CPT/HCPCS: 99212

== ENCOUNTER 2023-08-16 02:44 | Day surgery (SDC) | payer OTHER ==
[2023-08-16 15:24] VITALS: BP 97/67
== END 2023-08-16 15:24 | disposition home or self-care (01) ==
LOC: ATC 02:44
DX: N13.9 Obstructive and reflux uropathy, unspecified (principal)
CPT/HCPCS: 99212

== ENCOUNTER 2023-08-22 07:20 | Day surgery (SDC) | payer OTHER ==
[~2023-08-22] VITALS: Ht 149.9 cm; Wt 61.3 kg
[~2023-08-22 07:20] MED LIST changes: +LOSA25 PO
[2023-08-22 08:00] VITALS: BP 146/73
[2023-08-22] MEDS ORDERED: NS 250 ML IV ONE (08:06)
[2023-08-22 08:10] VITALS: BP 146/73
--- NOTE | 2023-08-22 08:30 | NUR ---
dr rust at bedside seeing pt
[2023-08-22 09:25] VITALS: BP 122/65
--- NOTE | 2023-08-22 09:30 | NUR ---
pt given d/c instructions by flash zarate. pt and verbalized udnerstadning. pt changed and taken to [facility].
--- NOTE | 2023-08-22 09:39 | NUR ---
NO BLEEDING AT SITE. STAYFIX IN PLACE. PT SENT HOME W/ EXTRA STAYFIX
== END 2023-08-22 09:48 | disposition home or self-care (01) ==
LOC: MHTC 07:20
PROC: 0T25X0Z Change Drainage Device in Kidney, External Approach (ICD-10-PCS; principal; 2023-08-22)
DX: Z46.6 Encounter for fitting and adjustment of urinary device (principal); C53.9 Malignant neoplasm of cervix uteri, unspecified; N13.1 Hydronephrosis with ureteral stricture, not elsewhere classified; Z79.899 Other long term (current) drug therapy
CPT/HCPCS: 50435; C1729; C1769; J7050

== ENCOUNTER 2023-08-30 05:44 | Day surgery (SDC) | payer SELFPAY ==
[2023-08-30 15:23] VITALS: BP 108/50
== END 2023-08-30 15:32 | disposition home or self-care (01) ==
LOC: ATC 05:44
DX: Z43.6 Encounter for attention to other artificial openings of urinary tract (principal); N13.9 Obstructive and reflux uropathy, unspecified; I12.9 Hypertensive chronic kidney disease with stage 1 through stage 4 chronic kidney disease, or unspecified chronic kidney disease; N18.2 Chronic kidney disease, stage 2 (mild); E78.00 Pure hypercholesterolemia, unspecified; E55.9 Vitamin D deficiency, unspecified; D50.9 Iron deficiency anemia, unspecified; N25.81 Secondary hyperparathyroidism of renal origin; Z79.899 Other long term (current) drug therapy
CPT/HCPCS: 99211

== ENCOUNTER 2023-09-06 02:01 | Day surgery (SDC) | payer OTHER ==
[2023-09-06 15:32] VITALS: BP 113/69
== END 2023-09-06 15:41 | disposition home or self-care (01) ==
LOC: ATC 02:01
DX: Z43.6 Encounter for attention to other artificial openings of urinary tract (principal); N13.9 Obstructive and reflux uropathy, unspecified; I12.9 Hypertensive chronic kidney disease with stage 1 through stage 4 chronic kidney disease, or unspecified chronic kidney disease; N18.2 Chronic kidney disease, stage 2 (mild); D63.1 Anemia in chronic kidney disease; N25.81 Secondary hyperparathyroidism of renal origin; E78.00 Pure hypercholesterolemia, unspecified; E55.9 Vitamin D deficiency, unspecified
CPT/HCPCS: 99211

== ENCOUNTER 2023-10-04 03:14 | Day surgery (SDC) | payer OTHER ==
[2023-10-04 15:35] VITALS: BP 111/75
== END 2023-10-04 15:52 | disposition home or self-care (01) ==
LOC: ATC 03:14
DX: Z43.6 Encounter for attention to other artificial openings of urinary tract (principal); N13.9 Obstructive and reflux uropathy, unspecified; I12.9 Hypertensive chronic kidney disease with stage 1 through stage 4 chronic kidney disease, or unspecified chronic kidney disease; N18.2 Chronic kidney disease, stage 2 (mild); E78.00 Pure hypercholesterolemia, unspecified; Z79.899 Other long term (current) drug therapy
CPT/HCPCS: 99212

== ENCOUNTER 2023-10-11 01:16 | Day surgery (SDC) | payer OTHER ==
[2023-10-11 15:40] VITALS: BP 148/72
== END 2023-10-11 16:01 | disposition home or self-care (01) ==
LOC: ATC 01:16
DX: Z43.6 Encounter for attention to other artificial openings of urinary tract (principal); N13.9 Obstructive and reflux uropathy, unspecified; I12.9 Hypertensive chronic kidney disease with stage 1 through stage 4 chronic kidney disease, or unspecified chronic kidney disease; N18.2 Chronic kidney disease, stage 2 (mild); N25.81 Secondary hyperparathyroidism of renal origin; E78.00 Pure hypercholesterolemia, unspecified; Z79.899 Other long term (current) drug therapy
CPT/HCPCS: 99212

== ENCOUNTER 2023-10-18 15:00 | Day surgery (SDC) | payer OTHER ==
[2023-10-18 15:02] VITALS: BP 110/72
== END 2023-10-18 15:23 | disposition home or self-care (01) ==
LOC: ATC 15:00
DX: Z43.6 Encounter for attention to other artificial openings of urinary tract (principal); N13.9 Obstructive and reflux uropathy, unspecified; I12.9 Hypertensive chronic kidney disease with stage 1 through stage 4 chronic kidney disease, or unspecified chronic kidney disease; N18.2 Chronic kidney disease, stage 2 (mild); E78.00 Pure hypercholesterolemia, unspecified; Z79.899 Other long term (current) drug therapy
CPT/HCPCS: 99212

== ENCOUNTER 2023-11-01 04:20 | Day surgery (SDC) | payer OTHER ==
[2023-11-01 15:15] VITALS: BP 105/66
== END 2023-11-01 15:15 | disposition home or self-care (01) ==
LOC: ATC 04:20
DX: Z43.6 Encounter for attention to other artificial openings of urinary tract (principal); N13.9 Obstructive and reflux uropathy, unspecified; I12.9 Hypertensive chronic kidney disease with stage 1 through stage 4 chronic kidney disease, or unspecified chronic kidney disease; N18.2 Chronic kidney disease, stage 2 (mild); E78.00 Pure hypercholesterolemia, unspecified; Z79.899 Other long term (current) drug therapy
CPT/HCPCS: 99211

== ENCOUNTER 2023-11-08 01:24 | Day surgery (SDC) | payer OTHER ==
[2023-11-08 15:15] VITALS: BP 102/85
== END 2023-11-08 15:23 | disposition home or self-care (01) ==
LOC: ATC 01:24
DX: N13.9 Obstructive and reflux uropathy, unspecified (principal); I12.9 Hypertensive chronic kidney disease with stage 1 through stage 4 chronic kidney disease, or unspecified chronic kidney disease; N18.2 Chronic kidney disease, stage 2 (mild); D63.1 Anemia in chronic kidney disease; N25.81 Secondary hyperparathyroidism of renal origin; Z79.899 Other long term (current) drug therapy
CPT/HCPCS: 99212

== ENCOUNTER 2023-11-15 03:50 | Day surgery (SDC) | payer SELFPAY ==
--- NOTE | 2023-11-15 15:34 | NUR ---
PT EDUCATION/RESOURCE DISCUSSION AFTER SPEAKING AT LENGTH WITH THE PT, SHE SHARED SOME FINANCIAL CONCERNS AND SOME FOOD INSECURITY. PROVIDED PRINTED INFORMATION ABOUT RESOURCES AVAILABLE AT [facility] AND THE FISH PANTRY IN [place]. PT STATES "THANK YOU SO MUCH, ANOTHER NURSE TOLD ME WHEN I FIRST GOT SICK THAT THERE WERE NO RESOURCES AVAILABLE BECAUSE WE ARE [place]". REASSURED THE PT THAT THE RESOURCES REFERENCED ON THE PAPERWORK PROVIDED WOULD BE AVAILABLE TO THEM WITHOUT DISCRIMINATION. NO FURTHER QUESTIONS OR NEEDS IDENTIFIED AT THIS TIME.
[2023-11-15 16:02] VITALS: BP 128/82
== END 2023-11-15 15:34 | disposition home or self-care (01) ==
LOC: ATC 03:50
DX: Z48.01 Encounter for change or removal of surgical wound dressing (principal); I12.9 Hypertensive chronic kidney disease with stage 1 through stage 4 chronic kidney disease, or unspecified chronic kidney disease; N18.2 Chronic kidney disease, stage 2 (mild); N25.81 Secondary hyperparathyroidism of renal origin; E78.00 Pure hypercholesterolemia, unspecified; Z93.6 Other artificial openings of urinary tract status; Z79.899 Other long term (current) drug therapy; Z90.5 Acquired absence of kidney
CPT/HCPCS: 99212

== ENCOUNTER 2023-11-22 03:04 | Day surgery (SDC) | payer SELFPAY ==
[2023-11-22 15:26] VITALS: BP 114/83
== END 2023-11-22 15:34 | disposition home or self-care (01) ==
LOC: ATC 03:04
DX: Z43.6 Encounter for attention to other artificial openings of urinary tract (principal); N13.9 Obstructive and reflux uropathy, unspecified; I12.9 Hypertensive chronic kidney disease with stage 1 through stage 4 chronic kidney disease, or unspecified chronic kidney disease; N18.2 Chronic kidney disease, stage 2 (mild); E78.00 Pure hypercholesterolemia, unspecified; Z79.899 Other long term (current) drug therapy
CPT/HCPCS: 99212

== ENCOUNTER 2023-11-29 01:57 | Day surgery (SDC) | payer SELFPAY | END 2023-11-29 15:26 | disposition home or self-care (01) | LOC: ATC 01:57 | DX: Z43.6 Encounter for attention to other artificial openings of urinary tract (principal); N13.9 Obstructive and reflux uropathy, unspecified; I12.9 Hypertensive chronic kidney disease with stage 1 through stage 4 chronic kidney disease, or unspecified chronic kidney disease; N18.2 Chronic kidney disease, stage 2 (mild); N25.81 Secondary hyperparathyroidism of renal origin; D63.1 Anemia in chronic kidney disease; E78.00 Pure hypercholesterolemia, unspecified; Z79.899 Other long term (current) drug therapy; Z90.5 Acquired absence of kidney | CPT/HCPCS: 99212 ==

== ENCOUNTER 2023-12-02 09:10 | Emergency (ER) | payer OTHER ==
[~2023-12-02] VITALS: Ht 152.4 cm; Wt 59.0 kg
[2023-12-02 09:55] VITALS: BP 132/83
[2023-12-02 10:51] LABS: Source, Urine Clean Catch
[2023-12-02 11:23] LABS: BASOPHILS ABSOLUTE AUTO 0.02 K/mm3 (0.00-0.23); BASOPHILS PERCENT AUTO 0 % (0-2); EOSINOPHILS ABSOLUTE AUTO 0.35 K/mm3 (0.00-0.68); EOSINOPHILS PERCENT AUTO 6 % (0-6); Hematocrit 39.6 % (33.0-51.0); Hemoglobin 13.2 g/dL (11.5-16.0); IMMATURE GRAN ABSOLUTE AUTO 0.02 K/mm3 (0.00-0.10); IMMATURE GRAN PERCENT AUTO 0 % (0-1); LYMPHOCYTES ABSOLUTE AUTO 1.39 K/mm3 (0.84-5.20); LYMPHOCYTES PERCENT AUTO 22 % (21-46); MONOCYTES ABSOLUTE AUTO 0.28 K/mm3 (0.16-1.47); MONOCYTES PERCENT AUTO 5 % (4-13); Mean Corpuscular HGB 29.9 pg (26.0-34.0); Mean Corpuscular HGB Conc 33.3 g/dL (31.5-36.5); Mean Corpuscular Volume 90 fL (80-100); Mean Platelet Volume 10.5 fL (9.1-12.4); NEUTROPHILS PERCENT AUTO 67 % (41-73); Platelet Count 292 K/mm3 (150-400); RDW Coefficient Variation 13.2 % (11.7-14.2); RDW Standard Deviation 43.5 fL (35.1-46.3); Red Blood Cell Count 4.42 M/mm3 (3.80-5.20); White Blood Cell Count 6.26 K/mm3 (4.00-11.30)
[2023-12-02 11:24] LABS: Bilirubin, Urine Neg (Neg); Blood, Urine 3+ (Neg); Glucose Qualitative, Urine Neg (Neg); Ketones, Urine Neg (Neg); Leukocyte Esterase, Urine 3+ (Neg); Nitrite, Urine Pos (Neg); Protein, Urine 2+ (Neg); Specific Gravity, Urine 1.015 (1.003-1.022); Urobilinogen, Urine NORM (Normal)
[2023-12-02 11:32] LABS: Albumin, Blood 3.5 g/dL (3.4-5.0); Albumin/Globulin Ratio 0.9 (0.8-1.8); Bilirubin, Total 0.2 mg/dL (0.1-1.0); Calcium, Blood 9.1 mg/dL (8.5-10.1); Creatinine, Blood 0.85 mg/dL (0.40-1.00); Potassium, Blood 4.1 mmol/L (3.5-5.5); Total Protein, Blood 7.5 g/dL (6.4-8.2)
[2023-12-02 11:46] LABS: Appearance, Urine Hazy (Clear); Color, Urine Yellow (P-Yellow)
[2023-12-02 11:47] LABS: Bacteria Mod /hpf; Squamous Epithelial Cells Few /hpf (Few)
[2023-12-02] MEDS ORDERED: Morphine Sulfate 4 MG/1 ML Injection IV ONE (13:10)
[2023-12-02] MEDS ORDERED: CefTRIAXone Sodium 1,000 MG in NS 100 ML IV ONE (13:20)
[2023-12-02] MEDS ORDERED: LIDO700A20 TOP (14:18)
[2023-12-02] MEDS ORDERED: SULTRIDS PO (14:18)
[2023-12-02] MEDS ORDERED: Lidocaine 4% 1 Patch TOP ONE (14:45)
== END 2023-12-02 15:01 | disposition home or self-care (01) ==
LOC: ER 09:10
PROVIDERS: Physician Assistant
DX: N12 Tubulo-interstitial nephritis, not specified as acute or chronic (principal); K21.9 Gastro-esophageal reflux disease without esophagitis; Z79.899 Other long term (current) drug therapy
CPT/HCPCS: 74177; 80053; 81001; 85025; 87077; 87086; 87186; 96365-59; 96375; 99284-25; A9270; J0696; J2270; Q9967

== ENCOUNTER 2023-12-06 02:25 | Day surgery (SDC) | payer OTHER ==
[~2023-12-06 02:25] MED LIST changes: +LIDO700A20 TOP; +SULTRIDS PO
== END 2023-12-06 15:53 | disposition home or self-care (01) ==
LOC: ATC 02:25
DX: Z43.6 Encounter for attention to other artificial openings of urinary tract (principal); N13.9 Obstructive and reflux uropathy, unspecified; I12.9 Hypertensive chronic kidney disease with stage 1 through stage 4 chronic kidney disease, or unspecified chronic kidney disease; N18.2 Chronic kidney disease, stage 2 (mild); N25.81 Secondary hyperparathyroidism of renal origin; E78.00 Pure hypercholesterolemia, unspecified; E55.9 Vitamin D deficiency, unspecified; Z79.899 Other long term (current) drug therapy
CPT/HCPCS: 99212

== ENCOUNTER 2023-12-09 13:40 | Emergency (ER) | payer OTHER ==
[~2023-12-09] VITALS: Ht 157.5 cm; Wt 72.6 kg
[2023-12-09] MEDS ORDERED: Mag Hydrox/AL Hydrox/Simeth 30 ML UDC PO ONE (14:10)
[2023-12-09] MEDS ORDERED: Ondansetron HCl 2 MG / ML 2ML Vial IV ONE ×2 (14:10→18:20)
[2023-12-09] MEDS ORDERED: Lidocaine 2% Viscous Soln 15 ML UDC PO ONE (14:10)
[2023-12-09 14:42] LABS: BASOPHILS ABSOLUTE AUTO 0.03 K/mm3 (0.00-0.23); BASOPHILS PERCENT AUTO 0 % (0-2); EOSINOPHILS PERCENT AUTO 3 % (0-6); Hematocrit 39.2 % (33.0-51.0); Hemoglobin 13.3 g/dL (11.5-16.0); IMMATURE GRAN ABSOLUTE AUTO 0.01 K/mm3 (0.00-0.10); IMMATURE GRAN PERCENT AUTO 0 % (0-1); LYMPHOCYTES ABSOLUTE AUTO 1.39 K/mm3 (0.84-5.20); LYMPHOCYTES PERCENT AUTO 20 % (21-46); MONOCYTES ABSOLUTE AUTO 0.24 K/mm3 (0.16-1.47); MONOCYTES PERCENT AUTO 3 % (4-13); Mean Corpuscular HGB 29.8 pg (26.0-34.0); Mean Corpuscular HGB Conc 33.9 g/dL (31.5-36.5); Mean Corpuscular Volume 88 fL (80-100); Mean Platelet Volume 10.2 fL (9.1-12.4); NEUTROPHILS ABSOLUTE AUTO 5.24 K/mm3 (1.96-9.15); NEUTROPHILS PERCENT AUTO 74 % (41-73); Platelet Count 293 K/mm3 (150-400); RDW Coefficient Variation 13.2 % (11.7-14.2); RDW Standard Deviation 42.3 fL (35.1-46.3); Red Blood Cell Count 4.46 M/mm3 (3.80-5.20); White Blood Cell Count 7.11 K/mm3 (4.00-11.30)
[2023-12-09 15:02] LABS: Albumin, Blood 3.6 g/dL (3.4-5.0); Albumin/Globulin Ratio 0.9 (0.8-1.8); Bilirubin, Total 0.5 mg/dL (0.1-1.0); Calcium, Blood 9.2 mg/dL (8.5-10.1); Creatinine, Blood 1.81 mg/dL (0.40-1.00); Globulin, Blood 4.1 g/dL (2.2-4.0); Potassium, Blood 4.1 mmol/L (3.5-5.5); Total Protein, Blood 7.7 g/dL (6.4-8.2)
[2023-12-09] MEDS ORDERED: FentaNYL Citrate 50 MCG/ML 2 ML Injection IV ONE (18:20)
[2023-12-09] MEDS ORDERED: NS 1,000 ML IV SCH (18:20)
[2023-12-09] MEDS ORDERED: RX Prepack 6 Tabs Oxycodone 5mg UD ONE (20:10)
[2023-12-09 20:15] VITALS: BP 117/73
[2023-12-09] MEDS ORDERED: RX Prepack 2 Tabs Ondansetron ODT 4MG UD ONE (20:15)
== END 2023-12-09 20:52 | disposition home or self-care (01) ==
LOC: ER 13:40
PROVIDERS: Emergency Medicine
DX: K80.50 Calculus of bile duct without cholangitis or cholecystitis without obstruction (principal); N17.9 Acute kidney failure, unspecified; N12 Tubulo-interstitial nephritis, not specified as acute or chronic; N18.9 Chronic kidney disease, unspecified; R73.03 Prediabetes; K21.9 Gastro-esophageal reflux disease without esophagitis; Z93.6 Other artificial openings of urinary tract status; Z79.2 Long term (current) use of antibiotics; Z79.899 Other long term (current) drug therapy
CPT/HCPCS: 71045; 76705; 76770; 80053; 83690; 84484; 85025; 93005; 93010; 96374; 96375; 96376; 99285-25; A9270; J2405; J3010; J7030

== ENCOUNTER 2023-12-11 04:00 | Day surgery (SDC) | payer OTHER ==
[2023-12-11 15:05] VITALS: BP 104/55
== END 2023-12-11 15:10 | disposition home or self-care (01) ==
LOC: ATC 04:00
DX: Z43.6 Encounter for attention to other artificial openings of urinary tract (principal); N13.9 Obstructive and reflux uropathy, unspecified; I12.9 Hypertensive chronic kidney disease with stage 1 through stage 4 chronic kidney disease, or unspecified chronic kidney disease; N18.2 Chronic kidney disease, stage 2 (mild); N25.81 Secondary hyperparathyroidism of renal origin; D63.1 Anemia in chronic kidney disease; E78.00 Pure hypercholesterolemia, unspecified; D50.9 Iron deficiency anemia, unspecified; Z79.899 Other long term (current) drug therapy
CPT/HCPCS: 99211

== ENCOUNTER 2023-12-20 02:53 | Day surgery (SDC) | payer OTHER | END 2023-12-20 15:40 | disposition home or self-care (01) | LOC: ATC 02:53 | DX: Z43.6 Encounter for attention to other artificial openings of urinary tract (principal); N13.9 Obstructive and reflux uropathy, unspecified; I12.9 Hypertensive chronic kidney disease with stage 1 through stage 4 chronic kidney disease, or unspecified chronic kidney disease; N18.2 Chronic kidney disease, stage 2 (mild); D63.1 Anemia in chronic kidney disease; N25.81 Secondary hyperparathyroidism of renal origin; E55.9 Vitamin D deficiency, unspecified; E78.00 Pure hypercholesterolemia, unspecified; Z79.899 Other long term (current) drug therapy | CPT/HCPCS: 99212 ==

== ENCOUNTER 2024-01-03 00:18 | Day surgery (SDC) | payer OTHER ==
--- NOTE | 2024-01-03 16:00 | NUR ---
NEPHROSTOMY CONCERNS PT ARRIVED TO ROOM, C/O PAIN TO RIGHT SIDE. UPON INSPECTION OF NEPHROSTOMY DRESSING, SIGNIFICANT BROWN DRAINAGE NOTED BOTH ON TOP OF AND UNDERNEATH STAYFIX. DRESSING REMOVED AND CHLORPREP USED WITH STERILE TECHNIQUE. A SMALL RAISED AREA WAS NOTED ON THE RIGHT LATERAL SIDE OF THE STOMA. IT'S APPEARANCE WAS SIMILAR TO A HEMMORHOID AND THERE WAS BRIGHT RED DRAINAGE OBSERVED ON THE SURFACE. GENTLE CLEANSING WAS UNDERTAKEN AND A FRESH DRESSING APPLIED. PT AGREED TO WAIT WHILE THIS RN CONTACTED DR. WEINBERG'S OFFICE. PT IS HEBREW SPEAKING ONLY AND WAS CONCERNED ABOUT COMMUNICATION ISSUES. JOSH AT DR. WEINBERG'S AGREED TO CONTACT HIM VIA TEXT BUT EXPRESSED THAT IT MIGHT BE SOME TIME FOR A RESPONSE. ASKED HER TO COMMUNICATE TO HIM THAT I WAS RECOMMENDING THAT THE PT PRESENT TO THE ER FOR PAIN AND DRAINAGE FROM THE RIGHT NEPHROSTOMY. PT AGREED TO GO TO THE ER TODAY AND I ADVISED THAT DR. WEINBERG WAS NOTIFIED VIA TEXT.
== END 2024-01-03 15:55 | disposition home or self-care (01) ==
LOC: ATC 00:18
DX: Z43.6 Encounter for attention to other artificial openings of urinary tract (principal); N13.9 Obstructive and reflux uropathy, unspecified; I12.9 Hypertensive chronic kidney disease with stage 1 through stage 4 chronic kidney disease, or unspecified chronic kidney disease; N18.2 Chronic kidney disease, stage 2 (mild); N25.81 Secondary hyperparathyroidism of renal origin; E78.00 Pure hypercholesterolemia, unspecified; Z79.899 Other long term (current) drug therapy
CPT/HCPCS: 99212

== ENCOUNTER 2024-01-03 16:13 | Emergency (ER) | payer OTHER ==
[~2024-01-03] VITALS: Ht 152.4 cm; Wt 63.5 kg
[2024-01-03 16:49] VITALS: BP 157/82
== END 2024-01-03 22:27 | disposition home or self-care (01) ==
LOC: ER 16:13
DX: Z46.6 Encounter for fitting and adjustment of urinary device (principal)
CPT/HCPCS: 99282

== ENCOUNTER 2024-01-10 04:13 | Day surgery (SDC) | payer OTHER ==
[2024-01-10 15:51] VITALS: BP 124/97
== END 2024-01-10 15:38 | disposition home or self-care (01) ==
LOC: ATC 04:13
DX: Z43.6 Encounter for attention to other artificial openings of urinary tract (principal); N13.9 Obstructive and reflux uropathy, unspecified; I12.9 Hypertensive chronic kidney disease with stage 1 through stage 4 chronic kidney disease, or unspecified chronic kidney disease; N18.2 Chronic kidney disease, stage 2 (mild); D63.1 Anemia in chronic kidney disease; N25.81 Secondary hyperparathyroidism of renal origin; E78.00 Pure hypercholesterolemia, unspecified; E55.9 Vitamin D deficiency, unspecified; Z79.899 Other long term (current) drug therapy
CPT/HCPCS: 99212

== ENCOUNTER 2024-01-17 05:05 | Day surgery (SDC) | payer OTHER ==
[2024-01-17 15:34] VITALS: BP 137/61
== END 2024-01-17 15:43 | disposition home or self-care (01) ==
LOC: ATC 05:05
DX: Z43.6 Encounter for attention to other artificial openings of urinary tract (principal); N13.9 Obstructive and reflux uropathy, unspecified; I12.9 Hypertensive chronic kidney disease with stage 1 through stage 4 chronic kidney disease, or unspecified chronic kidney disease; N18.2 Chronic kidney disease, stage 2 (mild); D63.1 Anemia in chronic kidney disease; N25.81 Secondary hyperparathyroidism of renal origin; E78.00 Pure hypercholesterolemia, unspecified; D50.9 Iron deficiency anemia, unspecified; Z79.899 Other long term (current) drug therapy
CPT/HCPCS: 99211

== ENCOUNTER → 2024-01-17 | Outpatient (CLI) | payer OTHER ==
[2024-01-17 16:32] LABS: BASOPHILS ABSOLUTE AUTO 0.03 K/mm3 (0.00-0.23); BASOPHILS PERCENT AUTO 1 % (0-2); EOSINOPHILS ABSOLUTE AUTO 0.28 K/mm3 (0.00-0.68); EOSINOPHILS PERCENT AUTO 5 % (0-6); Hematocrit 41.1 % (33.0-51.0); Hemoglobin 13.5 g/dL (11.5-16.0); IMMATURE GRAN ABSOLUTE AUTO 0.02 K/mm3 (0.00-0.10); IMMATURE GRAN PERCENT AUTO 0 % (0-1); LYMPHOCYTES PERCENT AUTO 22 % (21-46); MONOCYTES ABSOLUTE AUTO 0.29 K/mm3 (0.16-1.47); MONOCYTES PERCENT AUTO 5 % (4-13); Mean Corpuscular HGB 29.8 pg (26.0-34.0); Mean Corpuscular HGB Conc 32.8 g/dL (31.5-36.5); Mean Corpuscular Volume 91 fL (80-100); Mean Platelet Volume 10.8 fL (9.1-12.4); NEUTROPHILS ABSOLUTE AUTO 4.23 K/mm3 (1.96-9.15); NEUTROPHILS PERCENT AUTO 68 % (41-73); Platelet Count 331 K/mm3 (150-400); RDW Coefficient Variation 13.5 % (11.7-14.2); RDW Standard Deviation 45.4 fL (35.1-46.3); Red Blood Cell Count 4.53 M/mm3 (3.80-5.20); White Blood Cell Count 6.25 K/mm3 (4.00-11.30)
[2024-01-17 16:38] LABS: Albumin, Blood 3.8 g/dL (3.4-5.0); Albumin/Globulin Ratio 0.8 (0.8-1.8); Bilirubin, Total 0.2 mg/dL (0.1-1.0); Bun/Creatinine Ratio 21.7 (12.0-20.0); Calcium, Blood 9.7 mg/dL (8.5-10.1); Creatinine, Blood 0.88 mg/dL (0.40-1.00); Globulin, Blood 4.7 g/dL (2.2-4.0); Potassium, Blood 3.3 mmol/L (3.5-5.5); Total Protein, Blood 8.5 g/dL (6.4-8.2)
== END ==
LOC: LAB SHORT 15:08 → LAB 15:08
PROVIDERS: Family Medicine
DX: Z93.6 Other artificial openings of urinary tract status (principal)
CPT/HCPCS: 80053; 85025

== ENCOUNTER 2024-01-24 00:42 | Day surgery (SDC) | payer SELFPAY ==
[2024-01-24 15:35] VITALS: BP 129/67
== END 2024-01-24 15:44 | disposition home or self-care (01) ==
LOC: ATC 00:42
DX: Z43.6 Encounter for attention to other artificial openings of urinary tract (principal); N13.9 Obstructive and reflux uropathy, unspecified; I12.9 Hypertensive chronic kidney disease with stage 1 through stage 4 chronic kidney disease, or unspecified chronic kidney disease; N18.2 Chronic kidney disease, stage 2 (mild); D63.1 Anemia in chronic kidney disease; N25.81 Secondary hyperparathyroidism of renal origin; E78.00 Pure hypercholesterolemia, unspecified; Z79.899 Other long term (current) drug therapy
CPT/HCPCS: 99211

== ENCOUNTER 2024-01-31 05:43 | Day surgery (SDC) | payer SELFPAY ==
[2024-01-31 15:34] VITALS: BP 119/74
== END 2024-01-31 15:44 | disposition home or self-care (01) ==
LOC: ATC 05:43
DX: Z43.6 Encounter for attention to other artificial openings of urinary tract (principal); N13.9 Obstructive and reflux uropathy, unspecified; I12.9 Hypertensive chronic kidney disease with stage 1 through stage 4 chronic kidney disease, or unspecified chronic kidney disease; N18.2 Chronic kidney disease, stage 2 (mild); N25.81 Secondary hyperparathyroidism of renal origin; D63.1 Anemia in chronic kidney disease; E78.00 Pure hypercholesterolemia, unspecified; Z79.899 Other long term (current) drug therapy
CPT/HCPCS: 99211

== ENCOUNTER 2024-02-07 06:43 | Day surgery (SDC) | payer SELFPAY | END 2024-02-07 15:45 | disposition home or self-care (01) | LOC: ATC 06:43 | DX: N13.9 Obstructive and reflux uropathy, unspecified (principal); I12.9 Hypertensive chronic kidney disease with stage 1 through stage 4 chronic kidney disease, or unspecified chronic kidney disease; N18.2 Chronic kidney disease, stage 2 (mild); D63.1 Anemia in chronic kidney disease; N25.81 Secondary hyperparathyroidism of renal origin; Z79.899 Other long term (current) drug therapy | CPT/HCPCS: 99211 ==

== ENCOUNTER 2024-02-14 04:56 | Day surgery (SDC) | payer OTHER ==
[2024-02-14 16:00] VITALS: BP 116/60
== END 2024-02-14 16:10 | disposition home or self-care (01) ==
LOC: ATC 04:56
DX: Z43.6 Encounter for attention to other artificial openings of urinary tract (principal); N13.9 Obstructive and reflux uropathy, unspecified; I12.9 Hypertensive chronic kidney disease with stage 1 through stage 4 chronic kidney disease, or unspecified chronic kidney disease; N18.2 Chronic kidney disease, stage 2 (mild); D63.1 Anemia in chronic kidney disease; N25.81 Secondary hyperparathyroidism of renal origin; E78.00 Pure hypercholesterolemia, unspecified; Z79.899 Other long term (current) drug therapy
CPT/HCPCS: 99211

== ENCOUNTER 2024-02-21 13:47 | Emergency (ER) | payer OTHER ==
[~2024-02-21] VITALS: Ht 152.4 cm; Wt 59.9 kg
[2024-02-21 16:03] LABS: BASOPHILS ABSOLUTE AUTO 0.02 K/mm3 (0.00-0.23); BASOPHILS PERCENT AUTO 0 % (0-2); EOSINOPHILS ABSOLUTE AUTO 0.14 K/mm3 (0.00-0.68); EOSINOPHILS PERCENT AUTO 2 % (0-6); Hematocrit 38.1 % (33.0-51.0); Hemoglobin 13.1 g/dL (11.5-16.0); IMMATURE GRAN ABSOLUTE AUTO 0.02 K/mm3 (0.00-0.10); IMMATURE GRAN PERCENT AUTO 0 % (0-1); LYMPHOCYTES ABSOLUTE AUTO 1.06 K/mm3 (0.84-5.20); LYMPHOCYTES PERCENT AUTO 14 % (21-46); MONOCYTES ABSOLUTE AUTO 0.31 K/mm3 (0.16-1.47); MONOCYTES PERCENT AUTO 4 % (4-13); Mean Corpuscular HGB 30.8 pg (26.0-34.0); Mean Corpuscular HGB Conc 34.4 g/dL (31.5-36.5); Mean Corpuscular Volume 90 fL (80-100); Mean Platelet Volume 10.2 fL (9.1-12.4); NEUTROPHILS ABSOLUTE AUTO 5.99 K/mm3 (1.96-9.15); NEUTROPHILS PERCENT AUTO 79 % (41-73); Platelet Count 250 K/mm3 (150-400); RDW Standard Deviation 42.6 fL (35.1-46.3); Red Blood Cell Count 4.25 M/mm3 (3.80-5.20); White Blood Cell Count 7.54 K/mm3 (4.00-11.30)
[2024-02-21 16:34] LABS: Albumin, Blood 3.4 g/dL (3.4-5.0); Albumin/Globulin Ratio 0.8 (0.8-1.8); Bilirubin, Total 0.2 mg/dL (0.1-1.0); Bun/Creatinine Ratio 20.7 (12.0-20.0); Calcium, Blood 8.9 mg/dL (8.5-10.1); Creatinine, Blood 0.92 mg/dL (0.40-1.00); Globulin, Blood 4.2 g/dL (2.2-4.0); Potassium, Blood 3.8 mmol/L (3.5-5.5); Total Protein, Blood 7.6 g/dL (6.4-8.2)
[2024-02-21 17:55] VITALS: BP 138/73
[2024-02-21] MEDS ORDERED: Ondansetron HCl 2 MG / ML 2ML Vial IV ONE (17:55)
[2024-02-21] MEDS ORDERED: Morphine Sulfate 4 MG/1 ML Injection IV ONE (17:55)
[2024-02-21] MEDS ORDERED: OxyCODONE 10/Acetamin 325 TABLET PO ONE (18:00)
[2024-02-21] MEDS ORDERED: Ondansetron 8 MG SoluTab SL ONE (18:00)
[2024-02-21] MEDS ORDERED: ACET500 PO (18:15)
[2024-02-21] MEDS ORDERED: ONDA4 PO (18:15)
== END 2024-02-21 18:44 | disposition home or self-care (01) ==
LOC: ER 13:47
PROVIDERS: Physician Assistant
DX: K80.20 Calculus of gallbladder without cholecystitis without obstruction (principal)
CPT/HCPCS: 76705; 80053; 83605; 83690; 85025; 96374; 96375; 99284-25; A9270; J2270; J2405

== ENCOUNTER 2024-02-28 03:10 | Day surgery (SDC) | payer OTHER | END 2024-02-28 16:03 | disposition home or self-care (01) | LOC: ATC 03:10 | DX: Z43.6 Encounter for attention to other artificial openings of urinary tract (principal); N13.9 Obstructive and reflux uropathy, unspecified; I12.9 Hypertensive chronic kidney disease with stage 1 through stage 4 chronic kidney disease, or unspecified chronic kidney disease; N18.2 Chronic kidney disease, stage 2 (mild); D63.1 Anemia in chronic kidney disease; E78.00 Pure hypercholesterolemia, unspecified; E55.9 Vitamin D deficiency, unspecified; Z79.899 Other long term (current) drug therapy | CPT/HCPCS: 99211 ==

== ENCOUNTER 2024-03-06 01:41 | Day surgery (SDC) | payer OTHER ==
[2024-03-06 15:25] VITALS: BP 124/73
== END 2024-03-06 15:30 | disposition home or self-care (01) ==
LOC: ATC 01:41
DX: Z43.6 Encounter for attention to other artificial openings of urinary tract (principal); N13.9 Obstructive and reflux uropathy, unspecified; I12.9 Hypertensive chronic kidney disease with stage 1 through stage 4 chronic kidney disease, or unspecified chronic kidney disease; N18.2 Chronic kidney disease, stage 2 (mild); D63.1 Anemia in chronic kidney disease; N25.81 Secondary hyperparathyroidism of renal origin; E78.00 Pure hypercholesterolemia, unspecified; Z79.899 Other long term (current) drug therapy
CPT/HCPCS: 99212

== ENCOUNTER 2024-03-13 03:26 | Day surgery (SDC) | payer OTHER | END 2024-03-13 16:03 | disposition home or self-care (01) | LOC: ATC 03:26 | DX: N13.9 Obstructive and reflux uropathy, unspecified (principal); I12.9 Hypertensive chronic kidney disease with stage 1 through stage 4 chronic kidney disease, or unspecified chronic kidney disease; N18.2 Chronic kidney disease, stage 2 (mild); E78.00 Pure hypercholesterolemia, unspecified | CPT/HCPCS: 99212 ==

== ENCOUNTER 2024-03-20 03:09 | Day surgery (SDC) | payer OTHER ==
[2024-03-20 15:46] VITALS: BP 122/63
== END 2024-03-20 16:02 | disposition home or self-care (01) ==
LOC: ATC 03:09
DX: Z43.6 Encounter for attention to other artificial openings of urinary tract (principal); N13.9 Obstructive and reflux uropathy, unspecified; I12.9 Hypertensive chronic kidney disease with stage 1 through stage 4 chronic kidney disease, or unspecified chronic kidney disease; N18.2 Chronic kidney disease, stage 2 (mild); D63.1 Anemia in chronic kidney disease; E78.00 Pure hypercholesterolemia, unspecified; E55.9 Vitamin D deficiency, unspecified; Z79.899 Other long term (current) drug therapy
CPT/HCPCS: 99212

== ENCOUNTER 2024-03-26 07:12 | Day surgery (SDC) | payer OTHER ==
[~2024-03-26] VITALS: Ht 149.9 cm; Wt 57.2 kg
[2024-03-26 08:26] VITALS: BP 143/88; BP 154/95
[2024-03-26] MEDS ORDERED: NS 250 ML IV ONE (11:52)
[2024-03-26] MEDS ORDERED: Heparin Sodium 1000 Units/ML 10ML MDV ONE (11:52)
[2024-03-26 12:36] VITALS: BP 124/87
[2024-03-26 13:00] VITALS: BP 122/82
--- NOTE | 2024-03-26 13:00 | NUR ---
PT AND VERBALIZED UNDERSTANDING OF WRITTEN AND VERBAL D/C INST. BILAT FLANK DRSG CDI. PT AMB OUT OF THE DEPARTMENT /S DIFFICULTY.
== END 2024-03-26 14:25 | disposition home or self-care (01) ==
LOC: MHTC 07:12 → ORSCMMR 07:13 → MHTC 07:19
DX: Z43.6 Encounter for attention to other artificial openings of urinary tract (principal); N13.1 Hydronephrosis with ureteral stricture, not elsewhere classified; Z96.0 Presence of urogenital implants
CPT/HCPCS: 50435; C1729; C1769; J1644; J7050; Q9967

== ENCOUNTER 2024-04-03 03:40 | Day surgery (SDC) | payer OTHER ==
[2024-04-03 15:48] VITALS: BP 138/86
== END 2024-04-03 16:03 | disposition home or self-care (01) ==
LOC: ATC 03:40
DX: Z43.6 Encounter for attention to other artificial openings of urinary tract (principal); N13.9 Obstructive and reflux uropathy, unspecified; I12.9 Hypertensive chronic kidney disease with stage 1 through stage 4 chronic kidney disease, or unspecified chronic kidney disease; N18.2 Chronic kidney disease, stage 2 (mild); N25.81 Secondary hyperparathyroidism of renal origin; D63.1 Anemia in chronic kidney disease; E78.00 Pure hypercholesterolemia, unspecified; Z79.899 Other long term (current) drug therapy
CPT/HCPCS: 99211

== ENCOUNTER 2024-04-17 04:37 | Day surgery (SDC) | payer OTHER | END 2024-04-17 15:44 | disposition home or self-care (01) | LOC: ATC 04:37 | DX: Z43.6 Encounter for attention to other artificial openings of urinary tract (principal); N13.9 Obstructive and reflux uropathy, unspecified | CPT/HCPCS: 99211 ==

== ENCOUNTER 2024-04-24 04:35 | Day surgery (SDC) | payer OTHER ==
[2024-04-24 15:30] VITALS: BP 128/80
== END 2024-04-24 15:45 | disposition home or self-care (01) ==
LOC: ATC 04:35
DX: N13.9 Obstructive and reflux uropathy, unspecified (principal); I12.9 Hypertensive chronic kidney disease with stage 1 through stage 4 chronic kidney disease, or unspecified chronic kidney disease; N18.2 Chronic kidney disease, stage 2 (mild); E78.00 Pure hypercholesterolemia, unspecified
CPT/HCPCS: 99212

== ENCOUNTER 2024-05-01 03:38 | Day surgery (SDC) | payer OTHER | END 2024-05-01 15:52 | disposition home or self-care (01) | LOC: ATC 03:38 | DX: Z43.6 Encounter for attention to other artificial openings of urinary tract (principal); N13.9 Obstructive and reflux uropathy, unspecified; I12.9 Hypertensive chronic kidney disease with stage 1 through stage 4 chronic kidney disease, or unspecified chronic kidney disease; N18.2 Chronic kidney disease, stage 2 (mild); D63.1 Anemia in chronic kidney disease; E78.00 Pure hypercholesterolemia, unspecified; N25.81 Secondary hyperparathyroidism of renal origin; Z79.899 Other long term (current) drug therapy | CPT/HCPCS: 99213 ==

== ENCOUNTER 2024-05-08 03:46 | Day surgery (SDC) | payer OTHER ==
[2024-05-08 15:20] VITALS: BP 122/77
== END 2024-05-08 15:45 | disposition home or self-care (01) ==
LOC: ATC 03:46
DX: Z43.6 Encounter for attention to other artificial openings of urinary tract (principal); N13.9 Obstructive and reflux uropathy, unspecified; I12.9 Hypertensive chronic kidney disease with stage 1 through stage 4 chronic kidney disease, or unspecified chronic kidney disease; N18.2 Chronic kidney disease, stage 2 (mild); E78.00 Pure hypercholesterolemia, unspecified
CPT/HCPCS: 99211

== ENCOUNTER 2024-05-15 00:40 | Day surgery (SDC) | payer OTHER ==
[2024-05-15 15:42] VITALS: BP 114/71
== END 2024-05-15 16:00 | disposition home or self-care (01) ==
LOC: ATC 00:40
DX: Z43.6 Encounter for attention to other artificial openings of urinary tract (principal); N13.9 Obstructive and reflux uropathy, unspecified; I12.9 Hypertensive chronic kidney disease with stage 1 through stage 4 chronic kidney disease, or unspecified chronic kidney disease; N18.2 Chronic kidney disease, stage 2 (mild); D63.1 Anemia in chronic kidney disease; N25.81 Secondary hyperparathyroidism of renal origin; E78.00 Pure hypercholesterolemia, unspecified; Z79.899 Other long term (current) drug therapy
CPT/HCPCS: 99211

== ENCOUNTER 2024-05-22 03:12 | Day surgery (SDC) | payer OTHER ==
[2024-05-22 15:38] VITALS: BP 122/70
== END 2024-05-22 15:53 | disposition home or self-care (01) ==
LOC: ATC 03:12
DX: Z43.6 Encounter for attention to other artificial openings of urinary tract (principal); N13.9 Obstructive and reflux uropathy, unspecified; I12.9 Hypertensive chronic kidney disease with stage 1 through stage 4 chronic kidney disease, or unspecified chronic kidney disease; N18.2 Chronic kidney disease, stage 2 (mild); E78.00 Pure hypercholesterolemia, unspecified
CPT/HCPCS: 99212

== ENCOUNTER 2024-05-29 02:48 | Day surgery (SDC) | payer OTHER | END 2024-05-29 16:17 | disposition home or self-care (01) | LOC: ATC 02:48 | DX: Z43.6 Encounter for attention to other artificial openings of urinary tract (principal); N13.9 Obstructive and reflux uropathy, unspecified; I12.9 Hypertensive chronic kidney disease with stage 1 through stage 4 chronic kidney disease, or unspecified chronic kidney disease; N18.2 Chronic kidney disease, stage 2 (mild); N25.81 Secondary hyperparathyroidism of renal origin; E55.9 Vitamin D deficiency, unspecified; E78.00 Pure hypercholesterolemia, unspecified; Z79.899 Other long term (current) drug therapy | CPT/HCPCS: 99212 ==

== ENCOUNTER 2024-06-05 03:13 | Day surgery (SDC) | payer OTHER ==
[2024-06-05 15:38] VITALS: BP 112/68
== END 2024-06-05 15:44 | disposition home or self-care (01) ==
LOC: ATC 03:13
DX: Z43.6 Encounter for attention to other artificial openings of urinary tract (principal); N13.9 Obstructive and reflux uropathy, unspecified; I12.9 Hypertensive chronic kidney disease with stage 1 through stage 4 chronic kidney disease, or unspecified chronic kidney disease; N18.2 Chronic kidney disease, stage 2 (mild); D63.1 Anemia in chronic kidney disease; N25.81 Secondary hyperparathyroidism of renal origin; Z79.899 Other long term (current) drug therapy
CPT/HCPCS: 99211

== ENCOUNTER 2024-06-12 03:39 | Day surgery (SDC) | payer OTHER | END 2024-06-12 15:48 | disposition home or self-care (01) | LOC: ATC 03:39 | DX: Z43.6 Encounter for attention to other artificial openings of urinary tract (principal); N13.9 Obstructive and reflux uropathy, unspecified; I12.9 Hypertensive chronic kidney disease with stage 1 through stage 4 chronic kidney disease, or unspecified chronic kidney disease; N18.9 Chronic kidney disease, unspecified; N25.81 Secondary hyperparathyroidism of renal origin; E78.00 Pure hypercholesterolemia, unspecified | CPT/HCPCS: 99212 ==

== ENCOUNTER 2024-06-19 02:23 | Day surgery (SDC) | payer OTHER ==
[2024-06-19 15:25] VITALS: BP 121/79
== END 2024-06-19 15:31 | disposition home or self-care (01) ==
LOC: ATC 02:23
DX: Z43.6 Encounter for attention to other artificial openings of urinary tract (principal); N13.9 Obstructive and reflux uropathy, unspecified; I12.9 Hypertensive chronic kidney disease with stage 1 through stage 4 chronic kidney disease, or unspecified chronic kidney disease; N18.2 Chronic kidney disease, stage 2 (mild); E78.00 Pure hypercholesterolemia, unspecified; Z79.899 Other long term (current) drug therapy
CPT/HCPCS: 99212

== ENCOUNTER 2024-07-17 00:21 | Day surgery (SDC) | payer OTHER ==
[2024-07-17 15:45] VITALS: BP 133/82
== END 2024-07-17 16:01 | disposition home or self-care (01) ==
LOC: ATC 00:21
DX: Z43.6 Encounter for attention to other artificial openings of urinary tract (principal); N13.9 Obstructive and reflux uropathy, unspecified; E78.00 Pure hypercholesterolemia, unspecified; I12.9 Hypertensive chronic kidney disease with stage 1 through stage 4 chronic kidney disease, or unspecified chronic kidney disease; N18.2 Chronic kidney disease, stage 2 (mild); Z79.899 Other long term (current) drug therapy
CPT/HCPCS: 99212

== ENCOUNTER 2024-08-07 03:27 | Day surgery (SDC) | payer OTHER | END 2024-08-07 15:59 | disposition home or self-care (01) | LOC: ATC 03:27 | DX: Z43.6 Encounter for attention to other artificial openings of urinary tract (principal); N13.9 Obstructive and reflux uropathy, unspecified; I12.9 Hypertensive chronic kidney disease with stage 1 through stage 4 chronic kidney disease, or unspecified chronic kidney disease; N18.2 Chronic kidney disease, stage 2 (mild); E78.00 Pure hypercholesterolemia, unspecified | CPT/HCPCS: 99212 ==

== ENCOUNTER 2024-08-13 08:13 | Day surgery (SDC) | payer OTHER ==
[2024-08-13 13:05] VITALS: BP 123/73
== END 2024-08-13 13:14 | disposition home or self-care (01) ==
LOC: ATC 08:13
DX: Z43.6 Encounter for attention to other artificial openings of urinary tract (principal); N13.9 Obstructive and reflux uropathy, unspecified; I12.9 Hypertensive chronic kidney disease with stage 1 through stage 4 chronic kidney disease, or unspecified chronic kidney disease; N18.2 Chronic kidney disease, stage 2 (mild); N25.81 Secondary hyperparathyroidism of renal origin; D63.1 Anemia in chronic kidney disease; E86.9 Volume depletion, unspecified; E78.00 Pure hypercholesterolemia, unspecified; Z79.899 Other long term (current) drug therapy
CPT/HCPCS: 99211

== ENCOUNTER 2024-08-21 01:51 | Day surgery (SDC) | payer OTHER ==
[2024-08-21 15:15] VITALS: BP 122/66
== END 2024-08-21 15:22 | disposition home or self-care (01) ==
LOC: ATC 01:51
DX: Z43.6 Encounter for attention to other artificial openings of urinary tract (principal); N13.9 Obstructive and reflux uropathy, unspecified; N18.2 Chronic kidney disease, stage 2 (mild); N25.81 Secondary hyperparathyroidism of renal origin; I12.9 Hypertensive chronic kidney disease with stage 1 through stage 4 chronic kidney disease, or unspecified chronic kidney disease; D63.1 Anemia in chronic kidney disease; Z79.899 Other long term (current) drug therapy
CPT/HCPCS: 99212

== ENCOUNTER 2024-08-28 06:17 | Day surgery (SDC) | payer OTHER ==
[2024-08-28 15:11] VITALS: BP 119/83
== END 2024-08-28 15:21 | disposition home or self-care (01) ==
LOC: ATC 06:17
DX: Z43.6 Encounter for attention to other artificial openings of urinary tract (principal); N13.9 Obstructive and reflux uropathy, unspecified; I12.9 Hypertensive chronic kidney disease with stage 1 through stage 4 chronic kidney disease, or unspecified chronic kidney disease; N18.2 Chronic kidney disease, stage 2 (mild); D63.1 Anemia in chronic kidney disease; N25.81 Secondary hyperparathyroidism of renal origin; Z79.899 Other long term (current) drug therapy
CPT/HCPCS: 99211

== ENCOUNTER 2024-09-04 02:59 | Day surgery (SDC) | payer OTHER ==
[2024-09-04 15:06] VITALS: BP 114/78
== END 2024-09-04 15:16 | disposition home or self-care (01) ==
LOC: ATC 02:59
DX: Z43.6 Encounter for attention to other artificial openings of urinary tract (principal); N13.9 Obstructive and reflux uropathy, unspecified; I12.9 Hypertensive chronic kidney disease with stage 1 through stage 4 chronic kidney disease, or unspecified chronic kidney disease; N18.2 Chronic kidney disease, stage 2 (mild); D63.1 Anemia in chronic kidney disease; N25.81 Secondary hyperparathyroidism of renal origin; E86.9 Volume depletion, unspecified; D50.9 Iron deficiency anemia, unspecified; Z79.899 Other long term (current) drug therapy
CPT/HCPCS: 99211

== ENCOUNTER 2024-09-11 03:52 | Day surgery (SDC) | payer OTHER ==
[2024-09-11 15:27] VITALS: BP 110/68
== END 2024-09-11 15:29 | disposition home or self-care (01) ==
LOC: ATC 03:52
DX: Z43.6 Encounter for attention to other artificial openings of urinary tract (principal); N13.9 Obstructive and reflux uropathy, unspecified
CPT/HCPCS: 99211

== ENCOUNTER 2024-10-01 08:01 | Day surgery (SDC) | payer OTHER ==
[~2024-10-01] VITALS: Ht 149.9 cm; Wt 58.5 kg
[2024-10-01 08:23] VITALS: BP 135/84
[2024-10-01 08:30] VITALS: BP 152/84
[2024-10-01] MEDS ORDERED: NS 250 ML IV ONE (10:01)
[2024-10-01 10:48] VITALS: BP 158/79
--- NOTE | 2024-10-01 10:50 | NUR ---
PATIENT ARRIVED BACK TO RECOVERY ROOM SITTING UPRIGHT IN BED. BILATERAL NEPH TUBES IN PLACE, DRAINING WNL. SITES C/D/I. VSS ON RA. DISCHARGE INSTRUCTIONS REVIEWED WITH PATIENT, ALL QUESTIONS WERE ANSWERED. NO SEDATION GIVEN., SPOUSE PRESENT AT BEDSIDE. PATIENT WHEELED TO HOSPITAL ENTRANCE AND SPOUSE ABLE TO PROVIDE TRANSPORTATION HOME.
== END 2024-10-01 11:48 | disposition home or self-care (01) ==
LOC: MHTC 08:01
DX: Z46.6 Encounter for fitting and adjustment of urinary device (principal); N13.1 Hydronephrosis with ureteral stricture, not elsewhere classified; Z85.41 Personal history of malignant neoplasm of cervix uteri; Z79.899 Other long term (current) drug therapy; Z93.6 Other artificial openings of urinary tract status
CPT/HCPCS: 50435; C1729; C1769; J7050; Q9967

== ENCOUNTER 2024-10-09 01:29 | Day surgery (SDC) | payer OTHER ==
[2024-10-09 15:49] VITALS: BP 130/79
== END 2024-10-09 15:49 | disposition home or self-care (01) ==
LOC: ATC 01:29
DX: Z43.6 Encounter for attention to other artificial openings of urinary tract (principal); N13.9 Obstructive and reflux uropathy, unspecified; I12.9 Hypertensive chronic kidney disease with stage 1 through stage 4 chronic kidney disease, or unspecified chronic kidney disease; N18.2 Chronic kidney disease, stage 2 (mild); N25.81 Secondary hyperparathyroidism of renal origin; D63.1 Anemia in chronic kidney disease; E78.00 Pure hypercholesterolemia, unspecified; Z79.899 Other long term (current) drug therapy
CPT/HCPCS: 99212

== ENCOUNTER 2024-10-16 03:40 | Day surgery (SDC) | payer OTHER ==
[2024-10-16 15:57] VITALS: BP 116/73
== END 2024-10-16 16:08 | disposition home or self-care (01) ==
LOC: ATC 03:40
DX: Z43.6 Encounter for attention to other artificial openings of urinary tract (principal); N13.9 Obstructive and reflux uropathy, unspecified; I12.9 Hypertensive chronic kidney disease with stage 1 through stage 4 chronic kidney disease, or unspecified chronic kidney disease; N18.2 Chronic kidney disease, stage 2 (mild); D63.1 Anemia in chronic kidney disease; N25.81 Secondary hyperparathyroidism of renal origin; E78.00 Pure hypercholesterolemia, unspecified; Z79.899 Other long term (current) drug therapy
CPT/HCPCS: 99211

== ENCOUNTER 2024-10-23 09:39 | Day surgery (SDC) | payer OTHER ==
[2024-10-23 15:18] VITALS: BP 128/68
== END 2024-10-23 15:25 | disposition home or self-care (01) ==
LOC: ATC 09:39
DX: Z43.6 Encounter for attention to other artificial openings of urinary tract (principal); N13.9 Obstructive and reflux uropathy, unspecified; I12.9 Hypertensive chronic kidney disease with stage 1 through stage 4 chronic kidney disease, or unspecified chronic kidney disease; N18.2 Chronic kidney disease, stage 2 (mild); N25.81 Secondary hyperparathyroidism of renal origin; D63.1 Anemia in chronic kidney disease; Z79.899 Other long term (current) drug therapy
CPT/HCPCS: 99212

== ENCOUNTER 2024-10-30 00:35 | Day surgery (SDC) | payer OTHER ==
[2024-10-30 15:43] VITALS: BP 124/79
== END 2024-10-30 16:08 | disposition home or self-care (01) ==
LOC: ATC 00:35
DX: Z43.6 Encounter for attention to other artificial openings of urinary tract (principal); N13.9 Obstructive and reflux uropathy, unspecified; I12.9 Hypertensive chronic kidney disease with stage 1 through stage 4 chronic kidney disease, or unspecified chronic kidney disease; N18.2 Chronic kidney disease, stage 2 (mild); D63.1 Anemia in chronic kidney disease; N25.81 Secondary hyperparathyroidism of renal origin; E78.00 Pure hypercholesterolemia, unspecified; E55.9 Vitamin D deficiency, unspecified; Z79.899 Other long term (current) drug therapy; Z90.5 Acquired absence of kidney
CPT/HCPCS: 99212

== ENCOUNTER 2024-11-06 00:16 | Day surgery (SDC) | payer OTHER | END 2024-11-06 15:40 | disposition home or self-care (01) | LOC: ATC 00:16 | DX: Z43.6 Encounter for attention to other artificial openings of urinary tract (principal); N13.9 Obstructive and reflux uropathy, unspecified; I12.9 Hypertensive chronic kidney disease with stage 1 through stage 4 chronic kidney disease, or unspecified chronic kidney disease; N18.2 Chronic kidney disease, stage 2 (mild); D63.1 Anemia in chronic kidney disease; N25.81 Secondary hyperparathyroidism of renal origin; Z79.899 Other long term (current) drug therapy | CPT/HCPCS: 99211 ==

== ENCOUNTER 2024-11-13 07:47 | Day surgery (SDC) | payer OTHER ==
[2024-11-13 14:57] VITALS: BP 129/77
== END 2024-11-13 15:08 | disposition home or self-care (01) ==
LOC: ATC 07:47
DX: N13.9 Obstructive and reflux uropathy, unspecified (principal); Z43.6 Encounter for attention to other artificial openings of urinary tract; I12.9 Hypertensive chronic kidney disease with stage 1 through stage 4 chronic kidney disease, or unspecified chronic kidney disease; N18.2 Chronic kidney disease, stage 2 (mild); D63.1 Anemia in chronic kidney disease; E78.00 Pure hypercholesterolemia, unspecified; N25.81 Secondary hyperparathyroidism of renal origin
CPT/HCPCS: 99211

== ENCOUNTER 2024-11-27 08:31 | Day surgery (SDC) | payer OTHER | END 2024-11-27 15:41 | disposition home or self-care (01) | LOC: ATC 08:31 | DX: Z43.6 Encounter for attention to other artificial openings of urinary tract (principal); N13.9 Obstructive and reflux uropathy, unspecified; I12.9 Hypertensive chronic kidney disease with stage 1 through stage 4 chronic kidney disease, or unspecified chronic kidney disease; N18.2 Chronic kidney disease, stage 2 (mild); D63.1 Anemia in chronic kidney disease; N25.81 Secondary hyperparathyroidism of renal origin; E78.00 Pure hypercholesterolemia, unspecified | CPT/HCPCS: 99211 ==

== ENCOUNTER 2024-12-04 01:07 | Day surgery (SDC) | payer OTHER | END 2024-12-04 15:47 | disposition home or self-care (01) | LOC: ATC 01:07 | DX: Z43.6 Encounter for attention to other artificial openings of urinary tract (principal); N13.9 Obstructive and reflux uropathy, unspecified; I12.9 Hypertensive chronic kidney disease with stage 1 through stage 4 chronic kidney disease, or unspecified chronic kidney disease; N18.2 Chronic kidney disease, stage 2 (mild); D63.1 Anemia in chronic kidney disease; E78.00 Pure hypercholesterolemia, unspecified; N25.81 Secondary hyperparathyroidism of renal origin; E55.9 Vitamin D deficiency, unspecified; Z79.899 Other long term (current) drug therapy | CPT/HCPCS: 99211 ==

== ENCOUNTER 2024-12-11 15:27 | Day surgery (SDC) | payer OTHER ==
[2024-12-11 15:31] VITALS: BP 122/52
== END 2024-12-11 15:39 | disposition home or self-care (01) ==
LOC: ATC 15:27
DX: Z43.6 Encounter for attention to other artificial openings of urinary tract (principal); N13.9 Obstructive and reflux uropathy, unspecified; I12.9 Hypertensive chronic kidney disease with stage 1 through stage 4 chronic kidney disease, or unspecified chronic kidney disease; N18.2 Chronic kidney disease, stage 2 (mild); D63.1 Anemia in chronic kidney disease; N25.81 Secondary hyperparathyroidism of renal origin; E55.9 Vitamin D deficiency, unspecified; Z79.899 Other long term (current) drug therapy
CPT/HCPCS: 99211

== ENCOUNTER 2024-12-18 15:11 | Day surgery (SDC) | payer OTHER ==
[2024-12-18 15:32] VITALS: BP 124/64
== END 2024-12-18 15:46 | disposition home or self-care (01) ==
LOC: ATC 15:11
DX: Z43.6 Encounter for attention to other artificial openings of urinary tract (principal); N13.9 Obstructive and reflux uropathy, unspecified; I12.9 Hypertensive chronic kidney disease with stage 1 through stage 4 chronic kidney disease, or unspecified chronic kidney disease; N18.2 Chronic kidney disease, stage 2 (mild); D63.1 Anemia in chronic kidney disease; N25.81 Secondary hyperparathyroidism of renal origin; E55.9 Vitamin D deficiency, unspecified; Z79.899 Other long term (current) drug therapy
CPT/HCPCS: 99211

== ENCOUNTER 2025-01-01 01:32 | Day surgery (SDC) | payer OTHER ==
[2025-01-01 15:17] VITALS: BP 123/75
== END 2025-01-01 15:26 | disposition home or self-care (01) ==
LOC: ATC 01:32
DX: Z43.6 Encounter for attention to other artificial openings of urinary tract (principal); N13.9 Obstructive and reflux uropathy, unspecified; I12.9 Hypertensive chronic kidney disease with stage 1 through stage 4 chronic kidney disease, or unspecified chronic kidney disease; N18.2 Chronic kidney disease, stage 2 (mild); D63.1 Anemia in chronic kidney disease; N25.81 Secondary hyperparathyroidism of renal origin; E78.00 Pure hypercholesterolemia, unspecified; Z79.899 Other long term (current) drug therapy
CPT/HCPCS: 99211

== ENCOUNTER 2025-01-08 15:29 | Day surgery (SDC) | payer OTHER ==
[2025-01-08 15:30] VITALS: BP 111/75
== END 2025-01-08 15:48 | disposition home or self-care (01) ==
LOC: ATC 15:29
DX: N13.9 Obstructive and reflux uropathy, unspecified (principal); Z43.6 Encounter for attention to other artificial openings of urinary tract; I12.9 Hypertensive chronic kidney disease with stage 1 through stage 4 chronic kidney disease, or unspecified chronic kidney disease; N18.2 Chronic kidney disease, stage 2 (mild); E78.00 Pure hypercholesterolemia, unspecified; N25.81 Secondary hyperparathyroidism of renal origin
CPT/HCPCS: 99211

== ENCOUNTER 2025-01-15 03:40 | Day surgery (SDC) | payer OTHER ==
[2025-01-15 15:21] VITALS: BP 139/54
== END 2025-01-15 15:40 | disposition home or self-care (01) ==
LOC: ATC 03:40
DX: Z43.6 Encounter for attention to other artificial openings of urinary tract (principal); N13.9 Obstructive and reflux uropathy, unspecified; I12.9 Hypertensive chronic kidney disease with stage 1 through stage 4 chronic kidney disease, or unspecified chronic kidney disease; N18.2 Chronic kidney disease, stage 2 (mild); D63.1 Anemia in chronic kidney disease; N25.81 Secondary hyperparathyroidism of renal origin; E78.00 Pure hypercholesterolemia, unspecified; Z79.899 Other long term (current) drug therapy
CPT/HCPCS: 99211

== ENCOUNTER 2025-01-22 06:34 | Day surgery (SDC) | payer OTHER ==
[2025-01-22 15:37] VITALS: BP 121/72
== END 2025-01-22 15:50 | disposition home or self-care (01) ==
LOC: ATC 06:34
DX: Z43.6 Encounter for attention to other artificial openings of urinary tract (principal); N13.9 Obstructive and reflux uropathy, unspecified; I12.9 Hypertensive chronic kidney disease with stage 1 through stage 4 chronic kidney disease, or unspecified chronic kidney disease; N18.2 Chronic kidney disease, stage 2 (mild); N25.81 Secondary hyperparathyroidism of renal origin; E78.00 Pure hypercholesterolemia, unspecified
CPT/HCPCS: 99211

== ENCOUNTER 2025-02-05 02:49 | Day surgery (SDC) | payer OTHER ==
[2025-02-05 15:31] VITALS: BP 132/88
== END 2025-02-05 15:41 | disposition home or self-care (01) ==
LOC: ATC 02:49
DX: Z43.6 Encounter for attention to other artificial openings of urinary tract (principal); N13.9 Obstructive and reflux uropathy, unspecified; I12.9 Hypertensive chronic kidney disease with stage 1 through stage 4 chronic kidney disease, or unspecified chronic kidney disease; N18.2 Chronic kidney disease, stage 2 (mild); N25.81 Secondary hyperparathyroidism of renal origin; D63.1 Anemia in chronic kidney disease; E78.00 Pure hypercholesterolemia, unspecified; E55.9 Vitamin D deficiency, unspecified; Z79.899 Other long term (current) drug therapy
CPT/HCPCS: 99211